=== PATIENT | male | born 1960 | race Two or more races ===

== ENCOUNTER 2017-11-27 22:18 | Emergency (ER) | payer SELFPAY ==
[2017-11-27 23:04] LABS: ADD MAN DIFF? NO
[2017-11-27 23:08] LABS: BASO % 0 % (0-3); EOS % 1 % (0-3); HEMATOCRIT 39.4 % (39.0-53.0); HEMOGLOBIN 13.8 g/dL (13.0-17.5); LYMPH # 0.7 x10^3/uL (1.0-4.8); LYMPH % 14 % (24-48); MEAN CORPUSCULAR HEMOGLOBIN 33 pg (25-35); MEAN CORPUSCULAR HGB CONC 35 g/dL (31-37); MEAN CORPUSCULAR VOLUME 93 fL (79-100); MONO # 0.6 x10^3/uL (0.0-1.1); MONO % 11 % (0-9); NEUT # 3.9 x10^3uL (1.8-7.7); NEUT % 74 % (31-73); PLATELET COUNT 142 x10^3/uL (140-400); RED BLOOD COUNT 4.25 x10^6/uL (4.30-5.70); RED CELL DISTRIBUTION WIDTH 13.9 % (11.5-14.5); WHITE BLOOD COUNT 5.2 x10^3/uL (4.0-11.0)
[2017-11-27 23:14] LABS: BILIRUBIN,URINE NEGATIVE (NEG); CLARITY,URINE CLEAR; COLOR,URINE YELLOW; GLUCOSE,URINE >=1000 mg/dL (NEG); NITRITE,URINE NEGATIVE (NEG); PH,URINE 5.5; PROTEIN,URINE NEGATIVE (NEG-TRACE); UROBILINOGEN,URINE 0.2 mg/dL (0.2 mg/dL)
[2017-11-27 23:18] LABS: ANION GAP 11 (6-14); BACTERIA,URINE 0 /HPF (0-FEW); BLOOD UREA NITROGEN 6 mg/dL (8-26); BUN/CREATININE RATIO 8 (6-20); CALCIUM 9.6 mg/dL (8.5-10.1); CARBON DIOXIDE 26 mmol/L (21-32); CHLORIDE 101 mmol/L (98-107); CREATININE 0.8 mg/dL (0.7-1.3); GLUCOSE 196 mg/dL (70-99); POTASSIUM 3.6 mmol/L (3.5-5.1); RBC,URINE 0 /HPF (0-2); SODIUM 138 mmol/L (136-145); WBC,URINE 0 /HPF (0-4)
[2017-11-27 23:23] LABS: ALBUMIN 3.7 g/dL (3.4-5.0); ALBUMIN/GLOBULIN RATIO 0.8 (1.0-1.7); ALK PHOS 115 U/L (46-116); ALT (SGPT) 58 U/L (16-63); AST (SGOT) 48 U/L (15-37); TOTAL BILIRUBIN 0.6 mg/dL (0.2-1.0); TOTAL PROTEIN 8.2 g/dL (6.4-8.2)
[2017-11-27] MEDS ORDERED: CONTRAST GIVEN. MC (23:45)
[2017-11-28] MEDS: IOHEXOL 300 MG/ML 100ML VIAL. IV (00:02)
== END 2017-11-28 00:13 | disposition home or self-care (01) ==
LOC: ER 11-28 00:13
DX: R30.0 Dysuria (principal); R10.84 Generalized abdominal pain; N40.0 Benign prostatic hyperplasia without lower urinary tract symptoms
CPT/HCPCS: 36415; 74177; 80053; 81001; 85025; 99285-25; Q9967

== ENCOUNTER 2018-03-04 11:16 | Inpatient (IN) | payer SELFPAY ==
[~2018-03-04] VITALS: Ht 170.2 cm; Wt 77.1 kg
[~2018-03-04 11:16] MED LIST: CIPR500T94 PO; LEVO500T59 PO; METR500T PO; TAMS0.4C97 PO
[2018-03-04] MEDS ORDERED: IV NORMAL SALINE 1000ML BAG 1,000 ML IV ONE ×2 (11:45→13:45)
[2018-03-04 12:07] LABS: BASO % 1 % (0-3); EOS # 0.1 x10^3/uL (0.0-0.7); EOS % 1 % (0-3); HEMOGLOBIN 13.9 g/dL (13.0-17.5); LYMPH # 1.4 x10^3/uL (1.0-4.8); LYMPH % 37 % (24-48); MEAN CORPUSCULAR HEMOGLOBIN 33 pg (25-35); MEAN CORPUSCULAR HGB CONC 36 g/dL (31-37); MEAN CORPUSCULAR VOLUME 94 fL (79-100); MONO # 0.5 x10^3/uL (0.0-1.1); MONO % 12 % (0-9); NEUT # 1.9 x10^3uL (1.8-7.7); NEUT % 49 % (31-73); PLATELET COUNT 149 x10^3/uL (140-400); RED BLOOD COUNT 4.16 x10^6/uL (4.30-5.70); RED CELL DISTRIBUTION WIDTH 13.2 % (11.5-14.5); WHITE BLOOD COUNT 3.9 x10^3/uL (4.0-11.0)
[2018-03-04 12:08] LABS: CLARITY,URINE TURBID; COLOR,URINE RED; PROTEIN,URINE >=300 mg/dL (NEG-TRACE); UROBILINOGEN,URINE >=8.0 mg/dL (0.2 mg/dL)
[2018-03-04 12:13] LABS: CALCIUM 8.7 mg/dL (8.5-10.1); CREATININE 0.7 mg/dL (0.7-1.3); GFR 116.7; POTASSIUM 3.8 mmol/L (3.5-5.1)
[2018-03-04 12:18] LABS: RBC,URINE TNTC /HPF (0-2)
[2018-03-04 12:19] LABS: BACTERIA,URINE FEW /HPF (0-FEW)
--- NOTE | 2018-03-04 12:24 | PHYS DOC ---
Past Medical History Past Medical History: Diabetes-Type II, Other Additional Past Medical Histor: BLOOD IN URINE Past Surgical History: No Surgical History Alcohol Use: Occasionally Drug Use: None Adult General Chief Complaint Chief Complaint: BLOOD IN URINE HPI HPI Patient is a 57 year old male who presents with hematuria and lower abdominal pain. Patient had onset of symptoms this morning. He describes 2 episodes of graciela blood in his urine. He does not have dysuria or urinary frequency but he does complain of some pelvic pain. No fever or chills. Patient had been evaluated in this emergency department 5 months earlier for similar presentation. He was referred to see urology but patient was unable to due to lack of financial means. The patient does not have prior history of tobacco use. Review of Systems Review of Systems Constitutional: Denies fever or chills [] Eyes: Denies change in visual acuity, redness, or eye pain [] HENT: Denies nasal congestion or sore throat [] Respiratory: Denies cough or shortness of breath [] Cardiovascular: No additional information not addressed in HPI [] GI: Denies abdominal pain, nausea, vomiting, bloody stools or diarrhea [] : Denies dysuria or hematuria [] Musculoskeletal: Denies back pain or joint pain [] Integument: Denies rash or skin lesions [] Neurologic: Denies headache, focal weakness or sensory changes [] Endocrine: Denies polyuria or polydipsia [] All other systems were reviewed and found to be within normal limits, except as documented in this note. Current Medications Current Medications Current Medications Medications (Trade) Dose Ordered Sig/Itz Start Time Stop Time Status Last Admin Dose Admin Acetaminophen (Tylenol) 650 mg PRN Q4HRS PRN 03/04/18 14:15 03/05/18 14:14 Info (CONTRAST GIVEN -- Rx MONITORING) 1 each PRN DAILY PRN 03/04/18 12:45 03/06/18 12:44 Iohexol (Omnipaque 300 Mg/ml) 75 ml 1X ONCE 03/04/18 12:30 03/04/18 12:36 DC Morphine Sulfate (Morphine Sulfate) 4 mg PRN Q2HR PRN 03/04/18 14:15 03/05/18 14:14 Ondansetron HCl (Zofran) 4 mg PRN Q8HRS PRN 03/04/18 14:15 03/05/18 14:14 Sodium Chloride 1,000 ml @ 75 mls/hr [id number] 03/04/18 14:11 03/05/18 14:10 Allergies Allergies Allergies Coded Allergies Type Severity Reaction Last Updated Verified No Known Drug Allergies 02/01/16 No Physical Exam Physical Exam Constitutional: Well developed, well nourished, no acute distress, non-toxic appearance HENT: Normocephalic, atraumatic, bilateral external ears normal, oropharynx moist Eyes: PERRLA, EOMI Neck: Normal range of motion Cardiovascular:Heart rate regular rhythm Lungs & Thorax: Bilateral breath sounds clear Abdomen: Bowel sounds normal, soft, nontender Skin: Warm, dry, no erythema, no rash Back: No tenderness Extremities: No tenderness Neurologic: Alert and oriented X 3 Psychologic: Affect normal Genital exam: Normal male genitalia with uncircumcised phallus. 2 descended testicles that are nontender to manipulation. There is blood at the meatus. no masses or hernias palpated. Current Patient Data Vital Signs Vital Signs Date Time Temp Pulse Resp B/P (MAP) Pulse Ox O2 Delivery O2 Flow Rate FiO2 03/04/18 11:21 98.1 94 18 162/95 (117) 97 Room Air 98.1 Lab Values Laboratory Tests Test 03/04/18 11:35 03/04/18 11:59 Urine Collection Type Void Urine Color Red Urine Clarity Turbid Urine pH 5.0 Urine Specific [place] 1.025 Urine Protein >=300 mg/dL (NEG-TRACE) Urine Glucose (UA) 250 mg/dL (NEG) Urine Ketones (Stick) mg/dL (NEG) Urine Blood Large (NEG) Urine Nitrite (NEG) Urine Bilirubin (NEG) Urine Urobilinogen Dipstick >=8.0 mg/dL (0.2 mg/dL) Urine Leukocyte Esterase (NEG) Urine RBC Tntc /HPF (0-2) Urine WBC 5-10 /HPF (0-4) Urine Bacteria Few /HPF (0-FEW) White Blood Count 3.9 x10^3/uL (4.0-11.0) L Red Blood Count 4.16 x10^6/uL (4.30-5.70) L Hemoglobin 13.9 g/dL (13.0-17.5) Hematocrit 39.0 % (39.0-53.0) Mean Corpuscular Volume 94 fL (79-100) Mean Corpuscular Hemoglobin 33 pg (25-35) Mean Corpuscular Hemoglobin Concent 36 g/dL (31-37) Red Cell Distribution Width 13.2 % (11.5-14.5) Platelet Count 149 x10^3/uL (140-400) Neutrophils (%) (Auto) 49 % (31-73) Lymphocytes (%) (Auto) 37 % (24-48) Monocytes (%) (Auto) 12 % (0-9) H Eosinophils (%) (Auto) 1 % (0-3) Basophils (%) (Auto) 1 % (0-3) Neutrophils # (Auto) 1.9 x10^3uL (1.8-7.7) Lymphocytes # (Auto) 1.4 x10^3/uL (1.0-4.8) Monocytes # (Auto) 0.5 x10^3/uL (0.0-1.1) Eosinophils # (Auto) 0.1 x10^3/uL (0.0-0.7) Basophils # (Auto) 0.0 x10^3/uL (0.0-0.2) Sodium Level 141 mmol/L (136-145) Potassium Level 3.8 mmol/L (3.5-5.1) Chloride Level 105 mmol/L (98-107) Carbon Dioxide Level 24 mmol/L (21-32) Anion Gap 12 (6-14) Blood Urea Nitrogen 7 mg/dL (8-26) L Creatinine 0.7 mg/dL (0.7-1.3) Estimated GFR (Cockcroft-Gault) 116.7 Glucose Level 150 mg/dL (70-99) H Calcium Level 8.7 mg/dL (8.5-10.1) Laboratory Tests 03/04/18 11:59 Laboratory Tests 03/04/18 11:59 EKG EKG [] Radiology/Procedures Radiology/Procedures Findings: Axial images of the abdomen and pelvis were obtained following 75 cc Omnipaque 300 IV. Sagittal and coronal reformatted images were provided. Visualized lung bases are clear. Fatty infiltration of the liver noted. Gallbladder fossa is unremarkable. Spleen is normal. Adrenal glands are normal. Pancreas is normal. Right extrarenal pelvis is noted. Diverticulosis of the colon is present. Appendix is normal. No ascites or pelvic free fluid. Left inguinal hernia contains omental fat. Urinary bladder is moderately distended. There is an intermediate heterogeneous density structure within the dependent aspect of the urinary bladder measuring 2.4 cm longitudinal by 7.1 cm transverse by 6 cm anteroposterior. Prostate gland is enlarged measuring up to 6.6 cm x 6 cm x 6.5 cm longitudinal. Multiple sclerotic densities are present involving the thoracic and lumbar spine. Sclerotic densities are also evident throughout the bony pelvis and proximal femora. These mostly measure less than 0.5 cm diameter. At the right intertrochanteric region a sclerotic lesion measuring up to 1.6 cm diameter is present. Diffuse sclerotic lesion involving the left ilium at the sacroiliac joint measuring up to 2.6 cm diameter is present. Impression: Intermediate density structure within the urinary bladder. This may represent a mass or hematoma. Moderate distention of the urinary bladder. Prostatomegaly. Multiple sclerotic bony lesions are diffusely evident. Possibility of sclerotic metastases due to prostate carcinoma is raised in this patient prostatomegaly. Further evaluation is recommended. Diverticulosis. Course & Med Decision Making Course & Med Decision Making Pertinent Labs and Imaging studies reviewed. (See chart for details) Patient is seen and examined. + graciela blood (scant amt) in the urinal. Labs and CT ordered. IVF's. A shunt was evaluated in the emergency department for hematuria. He had been evaluated for similar presentation several months earlier but was unable to follow-up. Today, he had a normal white count and hemoglobin. His urine was frankly bloody. His CT scan was concerning for mass versus maybe hematoma in the bladder but the patient does have large prostate now with some bony lesions in the spine and pelvis could represent metastases. The patient will be admitted for urology consultation and further workup of his CT findings and hematuria. It is unlikely he will be able to obtain the care he needs outpatient given his financial status. All results are reviewed and explained to the patient prior to admission. All of his questions are answered. The patient primarily speaks Algerian but does understand some French. His is at the bedside who helps with communication. PSA added to lab panel. No rectal exam completed today. Prostate is known to be large based on prior and today's CT scans. Dragon Disclaimer Dragon Disclaimer This electronic medical record was generated, in whole or in part, using a voice recognition dictation system. Departure Departure Referrals: UNKNOWN PCP NAME (PCP) ROLANDA RAHMAN DO Mar 04, 2018 12:24
[2018-03-04] MEDS ORDERED: IOHEXOL 300 MG/ML 100ML VIAL. IV ONE (12:30)
[2018-03-04] MEDS ORDERED: CONTRAST GIVEN. MC PRN (12:45)
--- NOTE | 2018-03-04 13:30 | RAD ---
Examination: CT ABD PELV W/ IV CONTRST ONLY History: HEMATURIA, LOWER ABDOMEN PAIN. IV OMNI 300 75 MLS.
PREVIOUS Comparison/Correlation: 10/28/2017 CT abdomen and pelvis with IV contrast Findings: Axial images of the abdomen and pelvis were obtained following 75 cc Omnipaque 300 IV. Sagittal and coronal reformatted images were provided. Visualized lung bases are clear. Fatty infiltration of the liver noted. Gallbladder fossa is unremarkable. Spleen is normal. Adrenal glands are normal. Pancreas is normal. Right extrarenal pelvis is noted. Diverticulosis of the colon is present. Appendix is normal. No ascites or pelvic free fluid. Left inguinal hernia contains omental fat. Urinary bladder is moderately distended. There is an intermediate heterogeneous density structure within the dependent aspect of the urinary bladder measuring 2.4 cm longitudinal by 7.1 cm transverse by 6 cm anteroposterior. Prostate gland is enlarged measuring up to 6.6 cm x 6 cm x 6.5 cm longitudinal. Multiple sclerotic densities are present involving the thoracic and lumbar spine. Sclerotic densities are also evident throughout the bony pelvis and proximal femora. These mostly measure less than 0.5 cm diameter. At the right intertrochanteric region a sclerotic lesion measuring up to 1.6 cm diameter is present. Diffuse sclerotic lesion involving the left ilium at the sacroiliac joint measuring up to 2.6 cm diameter is present. Impression: Intermediate density structure within the urinary bladder. This may represent a mass or hematoma. Moderate distention of the urinary bladder. Prostatomegaly. Multiple sclerotic bony lesions are diffusely evident. Possibility of sclerotic metastases due to prostate carcinoma is raised in this patient prostatomegaly. Further evaluation is recommended. Diverticulosis. Electronically signed by: Rakan Coleman MD (03/04/2018 1:27 PM) [facility]
[2018-03-04] MEDS: IV NORMAL SALINE 1000ML BAG 1,000 ML IV SCH ×2 (14:11→22:29)
[2018-03-04] MEDS ORDERED: ACETAMINOPHEN 325 MG TABLET. PO PRN (14:15)
[2018-03-04] MEDS ORDERED: ONDANSETRON PF 4 MG/2 ML VIAL. IV PRN ×2 (14:15→15:00)
[2018-03-04] MEDS ORDERED: chlordiazePOXIDE HCL 25 MG CAPSULE PO PRN (15:00)
[2018-03-04] MEDS ORDERED: diphenhydrAMINE HCL 25 MG CAPSULE PO PRN (15:00)
--- NOTE | 2018-03-04 15:03 | PDOC1 ---
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 He is self-pay has have having trouble to see a urologist. There is gross hematuria on the urinal. Hemoglobin stable, vital signs okay, but CAT scan shows a huge bladder mass maybe 7 x 12 cm in greatest diameter, enlarged prostate with possibly metastases into the bones. Patient is complaining of back pain. We'll admit, have urology see. I will make nothing by mouth just in case cystoscopy tomorrow. 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 Discussed with family at bedside to help translate, agreeable with my plan. Patient does not smoke but drinks significant alcohol every day. No signs of alcohol withdrawal yet. No reports of weight loss per salon/spa manager Past Medical History Cardiovascular: No pertinent hx Pulmonary: No pertinent hx GI: No pertinent hx Heme/Onc: No pertinent hx Hepatobiliary: No pertinent hx Psych: No pertinent hx Rheumatologic: No pertinent hx Infectious disease: No pertinent hx Renal/: No pertinent hx Endocrine: No pertinent hx Past Surgical History Past Surgical History: No pertinent history Family History Family History: Family History Unknown Social History Smoke: No ALCOHOL: heavy Drugs: None Current Problem List Problem List Problems Medical Problems: (1) Bladder mass Status: Acute (2) Hematuria Status: Acute Current Medications Current Medications Current Medications Sodium Chloride 1,000 ml @ 1,000 mls/hr 1X ONCE IV Last administered on 03/04at 12:07; Start 03/04/18 at 11:45; Stop 03/04/18 at 12:44; Status DC Iohexol (Omnipaque 300 Mg/ml) 75 ml 1X ONCE IV ; Start 03/04/18 at 12:30; Stop 03/04/18 at 12:36; Status DC Info (CONTRAST GIVEN -- Rx MONITORING) 1 each PRN DAILY PRN MC SEE COMMENTS; Start 03/04/18 at 12:45; Stop 03/06/18 at 12:44 Sodium Chloride 1,000 ml @ 1,000 mls/hr 1X ONCE IV Last administered on 03/04at 13:45; Start 03/04/18 at 13:45; Stop 03/04/18 at 14:44; Status DC Ondansetron HCl (Zofran) 4 mg PRN Q8HRS PRN IV NAUSEA/VOMITING; Start at 14:15; Stop 03/04/18 at 14:56; Status DC Morphine Sulfate (Morphine Sulfate) 4 mg PRN Q2HR PRN IV PAIN; Start 03/04/18 at 14:15; Stop 03/05/18 at 14:14 Sodium Chloride 1,000 ml @ 125 mls/hr Q8H IV ; Start 03/04/18 at 14:11; Stop 03/05/18 at 14:10 Acetaminophen (Tylenol) 650 mg PRN Q4HRS PRN PO FEVER; Start 03/04/18 at 14:15 ; Stop 03/05/18 at 14:14 Ondansetron HCl (Zofran) 4 mg PRN Q6HRS PRN IV NAUSEA/VOMITING; Start at 15:00; Status UNV Diphenhydramine HCl (Benadryl) 25 mg PRN QHS PRN PO INSOMNIA; Start 03/04/18 at 15:00; Status UNV Active Scripts Active Flomax (Tamsulosin Hcl) 0.4 Mg Cap.er.24h 1 Cap PO DAILY 7 Days Cipro (Ciprofloxacin Hcl) 500 Mg Tablet 1 Tab PO BID 10 Days Flagyl (Metronidazole) 500 Mg Tablet 1 Tab PO TID Levaquin (Levofloxacin) 500 Mg Tablet 1 Tab PO DAILY Allergies Allergies: Coded Allergies: No Known Drug Allergies (Unverified , 02/01/16) ROS Review of System As per history of present illness, rest of 14 point negative Physical Exam General: Alert, Oriented X3, Cooperative, No acute distress HEENT: Atraumatic, PERRLA, EOMI Lungs: Clear to auscultation, Normal air movement Heart: S1S2, RRR, no thrills, no rubs, no gallops, no murmurs Cardiovascular: S1, S2 Abdomen: Normal bowel sounds, Soft, No tenderness, No hepatosplenomegaly, No masses Male Genitals Exam: normal genitalia, other (enlarged prostate) Extremities: No clubbing, No cyanosis, No edema, Normal pulses, No tenderness/ swelling Skin: No rashes, No breakdown, No significant lesion Neuro: Normal gait, Normal speech, Strength at 5/5 X4 ext, Normal tone, Sensation intact, Cranial nerves 3-12 NL, Reflexes 2+ Psych/Mental Status: Mental status NL, Mood NL Vitals Vitals Vital Signs Date Time Temp Pulse Resp B/P (MAP) Pulse Ox O2 Delivery O2 Flow Rate FiO2 03/04/18 11:21 98.1 94 18 162/95 (117) 97 Room Air 98.1 Labs Labs Laboratory Tests Test 03/04/18 11:35 03/04/18 11:59 Urine Collection Type Void Urine Color Red Urine Clarity Turbid Urine pH 5.0 Urine Specific [place] 1.025 Urine Protein >=300 mg/dL (NEG-TRACE) Urine Glucose (UA) 250 mg/dL (NEG) Urine Ketones (Stick) mg/dL (NEG) Urine Blood Large (NEG) Urine Nitrite (NEG) Urine Bilirubin (NEG) Urine Urobilinogen Dipstick >=8.0 mg/dL (0.2 mg/dL) Urine Leukocyte Esterase (NEG) Urine RBC Tntc /HPF (0-2) Urine WBC 5-10 /HPF (0-4) Urine Bacteria Few /HPF (0-FEW) White Blood Count 3.9 x10^3/uL (4.0-11.0) Red Blood Count 4.16 x10^6/uL (4.30-5.70) Hemoglobin 13.9 g/dL (13.0-17.5) Hematocrit 39.0 % (39.0-53.0) Mean Corpuscular Volume 94 fL (79-100) Mean Corpuscular Hemoglobin 33 pg (25-35) Mean Corpuscular Hemoglobin Concent 36 g/dL (31-37) Red Cell Distribution Width 13.2 % (11.5-14.5) Platelet Count 149 x10^3/uL (140-400) Neutrophils (%) (Auto) 49 % (31-73) Lymphocytes (%) (Auto) 37 % (24-48) Monocytes (%) (Auto) 12 % (0-9) Eosinophils (%) (Auto) 1 % (0-3) Basophils (%) (Auto) 1 % (0-3) Neutrophils # (Auto) 1.9 x10^3uL (1.8-7.7) Lymphocytes # (Auto) 1.4 x10^3/uL (1.0-4.8) Monocytes # (Auto) 0.5 x10^3/uL (0.0-1.1) Eosinophils # (Auto) 0.1 x10^3/uL (0.0-0.7) Basophils # (Auto) 0.0 x10^3/uL (0.0-0.2) Sodium Level 141 mmol/L (136-145) Potassium Level 3.8 mmol/L (3.5-5.1) Chloride Level 105 mmol/L (98-107) Carbon Dioxide Level 24 mmol/L (21-32) Anion Gap 12 (6-14) Blood Urea Nitrogen 7 mg/dL (8-26) Creatinine 0.7 mg/dL (0.7-1.3) Estimated GFR (Cockcroft-Gault) 116.7 Glucose Level 150 mg/dL (70-99) Calcium Level 8.7 mg/dL (8.5-10.1) Laboratory Tests Test 03/04/18 11:35 03/04/18 11:59 Urine Collection Type Void Urine Color Red Urine Clarity Turbid Urine pH 5.0 Urine Specific [place] 1.025 Urine Protein >=300 mg/dL (NEG-TRACE) Urine Glucose (UA) 250 mg/dL (NEG) Urine Ketones (Stick) mg/dL (NEG) Urine Blood Large (NEG) Urine Nitrite (NEG) Urine Bilirubin (NEG) Urine Urobilinogen Dipstick >=8.0 mg/dL (0.2 mg/dL) Urine Leukocyte Esterase (NEG) Urine RBC Tntc /HPF (0-2) Urine WBC 5-10 /HPF (0-4) Urine Bacteria Few /HPF (0-FEW) White Blood Count 3.9 x10^3/uL (4.0-11.0) Red Blood Count 4.16 x10^6/uL (4.30-5.70) Hemoglobin 13.9 g/dL (13.0-17.5) Hematocrit 39.0 % (39.0-53.0) Mean Corpuscular Volume 94 fL (79-100) Mean Corpuscular Hemoglobin 33 pg (25-35) Mean Corpuscular Hemoglobin Concent 36 g/dL (31-37) Red Cell Distribution Width 13.2 % (11.5-14.5) Platelet Count 149 x10^3/uL (140-400) Neutrophils (%) (Auto) 49 % (31-73) Lymphocytes (%) (Auto) 37 % (24-48) Monocytes (%) (Auto) 12 % (0-9) Eosinophils (%) (Auto) 1 % (0-3) Basophils (%) (Auto) 1 % (0-3) Neutrophils # (Auto) 1.9 x10^3uL (1.8-7.7) Lymphocytes # (Auto) 1.4 x10^3/uL (1.0-4.8) Monocytes # (Auto) 0.5 x10^3/uL (0.0-1.1) Eosinophils # (Auto) 0.1 x10^3/uL (0.0-0.7) Basophils # (Auto) 0.0 x10^3/uL (0.0-0.2) Sodium Level 141 mmol/L (136-145) Potassium Level 3.8 mmol/L (3.5-5.1) Chloride Level 105 mmol/L (98-107) Carbon Dioxide Level 24 mmol/L (21-32) Anion Gap 12 (6-14) Blood Urea Nitrogen 7 mg/dL (8-26) Creatinine 0.7 mg/dL (0.7-1.3) Estimated GFR (Cockcroft-Gault) 116.7 Glucose Level 150 mg/dL (70-99) Calcium Level 8.7 mg/dL (8.5-10.1) VTE Prophylaxis Ordered VTE Prophylaxis Devices: Yes VTE Pharmacological Prophylaxi: Yes Assessment/Plan Assessment/Plan Gross hematuria - will defer glez cath insertion and irrigation to urology Enlarged prostate-possibilities include prostate cancer or bladder CA-agree with check PSA, likely will need cysto Bladder mass, 7 x 12 cm's in greatest diameter Language barrier Back pain evidence of metastatic lesions on imaging PLAn: Reg diet for now then nothing by mouth post midnight Flomax IV fluid Bladder irrigation of Lgez catheter is inserted by urology MIght need cysto Heme onc consult for this high likelihood of urogenital CA Urology consult Check coags now in case procedure tmr MICHAEL protocol Alcohol cessation 1:1 done at ER Discussed with salon/spa manager at bedside Seen at ER ROSE CHEUNG MD Mar 04, 2018 15:03
[2018-03-04] MEDS: MORPHINE SULFATE 4 MG/ML VIAL. IV PRN ×4 (15:06→22:27)
[2018-03-04 15:20] LABS: PROTHROMBIN TIME PATIENT 13.9 SEC (11.7-14.0)
[2018-03-04] MEDS ORDERED: MULTIVIT INFUSN,ADULT 4,VIT K 10 ML, THIAMINE INJ 100 MG, FOLIC ACID INJ 1 MG in IV NOR... IV ONE (15:30)
[2018-03-04 15:40] VITALS: BP 129/79
[2018-03-04] MEDS ORDERED: LABETALOL 20 MG/4 ML DISP.SYRIN. IVP ONE (16:15)
--- NOTE | 2018-03-04 16:17 | EKG ---
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
[2018-03-04] MEDS ORDERED: LABETALOL 20 MG/4 ML DISP.SYRIN. IVP PRN (18:00)
[2018-03-04] MEDS ORDERED: LIDOCAINE 2% JELLY 6ML IN APPLICATOR. MM ONE (18:15)
[2018-03-04 19:00] VITALS: BP 153/83
--- NOTE | 2018-03-04 19:08 | PDOC2 ---
UROLOGY CONSULT Date of Consult Date of Consult DATE: 03/04/18 TIME: 18:59 Reason for Consult Reason for Consult: gross hematuria Identification/Chief Complaint Chief Complaint blood in urine Source Source: Caregiver, Patient History of Present Illness Reason for Visit: 57 yo male admitted for gross heamturia that started this AM. Patient is Gabonese speaking, history obtained through [facility] speaking staff member. Had an episode of blood in urine about 3 months ago - was told he has a UTI. Has been unable to void since hematuria started. Slowing urine stream prior to admission. Denies weight loss, bone pain. CT in ER today - enlarged prostate, distended bladder, multiple sclerotic bone lesions. I reviewed CT images, not an obvious mass in bladder, but did have large amount of blood clot present. He denies prior diagnosis of malignancy. Past Medical History Cardiovascular: No pertinent hx Pulmonary: No pertinent hx GI: No pertinent hx Heme/Onc: No pertinent hx Hepatobiliary: No pertinent hx Psych: No pertinent hx Rheumatologic: No pertinent hx Infectious disease: No pertinent hx Renal/: No pertinent hx Endocrine: No pertinent hx Past Surgical History Past Surgical History: No pertinent history Family History Family History: Family History Unknown Social History No ALCOHOL: heavy Drugs: None Current Medications Current Medications Current Medications Acetaminophen (Tylenol) 650 mg PRN Q4HRS PRN PO FEVER; Start 03/04/18 at 14:15 ; Stop 03/05/18 at 14:14 Chlordiazepoxide (Librium) 25 mg PRN Q6HRS PRN PO ANXIETY / AGITATION; Start 03/04/18 at 15:00 Diphenhydramine HCl (Benadryl) 25 mg PRN QHS PRN PO INSOMNIA; Start 03/04/18 at 15:00 Folic Acid (Folic Acid) 1 mg DAILY PO ; Start 03/05/18 at 09:00 Info (CONTRAST GIVEN -- Rx MONITORING) 1 each PRN DAILY PRN MC SEE COMMENTS; Start 03/04/18 at 12:45; Stop 03/06/18 at 12:44 Iohexol (Omnipaque 300 Mg/ml) 75 ml 1X ONCE IV ; Start 03/04/18 at 12:30; Stop 03/04/18 at 12:36; Status DC Labetalol HCl (Normodyne Iv Push) 20 mg 1X ONCE IVP ; Start 03/04/18 at 16:15 ; Stop 03/04/18 at 16:35; Status DC Labetalol HCl (Normodyne Iv Push) 20 mg PRN Q2HR PRN IVP HYPERTENSION, SEE COMMENTS; Start 03/04/18 at 18:00 Lidocaine HCl (Glydo (Lidocaine) Jelly) 1 eleni 1X ONCE MM ; Start 03/04/18 at 18:15; Stop 03/04/18 at 18:16; Status DC Morphine Sulfate (Morphine Sulfate) 4 mg PRN Q2HR PRN IV PAIN Last administered on 03/04/18at 16:30; Start 03/04/18 at 14:15; Stop 03/05/18 at 14 :14 Multivitamins (Thera M Plus) 1 tab DAILY PO ; Start 03/05/18 at 09:00 Multivitamins 10 ml/Thiamine HCl 100 mg/Folic Acid 1 mg/Sodium Chloride 1,011.2 ml @ 1,000.088 mls/hr 1X ONCE IV Last administered on 03/04/18at 16:31; Start 03/04/18 at 15:30; Stop 03/04/18 at 16:35; Status DC Ondansetron HCl (Zofran) 4 mg PRN Q6HRS PRN IV NAUSEA/VOMITING Last administered on 03/04/18at 15:05; Start 03/04/18 at 15:00 Ondansetron HCl (Zofran) 4 mg PRN Q8HRS PRN IV NAUSEA/VOMITING; Start at 14:15; Stop 03/04/18 at 14:56; Status DC Sodium Chloride 1,000 ml @ 125 mls/hr Q8H IV ; Start 03/04/18 at 14:11; Stop 03/05/18 at 14:10 Sodium Chloride 1,000 ml @ 1,000 mls/hr 1X ONCE IV Last administered on 03/04at 12:07; Start 03/04/18 at 11:45; Stop 03/04/18 at 12:44; Status DC Sodium Chloride 1,000 ml @ 1,000 mls/hr 1X ONCE IV Last administered on 03/04at 13:45; Start 03/04/18 at 13:45; Stop 03/04/18 at 14:44; Status DC Thiamine Mononitrate (Vitamin B-1) 100 mg DAILY PO ; Start 03/05/18 at 09:00 Allergies Allergies: Coded Allergies: No Known Drug Allergies (Unverified , 02/01/16) ROS Review Of Systems: Except as noted in HPI: CONSTITUTIONAL: No fever or chills EYES: No recent changes SKIN: No rash or itching CARDIOVASCULAR: No chest pain, syncope, palpitations, or edema RESPIRATORY: No SOB or cough GASTROINTESTINAL: + abdominal pain. NEUROLOGICAL: No headaches or weakness ENDOCRINE: No cold or heat intolerance GENITOURINARY: No urgency or frequency of urination MUSCULOSKELETAL: No back pain or joint pain LYMPHATICS: No enlarged lymph nodes PSYCHIATRIC: No anxiety or depression Physical Exam Physical Exam: General: Pleasant, mild acute distress, well groomed Eyes: conjunctiva anicteric, eyes full range of motion ENT: moist oral mucosa, normal dentition Neck: Trachea midline, no masses Respiratory: unlabored breathing, not using accessory muscles, no crackles or wheezes Cardiovascular: Regular rate and rhythm, no peripheral edema Abdomen: Suprapubic distention and tenderness. no hepatosplenomegaly, no masses Skin: no rashes or skin lesions on visualized skin Psych: normal mood, affect. Alert and oriented x 3. : uncircumciszed phallus. normal testes. Prostate > 60 grams, firm throughout. Vitals VITALS Vital Signs Date Time Temp Pulse Resp B/P (MAP) Pulse Ox O2 Delivery O2 Flow Rate FiO2 03/04/18 16:30 20 95 Room Air 03/04/18 15:40 98.3 150 129/79 (96) 98.3 Labs Labs Laboratory Tests Test 03/04/18 11:35 03/04/18 11:59 03/04/18 16:02 Urine Collection Type Void Urine Color Red Urine Clarity Turbid Urine pH 5.0 Urine Specific [place] 1.025 Urine Protein >=300 mg/dL (NEG-TRACE) Urine Glucose (UA) 250 mg/dL (NEG) Urine Ketones (Stick) mg/dL (NEG) Urine Blood Large (NEG) Urine Nitrite (NEG) Urine Bilirubin (NEG) Urine Urobilinogen Dipstick >=8.0 mg/dL (0.2 mg/dL) Urine Leukocyte Esterase (NEG) Urine RBC Tntc /HPF (0-2) Urine WBC 5-10 /HPF (0-4) Urine Bacteria Few /HPF (0-FEW) White Blood Count 3.9 x10^3/uL (4.0-11.0) Red Blood Count 4.16 x10^6/uL (4.30-5.70) Hemoglobin 13.9 g/dL (13.0-17.5) Hematocrit 39.0 % (39.0-53.0) Mean Corpuscular Volume 94 fL (79-100) Mean Corpuscular Hemoglobin 33 pg (25-35) Mean Corpuscular Hemoglobin Concent 36 g/dL (31-37) Red Cell Distribution Width 13.2 % (11.5-14.5) Platelet Count 149 x10^3/uL (140-400) Neutrophils (%) (Auto) 49 % (31-73) Lymphocytes (%) (Auto) 37 % (24-48) Monocytes (%) (Auto) 12 % (0-9) Eosinophils (%) (Auto) 1 % (0-3) Basophils (%) (Auto) 1 % (0-3) Neutrophils # (Auto) 1.9 x10^3uL (1.8-7.7) Lymphocytes # (Auto) 1.4 x10^3/uL (1.0-4.8) Monocytes # (Auto) 0.5 x10^3/uL (0.0-1.1) Eosinophils # (Auto) 0.1 x10^3/uL (0.0-0.7) Basophils # (Auto) 0.0 x10^3/uL (0.0-0.2) Prothrombin Time 13.9 SEC (11.7-14.0) Prothromb Time International Ratio 1.1 (0.8-1.1) Sodium Level 141 mmol/L (136-145) Potassium Level 3.8 mmol/L (3.5-5.1) Chloride Level 105 mmol/L (98-107) Carbon Dioxide Level 24 mmol/L (21-32) Anion Gap 12 (6-14) Blood Urea Nitrogen 7 mg/dL (8-26) Creatinine 0.7 mg/dL (0.7-1.3) Estimated GFR (Cockcroft-Gault) 116.7 Glucose Level 150 mg/dL (70-99) Calcium Level 8.7 mg/dL (8.5-10.1) Glucose (Fingerstick) 174 mg/dL (70-99) Laboratory Tests Test 03/04/18 11:35 03/04/18 11:59 03/04/18 16:02 Urine Collection Type Void Urine Color Red Urine Clarity Turbid Urine pH 5.0 Urine Specific [place] 1.025 Urine Protein >=300 mg/dL (NEG-TRACE) Urine Glucose (UA) 250 mg/dL (NEG) Urine Ketones (Stick) mg/dL (NEG) Urine Blood Large (NEG) Urine Nitrite (NEG) Urine Bilirubin (NEG) Urine Urobilinogen Dipstick >=8.0 mg/dL (0.2 mg/dL) Urine Leukocyte Esterase (NEG) Urine RBC Tntc /HPF (0-2) Urine WBC 5-10 /HPF (0-4) Urine Bacteria Few /HPF (0-FEW) White Blood Count 3.9 x10^3/uL (4.0-11.0) Red Blood Count 4.16 x10^6/uL (4.30-5.70) Hemoglobin 13.9 g/dL (13.0-17.5) Hematocrit 39.0 % (39.0-53.0) Mean Corpuscular Volume 94 fL (79-100) Mean Corpuscular Hemoglobin 33 pg (25-35) Mean Corpuscular Hemoglobin Concent 36 g/dL (31-37) Red Cell Distribution Width 13.2 % (11.5-14.5) Platelet Count 149 x10^3/uL (140-400) Neutrophils (%) (Auto) 49 % (31-73) Lymphocytes (%) (Auto) 37 % (24-48) Monocytes (%) (Auto) 12 % (0-9) Eosinophils (%) (Auto) 1 % (0-3) Basophils (%) (Auto) 1 % (0-3) Neutrophils # (Auto) 1.9 x10^3uL (1.8-7.7) Lymphocytes # (Auto) 1.4 x10^3/uL (1.0-4.8) Monocytes # (Auto) 0.5 x10^3/uL (0.0-1.1) Eosinophils # (Auto) 0.1 x10^3/uL (0.0-0.7) Basophils # (Auto) 0.0 x10^3/uL (0.0-0.2) Prothrombin Time 13.9 SEC (11.7-14.0) Prothromb Time International Ratio 1.1 (0.8-1.1) Sodium Level 141 mmol/L (136-145) Potassium Level 3.8 mmol/L (3.5-5.1) Chloride Level 105 mmol/L (98-107) Carbon Dioxide Level 24 mmol/L (21-32) Anion Gap 12 (6-14) Blood Urea Nitrogen 7 mg/dL (8-26) Creatinine 0.7 mg/dL (0.7-1.3) Estimated GFR (Cockcroft-Gault) 116.7 Glucose Level 150 mg/dL (70-99) Calcium Level 8.7 mg/dL (8.5-10.1) Glucose (Fingerstick) 174 mg/dL (70-99) Assessment/Plan Assessment/Plan 24 Fr coude glez placed with return of 1400 ml blood urine. Was unable to place straight glez due to prostate anatomy. Bladder then hand irrigated with 1.5 liters water, with return of 200 ml + blood clots. Urine clear light pink after that. Patient had significant discomfort with glez placement. Will continue with 2-way glez overnight, I do not think he will tolerate another glez placement this evening. Will have nursing staff flusj catheter q 6 hrs and PRN if dark urine / clots / catheter not draining. Will reassess in AM - might need cysto / clot evac in OR. Concern for metastatic prostate cancer. May need TURP this admission - will reassess in AM. NPO at midnight in case procedure needed tomorrow. Start finasteride for prostate bleeding. Recommend oncology consult in AM. RAY FRIEND MD Mar 04, 2018 19:08
[2018-03-04 23:00] VITALS: BP 121/73
[2018-03-05 03:00] VITALS: BP 126/77
[2018-03-05 03:32] LABS: HEMATOCRIT 31.4 % (39.0-53.0); HEMOGLOBIN 11.1 g/dL (13.0-17.5)
[2018-03-05] MEDS ORDERED: METF500S5 PO (03:59)
[2018-03-05] MEDS: MORPHINE SULFATE 4 MG/ML VIAL. IV PRN ×2 (05:14→11:35)
[2018-03-05] MEDS: IV NORMAL SALINE 1000ML BAG 1,000 ML IV SCH (06:29)
[2018-03-05 07:00] VITALS: BP 128/85
[2018-03-05] MEDS: MULTIVITAMIN with MINERAL TABLET. PO SCH (09:00)
[2018-03-05] MEDS: THIAMINE 100 MG TABLET. PO SCH (09:00)
[2018-03-05] MEDS: FOLIC ACID 1 MG TABLET. PO SCH (09:00)
--- NOTE | 2018-03-05 09:02 | PDOC ---
SUBJECTIVE Subjective RENT AND MISCELLANEOUS REMITTANCE CLERK entered room when Zari and student nurse were flushing glez catheter. Zari related that she had gotten out several clots and bloody return of urine and had been irrigating for ten minutes. Pt did have some pain with irrigation and is requesting something for pain in Lao. OBJECTIVE Objective Physical Exam: General appearance: Alert and Oriented Head: Normocephalic, without obvious abnormality Eyes: conjunctivae/corneas clear. PERRL, EOM's intact. Fundi benign Lungs: regular respirations. Pelvic: uncircumcised phallus. Glez in place. Zari had already irrigated with one liter of NS for about ten minutes. RENT AND MISCELLANEOUS REMITTANCE CLERK Avhe irrigated with another 400 and noticed a significant change between start of irrigation to finish. Urine went from Smith red to light watermelon color with just a few small wisps of clot. When RENT AND MISCELLANEOUS REMITTANCE CLERK Vahe left catheter was draining watermelon color urine with just a few scant wisps. Vital Signs Vital Signs Date Time Temp Pulse Resp B/P (MAP) Pulse Ox O2 Delivery O2 Flow Rate FiO2 03/05/18 07:00 98.8 85 18 128/85 (99) 94 Room Air 98.8 03/05/18 05:44 16 97 Room Air 03/05/18 05:14 16 97 Room Air 03/05/18 03:00 98.7 91 18 126/77 (93) 97 Room Air 98.7 03/04/18 23:00 98.9 91 18 121/73 (89) 97 Room Air 98.9 03/04/18 22:27 16 95 Room Air 03/04/18 20:21 150 129/79 03/04/18 20:00 Room Air 03/04/18 19:00 98.1 91 18 153/83 (106) 94 Room Air 98.1 03/04/18 17:00 Room Air 03/04/18 16:30 20 95 Room Air 03/04/18 15:40 98.3 150 24 129/79 (96) 99 Room Air 98.3 03/04/18 15:40 98.3 150 24 129/79 (96) 99 Room Air 98.3 03/04/18 15:06 20 98 Room Air 03/04/18 15:00 110 22 151/81 (104) 98 Room Air 03/04/18 14:46 106 142/78 (99) 98 Room Air 03/04/18 14:16 116 162/94 (116) 99 Room Air 03/04/18 13:46 94 141/82 (101) 99 Room Air 03/04/18 13:16 161/88 (112) Room Air 03/04/18 11:21 98.1 94 18 162/95 (117) 97 Room Air 98.1 I & O Intake and Output 03/05/18 07:00 Intake Total 2000 ml Balance 2000 ml Intake IV Total 2000 ml # Voids 8 PHYSICAL EXAM Physical Exam Physical Exam: General appearance: Alert and Oriented Head: Normocephalic, without obvious abnormality Eyes: conjunctivae/corneas clear. PERRL, EOM's intact. Fundi benign Lungs: regular respirations. Pelvic: uncircumcised phallus. Glez in place. Zari had already irrigated with one liter of NS for about ten minutes. RENT AND MISCELLANEOUS REMITTANCE CLERK Vahe irrigated with another 400 and noticed a significant change between start of irrigation to finish. Urine went from Smith red to light watermelon color with just a few small wisps of clot. When RENT AND MISCELLANEOUS REMITTANCE CLERK Vahe left catheter was draining watermelon color urine with just a few scant wisps. ASSESSMENT/PLAN Assessment/Plan RN plus RENT AND MISCELLANEOUS REMITTANCE CLERK efforts of total of 1400 cc NS in yielded around 500 cc of smith colored urine with clots which only started to thin out with the last 200-300 cc instillation. Keep patient NPO and continue flushes for now. Next one due in six hours. Will coordinate with surgeon to see if we can get him added on for TUBT later today. Concern for metastatic prostate cancer. Continue IVF, pain control. Continue finasteride for prostate bleeding. Oncology consult has already been entered. Discussed POC with attending RN. Will follow. COMMENT Lab Laboratory Tests Test 03/04/18 11:35 03/04/18 11:59 03/04/18 16:02 03/04/18 21:06 Urine Collection Type Void Urine Color Red Urine Clarity Turbid Urine pH 5.0 Urine Specific [place] 1.025 Urine Protein >=300 mg/dL (NEG-TRACE) Urine Glucose (UA) 250 mg/dL (NEG) Urine Ketones (Stick) mg/dL (NEG) Urine Blood Large (NEG) Urine Nitrite (NEG) Urine Bilirubin (NEG) Urine Urobilinogen Dipstick >=8.0 mg/dL (0.2 mg/dL) Urine Leukocyte Esterase (NEG) Urine RBC Tntc /HPF (0-2) Urine WBC 5-10 /HPF (0-4) Urine Bacteria Few /HPF (0-FEW) White Blood Count 3.9 x10^3/uL (4.0-11.0) Red Blood Count 4.16 x10^6/uL (4.30-5.70) Hemoglobin 13.9 g/dL (13.0-17.5) Hematocrit 39.0 % (39.0-53.0) Mean Corpuscular Volume 94 fL (79-100) Mean Corpuscular Hemoglobin 33 pg (25-35) Mean Corpuscular Hemoglobin Concent 36 g/dL (31-37) Red Cell Distribution Width 13.2 % (11.5-14.5) Platelet Count 149 x10^3/uL (140-400) Neutrophils (%) (Auto) 49 % (31-73) Lymphocytes (%) (Auto) 37 % (24-48) Monocytes (%) (Auto) 12 % (0-9) Eosinophils (%) (Auto) 1 % (0-3) Basophils (%) (Auto) 1 % (0-3) Neutrophils # (Auto) 1.9 x10^3uL (1.8-7.7) Lymphocytes # (Auto) 1.4 x10^3/uL (1.0-4.8) Monocytes # (Auto) 0.5 x10^3/uL (0.0-1.1) Eosinophils # (Auto) 0.1 x10^3/uL (0.0-0.7) Basophils # (Auto) 0.0 x10^3/uL (0.0-0.2) Prothrombin Time 13.9 SEC (11.7-14.0) Prothromb Time International Ratio 1.1 (0.8-1.1) Sodium Level 141 mmol/L (136-145) Potassium Level 3.8 mmol/L (3.5-5.1) Chloride Level 105 mmol/L (98-107) Carbon Dioxide Level 24 mmol/L (21-32) Anion Gap 12 (6-14) Blood Urea Nitrogen 7 mg/dL (8-26) Creatinine 0.7 mg/dL (0.7-1.3) Estimated GFR (Cockcroft-Gault) 116.7 Glucose Level 150 mg/dL (70-99) Calcium Level 8.7 mg/dL (8.5-10.1) Glucose (Fingerstick) 174 mg/dL (70-99) 151 mg/dL (70-99) Test 03/05/18 03:15 03/05/18 07:28 Hemoglobin 11.1 g/dL (13.0-17.5) Hematocrit 31.4 % (39.0-53.0) Mean Corpuscular Hemoglobin Concent 36 g/dL (31-37) Glucose (Fingerstick) 129 mg/dL (70-99) ESTRELLA PANIAGUA APRN Mar 05, 2018 09:02
[2018-03-05 09:03] LABS: CLARITY,URINE BLOODY; COLOR,URINE RED
[2018-03-05 09:15] LABS: RBC,URINE TNTC /HPF (0-2)
[2018-03-05 09:19] LABS: BACTERIA,URINE 0 /HPF (0-FEW)
[2018-03-05 11:00] VITALS: BP 136/80
[2018-03-05] MEDS ORDERED: DOCUSATE SODIUM 100 MG CAPSULE. PO PRN (13:45)
[2018-03-05] MEDS ORDERED: ONDANSETRON PF 4 MG/2 ML VIAL. IV PRN (13:45)
--- NOTE | 2018-03-05 13:45 | PDOC ---
PROGRESS NOTES Chief Complaint Chief Complaint Gross hematuria 2/2 plate mill mill hand likely Enlarged prostate-possibilities include prostate cancer or bladder CA Bladder mass, 7 x 12 cm's in greatest diameter Language barrier Back pain evidence of metastatic lesions on imaging plan: fu with uro, cystoscopy today, has glez for now fu with onco, likely has plate mill mill hand with >200 PSA, and mass in bladder, bone mets ct chest for staging, bone scan pt has language barrier, no family, has a gf. will try to talk to her and make sure pt understands Ca History of Present Illness History of Present Illness ROS: no fever, chills, sob or chest pain cont having hematuria , has glez with flush with nurse, clots coming out, bright red no pain Vitals Vitals Vital Signs Date Time Temp Pulse Resp B/P (MAP) Pulse Ox O2 Delivery O2 Flow Rate FiO2 03/05/18 11:35 95 Room Air 03/05/18 11:00 98.2 78 18 136/80 (98) 98.2 Physical Exam General: Alert, Oriented X3, Cooperative, No acute distress Lungs: Clear Abdomen: Normal bowel sounds, Soft, No tenderness, No hepatosplenomegaly, No masses Extremities: No clubbing, No cyanosis, No edema, Normal pulses, No tenderness/ swelling Skin: No rashes, No breakdown, No significant lesion Labs LABS Laboratory Tests Test 03/04/18 16:02 03/04/18 21:06 03/05/18 03:15 03/05/18 07:28 Glucose (Fingerstick) 174 mg/dL (70-99) 151 mg/dL (70-99) 129 mg/dL (70-99) Hemoglobin 11.1 g/dL (13.0-17.5) Hematocrit 31.4 % (39.0-53.0) Mean Corpuscular Hemoglobin Concent 36 g/dL (31-37) Test 03/05/18 08:28 03/05/18 11:27 Urine Collection Type Unknown Urine Color Red Urine Clarity Bloody Urine pH Urine Specific [place] 1.020 Urine Protein mg/dL (NEG-TRACE) Urine Glucose (UA) mg/dL (NEG) Urine Ketones (Stick) mg/dL (NEG) Urine Blood (NEG) Urine Nitrite (NEG) Urine Bilirubin (NEG) Urine Urobilinogen Dipstick mg/dL (0.2 mg/dL) Urine Leukocyte Esterase (NEG) Urine RBC Tntc /HPF (0-2) Urine WBC 1-4 /HPF (0-4) Urine Bacteria 0 /HPF (0-FEW) Glucose (Fingerstick) 136 mg/dL (70-99) Assessment and Plan Assessmemt and Plan Problems Medical Problems: (1) Bladder mass Status: Acute (2) Hematuria Status: Acute Comment Review of Relevant I have reviewed the following items mame (where applicable) has been applied. Labs Laboratory Tests Test 03/04/18 11:35 03/04/18 11:59 03/04/18 16:02 03/04/18 21:06 Urine Collection Type Void Urine Color Red Urine Clarity Turbid Urine pH 5.0 Urine Specific [place] 1.025 Urine Protein >=300 mg/dL (NEG-TRACE) Urine Glucose (UA) 250 mg/dL (NEG) Urine Ketones (Stick) mg/dL (NEG) Urine Blood Large (NEG) Urine Nitrite (NEG) Urine Bilirubin (NEG) Urine Urobilinogen Dipstick >=8.0 mg/dL (0.2 mg/dL) Urine Leukocyte Esterase (NEG) Urine RBC Tntc /HPF (0-2) Urine WBC 5-10 /HPF (0-4) Urine Bacteria Few /HPF (0-FEW) White Blood Count 3.9 x10^3/uL (4.0-11.0) Red Blood Count 4.16 x10^6/uL (4.30-5.70) Hemoglobin 13.9 g/dL (13.0-17.5) Hematocrit 39.0 % (39.0-53.0) Mean Corpuscular Volume 94 fL (79-100) Mean Corpuscular Hemoglobin 33 pg (25-35) Mean Corpuscular Hemoglobin Concent 36 g/dL (31-37) Red Cell Distribution Width 13.2 % (11.5-14.5) Platelet Count 149 x10^3/uL (140-400) Neutrophils (%) (Auto) 49 % (31-73) Lymphocytes (%) (Auto) 37 % (24-48) Monocytes (%) (Auto) 12 % (0-9) Eosinophils (%) (Auto) 1 % (0-3) Basophils (%) (Auto) 1 % (0-3) Neutrophils # (Auto) 1.9 x10^3uL (1.8-7.7) Lymphocytes # (Auto) 1.4 x10^3/uL (1.0-4.8) Monocytes # (Auto) 0.5 x10^3/uL (0.0-1.1) Eosinophils # (Auto) 0.1 x10^3/uL (0.0-0.7) Basophils # (Auto) 0.0 x10^3/uL (0.0-0.2) Prothrombin Time 13.9 SEC (11.7-14.0) Prothromb Time International Ratio 1.1 (0.8-1.1) Sodium Level 141 mmol/L (136-145) Potassium Level 3.8 mmol/L (3.5-5.1) Chloride Level 105 mmol/L (98-107) Carbon Dioxide Level 24 mmol/L (21-32) Anion Gap 12 (6-14) Blood Urea Nitrogen 7 mg/dL (8-26) Creatinine 0.7 mg/dL (0.7-1.3) Estimated GFR (Cockcroft-Gault) 116.7 Glucose Level 150 mg/dL (70-99) Calcium Level 8.7 mg/dL (8.5-10.1) Prostate Specific Antigen 243.96 ng/mL (0.00-4.00) Glucose (Fingerstick) 174 mg/dL (70-99) 151 mg/dL (70-99) Test 03/05/18 03:15 03/05/18 07:28 03/05/18 08:28 03/05/18 11:27 Hemoglobin 11.1 g/dL (13.0-17.5) Hematocrit 31.4 % (39.0-53.0) Mean Corpuscular Hemoglobin Concent 36 g/dL (31-37) Glucose (Fingerstick) 129 mg/dL (70-99) 136 mg/dL (70-99) Urine Collection Type Unknown Urine Color Red Urine Clarity Bloody Urine pH Urine Specific [place] 1.020 Urine Protein mg/dL (NEG-TRACE) Urine Glucose (UA) mg/dL (NEG) Urine Ketones (Stick) mg/dL (NEG) Urine Blood (NEG) Urine Nitrite (NEG) Urine Bilirubin (NEG) Urine Urobilinogen Dipstick mg/dL (0.2 mg/dL) Urine Leukocyte Esterase (NEG) Urine RBC Tntc /HPF (0-2) Urine WBC 1-4 /HPF (0-4) Urine Bacteria 0 /HPF (0-FEW) Laboratory Tests Test 03/04/18 16:02 03/04/18 21:06 03/05/18 03:15 03/05/18 07:28 Glucose (Fingerstick) 174 mg/dL (70-99) 151 mg/dL (70-99) 129 mg/dL (70-99) Hemoglobin 11.1 g/dL (13.0-17.5) Hematocrit 31.4 % (39.0-53.0) Mean Corpuscular Hemoglobin Concent 36 g/dL (31-37) Test 03/05/18 08:28 03/05/18 11:27 Urine Collection Type Unknown Urine Color Red Urine Clarity Bloody Urine pH Urine Specific [place] 1.020 Urine Protein mg/dL (NEG-TRACE) Urine Glucose (UA) mg/dL (NEG) Urine Ketones (Stick) mg/dL (NEG) Urine Blood (NEG) Urine Nitrite (NEG) Urine Bilirubin (NEG) Urine Urobilinogen Dipstick mg/dL (0.2 mg/dL) Urine Leukocyte Esterase (NEG) Urine RBC Tntc /HPF (0-2) Urine WBC 1-4 /HPF (0-4) Urine Bacteria 0 /HPF (0-FEW) Glucose (Fingerstick) 136 mg/dL (70-99) Medications Current Medications Sodium Chloride 1,000 ml @ 1,000 mls/hr 1X ONCE IV Last administered on 03/04at 12:07; Start 03/04/18 at 11:45; Stop 03/04/18 at 12:44; Status DC Iohexol (Omnipaque 300 Mg/ml) 75 ml 1X ONCE IV ; Start 03/04/18 at 12:30; Stop 03/04/18 at 12:36; Status DC Info (CONTRAST GIVEN -- Rx MONITORING) 1 each PRN DAILY PRN MC SEE COMMENTS; Start 03/04/18 at 12:45; Stop 03/06/18 at 12:44 Sodium Chloride 1,000 ml @ 1,000 mls/hr 1X ONCE IV Last administered on 03/04at 13:45; Start 03/04/18 at 13:45; Stop 03/04/18 at 14:44; Status DC Ondansetron HCl (Zofran) 4 mg PRN Q8HRS PRN IV NAUSEA/VOMITING; Start at 14:15; Stop 03/04/18 at 14:56; Status DC Morphine Sulfate (Morphine Sulfate) 4 mg PRN Q2HR PRN IV PAIN Last administered on 03/05/18at 11:35; Start 03/04/18 at 14:15; Stop 03/05/18 at 14 :14 Sodium Chloride 1,000 ml @ 125 mls/hr Q8H IV ; Start 03/04/18 at 14:11; Stop 03/05/18 at 14:10 Acetaminophen (Tylenol) 650 mg PRN Q4HRS PRN PO FEVER; Start 03/04/18 at 14:15 ; Stop 03/05/18 at 14:14 Ondansetron HCl (Zofran) 4 mg PRN Q6HRS PRN IV NAUSEA/VOMITING Last administered on 03/04/18at 15:05; Start 03/04/18 at 15:00 Diphenhydramine HCl (Benadryl) 25 mg PRN QHS PRN PO INSOMNIA; Start 03/04/18 at 15:00 Multivitamins 10 ml/Thiamine HCl 100 mg/Folic Acid 1 mg/Sodium Chloride 1,011.2 ml @ 1,000.088 mls/hr 1X ONCE IV Last administered on 03/04/18at 16:31; Start 03/04/18 at 15:30; Stop 03/04/18 at 16:35; Status DC Multivitamins (Thera M Plus) 1 tab DAILY PO ; Start 03/05/18 at 09:00 Folic Acid (Folic Acid) 1 mg DAILY PO ; Start 03/05/18 at 09:00 Thiamine Mononitrate (Vitamin B-1) 100 mg DAILY PO ; Start 03/05/18 at 09:00 Chlordiazepoxide (Librium) 25 mg PRN Q6HRS PRN PO ANXIETY / AGITATION; Start 03/04/18 at 15:00 Labetalol HCl (Normodyne Iv Push) 20 mg 1X ONCE IVP Last administered on 03/04at 20:21; Start 03/04/18 at 16:15; Stop 03/04/18 at 16:35; Status DC Labetalol HCl (Normodyne Iv Push) 20 mg PRN Q2HR PRN IVP HYPERTENSION, SEE COMMENTS; Start 03/04/18 at 18:00 Lidocaine HCl (Glydo (Lidocaine) Jelly) 1 eleni 1X ONCE MM ; Start 03/04/18 at 18:15; Stop 03/04/18 at 18:16; Status DC Finasteride (Proscar) 5 mg DAILY PO ; Start 03/05/18 at 09:00 Active Scripts Active Flomax (Tamsulosin Hcl) 0.4 Mg Cap.er.24h 1 Cap PO DAILY 7 Days Cipro (Ciprofloxacin Hcl) 500 Mg Tablet 1 Tab PO BID 10 Days Flagyl (Metronidazole) 500 Mg Tablet 1 Tab PO TID Levaquin (Levofloxacin) 500 Mg Tablet 1 Tab PO DAILY Reported Metformin HCl 500 Mg/5 Ml Solution 500 Mg PO DAILY Vitals/I & O Vital Sign - Last 24 Hours 03/04/18 03/04/18 03/04/18 03/04/18 13:46 14:16 14:46 15:00 Pulse 94 116 106 110 Resp 22 B/P (MAP) 141/82 (101) 162/94 (116) 142/78 (99) 151/81 (104) Pulse Ox 99 99 98 98 O2 Delivery Room Air Room Air Room Air Room Air 03/04/18 03/04/18 03/04/18 03/04/18 15:06 15:40 15:40 16:30 Temp 98.3 98.3 98.3 98.3 Pulse 150 150 Resp 20 24 24 20 B/P (MAP) 129/79 (96) 129/79 (96) Pulse Ox 98 99 99 95 O2 Delivery Room Air Room Air Room Air Room Air 03/04/18 03/04/18 03/04/18 03/04/18 17:00 18:15 19:00 20:00 Temp 98.1 98.1 Pulse 91 Resp 18 B/P (MAP) 153/83 (106) Pulse Ox 94 94 O2 Delivery Room Air Room Air Room Air Room Air 03/04/18 03/04/18 03/04/18 03/05/18 20:21 22:27 23:00 03:00 Temp 98.9 98.7 98.9 98.7 Pulse 150 91 91 Resp 16 18 18 B/P (MAP) 129/79 121/73 (89) 126/77 (93) Pulse Ox 95 97 97 O2 Delivery Room Air Room Air Room Air 03/05/18 03/05/18 03/05/18 03/05/18 05:14 05:44 07:00 11:00 Temp 98.8 98.2 98.8 98.2 Pulse 85 78 Resp 16 16 18 18 B/P (MAP) 128/85 (99) 136/80 (98) Pulse Ox 97 97 94 95 O2 Delivery Room Air Room Air Room Air Room Air 03/05/18 11:35 Pulse Ox 95 O2 Delivery Room Air Intake and Output 03/04/18 03/04/18 03/05/18 15:00 23:00 07:00 Intake Total 2000 ml Balance 2000 ml LOLY IRVIN MD Mar 05, 2018 13:45
[2018-03-05 15:00] VITALS: BP 128/76
[2018-03-05] MEDS: MORPHINE SULFATE 2 MG/ML VIAL. IV PRN ×2 (15:20→21:13)
[2018-03-05] MEDS: FINASTERIDE 5 MG TABLET. PO SCH (15:20)
[2018-03-05 19:05] VITALS: BP 139/84
[2018-03-05] MEDS: traMADol 50 MG TABLET PO PRN (21:13)
[2018-03-05 23:05] VITALS: BP 122/77
[2018-03-06] VITALS (12 sets, daily range): BP systolic 109–130; BP diastolic 45–82
--- NOTE | 2018-03-06 00:10 | CONS ---
DATE OF CONSULTATION: 03/05/2018 CONSULTATION REQUESTED BY: Dr. Aime Duke. REASON FOR CONSULTATION: Suspected prostate cancer with bone metastasis. HISTORY OF PRESENT ILLNESS: The patient is a 57-year-old gentleman who had an episode of hematuria in 11/2017. He was told that he had urinary tract infection. He has had difficulty urinating since the hematuria started. He had slowing urine stream prior to admission to [facility]. He was admitted to [facility] on 03/04/2018. He does not have any past history of malignancy. He does not have any insurance and he has had trouble to see a urologist. Hence he came into the Emergency Room. He also has had complaints of back pain. He underwent a CT scan of the abdomen and pelvis on 03/04/2018, which revealed intermediate density structure within the urinary bladder thought to be a mass or a hematoma. Prostatomegaly and multiple sclerotic lesions present diffusely concerning for sclerotic metastasis from prostate cancer. Urology has been consulted and transurethral prostate tumor resection has been planned. PAST MEDICAL HISTORY: Hematuria in 11/2017. FAMILY HISTORY: Unknown. SOCIAL HISTORY: He has a history of heavy alcohol use. REVIEW OF SYSTEMS: A 12-point review of system was performed. Pertinent positives are mentioned in the history of present illness. Rest of the system review is negative. PHYSICAL EXAMINATION: GENERAL APPEARANCE: The patient is a 57-year-old gentleman who is in no acute cardiorespiratory distress. VITAL SIGNS: Blood pressure 136/80 and temperature 98.2. HEENT: Head is atraumatic and normocephalic. Eyes: No icterus. NECK: Supple. CHEST: Bilaterally symmetrical. No crepitations or rhonchi heard. HEART: S1 and S2 normal. ABDOMEN: Soft and nontender. No hepatosplenomegaly. CENTRAL NERVOUS SYSTEM: No focal neurological deficits. LYMPHATICS: No lymphadenopathy. SKIN: No rashes. PSYCHOLOGIC: Mood and affect are appropriate. MUSCULOSKELETAL: No joint effusions. LABORATORY DATA: WBC 3.9, hemoglobin 13.9 and platelet count 149. Follow up hemoglobin on 03/05/2018 was 11.1. Creatinine 0.7 and calcium 8.7. IMPRESSION AND PLAN: 1. Enlarged prostate with bone metastasis clinically concerning for prostate cancer with bone metastasis. Mass noted in the urinary bladder on CAT scan is likely to be a hematoma per Urology. Cystoscopy and transurethral resection of the prostate has been planned. I will await further diagnostic workup per Urology. I will also obtain further staging workup with a CT scan of the chest and a bone scan. I discussed with primary team, Dr. Lopez. I also discussed with the registered nurse. 2. Hematuria. Appreciate Urology consultation and workup and I agree with the workup as planned. 3. Bone metastasis per CT scan. I will obtain a bone scan. BERNABE AN MD DR: JOANNA/tosin JOB#: [id number] / [id number]
[2018-03-06] MEDS: MORPHINE SULFATE 2 MG/ML VIAL. IV PRN ×2 (03:30→22:11)
[2018-03-06 05:13] LABS: BASO % 0 % (0-3); EOS % 1 % (0-3); HEMATOCRIT 28.6 % (39.0-53.0); LYMPH # 2.2 x10^3/uL (1.0-4.8); LYMPH % 24 % (24-48); MEAN CORPUSCULAR HEMOGLOBIN 33 pg (25-35); MEAN CORPUSCULAR HGB CONC 35 g/dL (31-37); MEAN CORPUSCULAR VOLUME 95 fL (79-100); MONO % 11 % (0-9); NEUT # 5.9 x10^3uL (1.8-7.7); NEUT % 64 % (31-73); PLATELET COUNT 114 x10^3/uL (140-400); RED BLOOD COUNT 3.01 x10^6/uL (4.30-5.70); RED CELL DISTRIBUTION WIDTH 13.5 % (11.5-14.5); WHITE BLOOD COUNT 9.1 x10^3/uL (4.0-11.0)
[2018-03-06 06:11] LABS: CALCIUM 8.4 mg/dL (8.5-10.1); CREATININE 0.7 mg/dL (0.7-1.3); GFR 116.7; POTASSIUM 3.4 mmol/L (3.5-5.1)
[2018-03-06] MEDS: FINASTERIDE 5 MG TABLET. PO SCH (09:00)
[2018-03-06] MEDS: THIAMINE 100 MG TABLET. PO SCH (09:00)
[2018-03-06] MEDS: MULTIVITAMIN with MINERAL TABLET. PO SCH (09:00)
[2018-03-06] MEDS: FOLIC ACID 1 MG TABLET. PO SCH (09:00)
[2018-03-06] MEDS ORDERED: LIDOCAINE 2% JELLY 6ML IN APPLICATOR. ONE (09:06)
[2018-03-06] MEDS ORDERED: LIDOCAINE 2% PF Vial for OR 5 ML VIAL. ONE (09:24)
[2018-03-06] MEDS ORDERED: fentaNYL PF VIAL 100 MCG/2 ML VIAL ONE ×2 (09:24→12:22)
[2018-03-06] MEDS ORDERED: PROPOFOL 20 ML IV ONE ×2 (09:24→10:37)
[2018-03-06] MEDS ORDERED: ROCURONIUM 50 MG/5 ML VIAL. ONE (09:25)
[2018-03-06] MEDS ORDERED: IV RINGERS,LACTATED 1000ML 1,000 ML IV SCH (09:50)
[2018-03-06] MEDS ORDERED: MORPHINE SULFATE 2 MG/ML VIAL. IV PRN (10:00)
[2018-03-06] MEDS ORDERED: POTASSIUM CHLORIDE 20 MEQ TABLET.ER. PO ONE (10:00)
[2018-03-06] MEDS ORDERED: PROCHLORPERAZINE 10 MG/2 ML VIAL. IV PRN (10:00)
[2018-03-06] MEDS ORDERED: fentaNYL PF VIAL 100 MCG/2 ML VIAL IV PRN (10:00)
[2018-03-06] MEDS ORDERED: ONDANSETRON PF 4 MG/2 ML VIAL. IV PRN (10:00)
[2018-03-06] MEDS ORDERED: HYDROmorphone 2 MG/ML VIAL IV PRN (10:00)
[2018-03-06] MEDS ORDERED: LIDOCAINE 1% PF 2 ML VIAL. ID PRN (10:00)
[2018-03-06] MEDS ORDERED: MIDAZOLAM HCL/PF 2 MG/2 ML VIAL. ONE (10:05)
--- NOTE | 2018-03-06 10:34 | PDOC ---
SUBJECTIVE Subjective Pt complaining in latvian of bladder not emptying. He thinks he is clogged up again. He has had clots and bloody urine all night and it clotting off and on again all night. His bladder feels very full with lots of pressure. OBJECTIVE Objective Physical Exam: General appearance: Alert and Oriented Head: Normocephalic, without obvious abnormality Eyes: conjunctivae/corneas clear. PERRL, EOM's intact. Fundi benign Lungs: regular respirations, non labored breathing. Pelvic: unicircumcised phallus. Glez catheter in place, not draining. Upon initial irrigation, very large quantity of clot came out, covered entire irrigation tray. [employer] then proceeded to irrigate slowly and patiently with NS and syringe. Toal of about 600 cc instilled and then emptied into irrigation tray and glez catheter. Pt did report some relief post procedure but was concerned that this would just keep happening. Vital Signs Vital Signs Date Time Temp Pulse Resp B/P (MAP) Pulse Ox O2 Delivery O2 Flow Rate FiO2 03/06/18 07:00 98.1 86 16 126/82 (97) 96 Room Air 98.1 03/06/18 04:00 16 Room Air 03/06/18 03:30 16 Room Air 03/06/18 03:05 98.6 91 18 125/76 (92) 96 Room Air 98.6 03/05/18 23:05 98.4 88 16 122/77 (92) 94 Room Air 98.4 03/05/18 22:15 18 Room Air 03/05/18 21:13 20 Room Air 03/05/18 21:13 20 Room Air 03/05/18 20:00 Room Air 03/05/18 19:05 98.2 91 18 139/84 (102) 95 Room Air 98.2 03/05/18 16:00 92 03/05/18 15:20 92 Room Air 03/05/18 15:00 84 18 128/76 (93) 92 Room Air 03/05/18 11:35 95 Room Air 03/05/18 11:00 98.2 78 18 136/80 (98) 95 Room Air 98.2 I & O Intake and Output 03/06/18 07:00 Intake Total 0 ml Output Total 3100 ml Balance -3100 ml Intake Oral 0 ml Output Urine Total 3100 ml PHYSICAL EXAM Physical Exam General appearance: Alert and Oriented Head: Normocephalic, without obvious abnormality Eyes: conjunctivae/corneas clear. PERRL, EOM's intact. Fundi benign Lungs: regular respirations, non labored breathing. Pelvic: unicircumcised phallus. Glez catheter in place, not draining. Upon initial irrigation, very large quantity of clot came out, covered entire irrigation tray. [employer] then proceeded to irrigate slowly and patiently with NS and syringe. Toal of about 600 cc instilled and then emptied into irrigation tray and glez catheter. Pt did report some relief post procedure but was concerned that this would just keep happening. ASSESSMENT/PLAN Assessment/Plan Dr. Lechuga did walk in as [employer] was irrigating and was able to visualize large amount of clot in the toilet and still coming from glez catheter during irrigation. Surgeon will take patient to surgery. Pt consented for procedure in [place] partly by [employer] [place] and partly by a quartz cutter phone for [place]. He has consented to cysto with bladder irrigation, possible TURPT, possible TURP /Greenlight of prostate. Possible SP tube placement. Consents entered and obtained. Ancef 2 gram IV prior to procedure. Problems: (1) Hematuria (2) Bladder mass COMMENT Lab Laboratory Tests Test 03/05/18 11:27 03/05/18 16:18 03/05/18 21:06 03/06/18 03:40 Glucose (Fingerstick) 136 mg/dL (70-99) 150 mg/dL (70-99) 157 mg/dL (70-99) White Blood Count 9.1 x10^3/uL (4.0-11.0) Red Blood Count 3.01 x10^6/uL (4.30-5.70) Hemoglobin 10.0 g/dL (13.0-17.5) Hematocrit 28.6 % (39.0-53.0) Mean Corpuscular Volume 95 fL (79-100) Mean Corpuscular Hemoglobin 33 pg (25-35) Mean Corpuscular Hemoglobin Concent 35 g/dL (31-37) Red Cell Distribution Width 13.5 % (11.5-14.5) Platelet Count 114 x10^3/uL (140-400) Neutrophils (%) (Auto) 64 % (31-73) Lymphocytes (%) (Auto) 24 % (24-48) Monocytes (%) (Auto) 11 % (0-9) Eosinophils (%) (Auto) 1 % (0-3) Basophils (%) (Auto) 0 % (0-3) Neutrophils # (Auto) 5.9 x10^3uL (1.8-7.7) Lymphocytes # (Auto) 2.2 x10^3/uL (1.0-4.8) Monocytes # (Auto) 1.0 x10^3/uL (0.0-1.1) Eosinophils # (Auto) 0.0 x10^3/uL (0.0-0.7) Basophils # (Auto) 0.0 x10^3/uL (0.0-0.2) Sodium Level 140 mmol/L (136-145) Potassium Level 3.4 mmol/L (3.5-5.1) Chloride Level 105 mmol/L (98-107) Carbon Dioxide Level 25 mmol/L (21-32) Anion Gap 10 (6-14) Blood Urea Nitrogen 7 mg/dL (8-26) Creatinine 0.7 mg/dL (0.7-1.3) Estimated GFR (Cockcroft-Gault) 116.7 Glucose Level 122 mg/dL (70-99) Calcium Level 8.4 mg/dL (8.5-10.1) ESTRELLA PANIAGUA APRN Mar 06, 2018 10:34
--- NOTE | 2018-03-06 11:07 | PDOC ---
PROGRESS NOTES Subjective Subjective HPI - f/u of Enlarged prostate with bone metastasis clinically concerning for prostate cancer with bone metastasis. ROS - has hematuria Objective Objective Vital Signs Date Time Temp Pulse Resp B/P (MAP) Pulse Ox O2 Delivery O2 Flow Rate FiO2 03/06/18 09:41 98.1 89 20 154/85 97 Room Air 98.1 Intake and Output 03/06/18 07:00 Intake Total 0 ml Output Total 3100 ml Balance -3100 ml Intake Oral 0 ml Output Urine Total 3100 ml Physical Exam General: Alert, Oriented X3, No acute distress Neck: No JVD Neuro: Normal speech Psych/Mental Status: Mental status NL Assessment Assessment Problems Medical Problems: (1) Bladder mass Status: Acute (2) Hematuria Status: Acute IMPRESSION AND PLAN: 1. Enlarged prostate with bone metastasis clinically concerning for prostate cancer with bone metastasis. Mass noted in the urinary bladder on CAT scan is likely to be a hematoma per Urology. Cystoscopy and transurethral resection of the prostate has been planned 03/06/18. I will await further diagnostic workup per Urology. I will also obtain further staging workup with a CT scan of the chest and a bone scan. I discussed with primary team, Dr. Lopez. I also discussed with the registered nurse. I d/w Magdalena REDDY, from urology. PSA [id number] on 03/04/18 suggestive of prostate cancer. 2. Hematuria. Appreciate Urology consultation and workup and I agree with the workup as planned. 3. Bone metastasis per CT scan. I will obtain a bone scan. Comment Review of Relevant I have reviewed the following items mame (where applicable) has been applied. Labs Laboratory Tests Test 03/04/18 11:35 03/04/18 11:59 03/04/18 16:02 03/04/18 21:06 Urine Collection Type Void Urine Color Red Urine Clarity Turbid Urine pH 5.0 Urine Specific [place] 1.025 Urine Protein >=300 mg/dL (NEG-TRACE) Urine Glucose (UA) 250 mg/dL (NEG) Urine Ketones (Stick) mg/dL (NEG) Urine Blood Large (NEG) Urine Nitrite (NEG) Urine Bilirubin (NEG) Urine Urobilinogen Dipstick >=8.0 mg/dL (0.2 mg/dL) Urine Leukocyte Esterase (NEG) Urine RBC Tntc /HPF (0-2) Urine WBC 5-10 /HPF (0-4) Urine Bacteria Few /HPF (0-FEW) White Blood Count 3.9 x10^3/uL (4.0-11.0) Red Blood Count 4.16 x10^6/uL (4.30-5.70) Hemoglobin 13.9 g/dL (13.0-17.5) Hematocrit 39.0 % (39.0-53.0) Mean Corpuscular Volume 94 fL (79-100) Mean Corpuscular Hemoglobin 33 pg (25-35) Mean Corpuscular Hemoglobin Concent 36 g/dL (31-37) Red Cell Distribution Width 13.2 % (11.5-14.5) Platelet Count 149 x10^3/uL (140-400) Neutrophils (%) (Auto) 49 % (31-73) Lymphocytes (%) (Auto) 37 % (24-48) Monocytes (%) (Auto) 12 % (0-9) Eosinophils (%) (Auto) 1 % (0-3) Basophils (%) (Auto) 1 % (0-3) Neutrophils # (Auto) 1.9 x10^3uL (1.8-7.7) Lymphocytes # (Auto) 1.4 x10^3/uL (1.0-4.8) Monocytes # (Auto) 0.5 x10^3/uL (0.0-1.1) Eosinophils # (Auto) 0.1 x10^3/uL (0.0-0.7) Basophils # (Auto) 0.0 x10^3/uL (0.0-0.2) Prothrombin Time 13.9 SEC (11.7-14.0) Prothromb Time International Ratio 1.1 (0.8-1.1) Sodium Level 141 mmol/L (136-145) Potassium Level 3.8 mmol/L (3.5-5.1) Chloride Level 105 mmol/L (98-107) Carbon Dioxide Level 24 mmol/L (21-32) Anion Gap 12 (6-14) Blood Urea Nitrogen 7 mg/dL (8-26) Creatinine 0.7 mg/dL (0.7-1.3) Estimated GFR (Cockcroft-Gault) 116.7 Glucose Level 150 mg/dL (70-99) Calcium Level 8.7 mg/dL (8.5-10.1) Prostate Specific Antigen 243.96 ng/mL (0.00-4.00) Glucose (Fingerstick) 174 mg/dL (70-99) 151 mg/dL (70-99) Test 03/05/18 03:15 03/05/18 07:28 03/05/18 08:28 03/05/18 11:27 Hemoglobin 11.1 g/dL (13.0-17.5) Hematocrit 31.4 % (39.0-53.0) Mean Corpuscular Hemoglobin Concent 36 g/dL (31-37) Glucose (Fingerstick) 129 mg/dL (70-99) 136 mg/dL (70-99) Urine Collection Type Unknown Urine Color Red Urine Clarity Bloody Urine pH Urine Specific [place] 1.020 Urine Protein mg/dL (NEG-TRACE) Urine Glucose (UA) mg/dL (NEG) Urine Ketones (Stick) mg/dL (NEG) Urine Blood (NEG) Urine Nitrite (NEG) Urine Bilirubin (NEG) Urine Urobilinogen Dipstick mg/dL (0.2 mg/dL) Urine Leukocyte Esterase (NEG) Urine RBC Tntc /HPF (0-2) Urine WBC 1-4 /HPF (0-4) Urine Bacteria 0 /HPF (0-FEW) Test 03/05/18 16:18 03/05/18 21:06 03/06/18 03:40 Glucose (Fingerstick) 150 mg/dL (70-99) 157 mg/dL (70-99) White Blood Count 9.1 x10^3/uL (4.0-11.0) Red Blood Count 3.01 x10^6/uL (4.30-5.70) Hemoglobin 10.0 g/dL (13.0-17.5) Hematocrit 28.6 % (39.0-53.0) Mean Corpuscular Volume 95 fL (79-100) Mean Corpuscular Hemoglobin 33 pg (25-35) Mean Corpuscular Hemoglobin Concent 35 g/dL (31-37) Red Cell Distribution Width 13.5 % (11.5-14.5) Platelet Count 114 x10^3/uL (140-400) Neutrophils (%) (Auto) 64 % (31-73) Lymphocytes (%) (Auto) 24 % (24-48) Monocytes (%) (Auto) 11 % (0-9) Eosinophils (%) (Auto) 1 % (0-3) Basophils (%) (Auto) 0 % (0-3) Neutrophils # (Auto) 5.9 x10^3uL (1.8-7.7) Lymphocytes # (Auto) 2.2 x10^3/uL (1.0-4.8) Monocytes # (Auto) 1.0 x10^3/uL (0.0-1.1) Eosinophils # (Auto) 0.0 x10^3/uL (0.0-0.7) Basophils # (Auto) 0.0 x10^3/uL (0.0-0.2) Sodium Level 140 mmol/L (136-145) Potassium Level 3.4 mmol/L (3.5-5.1) Chloride Level 105 mmol/L (98-107) Carbon Dioxide Level 25 mmol/L (21-32) Anion Gap 10 (6-14) Blood Urea Nitrogen 7 mg/dL (8-26) Creatinine 0.7 mg/dL (0.7-1.3) Estimated GFR (Cockcroft-Gault) 116.7 Glucose Level 122 mg/dL (70-99) Calcium Level 8.4 mg/dL (8.5-10.1) Laboratory Tests Test 03/05/18 11:27 03/05/18 16:18 03/05/18 21:06 03/06/18 03:40 Glucose (Fingerstick) 136 mg/dL (70-99) 150 mg/dL (70-99) 157 mg/dL (70-99) White Blood Count 9.1 x10^3/uL (4.0-11.0) Red Blood Count 3.01 x10^6/uL (4.30-5.70) Hemoglobin 10.0 g/dL (13.0-17.5) Hematocrit 28.6 % (39.0-53.0) Mean Corpuscular Volume 95 fL (79-100) Mean Corpuscular Hemoglobin 33 pg (25-35) Mean Corpuscular Hemoglobin Concent 35 g/dL (31-37) Red Cell Distribution Width 13.5 % (11.5-14.5) Platelet Count 114 x10^3/uL (140-400) Neutrophils (%) (Auto) 64 % (31-73) Lymphocytes (%) (Auto) 24 % (24-48) Monocytes (%) (Auto) 11 % (0-9) Eosinophils (%) (Auto) 1 % (0-3) Basophils (%) (Auto) 0 % (0-3) Neutrophils # (Auto) 5.9 x10^3uL (1.8-7.7) Lymphocytes # (Auto) 2.2 x10^3/uL (1.0-4.8) Monocytes # (Auto) 1.0 x10^3/uL (0.0-1.1) Eosinophils # (Auto) 0.0 x10^3/uL (0.0-0.7) Basophils # (Auto) 0.0 x10^3/uL (0.0-0.2) Sodium Level 140 mmol/L (136-145) Potassium Level 3.4 mmol/L (3.5-5.1) Chloride Level 105 mmol/L (98-107) Carbon Dioxide Level 25 mmol/L (21-32) Anion Gap 10 (6-14) Blood Urea Nitrogen 7 mg/dL (8-26) Creatinine 0.7 mg/dL (0.7-1.3) Estimated GFR (Cockcroft-Gault) 116.7 Glucose Level 122 mg/dL (70-99) Calcium Level 8.4 mg/dL (8.5-10.1) Medications Current Medications Sodium Chloride 1,000 ml @ 1,000 mls/hr 1X ONCE IV Last administered on 03/04at 12:07; Start 03/04/18 at 11:45; Stop 03/04/18 at 12:44; Status DC Iohexol (Omnipaque 300 Mg/ml) 75 ml 1X ONCE IV ; Start 03/04/18 at 12:30; Stop 03/04/18 at 12:36; Status DC Info (CONTRAST GIVEN -- Rx MONITORING) 1 each PRN DAILY PRN MC SEE COMMENTS; Start 03/04/18 at 12:45; Stop 03/06/18 at 12:44 Sodium Chloride 1,000 ml @ 1,000 mls/hr 1X ONCE IV Last administered on 03/04at 13:45; Start 03/04/18 at 13:45; Stop 03/04/18 at 14:44; Status DC Ondansetron HCl (Zofran) 4 mg PRN Q8HRS PRN IV NAUSEA/VOMITING; Start at 14:15; Stop 03/04/18 at 14:56; Status DC Morphine Sulfate (Morphine Sulfate) 4 mg PRN Q2HR PRN IV PAIN Last administered on 03/05/18at 11:35; Start 03/04/18 at 14:15; Stop 03/05/18 at 13 :46; Status DC Sodium Chloride 1,000 ml @ 125 mls/hr Q8H IV ; Start 03/04/18 at 14:11; Stop 03/05/18 at 14:10; Status DC Acetaminophen (Tylenol) 650 mg PRN Q4HRS PRN PO FEVER; Start 03/04/18 at 14:15 ; Stop 03/05/18 at 13:46; Status DC Ondansetron HCl (Zofran) 4 mg PRN Q6HRS PRN IV NAUSEA/VOMITING Last administered on 03/04/18at 15:05; Start 03/04/18 at 15:00; Stop 03/05/18 at 13 :46; Status DC Diphenhydramine HCl (Benadryl) 25 mg PRN QHS PRN PO INSOMNIA; Start 03/04/18 at 15:00 Multivitamins 10 ml/Thiamine HCl 100 mg/Folic Acid 1 mg/Sodium Chloride 1,011.2 ml @ 1,000.088 mls/hr 1X ONCE IV Last administered on 03/04/18at 16:31; Start 03/04/18 at 15:30; Stop 03/04/18 at 16:35; Status DC Multivitamins (Thera M Plus) 1 tab DAILY PO ; Start 03/05/18 at 09:00 Folic Acid (Folic Acid) 1 mg DAILY PO ; Start 03/05/18 at 09:00 Thiamine Mononitrate (Vitamin B-1) 100 mg DAILY PO ; Start 03/05/18 at 09:00 Chlordiazepoxide (Librium) 25 mg PRN Q6HRS PRN PO ANXIETY / AGITATION; Start 03/04/18 at 15:00 Labetalol HCl (Normodyne Iv Push) 20 mg 1X ONCE IVP Last administered on 03/04at 20:21; Start 03/04/18 at 16:15; Stop 03/04/18 at 16:35; Status DC Labetalol HCl (Normodyne Iv Push) 20 mg PRN Q2HR PRN IVP HYPERTENSION, SEE COMMENTS; Start 03/04/18 at 18:00 Lidocaine HCl (Glydo (Lidocaine) Jelly) 1 eleni 1X ONCE MM ; Start 03/04/18 at 18:15; Stop 03/04/18 at 18:16; Status DC Finasteride (Proscar) 5 mg DAILY PO Last administered on 03/05/18at 15:20; Start 03/05/18 at 09:00 Acetaminophen (Tylenol) 650 mg PRN Q6HRS PRN PO FEVER; Start 03/05/18 at 13:45 Ondansetron HCl (Zofran) 4 mg PRN Q6HRS PRN IV NAUSEA/VOMITING; Start at 13:45 Morphine Sulfate (Morphine Sulfate) 2 mg PRN Q2HR PRN IV MODERATE TO SEVERE PAIN Last administered on 03/06/18at 03:30; Start 03/05/18 at 13:45 Tramadol HCl (Ultram) 50 mg PRN Q6HRS PRN PO MILD TO MODERATE PAIN Last administered on 03/05/18at 21:13; Start 03/05/18 at 13:45 Docusate Sodium (Colace) 100 mg PRN DAILY PRN PO CONSTIPATION; Start 03/05/18 at 13:45 Propofol 20 ml @ As Directed STK-MED ONCE IV ; Start 03/06/18 at 09:24; Stop 03/06/18 at 09:25; Status DC Lidocaine HCl (Lidocaine Pf 2% Vial) 5 ml STK-MED ONCE .ROUTE ; Start 03/06/18 at 09:24; Stop 03/06/18 at 09:25; Status DC Fentanyl Citrate (Fentanyl 2ml Vial) 100 mcg STK-MED ONCE .ROUTE ; Start at 09:24; Stop 03/06/18 at 09:25; Status DC Potassium Chloride (Klor-Con) 40 meq 1X ONCE PO ; Start 03/06/18 at 10:00; Stop 03/06/18 at 10:01; Status DC Cefazolin Sodium/ Dextrose 50 ml @ 100 mls/hr 1X ONCE IV ; Start 03/06/18 at 09:30; Stop 03/06/18 at 09:59; Status DC Rocuronium Weiser (Zemuron) 50 mg STK-MED ONCE .ROUTE ; Start 03/06/18 at 09: 25; Stop 03/06/18 at 09:26; Status DC Ondansetron HCl (Zofran) 4 mg PRN Q6HRS PRN IV NAUSEA/VOMITING; Start at 10:00; Stop 03/07/18 at 09:59 Fentanyl Citrate (Fentanyl 2ml Vial) 25 mcg PRN Q5MIN PRN IV MILD PAIN; Start 03/06/18 at 10:00; Stop 03/07/18 at 09:59 Fentanyl Citrate (Fentanyl 2ml Vial) 50 mcg PRN Q5MIN PRN IV MODERATE TO SEVERE PAIN; Start 03/06/18 at 10:00; Stop 03/07/18 at 09:59 Morphine Sulfate (Morphine Sulfate) 1 mg PRN Q10MIN PRN IV SEVERE PAIN; Start 03/06/18 at 10:00; Stop 03/07/18 at 09:59 Ringer's Solution 1,000 ml @ 30 mls/hr Q24H IV ; Start 03/06/18 at 09:50; Stop 03/06/18 at 21:49 Lidocaine HCl (Xylocaine-Mpf 1% 2ml Vial) 2 ml PRN 1X PRN ID PRIOR TO IV START ; Start 03/06/18 at 10:00; Stop 03/07/18 at 09:59 Hydromorphone HCl (Dilaudid) 0.5 mg PRN Q10MIN PRN IV SEV PAIN, Second choice; Start 03/06/18 at 10:00; Stop 03/07/18 at 09:59 Prochlorperazine Edisylate (Compazine) 5 mg PACU PRN PRN IV NAUSEA, MRX1; Start 03/06/18 at 10:00; Stop 03/07/18 at 09:59 Midazolam HCl (Versed) 2 mg STK-MED ONCE .ROUTE ; Start 03/06/18 at 10:05; Stop 03/06/18 at 10:06; Status DC Lidocaine HCl (Glydo (Lidocaine) Jelly) 6 eleni STK-MED ONCE .ROUTE ; Start 03/06 at 09:06; Stop 03/06/18 at 10:06; Status DC Propofol 20 ml @ As Directed STK-MED ONCE IV ; Start 03/06/18 at 10:37; Stop 03/06/18 at 10:38; Status DC Active Scripts Active Flomax (Tamsulosin Hcl) 0.4 Mg Cap.er.24h 1 Cap PO DAILY 7 Days Cipro (Ciprofloxacin Hcl) 500 Mg Tablet 1 Tab PO BID 10 Days Flagyl (Metronidazole) 500 Mg Tablet 1 Tab PO TID Levaquin (Levofloxacin) 500 Mg Tablet 1 Tab PO DAILY Reported Metformin HCl 500 Mg/5 Ml Solution 500 Mg PO DAILY Vitals/I & O Vital Sign - Last 24 Hours 03/05/18 03/05/18 03/05/18 03/05/18 11:35 15:00 15:20 16:00 Pulse 84 Resp 18 B/P (MAP) 128/76 (93) Pulse Ox 95 92 92 92 O2 Delivery Room Air Room Air Room Air 03/05/18 03/05/18 03/05/18 03/05/18 19:05 20:00 21:13 21:13 Temp 98.2 98.2 Pulse 91 Resp 18 20 20 B/P (MAP) 139/84 (102) Pulse Ox 95 O2 Delivery Room Air Room Air Room Air Room Air 03/05/18 03/05/18 03/06/18 03/06/18 22:15 23:05 03:05 03:30 Temp 98.4 98.6 98.4 98.6 Pulse 88 91 Resp 18 16 18 16 B/P (MAP) 122/77 (92) 125/76 (92) Pulse Ox 94 96 O2 Delivery Room Air Room Air Room Air Room Air 03/06/18 03/06/18 03/06/18 04:00 07:00 09:41 Temp 98.1 98.1 98.1 98.1 Pulse 86 89 Resp 16 16 20 B/P (MAP) 126/82 (97) 154/85 Pulse Ox 96 97 O2 Delivery Room Air Room Air Room Air Intake and Output 03/05/18 03/05/18 03/06/18 15:00 23:00 07:00 Intake Total 0 ml Output Total 650 ml 500 ml 1950 ml Balance -650 ml -500 ml -1950 ml BERNABE AN MD Mar 06, 2018 11:07
[2018-03-06] MEDS ORDERED: DEXAMETHASONE SOD PHOS 20 MG/5 ML VIAL. ONE (11:29)
[2018-03-06] MEDS ORDERED: ONDANSETRON PF 4 MG/2 ML VIAL. ONE (11:30)
[2018-03-06] MEDS ORDERED: FAMOTIDINE 20 MG/2 ML VIAL ONE (11:30)
[2018-03-06] MEDS ORDERED: NEOSTIGMINE METHYLSULFATE 5 MG/5 ML SYRINGE. ONE (11:30)
[2018-03-06] MEDS ORDERED: GLYCOPYRROLATE 1 MG/5 ML VIAL. ONE (11:31)
[2018-03-06] MEDS ORDERED: OPIUM/BELLADONNA 30/16.2MG SUPP.RECT. PR ONE (12:15)
[2018-03-06] MEDS ORDERED: hydrALAZINE 20 MG/ML VIAL. ONE (12:16)
--- NOTE | 2018-03-06 12:37 | PDOC ---
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 will try to talk to her and make sure pt understands Ca History of Present Illness History of Present Illness ROS: no fever, chills, sob or chest pain cont having hematuria , has glez with flush with nurse, clots coming out, bright red no pain Vitals Vitals Vital Signs Date Time Temp Pulse Resp B/P (MAP) Pulse Ox O2 Delivery O2 Flow Rate FiO2 03/06/18 09:41 98.1 89 20 154/85 97 Room Air 98.1 Physical Exam General: Alert, Oriented X3, No acute distress Lungs: Clear Abdomen: Normal bowel sounds, Soft, No tenderness, No hepatosplenomegaly, No masses Extremities: No clubbing, No cyanosis, No edema, Normal pulses, No tenderness/ swelling Skin: No rashes, No breakdown, No significant lesion Labs LABS Laboratory Tests Test 03/05/18 16:18 03/05/18 21:06 03/06/18 03:40 Glucose (Fingerstick) 150 mg/dL (70-99) 157 mg/dL (70-99) White Blood Count 9.1 x10^3/uL (4.0-11.0) Red Blood Count 3.01 x10^6/uL (4.30-5.70) Hemoglobin 10.0 g/dL (13.0-17.5) Hematocrit 28.6 % (39.0-53.0) Mean Corpuscular Volume 95 fL (79-100) Mean Corpuscular Hemoglobin 33 pg (25-35) Mean Corpuscular Hemoglobin Concent 35 g/dL (31-37) Red Cell Distribution Width 13.5 % (11.5-14.5) Platelet Count 114 x10^3/uL (140-400) Neutrophils (%) (Auto) 64 % (31-73) Lymphocytes (%) (Auto) 24 % (24-48) Monocytes (%) (Auto) 11 % (0-9) Eosinophils (%) (Auto) 1 % (0-3) Basophils (%) (Auto) 0 % (0-3) Neutrophils # (Auto) 5.9 x10^3uL (1.8-7.7) Lymphocytes # (Auto) 2.2 x10^3/uL (1.0-4.8) Monocytes # (Auto) 1.0 x10^3/uL (0.0-1.1) Eosinophils # (Auto) 0.0 x10^3/uL (0.0-0.7) Basophils # (Auto) 0.0 x10^3/uL (0.0-0.2) Sodium Level 140 mmol/L (136-145) Potassium Level 3.4 mmol/L (3.5-5.1) Chloride Level 105 mmol/L (98-107) Carbon Dioxide Level 25 mmol/L (21-32) Anion Gap 10 (6-14) Blood Urea Nitrogen 7 mg/dL (8-26) Creatinine 0.7 mg/dL (0.7-1.3) Estimated GFR (Cockcroft-Gault) 116.7 Glucose Level 122 mg/dL (70-99) Calcium Level 8.4 mg/dL (8.5-10.1) Assessment and Plan Assessmemt and Plan Problems Medical Problems: (1) Bladder mass Status: Acute (2) Hematuria Status: Acute Comment Review of Relevant I have reviewed the following items mame (where applicable) has been applied. Labs Laboratory Tests Test 03/04/18 16:02 03/04/18 21:06 03/05/18 03:15 03/05/18 07:28 Glucose (Fingerstick) 174 mg/dL (70-99) 151 mg/dL (70-99) 129 mg/dL (70-99) Hemoglobin 11.1 g/dL (13.0-17.5) Hematocrit 31.4 % (39.0-53.0) Mean Corpuscular Hemoglobin Concent 36 g/dL (31-37) Test 03/05/18 08:28 03/05/18 11:27 03/05/18 16:18 03/05/18 21:06 Urine Collection Type Unknown Urine Color Red Urine Clarity Bloody Urine pH Urine Specific Viola 1.020 Urine Protein mg/dL (NEG-TRACE) Urine Glucose (UA) mg/dL (NEG) Urine Ketones (Stick) mg/dL (NEG) Urine Blood (NEG) Urine Nitrite (NEG) Urine Bilirubin (NEG) Urine Urobilinogen Dipstick mg/dL (0.2 mg/dL) Urine Leukocyte Esterase (NEG) Urine RBC Tntc /HPF (0-2) Urine WBC 1-4 /HPF (0-4) Urine Bacteria 0 /HPF (0-FEW) Glucose (Fingerstick) 136 mg/dL (70-99) 150 mg/dL (70-99) 157 mg/dL (70-99) Test 03/06/18 03:40 White Blood Count 9.1 x10^3/uL (4.0-11.0) Red Blood Count 3.01 x10^6/uL (4.30-5.70) Hemoglobin 10.0 g/dL (13.0-17.5) Hematocrit 28.6 % (39.0-53.0) Mean Corpuscular Volume 95 fL (79-100) Mean Corpuscular Hemoglobin 33 pg (25-35) Mean Corpuscular Hemoglobin Concent 35 g/dL (31-37) Red Cell Distribution Width 13.5 % (11.5-14.5) Platelet Count 114 x10^3/uL (140-400) Neutrophils (%) (Auto) 64 % (31-73) Lymphocytes (%) (Auto) 24 % (24-48) Monocytes (%) (Auto) 11 % (0-9) Eosinophils (%) (Auto) 1 % (0-3) Basophils (%) (Auto) 0 % (0-3) Neutrophils # (Auto) 5.9 x10^3uL (1.8-7.7) Lymphocytes # (Auto) 2.2 x10^3/uL (1.0-4.8) Monocytes # (Auto) 1.0 x10^3/uL (0.0-1.1) Eosinophils # (Auto) 0.0 x10^3/uL (0.0-0.7) Basophils # (Auto) 0.0 x10^3/uL (0.0-0.2) Sodium Level 140 mmol/L (136-145) Potassium Level 3.4 mmol/L (3.5-5.1) Chloride Level 105 mmol/L (98-107) Carbon Dioxide Level 25 mmol/L (21-32) Anion Gap 10 (6-14) Blood Urea Nitrogen 7 mg/dL (8-26) Creatinine 0.7 mg/dL (0.7-1.3) Estimated GFR (Cockcroft-Gault) 116.7 Glucose Level 122 mg/dL (70-99) Calcium Level 8.4 mg/dL (8.5-10.1) Laboratory Tests Test 03/05/18 16:18 03/05/18 21:06 03/06/18 03:40 Glucose (Fingerstick) 150 mg/dL (70-99) 157 mg/dL (70-99) White Blood Count 9.1 x10^3/uL (4.0-11.0) Red Blood Count 3.01 x10^6/uL (4.30-5.70) Hemoglobin 10.0 g/dL (13.0-17.5) Hematocrit 28.6 % (39.0-53.0) Mean Corpuscular Volume 95 fL (79-100) Mean Corpuscular Hemoglobin 33 pg (25-35) Mean Corpuscular Hemoglobin Concent 35 g/dL (31-37) Red Cell Distribution Width 13.5 % (11.5-14.5) Platelet Count 114 x10^3/uL (140-400) Neutrophils (%) (Auto) 64 % (31-73) Lymphocytes (%) (Auto) 24 % (24-48) Monocytes (%) (Auto) 11 % (0-9) Eosinophils (%) (Auto) 1 % (0-3) Basophils (%) (Auto) 0 % (0-3) Neutrophils # (Auto) 5.9 x10^3uL (1.8-7.7) Lymphocytes # (Auto) 2.2 x10^3/uL (1.0-4.8) Monocytes # (Auto) 1.0 x10^3/uL (0.0-1.1) Eosinophils # (Auto) 0.0 x10^3/uL (0.0-0.7) Basophils # (Auto) 0.0 x10^3/uL (0.0-0.2) Sodium Level 140 mmol/L (136-145) Potassium Level 3.4 mmol/L (3.5-5.1) Chloride Level 105 mmol/L (98-107) Carbon Dioxide Level 25 mmol/L (21-32) Anion Gap 10 (6-14) Blood Urea Nitrogen 7 mg/dL (8-26) Creatinine 0.7 mg/dL (0.7-1.3) Estimated GFR (Cockcroft-Gault) 116.7 Glucose Level 122 mg/dL (70-99) Calcium Level 8.4 mg/dL (8.5-10.1) Medications Current Medications Sodium Chloride 1,000 ml @ 1,000 mls/hr 1X ONCE IV Last administered on 03/04at 12:07; Start 03/04/18 at 11:45; Stop 03/04/18 at 12:44; Status DC Iohexol (Omnipaque 300 Mg/ml) 75 ml 1X ONCE IV ; Start 03/04/18 at 12:30; Stop 03/04/18 at 12:36; Status DC Info (CONTRAST GIVEN -- Rx MONITORING) 1 each PRN DAILY PRN MC SEE COMMENTS; Start 03/04/18 at 12:45; Stop 03/06/18 at 12:44 Sodium Chloride 1,000 ml @ 1,000 mls/hr 1X ONCE IV Last administered on 03/04at 13:45; Start 03/04/18 at 13:45; Stop 03/04/18 at 14:44; Status DC Ondansetron HCl (Zofran) 4 mg PRN Q8HRS PRN IV NAUSEA/VOMITING; Start at 14:15; Stop 03/04/18 at 14:56; Status DC Morphine Sulfate (Morphine Sulfate) 4 mg PRN Q2HR PRN IV PAIN Last administered on 03/05/18at 11:35; Start 03/04/18 at 14:15; Stop 03/05/18 at 13 :46; Status DC Sodium Chloride 1,000 ml @ 125 mls/hr Q8H IV ; Start 03/04/18 at 14:11; Stop 03/05/18 at 14:10; Status DC Acetaminophen (Tylenol) 650 mg PRN Q4HRS PRN PO FEVER; Start 03/04/18 at 14:15 ; Stop 03/05/18 at 13:46; Status DC Ondansetron HCl (Zofran) 4 mg PRN Q6HRS PRN IV NAUSEA/VOMITING Last administered on 03/04/18at 15:05; Start 03/04/18 at 15:00; Stop 03/05/18 at 13 :46; Status DC Diphenhydramine HCl (Benadryl) 25 mg PRN QHS PRN PO INSOMNIA; Start 03/04/18 at 15:00 Multivitamins 10 ml/Thiamine HCl 100 mg/Folic Acid 1 mg/Sodium Chloride 1,011.2 ml @ 1,000.088 mls/hr 1X ONCE IV Last administered on 03/04/18at 16:31; Start 03/04/18 at 15:30; Stop 03/04/18 at 16:35; Status DC Multivitamins (Thera M Plus) 1 tab DAILY PO ; Start 03/05/18 at 09:00 Folic Acid (Folic Acid) 1 mg DAILY PO ; Start 03/05/18 at 09:00 Thiamine Mononitrate (Vitamin B-1) 100 mg DAILY PO ; Start 03/05/18 at 09:00 Chlordiazepoxide (Librium) 25 mg PRN Q6HRS PRN PO ANXIETY / AGITATION; Start 03/04/18 at 15:00 Labetalol HCl (Normodyne Iv Push) 20 mg 1X ONCE IVP Last administered on 03/04at 20:21; Start 03/04/18 at 16:15; Stop 03/04/18 at 16:35; Status DC Labetalol HCl (Normodyne Iv Push) 20 mg PRN Q2HR PRN IVP HYPERTENSION, SEE COMMENTS; Start 03/04/18 at 18:00 Lidocaine HCl (Glydo (Lidocaine) Jelly) 1 eleni 1X ONCE MM ; Start 03/04/18 at 18:15; Stop 03/04/18 at 18:16; Status DC Finasteride (Proscar) 5 mg DAILY PO Last administered on 03/05/18at 15:20; Start 03/05/18 at 09:00 Acetaminophen (Tylenol) 650 mg PRN Q6HRS PRN PO FEVER; Start 03/05/18 at 13:45 Ondansetron HCl (Zofran) 4 mg PRN Q6HRS PRN IV NAUSEA/VOMITING; Start at 13:45 Morphine Sulfate (Morphine Sulfate) 2 mg PRN Q2HR PRN IV MODERATE TO SEVERE PAIN Last administered on 03/06/18at 03:30; Start 03/05/18 at 13:45 Tramadol HCl (Ultram) 50 mg PRN Q6HRS PRN PO MILD TO MODERATE PAIN Last administered on 03/05/18at 21:13; Start 03/05/18 at 13:45 Docusate Sodium (Colace) 100 mg PRN DAILY PRN PO CONSTIPATION; Start 03/05/18 at 13:45 Propofol 20 ml @ As Directed STK-MED ONCE IV ; Start 03/06/18 at 09:24; Stop 03/06/18 at 09:25; Status DC Lidocaine HCl (Lidocaine Pf 2% Vial) 5 ml STK-MED ONCE .ROUTE ; Start 03/06/18 at 09:24; Stop 03/06/18 at 09:25; Status DC Fentanyl Citrate (Fentanyl 2ml Vial) 100 mcg STK-MED ONCE .ROUTE ; Start at 09:24; Stop 03/06/18 at 09:25; Status DC Potassium Chloride (Klor-Con) 40 meq 1X ONCE PO ; Start 03/06/18 at 10:00; Stop 03/06/18 at 10:01; Status DC Cefazolin Sodium/ Dextrose 50 ml @ 100 mls/hr 1X ONCE IV Last administered on 03/06/18at 10:31; Start 03/06/18 at 09:30; Stop 03/06/18 at 09:59; Status DC Rocuronium Elroy (Zemuron) 50 mg STK-MED ONCE .ROUTE ; Start 03/06/18 at 09: 25; Stop 03/06/18 at 09:26; Status DC Ondansetron HCl (Zofran) 4 mg PRN Q6HRS PRN IV NAUSEA/VOMITING; Start at 10:00; Stop 03/07/18 at 09:59 Fentanyl Citrate (Fentanyl 2ml Vial) 25 mcg PRN Q5MIN PRN IV MILD PAIN; Start 03/06/18 at 10:00; Stop 03/07/18 at 09:59 Fentanyl Citrate (Fentanyl 2ml Vial) 50 mcg PRN Q5MIN PRN IV MODERATE TO SEVERE PAIN; Start 03/06/18 at 10:00; Stop 03/07/18 at 09:59 Morphine Sulfate (Morphine Sulfate) 1 mg PRN Q10MIN PRN IV SEVERE PAIN; Start 03/06/18 at 10:00; Stop 03/07/18 at 09:59 Ringer's Solution 1,000 ml @ 30 mls/hr Q24H IV ; Start 03/06/18 at 09:50; Stop 03/06/18 at 21:49 Lidocaine HCl (Xylocaine-Mpf 1% 2ml Vial) 2 ml PRN 1X PRN ID PRIOR TO IV START ; Start 03/06/18 at 10:00; Stop 03/07/18 at 09:59 Hydromorphone HCl (Dilaudid) 0.5 mg PRN Q10MIN PRN IV SEV PAIN, Second choice; Start 03/06/18 at 10:00; Stop 03/07/18 at 09:59 Prochlorperazine Edisylate (Compazine) 5 mg PACU PRN PRN IV NAUSEA, MRX1; Start 03/06/18 at 10:00; Stop 03/07/18 at 09:59 Midazolam HCl (Versed) 2 mg STK-MED ONCE .ROUTE ; Start 03/06/18 at 10:05; Stop 03/06/18 at 10:06; Status DC Lidocaine HCl (Glydo (Lidocaine) Jelly) 6 eleni STK-MED ONCE .ROUTE ; Start 03/06 at 09:06; Stop 03/06/18 at 10:06; Status DC Propofol 20 ml @ As Directed STK-MED ONCE IV ; Start 03/06/18 at 10:37; Stop 03/06/18 at 10:38; Status DC Dexamethasone Sodium Phosphate (Decadron) 20 mg STK-MED ONCE .ROUTE ; Start at 11:29; Stop 03/06/18 at 11:30; Status DC Famotidine (Pepcid Vial) 20 mg STK-MED ONCE .ROUTE ; Start 03/06/18 at 11:30; Stop 03/06/18 at 11:31; Status DC Ondansetron HCl (Zofran) 4 mg STK-MED ONCE .ROUTE ; Start 03/06/18 at 11:30; Stop 03/06/18 at 11:31; Status DC Neostigmine Methylsulfate (Neostigmine Methylsulfate) 5 mg STK-MED ONCE .ROUTE ; Start 03/06/18 at 11:30; Stop 03/06/18 at 11:31; Status DC Glycopyrrolate (Robinul) 1 mg STK-MED ONCE .ROUTE ; Start 03/06/18 at 11:31; Stop 03/06/18 at 11:32; Status DC Belladonna Alkaloids/Opium (B & O) 1 supp 1X ONCE NE ; Start 03/06/18 at 12:15 ; Stop 03/06/18 at 12:16; Status DC Hydralazine HCl (Apresoline Inj) 20 mg STK-MED ONCE .ROUTE ; Start 03/06/18 at 12:16; Stop 03/06/18 at 12:17; Status DC Fentanyl Citrate (Fentanyl 2ml Vial) 100 mcg STK-MED ONCE .ROUTE ; Start at 12:22; Stop 03/06/18 at 12:23; Status DC Active Scripts Active Flomax (Tamsulosin Hcl) 0.4 Mg Cap.er.24h 1 Cap PO DAILY 7 Days Cipro (Ciprofloxacin Hcl) 500 Mg Tablet 1 Tab PO BID 10 Days Flagyl (Metronidazole) 500 Mg Tablet 1 Tab PO TID Levaquin (Levofloxacin) 500 Mg Tablet 1 Tab PO DAILY Reported Metformin HCl 500 Mg/5 Ml Solution 500 Mg PO DAILY Vitals/I & O Vital Sign - Last 24 Hours 03/05/18 03/05/18 03/05/18 03/05/18 15:00 15:20 16:00 19:05 Temp 98.2 98.2 Pulse 84 91 Resp 18 18 B/P (MAP) 128/76 (93) 139/84 (102) Pulse Ox 92 92 92 95 O2 Delivery Room Air Room Air Room Air 03/05/18 03/05/18 03/05/18 03/05/18 20:00 21:13 21:13 22:15 Resp 20 20 18 O2 Delivery Room Air Room Air Room Air Room Air 03/05/18 03/06/18 03/06/18 03/06/18 23:05 03:05 03:30 04:00 Temp 98.4 98.6 98.4 98.6 Pulse 88 91 Resp 16 18 16 16 B/P (MAP) 122/77 (92) 125/76 (92) Pulse Ox 94 96 O2 Delivery Room Air Room Air Room Air Room Air 03/06/18 03/06/18 07:00 09:41 Temp 98.1 98.1 98.1 98.1 Pulse 86 89 Resp 16 20 B/P (MAP) 126/82 (97) 154/85 Pulse Ox 96 97 O2 Delivery Room Air Room Air Intake and Output 03/05/18 03/05/18 03/06/18 15:00 23:00 07:00 Intake Total 0 ml Output Total 650 ml 500 ml 1950 ml Balance -650 ml -500 ml -1950 ml LOLY IRVIN MD Mar 06, 2018 12:37
[2018-03-06] MEDS ORDERED: SEVOFLURANE > 120 MINUTES. IH ONE (12:50)
[2018-03-06] MEDS: fentaNYL PF VIAL 100 MCG/2 ML VIAL IV PRN ×2 (13:24→13:55)
[2018-03-06 13:45] LABS: BASO # 0.1 x10^3/uL (0.0-0.2); BASO % 0 % (0-3); EOS % 0 % (0-3); HEMATOCRIT 22.8 % (39.0-53.0); HEMOGLOBIN 8.2 g/dL (13.0-17.5); LYMPH % 17 % (24-48); MEAN CORPUSCULAR HEMOGLOBIN 33 pg (25-35); MEAN CORPUSCULAR HGB CONC 36 g/dL (31-37); MEAN CORPUSCULAR VOLUME 93 fL (79-100); MONO # 1.2 x10^3/uL (0.0-1.1); MONO % 7 % (0-9); NEUT # 13.1 x10^3uL (1.8-7.7); NEUT % 75 % (31-73); PLATELET COUNT 147 x10^3/uL (140-400); RED BLOOD COUNT 2.46 x10^6/uL (4.30-5.70); RED CELL DISTRIBUTION WIDTH 14.6 % (11.5-14.5); WHITE BLOOD COUNT 17.5 x10^3/uL (4.0-11.0)
[2018-03-06 14:25] LABS: CALCIUM 7.6 mg/dL (8.5-10.1); CREATININE 0.5 mg/dL (0.7-1.3)
[2018-03-06 14:28] LABS: POTASSIUM 3.5 mmol/L (3.5-5.1)
[2018-03-06 14:38] LABS: % EOS 1 % (0-5); % LYMPHS 13 % (24-48); % MONOS 6 % (0-10); % SEGS 80 % (35-66); PLT ESTIMATE ADEQUATE (ADEQUATE)
[2018-03-06 14:39] LABS: HYPOCHROMIA SLIGHT
[2018-03-06] MEDS ORDERED: IOHEXOL 300 MG/ML 100ML VIAL. IV ONE (14:45)
[2018-03-06] MEDS ORDERED: CONTRAST GIVEN. MC PRN (14:45)
--- NOTE | 2018-03-06 15:40 | RAD ---
CT CHEST W/CONTRAST Indication: EVAL FOR METS BLADDER CA INJ 75ML OMNI 300 NO PREV Exposure: One or more of the following individualized dose reduction techniques were utilized for this examination: 1. Automated exposure control 2. Adjustment of the mA and/or kV according to patient size 3. Use of iterative reconstruction technique. Comparison: CT abdomen pelvis study of 03/04/2018 Contrast: Intravenous contrast given. Thoracic aorta: No evidence of aneurysm. Great vessel origins:Patent Pulmonary arteries:Main central arteries appear patent. Thyroid gland:Visualized aspect is unremarkable. Lymph nodes:No significant enlargement Heart: No significant pericadial effusion. Esophagus: Small hiatal hernia Pleural spaces: No significant pleural effusion. Lungs: Mild dependent atelectasis in both lower lobes. There is some more ill-defined opacity in the right lower lobe and posterior right upper lobe, most likely inflammatory or infectious. There is a groundglass nodule in the posterior right upper lobe, image 23, series 2, measures 6 mm. Trachea and central airways: Patent Bones: Osteoblastic rib lesions are seen bilaterally. There appear to be healing fractures of a couple of left ribs. Small sclerotic lesions are identified within the thoracic spine. Upper abdomen: Slices through the upper abdomen are limited due to the technique. No definite acute findings but refer to dedicated CT scan from March 04. Impression: 1. Sclerotic bone lesions of ribs and thoracic spine, suspicious for osteoblastic metastatic tumor deposits. 2. Ill-defined opacities in the lungs, particularly the right lower lobe and posterior right upper lobe, may be inflammatory/infectious. There is at least one 6 mm groundglass nodule. Given the other CT findings, neoplastic involvement is possible. Recommend at least short-term CT chest follow-up. Electronically signed by: Roberto Wong MD (03/06/2018 3:37 PM) [facility]
--- NOTE | 2018-03-06 15:52 | OP ---
DATE OF SURGERY: 03/06/2018 PREOPERATIVE DIAGNOSES: 1. Hematuria. 2. Elevated PSA. POSTOPERATIVE DIAGNOSES: 1. Hematuria. 2. Elevated PSA. PROCEDURES PERFORMED: 1. Cystourethroscopy with evacuation of blood clot. 2. Transurethral resection of prostate. ANESTHESIA: General. COMPLICATIONS: None. BLOOD LOSS: Difficult to determine given continuous flow irrigation. INDICATIONS FOR PROCEDURE: The patient is a 57-year-old male who presented on Monday with painless gross hematuria. Evaluation included CT scan and PSA, both of which were concerning for metastatic prostate cancer. A catheter placed and his bladder was irrigated; however, his urine was unable to clear over the following 48 hours and there was noted to be a significant drop in his hemoglobin and hematocrit. He elected for the above-mentioned procedures. DESCRIPTION OF PROCEDURE: The patient was met in the preoperative holding area where the procedure, risks, benefits, and alternatives were reviewed in detail with the assistance of a supervisor inventory merchandising. Informed consent was obtained. He was brought back to the operating room and placed supine on the operating table. A timeout was called, identifying the correct patient, procedure, and preoperative antibiotics. All members of the surgical team were in agreement. General anesthesia was induced and he was repositioned into dorsal lithotomy and prepped and draped in a sterile fashion. The 25-Sinhala rigid continuous flow resectoscope was placed atraumatically through his urethra into his bladder. Using Ellik device, approximately 300 mL of well organized clot was evacuated. The bladder was inspected and there were no mucosal lesions, stones or debris. The trigone was hypervascular and the ureteral orifices orthotopic in position. His prostate was 3.5 cm in length, trilobar and severely obstructing. There was some bleeding from the median lobe. Using the cut-current, his prostate was systematically resected from the bladder neck to the verumontanum. At no point, did we resect distal to the verumontanum. The resection was not carried down to the surgical capsule at the apex as his prostatic fossa appeared to be wide open. The chips were evacuated and sent to pathology, labeled prostate. The bladder was inspected and no trauma was noted. The ureteral orifices were not involved in the resection. Hemostasis was achieved with cautery and the bladder was left half full. A 22-Sinhala 3-way catheter was placed and he was started on continuous bladder irrigation. He was then awoken and transferred to the PACU in stable condition with plans for metastatic evaluation while awaiting results of pathology. MAXIMO JONES MD DR: GAL/tosin JOB#: [id number] / [id number] SCOT
--- NOTE | 2018-03-06 17:03 | RAD ---
Examination: BONE SCAN WHOLE BODY History: prostate cancer, bone mets on CT. 26.1mCi Tc99m MDP Comparison/Correlation: 02/07/2018 CT chest with contrast, 03/04/2018 CT abdomen and pelvis with contrast Findings: 26.1 mCi technetium 99m MDP was intravenously administered for purposes of total-body bone scintigraphy. Delayed imaging in the frontal and posterior projections was performed. Punctate focus of uptake involving the right frontal bone laterally may represent an osteoblastic metastatic lesion. Small region of uptake involving the left inferior scapular wing corresponds with a sclerotic lesion on CT exam. Linear uptake especially is noted involving the right sixth rib posterolaterally. Linear intense uptake involving the left 10th rib posterolaterally is present. There are smaller sclerotic foci involving ribs bilaterally anteriorly as well as posteriorly. Subtle small foci of uptake involving the thoracic and lumbar vertebral bodies noted. Intense foci of uptake involving the iliac ala bilaterally is noted. This corresponds with osteoblastic metastases seen on CT exam. Focus of intense uptake involving the right intertrochanteric region corresponds with CT findings. Radiotracer is identified involving the kidneys and urinary bladder. Impression: Diffuse osteoblastic metastatic disease identified. Involvement is noted within the ribs, spine, pelvic bones, and other bony structures. Electronically signed by: Rakan Coleman MD (03/06/2018 4:59 PM) [facility]
[2018-03-06] MEDS ORDERED: DEXTROSE 50% 25 GM / 50ML DISP.SYRIN. IV PRN (17:30)
[2018-03-06] MEDS: INSULIN LISPRO 300 UNITS/3 ML INSULN.PEN. SQ SCH (18:00)
[2018-03-06] MEDS: ACETAMINOPHEN 325 MG TABLET. PO PRN (19:46)
[2018-03-07 03:00] VITALS: BP 118/70
[2018-03-07] MEDS: MORPHINE SULFATE 2 MG/ML VIAL. IV PRN ×2 (04:37→11:26)
[2018-03-07 07:00] VITALS: BP 96/61
[2018-03-07] MEDS ORDERED: INSULIN LISPRO 300 UNITS/3 ML INSULN.PEN. SQ SCH (08:00)
[2018-03-07] MEDS: INSULIN LISPRO 300 UNITS/3 ML INSULN.PEN. SQ SCH ×3 (08:00→17:49)
--- NOTE | 2018-03-07 08:55 | PDOC ---
SUBJECTIVE Subjective Pt a little anxious this morning. Keeps repeating "No machine! That killed me yesterday!" OBJECTIVE Objective Physical Exam: General appearance: Anxious, but cooperative. Head: Normocephalic, without obvious abnormality Eyes: conjunctivae/corneas clear. PERRL, EOM's intact. Fundi benign Lungs: regular respirations, non labored breathing Abdomen: soft, non-tender. Bowel sounds normal. No masses, no organomegaly Pelvic: 3 way glez with CBI running at medium speed. Output is light red with small to moderate clots, size of peas or smaller. System running well. Vital Signs Vital Signs Date Time Temp Pulse Resp B/P (MAP) Pulse Ox O2 Delivery O2 Flow Rate FiO2 03/07/18 05:07 16 95 Room Air 2.0 03/07/18 04:37 16 95 Room Air 2.0 03/07/18 03:00 100.2 97 18 118/70 (86) 95 Room Air 100.2 03/06/18 23:00 99.9 96 18 109/64 (79) 95 Room Air 99.9 03/06/18 22:11 16 98 Room Air 03/06/18 20:00 Room Air 03/06/18 19:00 99.7 78 18 120/70 (87) 94 Room Air 99.7 03/06/18 18:57 98.1 98.1 03/06/18 18:00 92 117/69 (85) 98 03/06/18 16:45 89 113/45 (67) 97 03/06/18 16:30 89 128/70 (89) 98 03/06/18 16:15 86 117/69 (85) 98 03/06/18 16:00 88 128/76 (93) 98 03/06/18 15:45 81 130/74 (92) 98 03/06/18 15:30 89 129/76 (93) 98 03/06/18 15:00 98.6 90 20 129/76 (93) 98 Room Air 98.6 03/06/18 14:05 82 16 154/85 98 Nasal Cannula 2 03/06/18 13:55 16 98 Nasal Cannula 2.0 03/06/18 13:50 78 18 149/81 100 Nasal Cannula 2 03/06/18 13:39 16 100 Simple Mask 15.0 03/06/18 13:35 83 16 149/81 100 Simple Mask 03/06/18 13:24 16 100 Room Air 03/06/18 13:20 88 16 124/72 100 Simple Mask 03/06/18 13:05 98 16 124/72 100 Simple Mask 15 03/06/18 12:51 Mask 15 03/06/18 12:51 98 102 15 124/72 100 Room Air 15 98.0 03/06/18 09:41 98.1 89 20 154/85 97 Room Air 98.1 I & O Intake and Output 03/07/18 07:00 Intake Total 1920 ml Output Total 74764 ml Balance -09108 ml Intake Oral 120 ml IV Total 1800 ml Output Urine Total 95190 ml Estimated Blood Loss 200 ml PHYSICAL EXAM Physical Exam Physical Exam: General appearance: Anxious, but cooperative. Head: Normocephalic, without obvious abnormality Eyes: conjunctivae/corneas clear. PERRL, EOM's intact. Fundi benign Lungs: regular respirations, non labored breathing Abdomen: soft, non-tender. Bowel sounds normal. No masses, no organomegaly Pelvic: 3 way glez with CBI running at medium speed. Output is light red with small to moderate clots, size of peas or smaller. System running well. ASSESSMENT/PLAN Assessment/Plan Continue CBI for now. Nursing staff may titrate to light watermelon color with small clots. Will check on patient later, possibly D/C CBI if he shows significant improvement. Lactic Acid and blood cultures for elevated WBC/Fever. Rocephin 1 gram times one also ordered for today. Pt a little anxious this am. [employer] had to explain to him several times in [place] that there will be no machine today, just rest, drinking, eating and CBI. After about the third or fourth time he finally understood and appeared to calm down. I did discuss this with attending RN. No outpatient follow up with Urology planned as of now. Dr. Lechuga and myself are confident that Dr. Heart can manage him independently once he is an outpatient. I did discuss this with Dr. Heart who is also in agreement. Await prostate biopsy results. Will follow closely while in house. Problems: (1) Bladder mass (2) Hematuria COMMENT Lab Laboratory Tests Test 03/06/18 13:28 03/06/18 14:00 03/06/18 20:38 03/07/18 08:04 White Blood Count 17.5 x10^3/uL (4.0-11.0) Red Blood Count 2.46 x10^6/uL (4.30-5.70) Hemoglobin 8.2 g/dL (13.0-17.5) Hematocrit 22.8 % (39.0-53.0) Mean Corpuscular Volume 93 fL (79-100) Mean Corpuscular Hemoglobin 33 pg (25-35) Mean Corpuscular Hemoglobin Concent 36 g/dL (31-37) Red Cell Distribution Width 14.6 % (11.5-14.5) Platelet Count 147 x10^3/uL (140-400) Neutrophils (%) (Auto) 75 % (31-73) Lymphocytes (%) (Auto) 17 % (24-48) Monocytes (%) (Auto) 7 % (0-9) Eosinophils (%) (Auto) 0 % (0-3) Basophils (%) (Auto) 0 % (0-3) Neutrophils # (Auto) 13.1 x10^3uL (1.8-7.7) Lymphocytes # (Auto) 3.0 x10^3/uL (1.0-4.8) Monocytes # (Auto) 1.2 x10^3/uL (0.0-1.1) Eosinophils # (Auto) 0.0 x10^3/uL (0.0-0.7) Basophils # (Auto) 0.1 x10^3/uL (0.0-0.2) Segmented Neutrophils % 80 % (35-66) Lymphocytes % 13 % (24-48) Monocytes % 6 % (0-10) Eosinophils % 1 % (0-5) Platelet Estimate Adequate (ADEQUATE) Hypochromasia Slight Sodium Level 125 mmol/L (136-145) Potassium Level 3.5 mmol/L (3.5-5.1) Chloride Level 93 mmol/L (98-107) Carbon Dioxide Level 19 mmol/L (21-32) Anion Gap 13 (6-14) Blood Urea Nitrogen 7 mg/dL (8-26) Creatinine 0.5 mg/dL (0.7-1.3) Estimated GFR (Cockcroft-Gault) 172.0 Glucose Level 186 mg/dL (70-99) Calcium Level 7.6 mg/dL (8.5-10.1) Glucose (Fingerstick) 206 mg/dL (70-99) 147 mg/dL (70-99) ESTRELLA PANIAGUA APRN Mar 07, 2018 08:55
[2018-03-07] MEDS: FINASTERIDE 5 MG TABLET. PO SCH (08:59)
[2018-03-07] MEDS: MULTIVITAMIN with MINERAL TABLET. PO SCH (08:59)
[2018-03-07] MEDS: FOLIC ACID 1 MG TABLET. PO SCH (08:59)
[2018-03-07] MEDS: THIAMINE 100 MG TABLET. PO SCH (08:59)
[2018-03-07] MEDS ORDERED: cefTRIAXone IV Push 1 GM VIAL. IVP ONE (10:00)
[2018-03-07] MEDS ORDERED: IV NORMAL SALINE 1000ML BAG 1,000 ML IV ONE (10:00)
[2018-03-07] MEDS: IV NORMAL SALINE 1000ML BAG 1,000 ML IV SCH ×2 (10:27→23:20)
--- NOTE | 2018-03-07 11:04 | PDOC ---
PROGRESS NOTES Subjective Subjective HPI -f/u of Enlarged prostate with bone metastasis clinically concerning for prostate cancer with bone metastasis. ROS - s/p TURP 03/06/18, has hematuria Objective Objective Vital Signs Date Time Temp Pulse Resp B/P (MAP) Pulse Ox O2 Delivery O2 Flow Rate FiO2 03/07/18 07:00 99.6 105 16 96/61 (73) 96 Room Air 99.6 03/07/18 05:07 2.0 Intake and Output 03/07/18 07:00 Intake Total 1920 ml Output Total 94321 ml Balance -30629 ml Intake Oral 120 ml IV Total 1800 ml Output Urine Total 52664 ml Estimated Blood Loss 200 ml Physical Exam Heart: Normal S1, Normal S2 General: Alert, Oriented X3 Lungs: Clear to auscultation Neuro: Normal speech Psych/Mental Status: Mental status NL Assessment Assessment Problems Medical Problems: (1) Bladder mass Status: Acute (2) Hematuria Status: Acute IMPRESSION AND PLAN: 1. Enlarged prostate with bone metastasis clinically concerning for prostate cancer with bone metastasis. Mass noted in the urinary bladder on CAT scan is likely to be a hematoma per Urology. Cystoscopy and transurethral resection of the prostate has been planned 03/06/18. I will await further diagnostic workup per Urology. I discussed with primary team, Dr. Lopez. I also discussed with the registered nurse. CT chest 03/06/18: Sclerotic bone lesions of ribs and thoracic spine, suspicious for osteoblastic metastatic tumor deposits. Ill-defined opacities in the lungs, particularly the right lower lobe and posterior right upper lobe, may be inflammatory/infectious. There is at least one 6 mm groundglass nodule. Given the other CT findings, neoplastic involvement is possible. Recommend at least short-term CT chest follow-up. I d/w Magdalena REDDY, from urology. PSA [id number] on 03/04/18 suggestive of prostate cancer. s/p TURP 03/06/18, await path results, then plan casodex and lupron after confirmation of prostate cancer. 2. Hematuria. Appreciate Urology consultation. 3. Bone metastasis per CT scan. Bone scan 03/06/18: Diffuse osteoblastic metastatic disease identified. Involvement is noted within the ribs, spine, pelvic bones, and other bony structures.. Comment Review of Relevant I have reviewed the following items mame (where applicable) has been applied. Labs Laboratory Tests Test 03/05/18 11:27 03/05/18 16:18 03/05/18 21:06 03/06/18 03:40 Glucose (Fingerstick) 136 mg/dL (70-99) 150 mg/dL (70-99) 157 mg/dL (70-99) White Blood Count 9.1 x10^3/uL (4.0-11.0) Red Blood Count 3.01 x10^6/uL (4.30-5.70) Hemoglobin 10.0 g/dL (13.0-17.5) Hematocrit 28.6 % (39.0-53.0) Mean Corpuscular Volume 95 fL (79-100) Mean Corpuscular Hemoglobin 33 pg (25-35) Mean Corpuscular Hemoglobin Concent 35 g/dL (31-37) Red Cell Distribution Width 13.5 % (11.5-14.5) Platelet Count 114 x10^3/uL (140-400) Neutrophils (%) (Auto) 64 % (31-73) Lymphocytes (%) (Auto) 24 % (24-48) Monocytes (%) (Auto) 11 % (0-9) Eosinophils (%) (Auto) 1 % (0-3) Basophils (%) (Auto) 0 % (0-3) Neutrophils # (Auto) 5.9 x10^3uL (1.8-7.7) Lymphocytes # (Auto) 2.2 x10^3/uL (1.0-4.8) Monocytes # (Auto) 1.0 x10^3/uL (0.0-1.1) Eosinophils # (Auto) 0.0 x10^3/uL (0.0-0.7) Basophils # (Auto) 0.0 x10^3/uL (0.0-0.2) Sodium Level 140 mmol/L (136-145) Potassium Level 3.4 mmol/L (3.5-5.1) Chloride Level 105 mmol/L (98-107) Carbon Dioxide Level 25 mmol/L (21-32) Anion Gap 10 (6-14) Blood Urea Nitrogen 7 mg/dL (8-26) Creatinine 0.7 mg/dL (0.7-1.3) Estimated GFR (Cockcroft-Gault) 116.7 Glucose Level 122 mg/dL (70-99) Calcium Level 8.4 mg/dL (8.5-10.1) Test 03/06/18 13:28 03/06/18 14:00 03/06/18 20:38 03/07/18 08:04 White Blood Count 17.5 x10^3/uL (4.0-11.0) Red Blood Count 2.46 x10^6/uL (4.30-5.70) Hemoglobin 8.2 g/dL (13.0-17.5) Hematocrit 22.8 % (39.0-53.0) Mean Corpuscular Volume 93 fL (79-100) Mean Corpuscular Hemoglobin 33 pg (25-35) Mean Corpuscular Hemoglobin Concent 36 g/dL (31-37) Red Cell Distribution Width 14.6 % (11.5-14.5) Platelet Count 147 x10^3/uL (140-400) Neutrophils (%) (Auto) 75 % (31-73) Lymphocytes (%) (Auto) 17 % (24-48) Monocytes (%) (Auto) 7 % (0-9) Eosinophils (%) (Auto) 0 % (0-3) Basophils (%) (Auto) 0 % (0-3) Neutrophils # (Auto) 13.1 x10^3uL (1.8-7.7) Lymphocytes # (Auto) 3.0 x10^3/uL (1.0-4.8) Monocytes # (Auto) 1.2 x10^3/uL (0.0-1.1) Eosinophils # (Auto) 0.0 x10^3/uL (0.0-0.7) Basophils # (Auto) 0.1 x10^3/uL (0.0-0.2) Segmented Neutrophils % 80 % (35-66) Lymphocytes % 13 % (24-48) Monocytes % 6 % (0-10) Eosinophils % 1 % (0-5) Platelet Estimate Adequate (ADEQUATE) Hypochromasia Slight Sodium Level 125 mmol/L (136-145) Potassium Level 3.5 mmol/L (3.5-5.1) Chloride Level 93 mmol/L (98-107) Carbon Dioxide Level 19 mmol/L (21-32) Anion Gap 13 (6-14) Blood Urea Nitrogen 7 mg/dL (8-26) Creatinine 0.5 mg/dL (0.7-1.3) Estimated GFR (Cockcroft-Gault) 172.0 Glucose Level 186 mg/dL (70-99) Calcium Level 7.6 mg/dL (8.5-10.1) Glucose (Fingerstick) 206 mg/dL (70-99) 147 mg/dL (70-99) Test 03/07/18 09:05 Lactic Acid Level 1.0 mmol/L (0.4-2.0) Laboratory Tests Test 03/06/18 13:28 03/06/18 14:00 03/06/18 20:38 03/07/18 08:04 White Blood Count 17.5 x10^3/uL (4.0-11.0) Red Blood Count 2.46 x10^6/uL (4.30-5.70) Hemoglobin 8.2 g/dL (13.0-17.5) Hematocrit 22.8 % (39.0-53.0) Mean Corpuscular Volume 93 fL (79-100) Mean Corpuscular Hemoglobin 33 pg (25-35) Mean Corpuscular Hemoglobin Concent 36 g/dL (31-37) Red Cell Distribution Width 14.6 % (11.5-14.5) Platelet Count 147 x10^3/uL (140-400) Neutrophils (%) (Auto) 75 % (31-73) Lymphocytes (%) (Auto) 17 % (24-48) Monocytes (%) (Auto) 7 % (0-9) Eosinophils (%) (Auto) 0 % (0-3) Basophils (%) (Auto) 0 % (0-3) Neutrophils # (Auto) 13.1 x10^3uL (1.8-7.7) Lymphocytes # (Auto) 3.0 x10^3/uL (1.0-4.8) Monocytes # (Auto) 1.2 x10^3/uL (0.0-1.1) Eosinophils # (Auto) 0.0 x10^3/uL (0.0-0.7) Basophils # (Auto) 0.1 x10^3/uL (0.0-0.2) Segmented Neutrophils % 80 % (35-66) Lymphocytes % 13 % (24-48) Monocytes % 6 % (0-10) Eosinophils % 1 % (0-5) Platelet Estimate Adequate (ADEQUATE) Hypochromasia Slight Sodium Level 125 mmol/L (136-145) Potassium Level 3.5 mmol/L (3.5-5.1) Chloride Level 93 mmol/L (98-107) Carbon Dioxide Level 19 mmol/L (21-32) Anion Gap 13 (6-14) Blood Urea Nitrogen 7 mg/dL (8-26) Creatinine 0.5 mg/dL (0.7-1.3) Estimated GFR (Cockcroft-Gault) 172.0 Glucose Level 186 mg/dL (70-99) Calcium Level 7.6 mg/dL (8.5-10.1) Glucose (Fingerstick) 206 mg/dL (70-99) 147 mg/dL (70-99) Test 03/07/18 09:05 Lactic Acid Level 1.0 mmol/L (0.4-2.0) Medications Current Medications Sodium Chloride 1,000 ml @ 1,000 mls/hr 1X ONCE IV Last administered on 03/04at 12:07; Start 03/04/18 at 11:45; Stop 03/04/18 at 12:44; Status DC Iohexol (Omnipaque 300 Mg/ml) 75 ml 1X ONCE IV ; Start 03/04/18 at 12:30; Stop 03/04/18 at 12:36; Status DC Info (CONTRAST GIVEN -- Rx MONITORING) 1 each PRN DAILY PRN MC SEE COMMENTS; Start 03/04/18 at 12:45; Stop 03/06/18 at 12:54; Status DC Sodium Chloride 1,000 ml @ 1,000 mls/hr 1X ONCE IV Last administered on 03/04at 13:45; Start 03/04/18 at 13:45; Stop 03/04/18 at 14:44; Status DC Ondansetron HCl (Zofran) 4 mg PRN Q8HRS PRN IV NAUSEA/VOMITING; Start at 14:15; Stop 03/04/18 at 14:56; Status DC Morphine Sulfate (Morphine Sulfate) 4 mg PRN Q2HR PRN IV PAIN Last administered on 03/05/18at 11:35; Start 03/04/18 at 14:15; Stop 03/05/18 at 13 :46; Status DC Sodium Chloride 1,000 ml @ 125 mls/hr Q8H IV ; Start 03/04/18 at 14:11; Stop 03/05/18 at 14:10; Status DC Acetaminophen (Tylenol) 650 mg PRN Q4HRS PRN PO FEVER; Start 03/04/18 at 14:15 ; Stop 03/05/18 at 13:46; Status DC Ondansetron HCl (Zofran) 4 mg PRN Q6HRS PRN IV NAUSEA/VOMITING Last administered on 03/04/18at 15:05; Start 03/04/18 at 15:00; Stop 03/05/18 at 13 :46; Status DC Diphenhydramine HCl (Benadryl) 25 mg PRN QHS PRN PO INSOMNIA; Start 03/04/18 at 15:00 Multivitamins 10 ml/Thiamine HCl 100 mg/Folic Acid 1 mg/Sodium Chloride 1,011.2 ml @ 1,000.088 mls/hr 1X ONCE IV Last administered on 03/04/18at 16:31; Start 03/04/18 at 15:30; Stop 03/04/18 at 16:35; Status DC Multivitamins (Thera M Plus) 1 tab DAILY PO Last administered on 03/07/18at 08: 59; Start 03/05/18 at 09:00 Folic Acid (Folic Acid) 1 mg DAILY PO Last administered on 03/07/18at 08:59; Start 03/05/18 at 09:00 Thiamine Mononitrate (Vitamin B-1) 100 mg DAILY PO Last administered on at 08:59; Start 03/05/18 at 09:00 Chlordiazepoxide (Librium) 25 mg PRN Q6HRS PRN PO ANXIETY / AGITATION; Start 03/04/18 at 15:00 Labetalol HCl (Normodyne Iv Push) 20 mg 1X ONCE IVP Last administered on 03/04at 20:21; Start 03/04/18 at 16:15; Stop 03/04/18 at 16:35; Status DC Labetalol HCl (Normodyne Iv Push) 20 mg PRN Q2HR PRN IVP HYPERTENSION, SEE COMMENTS; Start 03/04/18 at 18:00 Lidocaine HCl (Glydo (Lidocaine) Jelly) 1 eleni 1X ONCE MM ; Start 03/04/18 at 18:15; Stop 03/04/18 at 18:16; Status DC Finasteride (Proscar) 5 mg DAILY PO Last administered on 03/07/18at 08:59; Start 03/05/18 at 09:00 Acetaminophen (Tylenol) 650 mg PRN Q6HRS PRN PO FEVER Last administered on at 19:46; Start 03/05/18 at 13:45 Ondansetron HCl (Zofran) 4 mg PRN Q6HRS PRN IV NAUSEA/VOMITING; Start at 13:45 Morphine Sulfate (Morphine Sulfate) 2 mg PRN Q2HR PRN IV MODERATE TO SEVERE PAIN Last administered on 03/07/18at 04:37; Start 03/05/18 at 13:45 Tramadol HCl (Ultram) 50 mg PRN Q6HRS PRN PO MILD TO MODERATE PAIN Last administered on 03/05/18at 21:13; Start 03/05/18 at 13:45 Docusate Sodium (Colace) 100 mg PRN DAILY PRN PO CONSTIPATION; Start 03/05/18 at 13:45 Propofol 20 ml @ As Directed STK-MED ONCE IV ; Start 03/06/18 at 09:24; Stop 03/06/18 at 09:25; Status DC Lidocaine HCl (Lidocaine Pf 2% Vial) 5 ml STK-MED ONCE .ROUTE ; Start 03/06/18 at 09:24; Stop 03/06/18 at 09:25; Status DC Fentanyl Citrate (Fentanyl 2ml Vial) 100 mcg STK-MED ONCE .ROUTE ; Start at 09:24; Stop 03/06/18 at 09:25; Status DC Potassium Chloride (Klor-Con) 40 meq 1X ONCE PO ; Start 03/06/18 at 10:00; Stop 03/06/18 at 10:01; Status DC Cefazolin Sodium/ Dextrose 50 ml @ 100 mls/hr 1X ONCE IV Last administered on 03/06/18at 10:31; Start 03/06/18 at 09:30; Stop 03/06/18 at 09:59; Status DC Rocuronium [place] (Zemuron) 50 mg STK-MED ONCE .ROUTE ; Start 03/06/18 at 09: 25; Stop 03/06/18 at 09:26; Status DC Ondansetron HCl (Zofran) 4 mg PRN Q6HRS PRN IV NAUSEA/VOMITING; Start at 10:00; Stop 03/07/18 at 09:59; Status DC Fentanyl Citrate (Fentanyl 2ml Vial) 25 mcg PRN Q5MIN PRN IV MILD PAIN Last administered on 03/06/18at 13:55; Start 03/06/18 at 10:00; Stop 03/07/18 at 09 :59; Status DC Fentanyl Citrate (Fentanyl 2ml Vial) 50 mcg PRN Q5MIN PRN IV MODERATE TO SEVERE PAIN Last administered on 03/06/18at 13:39; Start 03/06/18 at 10:00; Stop 03/07/18 at 09:59; Status DC Morphine Sulfate (Morphine Sulfate) 1 mg PRN Q10MIN PRN IV SEVERE PAIN; Start 03/06/18 at 10:00; Stop 03/07/18 at 09:59; Status DC Ringer's Solution 1,000 ml @ 30 mls/hr Q24H IV ; Start 03/06/18 at 09:50; Stop 03/06/18 at 21:49; Status DC Lidocaine HCl (Xylocaine-Mpf 1% 2ml Vial) 2 ml PRN 1X PRN ID PRIOR TO IV START ; Start 03/06/18 at 10:00; Stop 03/07/18 at 09:59; Status DC Hydromorphone HCl (Dilaudid) 0.5 mg PRN Q10MIN PRN IV SEV PAIN, Second choice; Start 03/06/18 at 10:00; Stop 03/07/18 at 09:59; Status DC Prochlorperazine Edisylate (Compazine) 5 mg PACU PRN PRN IV NAUSEA, MRX1; Start 03/06/18 at 10:00; Stop 03/07/18 at 09:59; Status DC Midazolam HCl (Versed) 2 mg STK-MED ONCE .ROUTE ; Start 03/06/18 at 10:05; Stop 03/06/18 at 10:06; Status DC Lidocaine HCl (Glydo (Lidocaine) Jelly) 6 eleni STK-MED ONCE .ROUTE ; Start 03/06 at 09:06; Stop 10/30/18 at 10:06; Status DC Propofol 20 ml @ As Directed STK-MED ONCE IV ; Start 03/06/18 at 10:37; Stop 03/06/18 at 10:38; Status DC Dexamethasone Sodium Phosphate (Decadron) 20 mg STK-MED ONCE .ROUTE ; Start at 11:29; Stop 03/06/18 at 11:30; Status DC Famotidine (Pepcid Vial) 20 mg STK-MED ONCE .ROUTE ; Start 03/06/18 at 11:30; Stop 03/06/18 at 11:31; Status DC Ondansetron HCl (Zofran) 4 mg STK-MED ONCE .ROUTE ; Start 03/06/18 at 11:30; Stop 03/06/18 at 11:31; Status DC Neostigmine Methylsulfate (Neostigmine Methylsulfate) 5 mg STK-MED ONCE .ROUTE ; Start 03/06/18 at 11:30; Stop 03/06/18 at 11:31; Status DC Glycopyrrolate (Robinul) 1 mg STK-MED ONCE .ROUTE ; Start 03/06/18 at 11:31; Stop 03/06/18 at 11:32; Status DC Belladonna Alkaloids/Opium (B & O) 1 supp 1X ONCE MN Last administered on at 12:50; Start 03/06/18 at 12:15; Stop 03/06/18 at 12:16; Status DC Hydralazine HCl (Apresoline Inj) 20 mg STK-MED ONCE .ROUTE ; Start 03/06/18 at 12:16; Stop 03/06/18 at 12:17; Status DC Fentanyl Citrate (Fentanyl 2ml Vial) 100 mcg STK-MED ONCE .ROUTE ; Start at 12:22; Stop 03/06/18 at 12:23; Status DC Sevoflurane (Ultane) 90 ml STK-MED ONCE IH ; Start 03/06/18 at 12:50; Stop at 12:51; Status DC Iohexol (Omnipaque 300 Mg/ml) 75 ml 1X ONCE IV Last administered on at 14:56; Start 03/06/18 at 14:45; Stop 03/06/18 at 14:46; Status DC Info (CONTRAST GIVEN -- Rx MONITORING) 1 each PRN DAILY PRN MC SEE COMMENTS; Start 03/06/18 at 14:45; Stop 03/08/18 at 14:44 Insulin Human Lispro (HumaLOG) 0-5 UNITS TIDWMEALS SQ ; Start 03/07/18 at 08:00 ; Stop 03/07/18 at 08:00; Status DC Dextrose (Dextrose 50%-Water Syringe) 12.5 gm PRN Q15MIN PRN IV SEE COMMENTS; Start 03/06/18 at 17:30 Insulin Human Lispro (HumaLOG) 0-5 UNITS TIDWMEALS SQ ; Start 03/06/18 at 18:00 Ceftriaxone Sodium 50 ml @ 100 mls/hr 1X ONCE IV ; Start 03/07/18 at 10:00; Stop 03/07/18 at 10:29; Status UNV Ceftriaxone Sodium (Rocephin) 1 gm 1X ONCE IVP Last administered on at 10:26; Start 03/07/18 at 10:00; Stop 03/07/18 at 10:01; Status DC Sodium Chloride 1,000 ml @ 75 mls/hr [id number] IV Last administered on at 10:27; Start 03/07/18 at 10:00 Sodium Chloride 1,000 ml @ 1,000 mls/hr 1X ONCE IV Last administered on 03/07at 10:27; Start 03/07/18 at 10:00; Stop 03/07/18 at 10:59; Status DC Active Scripts Active Flomax (Tamsulosin Hcl) 0.4 Mg Cap.er.24h 1 Cap PO DAILY 7 Days Cipro (Ciprofloxacin Hcl) 500 Mg Tablet 1 Tab PO BID 10 Days Flagyl (Metronidazole) 500 Mg Tablet 1 Tab PO TID Levaquin (Levofloxacin) 500 Mg Tablet 1 Tab PO DAILY Reported Metformin HCl 500 Mg/5 Ml Solution 500 Mg PO DAILY Vitals/I & O Vital Sign - Last 24 Hours 03/06/18 03/06/18 03/06/18 03/06/18 12:51 12:51 13:05 13:20 Temp 98 98.0 Pulse 102 98 88 Resp 15 16 16 B/P (MAP) 124/72 124/72 124/72 Pulse Ox 100 100 100 O2 Delivery Room Air Mask Simple Mask Simple Mask O2 Flow Rate 15 15 15 03/06/18 03/06/18 03/06/18 03/06/18 13:24 13:35 13:39 13:50 Pulse 83 78 Resp 16 16 16 18 B/P (MAP) 149/81 149/81 Pulse Ox 100 100 100 100 O2 Delivery Room Air Simple Mask Simple Mask Nasal Cannula O2 Flow Rate 15.0 2 03/06/18 03/06/18 03/06/18 03/06/18 13:55 14:05 15:00 15:30 Temp 98.6 98.6 Pulse 82 90 89 Resp 16 16 20 B/P (MAP) 154/85 129/76 (93) 129/76 (93) Pulse Ox 98 98 98 98 O2 Delivery Nasal Cannula Nasal Cannula Room Air O2 Flow Rate 2.0 2 03/06/18 03/06/18 03/06/18 03/06/18 15:45 16:00 16:15 16:30 Pulse 81 88 86 89 B/P (MAP) 130/74 (92) 128/76 (93) 117/69 (85) 128/70 (89) Pulse Ox 98 98 98 98 03/06/18 03/06/18 03/06/18 03/06/18 16:45 18:00 18:57 19:00 Temp 98.1 99.7 98.1 99.7 Pulse 89 92 78 Resp 18 B/P (MAP) 113/45 (67) 117/69 (85) 120/70 (87) Pulse Ox 97 98 94 O2 Delivery Room Air 03/06/18 03/06/18 03/06/18 03/07/18 20:00 22:11 23:00 03:00 Temp 99.9 100.2 99.9 100.2 Pulse 96 97 Resp 16 18 18 B/P (MAP) 109/64 (79) 118/70 (86) Pulse Ox 98 95 95 O2 Delivery Room Air Room Air Room Air Room Air 03/07/18 03/07/18 03/07/18 04:37 05:07 07:00 Temp 99.6 99.6 Pulse 105 Resp 16 16 16 B/P (MAP) 96/61 (73) Pulse Ox 95 95 96 O2 Delivery Room Air Room Air Room Air O2 Flow Rate 2.0 2.0 Intake and Output 03/06/18 03/06/18 03/07/18 15:00 23:00 07:00 Intake Total 1800 ml 120 ml Output Total 6250 ml 15341 ml 1750 ml Balance -4450 ml -43971 ml -1630 ml BERNABE AN MD Mar 07, 2018 11:04
[2018-03-07] MEDS: traMADol 50 MG TABLET PO PRN (11:26)
[2018-03-07 11:33] VITALS: BP 117/72
--- NOTE | 2018-03-07 12:41 | PDOC ---
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 fu with onco, likely has supervisor uranium processing given >200 PSA, and mass in bladder, bone mets ct chest showed possible lung mets, bone scan + diffuse bone mets replete K add IVF NS for now, 1L NS bolus given for low bp; add ceftriaxone daily for now pt from [place], [place], not understanding. 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 History of Present Illness History of Present Illness ROS: no fever, chills, sob or chest pain has TURP 03/06, on CBI, cont having mild hematuria with some dark clots pt not understand Singaporean 03/07: high WBC 17, T 100.2, Na 125 Vitals Vitals Vital Signs Date Time Temp Pulse Resp B/P (MAP) Pulse Ox O2 Delivery O2 Flow Rate FiO2 03/07/18 11:33 98.7 102 16 117/72 (87) 96 Room Air 98.7 03/07/18 05:07 2.0 Physical Exam General: Alert, Oriented X3 Heart: Normal S1, Normal S2 Lungs: Clear Abdomen: Normal bowel sounds, Soft, No tenderness, No hepatosplenomegaly, No masses Extremities: No clubbing, No cyanosis, No edema, Normal pulses, No tenderness/ swelling Skin: No rashes, No breakdown, No significant lesion Labs LABS Laboratory Tests Test 03/06/18 13:28 03/06/18 14:00 03/06/18 20:38 03/07/18 08:04 White Blood Count 17.5 x10^3/uL (4.0-11.0) Red Blood Count 2.46 x10^6/uL (4.30-5.70) Hemoglobin 8.2 g/dL (13.0-17.5) Hematocrit 22.8 % (39.0-53.0) Mean Corpuscular Volume 93 fL (79-100) Mean Corpuscular Hemoglobin 33 pg (25-35) Mean Corpuscular Hemoglobin Concent 36 g/dL (31-37) Red Cell Distribution Width 14.6 % (11.5-14.5) Platelet Count 147 x10^3/uL (140-400) Neutrophils (%) (Auto) 75 % (31-73) Lymphocytes (%) (Auto) 17 % (24-48) Monocytes (%) (Auto) 7 % (0-9) Eosinophils (%) (Auto) 0 % (0-3) Basophils (%) (Auto) 0 % (0-3) Neutrophils # (Auto) 13.1 x10^3uL (1.8-7.7) Lymphocytes # (Auto) 3.0 x10^3/uL (1.0-4.8) Monocytes # (Auto) 1.2 x10^3/uL (0.0-1.1) Eosinophils # (Auto) 0.0 x10^3/uL (0.0-0.7) Basophils # (Auto) 0.1 x10^3/uL (0.0-0.2) Segmented Neutrophils % 80 % (35-66) Lymphocytes % 13 % (24-48) Monocytes % 6 % (0-10) Eosinophils % 1 % (0-5) Platelet Estimate Adequate (ADEQUATE) Hypochromasia Slight Sodium Level 125 mmol/L (136-145) Potassium Level 3.5 mmol/L (3.5-5.1) Chloride Level 93 mmol/L (98-107) Carbon Dioxide Level 19 mmol/L (21-32) Anion Gap 13 (6-14) Blood Urea Nitrogen 7 mg/dL (8-26) Creatinine 0.5 mg/dL (0.7-1.3) Estimated GFR (Cockcroft-Gault) 172.0 Glucose Level 186 mg/dL (70-99) Calcium Level 7.6 mg/dL (8.5-10.1) Glucose (Fingerstick) 206 mg/dL (70-99) 147 mg/dL (70-99) Test 03/07/18 09:05 03/07/18 10:53 Lactic Acid Level 1.0 mmol/L (0.4-2.0) Glucose (Fingerstick) 129 mg/dL (70-99) Assessment and Plan Assessmemt and Plan Problems Medical Problems: (1) Bladder mass Status: Acute (2) Hematuria Status: Acute Comment Review of Relevant I have reviewed the following items mame (where applicable) has been applied. Labs Laboratory Tests Test 03/05/18 16:18 03/05/18 21:06 03/06/18 03:40 03/06/18 13:28 Glucose (Fingerstick) 150 mg/dL (70-99) 157 mg/dL (70-99) White Blood Count 9.1 x10^3/uL (4.0-11.0) 17.5 x10^3/uL (4.0-11.0) Red Blood Count 3.01 x10^6/uL (4.30-5.70) 2.46 x10^6/uL (4.30-5.70) Hemoglobin 10.0 g/dL (13.0-17.5) 8.2 g/dL (13.0-17.5) Hematocrit 28.6 % (39.0-53.0) 22.8 % (39.0-53.0) Mean Corpuscular Volume 95 fL (79-100) 93 fL (79-100) Mean Corpuscular Hemoglobin 33 pg (25-35) 33 pg (25-35) Mean Corpuscular Hemoglobin Concent 35 g/dL (31-37) 36 g/dL (31-37) Red Cell Distribution Width 13.5 % (11.5-14.5) 14.6 % (11.5-14.5) Platelet Count 114 x10^3/uL (140-400) 147 x10^3/uL (140-400) Neutrophils (%) (Auto) 64 % (31-73) 75 % (31-73) Lymphocytes (%) (Auto) 24 % (24-48) 17 % (24-48) Monocytes (%) (Auto) 11 % (0-9) 7 % (0-9) Eosinophils (%) (Auto) 1 % (0-3) 0 % (0-3) Basophils (%) (Auto) 0 % (0-3) 0 % (0-3) Neutrophils # (Auto) 5.9 x10^3uL (1.8-7.7) 13.1 x10^3uL (1.8-7.7) Lymphocytes # (Auto) 2.2 x10^3/uL (1.0-4.8) 3.0 x10^3/uL (1.0-4.8) Monocytes # (Auto) 1.0 x10^3/uL (0.0-1.1) 1.2 x10^3/uL (0.0-1.1) Eosinophils # (Auto) 0.0 x10^3/uL (0.0-0.7) 0.0 x10^3/uL (0.0-0.7) Basophils # (Auto) 0.0 x10^3/uL (0.0-0.2) 0.1 x10^3/uL (0.0-0.2) Sodium Level 140 mmol/L (136-145) Potassium Level 3.4 mmol/L (3.5-5.1) Chloride Level 105 mmol/L (98-107) Carbon Dioxide Level 25 mmol/L (21-32) Anion Gap 10 (6-14) Blood Urea Nitrogen 7 mg/dL (8-26) Creatinine 0.7 mg/dL (0.7-1.3) Estimated GFR (Cockcroft-Gault) 116.7 Glucose Level 122 mg/dL (70-99) Calcium Level 8.4 mg/dL (8.5-10.1) Segmented Neutrophils % 80 % (35-66) Lymphocytes % 13 % (24-48) Monocytes % 6 % (0-10) Eosinophils % 1 % (0-5) Platelet Estimate Adequate (ADEQUATE) Hypochromasia Slight Test 03/06/18 14:00 03/06/18 20:38 03/07/18 08:04 03/07/18 09:05 Sodium Level 125 mmol/L (136-145) Potassium Level 3.5 mmol/L (3.5-5.1) Chloride Level 93 mmol/L (98-107) Carbon Dioxide Level 19 mmol/L (21-32) Anion Gap 13 (6-14) Blood Urea Nitrogen 7 mg/dL (8-26) Creatinine 0.5 mg/dL (0.7-1.3) Estimated GFR (Cockcroft-Gault) 172.0 Glucose Level 186 mg/dL (70-99) Calcium Level 7.6 mg/dL (8.5-10.1) Glucose (Fingerstick) 206 mg/dL (70-99) 147 mg/dL (70-99) Lactic Acid Level 1.0 mmol/L (0.4-2.0) Test 03/07/18 10:53 Glucose (Fingerstick) 129 mg/dL (70-99) Laboratory Tests Test 03/06/18 13:28 03/06/18 14:00 03/06/18 20:38 03/07/18 08:04 White Blood Count 17.5 x10^3/uL (4.0-11.0) Red Blood Count 2.46 x10^6/uL (4.30-5.70) Hemoglobin 8.2 g/dL (13.0-17.5) Hematocrit 22.8 % (39.0-53.0) Mean Corpuscular Volume 93 fL (79-100) Mean Corpuscular Hemoglobin 33 pg (25-35) Mean Corpuscular Hemoglobin Concent 36 g/dL (31-37) Red Cell Distribution Width 14.6 % (11.5-14.5) Platelet Count 147 x10^3/uL (140-400) Neutrophils (%) (Auto) 75 % (31-73) Lymphocytes (%) (Auto) 17 % (24-48) Monocytes (%) (Auto) 7 % (0-9) Eosinophils (%) (Auto) 0 % (0-3) Basophils (%) (Auto) 0 % (0-3) Neutrophils # (Auto) 13.1 x10^3uL (1.8-7.7) Lymphocytes # (Auto) 3.0 x10^3/uL (1.0-4.8) Monocytes # (Auto) 1.2 x10^3/uL (0.0-1.1) Eosinophils # (Auto) 0.0 x10^3/uL (0.0-0.7) Basophils # (Auto) 0.1 x10^3/uL (0.0-0.2) Segmented Neutrophils % 80 % (35-66) Lymphocytes % 13 % (24-48) Monocytes % 6 % (0-10) Eosinophils % 1 % (0-5) Platelet Estimate Adequate (ADEQUATE) Hypochromasia Slight Sodium Level 125 mmol/L (136-145) Potassium Level 3.5 mmol/L (3.5-5.1) Chloride Level 93 mmol/L (98-107) Carbon Dioxide Level 19 mmol/L (21-32) Anion Gap 13 (6-14) Blood Urea Nitrogen 7 mg/dL (8-26) Creatinine 0.5 mg/dL (0.7-1.3) Estimated GFR (Cockcroft-Gault) 172.0 Glucose Level 186 mg/dL (70-99) Calcium Level 7.6 mg/dL (8.5-10.1) Glucose (Fingerstick) 206 mg/dL (70-99) 147 mg/dL (70-99) Test 03/07/18 09:05 03/07/18 10:53 Lactic Acid Level 1.0 mmol/L (0.4-2.0) Glucose (Fingerstick) 129 mg/dL (70-99) Medications Current Medications Sodium Chloride 1,000 ml @ 1,000 mls/hr 1X ONCE IV Last administered on 03/04at 12:07; Start 03/04/18 at 11:45; Stop 03/04/18 at 12:44; Status DC Iohexol (Omnipaque 300 Mg/ml) 75 ml 1X ONCE IV ; Start 03/04/18 at 12:30; Stop 03/04/18 at 12:36; Status DC Info (CONTRAST GIVEN -- Rx MONITORING) 1 each PRN DAILY PRN MC SEE COMMENTS; Start 03/04/18 at 12:45; Stop 03/06/18 at 12:54; Status DC Sodium Chloride 1,000 ml @ 1,000 mls/hr 1X ONCE IV Last administered on 03/04at 13:45; Start 03/04/18 at 13:45; Stop 03/04/18 at 14:44; Status DC Ondansetron HCl (Zofran) 4 mg PRN Q8HRS PRN IV NAUSEA/VOMITING; Start at 14:15; Stop 03/04/18 at 14:56; Status DC Morphine Sulfate (Morphine Sulfate) 4 mg PRN Q2HR PRN IV PAIN Last administered on 03/05/18at 11:35; Start 03/04/18 at 14:15; Stop 03/05/18 at 13 :46; Status DC Sodium Chloride 1,000 ml @ 125 mls/hr Q8H IV ; Start 03/04/18 at 14:11; Stop 03/05/18 at 14:10; Status DC Acetaminophen (Tylenol) 650 mg PRN Q4HRS PRN PO FEVER; Start 03/04/18 at 14:15 ; Stop 03/05/18 at 13:46; Status DC Ondansetron HCl (Zofran) 4 mg PRN Q6HRS PRN IV NAUSEA/VOMITING Last administered on 03/04/18at 15:05; Start 03/04/18 at 15:00; Stop 03/05/18 at 13 :46; Status DC Diphenhydramine HCl (Benadryl) 25 mg PRN QHS PRN PO INSOMNIA; Start 03/04/18 at 15:00 Multivitamins 10 ml/Thiamine HCl 100 mg/Folic Acid 1 mg/Sodium Chloride 1,011.2 ml @ 1,000.088 mls/hr 1X ONCE IV Last administered on 03/04/18at 16:31; Start 03/04/18 at 15:30; Stop 03/04/18 at 16:35; Status DC Multivitamins (Thera M Plus) 1 tab DAILY PO Last administered on 03/07/18at 08: 59; Start 03/05/18 at 09:00 Folic Acid (Folic Acid) 1 mg DAILY PO Last administered on 03/07/18at 08:59; Start 03/05/18 at 09:00 Thiamine Mononitrate (Vitamin B-1) 100 mg DAILY PO Last administered on at 08:59; Start 03/05/18 at 09:00 Chlordiazepoxide (Librium) 25 mg PRN Q6HRS PRN PO ANXIETY / AGITATION; Start 03/04/18 at 15:00 Labetalol HCl (Normodyne Iv Push) 20 mg 1X ONCE IVP Last administered on 03/04at 20:21; Start 03/04/18 at 16:15; Stop 03/04/18 at 16:35; Status DC Labetalol HCl (Normodyne Iv Push) 20 mg PRN Q2HR PRN IVP HYPERTENSION, SEE COMMENTS; Start 03/04/18 at 18:00 Lidocaine HCl (Glydo (Lidocaine) Jelly) 1 eleni 1X ONCE MM ; Start 03/04/18 at 18:15; Stop 03/04/18 at 18:16; Status DC Finasteride (Proscar) 5 mg DAILY PO Last administered on 03/07/18at 08:59; Start 03/05/18 at 09:00 Acetaminophen (Tylenol) 650 mg PRN Q6HRS PRN PO FEVER Last administered on at 19:46; Start 03/05/18 at 13:45 Ondansetron HCl (Zofran) 4 mg PRN Q6HRS PRN IV NAUSEA/VOMITING; Start at 13:45 Morphine Sulfate (Morphine Sulfate) 2 mg PRN Q2HR PRN IV MODERATE TO SEVERE PAIN Last administered on 03/07/18at 11:26; Start 03/05/18 at 13:45 Tramadol HCl (Ultram) 50 mg PRN Q6HRS PRN PO MILD TO MODERATE PAIN Last administered on 03/07/18at 11:26; Start 03/05/18 at 13:45 Docusate Sodium (Colace) 100 mg PRN DAILY PRN PO CONSTIPATION; Start 03/05/18 at 13:45 Propofol 20 ml @ As Directed STK-MED ONCE IV ; Start 03/06/18 at 09:24; Stop 03/06/18 at 09:25; Status DC Lidocaine HCl (Lidocaine Pf 2% Vial) 5 ml STK-MED ONCE .ROUTE ; Start 03/06/18 at 09:24; Stop 03/06/18 at 09:25; Status DC Fentanyl Citrate (Fentanyl 2ml Vial) 100 mcg STK-MED ONCE .ROUTE ; Start at 09:24; Stop 03/06/18 at 09:25; Status DC Potassium Chloride (Klor-Con) 40 meq 1X ONCE PO ; Start 03/06/18 at 10:00; Stop 03/06/18 at 10:01; Status DC Cefazolin Sodium/ Dextrose 50 ml @ 100 mls/hr 1X ONCE IV Last administered on 03/06/18at 10:31; Start 03/06/18 at 09:30; Stop 03/06/18 at 09:59; Status DC Rocuronium [place] (Zemuron) 50 mg STK-MED ONCE .ROUTE ; Start 03/06/18 at 09: 25; Stop 03/06/18 at 09:26; Status DC Ondansetron HCl (Zofran) 4 mg PRN Q6HRS PRN IV NAUSEA/VOMITING; Start at 10:00; Stop 03/07/18 at 09:59; Status DC Fentanyl Citrate (Fentanyl 2ml Vial) 25 mcg PRN Q5MIN PRN IV MILD PAIN Last administered on 03/06/18at 13:55; Start 03/06/18 at 10:00; Stop 03/07/18 at 09 :59; Status DC Fentanyl Citrate (Fentanyl 2ml Vial) 50 mcg PRN Q5MIN PRN IV MODERATE TO SEVERE PAIN Last administered on 03/06/18at 13:39; Start 03/06/18 at 10:00; Stop 03/07/18 at 09:59; Status DC Morphine Sulfate (Morphine Sulfate) 1 mg PRN Q10MIN PRN IV SEVERE PAIN; Start 03/06/18 at 10:00; Stop 03/07/18 at 09:59; Status DC Ringer's Solution 1,000 ml @ 30 mls/hr Q24H IV ; Start 03/06/18 at 09:50; Stop 03/06/18 at 21:49; Status DC Lidocaine HCl (Xylocaine-Mpf 1% 2ml Vial) 2 ml PRN 1X PRN ID PRIOR TO IV START ; Start 03/06/18 at 10:00; Stop 03/07/18 at 09:59; Status DC Hydromorphone HCl (Dilaudid) 0.5 mg PRN Q10MIN PRN IV SEV PAIN, Second choice; Start 03/06/18 at 10:00; Stop 03/07/18 at 09:59; Status DC Prochlorperazine Edisylate (Compazine) 5 mg PACU PRN PRN IV NAUSEA, MRX1; Start 03/06/18 at 10:00; Stop 03/07/18 at 09:59; Status DC Midazolam HCl (Versed) 2 mg STK-MED ONCE .ROUTE ; Start 03/06/18 at 10:05; Stop 03/06/18 at 10:06; Status DC Lidocaine HCl (Glydo (Lidocaine) Jelly) 6 eleni STK-MED ONCE .ROUTE ; Start 03/06 at 09:06; Stop 03/06/18 at 10:06; Status DC Propofol 20 ml @ As Directed STK-MED ONCE IV ; Start 03/06/18 at 10:37; Stop 03/06/18 at 10:38; Status DC Dexamethasone Sodium Phosphate (Decadron) 20 mg STK-MED ONCE .ROUTE ; Start at 11:29; Stop 03/06/18 at 11:30; Status DC Famotidine (Pepcid Vial) 20 mg STK-MED ONCE .ROUTE ; Start 03/06/18 at 11:30; Stop 03/06/18 at 11:31; Status DC Ondansetron HCl (Zofran) 4 mg STK-MED ONCE .ROUTE ; Start 03/06/18 at 11:30; Stop 03/06/18 at 11:31; Status DC Neostigmine Methylsulfate (Neostigmine Methylsulfate) 5 mg STK-MED ONCE .ROUTE ; Start 03/06/18 at 11:30; Stop 03/06/18 at 11:31; Status DC Glycopyrrolate (Robinul) 1 mg STK-MED ONCE .ROUTE ; Start 03/06/18 at 11:31; Stop 03/06/18 at 11:32; Status DC Belladonna Alkaloids/Opium (B & O) 1 supp 1X ONCE OR Last administered on at 12:50; Start 03/06/18 at 12:15; Stop 03/06/18 at 12:16; Status DC Hydralazine HCl (Apresoline Inj) 20 mg STK-MED ONCE .ROUTE ; Start 03/06/18 at 12:16; Stop 03/06/18 at 12:17; Status DC Fentanyl Citrate (Fentanyl 2ml Vial) 100 mcg STK-MED ONCE .ROUTE ; Start at 12:22; Stop 03/06/18 at 12:23; Status DC Sevoflurane (Ultane) 90 ml STK-MED ONCE IH ; Start 03/06/18 at 12:50; Stop at 12:51; Status DC Iohexol (Omnipaque 300 Mg/ml) 75 ml 1X ONCE IV Last administered on at 14:56; Start 03/06/18 at 14:45; Stop 03/06/18 at 14:46; Status DC Info (CONTRAST GIVEN -- Rx MONITORING) 1 each PRN DAILY PRN MC SEE COMMENTS; Start 03/06/18 at 14:45; Stop 03/08/18 at 14:44 Insulin Human Lispro (HumaLOG) 0-5 UNITS TIDWMEALS SQ ; Start 03/07/18 at 08:00 ; Stop 03/07/18 at 08:00; Status DC Dextrose (Dextrose 50%-Water Syringe) 12.5 gm PRN Q15MIN PRN IV SEE COMMENTS; Start 03/06/18 at 17:30 Insulin Human Lispro (HumaLOG) 0-5 UNITS TIDWMEALS SQ ; Start 03/06/18 at 18:00 Ceftriaxone Sodium 50 ml @ 100 mls/hr 1X ONCE IV ; Start 03/07/18 at 10:00; Stop 03/07/18 at 10:29; Status UNV Ceftriaxone Sodium (Rocephin) 1 gm 1X ONCE IVP Last administered on at 10:26; Start 03/07/18 at 10:00; Stop 03/07/18 at 10:01; Status DC Sodium Chloride 1,000 ml @ 75 mls/hr [id number] IV Last administered on at 10:27; Start 03/07/18 at 10:00 Sodium Chloride 1,000 ml @ 1,000 mls/hr 1X ONCE IV Last administered on 03/07at 10:27; Start 03/07/18 at 10:00; Stop 03/07/18 at 10:59; Status DC Active Scripts Active Flomax (Tamsulosin Hcl) 0.4 Mg Cap.er.24h 1 Cap PO DAILY 7 Days Cipro (Ciprofloxacin Hcl) 500 Mg Tablet 1 Tab PO BID 10 Days Flagyl (Metronidazole) 500 Mg Tablet 1 Tab PO TID Levaquin (Levofloxacin) 500 Mg Tablet 1 Tab PO DAILY Reported Metformin HCl 500 Mg/5 Ml Solution 500 Mg PO DAILY Vitals/I & O Vital Sign - Last 24 Hours 03/06/18 03/06/18 03/06/18 03/06/18 12:51 12:51 13:05 13:20 Temp 98 98.0 Pulse 102 98 88 Resp 15 16 16 B/P (MAP) 124/72 124/72 124/72 Pulse Ox 100 100 100 O2 Delivery Room Air Mask Simple Mask Simple Mask O2 Flow Rate 15 15 15 03/06/18 03/06/18 03/06/1803/06/18 13:24 13:35 13:39 13:50 Pulse 83 78 Resp 16 16 16 18 B/P (MAP) 149/81 149/81 Pulse Ox 100 100 100 100 O2 Delivery Room Air Simple Mask Simple Mask Nasal Cannula O2 Flow Rate 15.0 2 03/06/18 03/06/18 03/06/18 03/06/18 13:55 14:05 15:00 15:30 Temp 98.6 98.6 Pulse 82 90 89 Resp 16 16 20 B/P (MAP) 154/85 129/76 (93) 129/76 (93) Pulse Ox 98 98 98 98 O2 Delivery Nasal Cannula Nasal Cannula Room Air O2 Flow Rate 2.0 2 03/06/18 03/06/18 03/06/18 03/06/18 15:45 16:00 16:15 16:30 Pulse 81 88 86 89 B/P (MAP) 130/74 (92) 128/76 (93) 117/69 (85) 128/70 (89) Pulse Ox 98 98 98 98 03/06/18 03/06/18 03/06/18 03/06/18 16:45 18:00 18:57 19:00 Temp 98.1 99.7 98.1 99.7 Pulse 89 92 78 Resp 18 B/P (MAP) 113/45 (67) 117/69 (85) 120/70 (87) Pulse Ox 97 98 94 O2 Delivery Room Air 03/06/18 03/06/18 03/06/18 03/07/18 20:00 22:11 23:00 03:00 Temp 99.9 100.2 99.9 100.2 Pulse 96 97 Resp 16 18 18 B/P (MAP) 109/64 (79) 118/70 (86) Pulse Ox 98 95 95 O2 Delivery Room Air Room Air Room Air Room Air 03/07/18 03/07/18 03/07/18 03/07/18 04:37 05:07 07:00 11:26 Temp 99.6 99.6 Pulse 105 Resp 16 16 16 B/P (MAP) 96/61 (73) Pulse Ox 95 95 96 96 O2 Delivery Room Air Room Air Room Air Room Air O2 Flow Rate 2.0 2.0 03/07/18 03/07/18 11:26 11:33 Temp 98.7 98.7 Pulse 102 Resp 16 B/P (MAP) 117/72 (87) Pulse Ox 96 O2 Delivery Room Air Room Air Intake and Output 03/06/18 03/06/18 03/07/18 15:00 23:00 07:00 Intake Total 1800 ml 120 ml Output Total 6250 ml 30684 ml 1750 ml Balance -4450 ml -85370 ml -1630 ml LOLY IRVIN MD Mar 07, 2018 12:41
[2018-03-07 15:00] VITALS: BP 98/49
[2018-03-07 19:00] VITALS: BP 106/51
[2018-03-07 23:00] VITALS: BP 110/53
[2018-03-08] VITALS (10 sets, daily range): BP systolic 95–123; BP diastolic 54–80
[2018-03-08 04:54] LABS: BASO % 0 % (0-3); EOS % 1 % (0-3); LYMPH # 1.1 x10^3/uL (1.0-4.8); LYMPH % 16 % (24-48); MEAN CORPUSCULAR HEMOGLOBIN 33 pg (25-35); MEAN CORPUSCULAR HGB CONC 35 g/dL (31-37); MEAN CORPUSCULAR VOLUME 93 fL (79-100); MONO # 0.8 x10^3/uL (0.0-1.1); MONO % 12 % (0-9); NEUT # 4.7 x10^3uL (1.8-7.7); NEUT % 71 % (31-73); PLATELET COUNT 104 x10^3/uL (140-400); RED BLOOD COUNT 2.03 x10^6/uL (4.30-5.70); RED CELL DISTRIBUTION WIDTH 13.5 % (11.5-14.5); WHITE BLOOD COUNT 6.6 x10^3/uL (4.0-11.0)
[2018-03-08 05:03] LABS: HEMATOCRIT 18.9 % (39.0-53.0); HEMOGLOBIN 6.7 g/dL (13.0-17.5)
[2018-03-08 05:19] LABS: ALBUMIN 2.7 g/dL (3.4-5.0); ALBUMIN/GLOBULIN RATIO 0.9 (1.0-1.7); CALCIUM 7.7 mg/dL (8.5-10.1); CREATININE 0.7 mg/dL (0.7-1.3); GFR 116.7; POTASSIUM 3.3 mmol/L (3.5-5.1); TOTAL BILIRUBIN 0.8 mg/dL (0.2-1.0); TOTAL PROTEIN 5.8 g/dL (6.4-8.2)
--- NOTE | 2018-03-08 07:43 | PDOC ---
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 pt from [place], [place], not understanding. Gf said they try to send pt back to [place] and treat there since no insurance here. 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, and mass in bladder, bone mets Enlarged prostate-possibilities likely has PC S/P TURP 03/06, path pending - off CBI Bladder mass, 7 x 12 cm's in greatest diameter Back pain evidence of metastatic lesions on imaging - pain control anemia 2/2 hematuria - transfuse today for symptomatic anemia hypoglycemia - on POC glucose and replacement for hypoglycemia leukocytosis - add ceftriaxone daily hyponatremia - replete K and add IVF NS for now, 1L NS bolus given for low bp; Vitals Vitals Vital Signs Date Time Temp Pulse Resp B/P (MAP) Pulse Ox O2 Delivery O2 Flow Rate FiO2 03/08/18 03:00 97.9 90 16 116/54 (74) 96 Room Air 97.9 Physical Exam General: Alert, Oriented X3 Heart: Normal S1, Normal S2 Lungs: Clear Abdomen: Normal bowel sounds, Soft, No tenderness, No hepatosplenomegaly, No masses Extremities: No clubbing, No cyanosis, No edema, Normal pulses, No tenderness/ swelling Skin: No rashes, No breakdown, No significant lesion Labs LABS Laboratory Tests Test 03/07/18 08:04 03/07/18 09:05 03/07/18 10:53 03/07/18 16:39 Glucose (Fingerstick) 147 mg/dL (70-99) 129 mg/dL (70-99) 200 mg/dL (70-99) Lactic Acid Level 1.0 mmol/L (0.4-2.0) Test 03/08/18 02:41 03/08/18 04:35 Glucose (Fingerstick) 142 mg/dL (70-99) White Blood Count 6.6 x10^3/uL (4.0-11.0) Red Blood Count 2.03 x10^6/uL (4.30-5.70) Hemoglobin 6.7 g/dL (13.0-17.5) Hematocrit 18.9 % (39.0-53.0) Mean Corpuscular Volume 93 fL (79-100) Mean Corpuscular Hemoglobin 33 pg (25-35) Mean Corpuscular Hemoglobin Concent 35 g/dL (31-37) Red Cell Distribution Width 13.5 % (11.5-14.5) Platelet Count 104 x10^3/uL (140-400) Neutrophils (%) (Auto) 71 % (31-73) Lymphocytes (%) (Auto) 16 % (24-48) Monocytes (%) (Auto) 12 % (0-9) Eosinophils (%) (Auto) 1 % (0-3) Basophils (%) (Auto) 0 % (0-3) Neutrophils # (Auto) 4.7 x10^3uL (1.8-7.7) Lymphocytes # (Auto) 1.1 x10^3/uL (1.0-4.8) Monocytes # (Auto) 0.8 x10^3/uL (0.0-1.1) Eosinophils # (Auto) 0.0 x10^3/uL (0.0-0.7) Basophils # (Auto) 0.0 x10^3/uL (0.0-0.2) Sodium Level 142 mmol/L (136-145) Potassium Level 3.3 mmol/L (3.5-5.1) Chloride Level 107 mmol/L (98-107) Carbon Dioxide Level 24 mmol/L (21-32) Anion Gap 11 (6-14) Blood Urea Nitrogen 8 mg/dL (8-26) Creatinine 0.7 mg/dL (0.7-1.3) Estimated GFR (Cockcroft-Gault) 116.7 BUN/Creatinine Ratio 11 (6-20) Glucose Level 145 mg/dL (70-99) Calcium Level 7.7 mg/dL (8.5-10.1) Total Bilirubin 0.8 mg/dL (0.2-1.0) Aspartate Amino Transf (AST/SGOT) 37 U/L (15-37) Alanine Aminotransferase (ALT/SGPT) 23 U/L (16-63) Alkaline Phosphatase 58 U/L (46-116) Total Protein 5.8 g/dL (6.4-8.2) Albumin 2.7 g/dL (3.4-5.0) Albumin/Globulin Ratio 0.9 (1.0-1.7) Assessment and Plan Assessmemt and Plan Problems Medical Problems: (1) Bladder mass Status: Acute (2) Hematuria Status: Acute Comment Review of Relevant I have reviewed the following items mame (where applicable) has been applied. Labs Laboratory Tests Test 03/06/18 07:57 03/06/18 13:28 03/06/18 14:00 03/06/18 17:10 Glucose (Fingerstick) 140 mg/dL (70-99) 218 mg/dL (70-99) White Blood Count 17.5 x10^3/uL (4.0-11.0) Red Blood Count 2.46 x10^6/uL (4.30-5.70) Hemoglobin 8.2 g/dL (13.0-17.5) Hematocrit 22.8 % (39.0-53.0) Mean Corpuscular Volume 93 fL (79-100) Mean Corpuscular Hemoglobin 33 pg (25-35) Mean Corpuscular Hemoglobin Concent 36 g/dL (31-37) Red Cell Distribution Width 14.6 % (11.5-14.5) Platelet Count 147 x10^3/uL (140-400) Neutrophils (%) (Auto) 75 % (31-73) Lymphocytes (%) (Auto) 17 % (24-48) Monocytes (%) (Auto) 7 % (0-9) Eosinophils (%) (Auto) 0 % (0-3) Basophils (%) (Auto) 0 % (0-3) Neutrophils # (Auto) 13.1 x10^3uL (1.8-7.7) Lymphocytes # (Auto) 3.0 x10^3/uL (1.0-4.8) Monocytes # (Auto) 1.2 x10^3/uL (0.0-1.1) Eosinophils # (Auto) 0.0 x10^3/uL (0.0-0.7) Basophils # (Auto) 0.1 x10^3/uL (0.0-0.2) Segmented Neutrophils % 80 % (35-66) Lymphocytes % 13 % (24-48) Monocytes % 6 % (0-10) Eosinophils % 1 % (0-5) Platelet Estimate Adequate (ADEQUATE) Hypochromasia Slight Sodium Level 125 mmol/L (136-145) Potassium Level 3.5 mmol/L (3.5-5.1) Chloride Level 93 mmol/L (98-107) Carbon Dioxide Level 19 mmol/L (21-32) Anion Gap 13 (6-14) Blood Urea Nitrogen 7 mg/dL (8-26) Creatinine 0.5 mg/dL (0.7-1.3) Estimated GFR (Cockcroft-Gault) 172.0 Glucose Level 186 mg/dL (70-99) Calcium Level 7.6 mg/dL (8.5-10.1) Test 03/06/18 20:38 03/07/18 08:04 03/07/18 09:05 03/07/18 10:53 Glucose (Fingerstick) 206 mg/dL (70-99) 147 mg/dL (70-99) 129 mg/dL (70-99) Lactic Acid Level 1.0 mmol/L (0.4-2.0) Test 03/07/18 16:39 03/08/18 02:41 03/08/18 04:35 Glucose (Fingerstick) 200 mg/dL (70-99) 142 mg/dL (70-99) White Blood Count 6.6 x10^3/uL (4.0-11.0) Red Blood Count 2.03 x10^6/uL (4.30-5.70) Hemoglobin 6.7 g/dL (13.0-17.5) Hematocrit 18.9 % (39.0-53.0) Mean Corpuscular Volume 93 fL (79-100) Mean Corpuscular Hemoglobin 33 pg (25-35) Mean Corpuscular Hemoglobin Concent 35 g/dL (31-37) Red Cell Distribution Width 13.5 % (11.5-14.5) Platelet Count 104 x10^3/uL (140-400) Neutrophils (%) (Auto) 71 % (31-73) Lymphocytes (%) (Auto) 16 % (24-48) Monocytes (%) (Auto) 12 % (0-9) Eosinophils (%) (Auto) 1 % (0-3) Basophils (%) (Auto) 0 % (0-3) Neutrophils # (Auto) 4.7 x10^3uL (1.8-7.7) Lymphocytes # (Auto) 1.1 x10^3/uL (1.0-4.8) Monocytes # (Auto) 0.8 x10^3/uL (0.0-1.1) Eosinophils # (Auto) 0.0 x10^3/uL (0.0-0.7) Basophils # (Auto) 0.0 x10^3/uL (0.0-0.2) Sodium Level 142 mmol/L (136-145) Potassium Level 3.3 mmol/L (3.5-5.1) Chloride Level 107 mmol/L (98-107) Carbon Dioxide Level 24 mmol/L (21-32) Anion Gap 11 (6-14) Blood Urea Nitrogen 8 mg/dL (8-26) Creatinine 0.7 mg/dL (0.7-1.3) Estimated GFR (Cockcroft-Gault) 116.7 BUN/Creatinine Ratio 11 (6-20) Glucose Level 145 mg/dL (70-99) Calcium Level 7.7 mg/dL (8.5-10.1) Total Bilirubin 0.8 mg/dL (0.2-1.0) Aspartate Amino Transf (AST/SGOT) 37 U/L (15-37) Alanine Aminotransferase (ALT/SGPT) 23 U/L (16-63) Alkaline Phosphatase 58 U/L (46-116) Total Protein 5.8 g/dL (6.4-8.2) Albumin 2.7 g/dL (3.4-5.0) Albumin/Globulin Ratio 0.9 (1.0-1.7) Laboratory Tests Test 03/07/18 08:04 03/07/18 09:05 03/07/18 10:53 03/07/18 16:39 Glucose (Fingerstick) 147 mg/dL (70-99) 129 mg/dL (70-99) 200 mg/dL (70-99) Lactic Acid Level 1.0 mmol/L (0.4-2.0) Test 03/08/18 02:41 03/08/18 04:35 Glucose (Fingerstick) 142 mg/dL (70-99) White Blood Count 6.6 x10^3/uL (4.0-11.0) Red Blood Count 2.03 x10^6/uL (4.30-5.70) Hemoglobin 6.7 g/dL (13.0-17.5) Hematocrit 18.9 % (39.0-53.0) Mean Corpuscular Volume 93 fL (79-100) Mean Corpuscular Hemoglobin 33 pg (25-35) Mean Corpuscular Hemoglobin Concent 35 g/dL (31-37) Red Cell Distribution Width 13.5 % (11.5-14.5) Platelet Count 104 x10^3/uL (140-400) Neutrophils (%) (Auto) 71 % (31-73) Lymphocytes (%) (Auto) 16 % (24-48) Monocytes (%) (Auto) 12 % (0-9) Eosinophils (%) (Auto) 1 % (0-3) Basophils (%) (Auto) 0 % (0-3) Neutrophils # (Auto) 4.7 x10^3uL (1.8-7.7) Lymphocytes # (Auto) 1.1 x10^3/uL (1.0-4.8) Monocytes # (Auto) 0.8 x10^3/uL (0.0-1.1) Eosinophils # (Auto) 0.0 x10^3/uL (0.0-0.7) Basophils # (Auto) 0.0 x10^3/uL (0.0-0.2) Sodium Level 142 mmol/L (136-145) Potassium Level 3.3 mmol/L (3.5-5.1) Chloride Level 107 mmol/L (98-107) Carbon Dioxide Level 24 mmol/L (21-32) Anion Gap 11 (6-14) Blood Urea Nitrogen 8 mg/dL (8-26) Creatinine 0.7 mg/dL (0.7-1.3) Estimated GFR (Cockcroft-Gault) 116.7 BUN/Creatinine Ratio 11 (6-20) Glucose Level 145 mg/dL (70-99) Calcium Level 7.7 mg/dL (8.5-10.1) Total Bilirubin 0.8 mg/dL (0.2-1.0) Aspartate Amino Transf (AST/SGOT) 37 U/L (15-37) Alanine Aminotransferase (ALT/SGPT) 23 U/L (16-63) Alkaline Phosphatase 58 U/L (46-116) Total Protein 5.8 g/dL (6.4-8.2) Albumin 2.7 g/dL (3.4-5.0) Albumin/Globulin Ratio 0.9 (1.0-1.7) Microbiology 03/05/18 Urine Culture - Final, Complete 03/05/18 Urine Culture Result 1 ([place]) - Final, Complete Medications Current Medications Sodium Chloride 1,000 ml @ 1,000 mls/hr 1X ONCE IV Last administered on 03/04at 12:07; Start 03/04/18 at 11:45; Stop 03/04/18 at 12:44; Status DC Iohexol (Omnipaque 300 Mg/ml) 75 ml 1X ONCE IV ; Start 03/04/18 at 12:30; Stop 03/04/18 at 12:36; Status DC Info (CONTRAST GIVEN -- Rx MONITORING) 1 each PRN DAILY PRN MC SEE COMMENTS; Start 03/04/18 at 12:45; Stop 03/06/18 at 12:54; Status DC Sodium Chloride 1,000 ml @ 1,000 mls/hr 1X ONCE IV Last administered on 03/04at 13:45; Start 03/04/18 at 13:45; Stop 03/04/18 at 14:44; Status DC Ondansetron HCl (Zofran) 4 mg PRN Q8HRS PRN IV NAUSEA/VOMITING; Start at 14:15; Stop 03/04/18 at 14:56; Status DC Morphine Sulfate (Morphine Sulfate) 4 mg PRN Q2HR PRN IV PAIN Last administered on 03/05/18at 11:35; Start 03/04/18 at 14:15; Stop 03/05/18 at 13 :46; Status DC Sodium Chloride 1,000 ml @ 125 mls/hr Q8H IV ; Start 03/04/18 at 14:11; Stop 03/05/18 at 14:10; Status DC Acetaminophen (Tylenol) 650 mg PRN Q4HRS PRN PO FEVER; Start 03/04/18 at 14:15 ; Stop 03/05/18 at 13:46; Status DC Ondansetron HCl (Zofran) 4 mg PRN Q6HRS PRN IV NAUSEA/VOMITING Last administered on 03/04/18at 15:05; Start 03/04/18 at 15:00; Stop 03/05/18 at 13 :46; Status DC Diphenhydramine HCl (Benadryl) 25 mg PRN QHS PRN PO INSOMNIA; Start 03/04/18 at 15:00 Multivitamins 10 ml/Thiamine HCl 100 mg/Folic Acid 1 mg/Sodium Chloride 1,011.2 ml @ 1,000.088 mls/hr 1X ONCE IV Last administered on 03/04/18at 16:31; Start 03/04/18 at 15:30; Stop 03/04/18 at 16:35; Status DC Multivitamins (Thera M Plus) 1 tab DAILY PO Last administered on 03/07/18at 08: 59; Start 03/05/18 at 09:00 Folic Acid (Folic Acid) 1 mg DAILY PO Last administered on 03/07/18at 08:59; Start 03/05/18 at 09:00 Thiamine Mononitrate (Vitamin B-1) 100 mg DAILY PO Last administered on at 08:59; Start 03/05/18 at 09:00 Chlordiazepoxide (Librium) 25 mg PRN Q6HRS PRN PO ANXIETY / AGITATION; Start 03/04/18 at 15:00 Labetalol HCl (Normodyne Iv Push) 20 mg 1X ONCE IVP Last administered on 03/04at 20:21; Start 03/04/18 at 16:15; Stop 03/04/18 at 16:35; Status DC Labetalol HCl (Normodyne Iv Push) 20 mg PRN Q2HR PRN IVP HYPERTENSION, SEE COMMENTS; Start 03/04/18 at 18:00 Lidocaine HCl (Glydo (Lidocaine) Jelly) 1 eleni 1X ONCE MM ; Start 03/04/18 at 18:15; Stop 03/04/18 at 18:16; Status DC Finasteride (Proscar) 5 mg DAILY PO Last administered on 03/07/18at 08:59; Start 03/05/18 at 09:00 Acetaminophen (Tylenol) 650 mg PRN Q6HRS PRN PO FEVER Last administered on at 19:46; Start 03/05/18 at 13:45 Ondansetron HCl (Zofran) 4 mg PRN Q6HRS PRN IV NAUSEA/VOMITING; Start at 13:45 Morphine Sulfate (Morphine Sulfate) 2 mg PRN Q2HR PRN IV MODERATE TO SEVERE PAIN Last administered on 03/07/18at 11:26; Start 03/05/18 at 13:45 Tramadol HCl (Ultram) 50 mg PRN Q6HRS PRN PO MILD TO MODERATE PAIN Last administered on 03/07/18at 11:26; Start 03/05/18 at 13:45 Docusate Sodium (Colace) 100 mg PRN DAILY PRN PO CONSTIPATION; Start 03/05/18 at 13:45 Propofol 20 ml @ As Directed STK-MED ONCE IV ; Start 03/06/18 at 09:24; Stop 03/06/18 at 09:25; Status DC Lidocaine HCl (Lidocaine Pf 2% Vial) 5 ml STK-MED ONCE .ROUTE ; Start 03/06/18 at 09:24; Stop 03/06/18 at 09:25; Status DC Fentanyl Citrate (Fentanyl 2ml Vial) 100 mcg STK-MED ONCE .ROUTE ; Start at 09:24; Stop 03/06/18 at 09:25; Status DC Potassium Chloride (Klor-Con) 40 meq 1X ONCE PO ; Start 03/06/18 at 10:00; Stop 03/06/18 at 10:01; Status DC Cefazolin Sodium/ Dextrose 50 ml @ 100 mls/hr 1X ONCE IV Last administered on 03/06/18at 10:31; Start 03/06/18 at 09:30; Stop 03/06/18 at 09:59; Status DC Rocuronium [place] (Zemuron) 50 mg STK-MED ONCE .ROUTE ; Start 03/06/18 at 09: 25; Stop 03/06/18 at 09:26; Status DC Ondansetron HCl (Zofran) 4 mg PRN Q6HRS PRN IV NAUSEA/VOMITING; Start at 10:00; Stop 03/07/18 at 09:59; Status DC Fentanyl Citrate (Fentanyl 2ml Vial) 25 mcg PRN Q5MIN PRN IV MILD PAIN Last administered on 03/06/18at 13:55; Start 03/06/18 at 10:00; Stop 03/07/18 at 09 :59; Status DC Fentanyl Citrate (Fentanyl 2ml Vial) 50 mcg PRN Q5MIN PRN IV MODERATE TO SEVERE PAIN Last administered on 03/06/18at 13:39; Start 03/06/18 at 10:00; Stop 03/07/18 at 09:59; Status DC Morphine Sulfate (Morphine Sulfate) 1 mg PRN Q10MIN PRN IV SEVERE PAIN; Start 03/06/18 at 10:00; Stop 03/07/18 at 09:59; Status DC Ringer's Solution 1,000 ml @ 30 mls/hr Q24H IV ; Start 03/06/18 at 09:50; Stop 03/06/18 at 21:49; Status DC Lidocaine HCl (Xylocaine-Mpf 1% 2ml Vial) 2 ml PRN 1X PRN ID PRIOR TO IV START ; Start 03/06/18 at 10:00; Stop 03/07/18 at 09:59; Status DC Hydromorphone HCl (Dilaudid) 0.5 mg PRN Q10MIN PRN IV SEV PAIN, Second choice; Start 03/06/18 at 10:00; Stop 03/07/18 at 09:59; Status DC Prochlorperazine Edisylate (Compazine) 5 mg PACU PRN PRN IV NAUSEA, MRX1; Start 03/06/18 at 10:00; Stop 03/07/18 at 09:59; Status DC Midazolam HCl (Versed) 2 mg STK-MED ONCE .ROUTE ; Start 03/06/18 at 10:05; Stop 03/06/18 at 10:06; Status DC Lidocaine HCl (Glydo (Lidocaine) Jelly) 6 eleni STK-MED ONCE .ROUTE ; Start 03/06 at 09:06; Stop 03/06/18 at 10:06; Status DC Propofol 20 ml @ As Directed STK-MED ONCE IV ; Start 03/06/18 at 10:37; Stop 03/06/18 at 10:38; Status DC Dexamethasone Sodium Phosphate (Decadron) 20 mg STK-MED ONCE .ROUTE ; Start at 11:29; Stop 03/06/18 at 11:30; Status DC Famotidine (Pepcid Vial) 20 mg STK-MED ONCE .ROUTE ; Start 03/06/18 at 11:30; Stop 03/06/18 at 11:31; Status DC Ondansetron HCl (Zofran) 4 mg STK-MED ONCE .ROUTE ; Start 03/06/18 at 11:30; Stop 03/06/18 at 11:31; Status DC Neostigmine Methylsulfate (Neostigmine Methylsulfate) 5 mg STK-MED ONCE .ROUTE ; Start 03/06/18 at 11:30; Stop 03/06/18 at 11:31; Status DC Glycopyrrolate (Robinul) 1 mg STK-MED ONCE .ROUTE ; Start 03/06/18 at 11:31; Stop 03/06/18 at 11:32; Status DC Belladonna Alkaloids/Opium (B & O) 1 supp 1X ONCE WA Last administered on at 12:50; Start 03/06/18 at 12:15; Stop 03/06/18 at 12:16; Status DC Hydralazine HCl (Apresoline Inj) 20 mg STK-MED ONCE .ROUTE ; Start 03/06/18 at 12:16; Stop 03/06/18 at 12:17; Status DC Fentanyl Citrate (Fentanyl 2ml Vial) 100 mcg STK-MED ONCE .ROUTE ; Start at 12:22; Stop 03/06/18 at 12:23; Status DC Sevoflurane (Ultane) 90 ml STK-MED ONCE IH ; Start 03/06/18 at 12:50; Stop at 12:51; Status DC Iohexol (Omnipaque 300 Mg/ml) 75 ml 1X ONCE IV Last administered on at 14:56; Start 03/06/18 at 14:45; Stop 03/06/18 at 14:46; Status DC Info (CONTRAST GIVEN -- Rx MONITORING) 1 each PRN DAILY PRN MC SEE COMMENTS; Start 03/06/18 at 14:45; Stop 03/08/18 at 14:44 Insulin Human Lispro (HumaLOG) 0-5 UNITS TIDWMEALS SQ ; Start 03/07/18 at 08:00 ; Stop 03/07/18 at 08:00; Status DC Dextrose (Dextrose 50%-Water Syringe) 12.5 gm PRN Q15MIN PRN IV SEE COMMENTS; Start 03/06/18 at 17:30 Insulin Human Lispro (HumaLOG) 0-5 UNITS TIDWMEALS SQ Last administered on at 17:49; Start 03/06/18 at 18:00 Ceftriaxone Sodium 50 ml @ 100 mls/hr 1X ONCE IV ; Start 03/07/18 at 10:00; Stop 03/07/18 at 10:29; Status UNV Ceftriaxone Sodium (Rocephin) 1 gm 1X ONCE IVP Last administered on at 10:26; Start 03/07/18 at 10:00; Stop 03/07/18 at 10:01; Status DC Sodium Chloride 1,000 ml @ 75 mls/hr [id number] IV Last administered on at 23:20; Start 03/07/18 at 10:00 Sodium Chloride 1,000 ml @ 1,000 mls/hr 1X ONCE IV Last administered on 03/07at 10:27; Start 03/07/18 at 10:00; Stop 03/07/18 at 10:59; Status DC Ceftriaxone Sodium 1 gm/ Dextrose 50 ml @ 100 mls/hr DAILY IV ; Start 03/08/18 at 09:00; Status UNV Ceftriaxone Sodium (Rocephin) 1 gm Q24H IVP ; Start 03/08/18 at 10:00 Active Scripts Active Flomax (Tamsulosin Hcl) 0.4 Mg Cap.er.24h 1 Cap PO DAILY 7 Days Cipro (Ciprofloxacin Hcl) 500 Mg Tablet 1 Tab PO BID 10 Days Flagyl (Metronidazole) 500 Mg Tablet 1 Tab PO TID Levaquin (Levofloxacin) 500 Mg Tablet 1 Tab PO DAILY Reported Metformin HCl 500 Mg/5 Ml Solution 500 Mg PO DAILY Vitals/I & O Vital Sign - Last 24 Hours 03/07/18 03/07/18 03/07/18 03/07/18 08:25 11:26 11:26 11:33 Temp 98.7 98.7 Pulse 102 Resp 16 B/P (MAP) 117/72 (87) Pulse Ox 96 96 O2 Delivery Room Air Room Air Room Air Room Air 03/07/18 03/07/18 03/07/18 03/07/18 14:27 14:27 15:00 19:00 Temp 99.9 97.7 99.9 97.7 Pulse 101 94 Resp 16 16 B/P (MAP) 98/49 (65) 106/51 (69) Pulse Ox 96 96 O2 Delivery Room Air Room Air Room Air Room Air 03/07/18 03/07/18 03/08/18 20:00 23:00 03:00 Temp 97.9 97.9 97.9 97.9 Pulse 96 90 Resp 16 16 B/P (MAP) 110/53 (72) 116/54 (74) Pulse Ox 96 96 O2 Delivery Room Air Room Air Room Air Intake and Output 03/07/18 03/07/18 03/08/18 15:00 23:00 07:00 Output Total 8900 ml 3750 ml 4025 ml Balance -8900 ml -3750 ml -4025 ml TORI SHEEHAN MD Mar 08, 2018 07:43
[2018-03-08] MEDS: INSULIN LISPRO 300 UNITS/3 ML INSULN.PEN. SQ SCH ×3 (08:00→17:19)
[2018-03-08] MEDS: FINASTERIDE 5 MG TABLET. PO SCH (09:33)
[2018-03-08] MEDS: MULTIVITAMIN with MINERAL TABLET. PO SCH (09:34)
[2018-03-08] MEDS: FOLIC ACID 1 MG TABLET. PO SCH (09:34)
[2018-03-08] MEDS: THIAMINE 100 MG TABLET. PO SCH (09:34)
--- NOTE | 2018-03-08 10:51 | PDOC ---
SUBJECTIVE Subjective Pt resting comfortably. Urine is clear and has been since this am per attending RN. OBJECTIVE Objective Physical Exam: General appearance: Sleeping, appears comfortable. Head: Normocephalic, without obvious abnormality Eyes: conjunctivae/corneas clear. PERRL, EOM's intact. Fundi benign Lungs: regular respirations, non labored breathing. Pelvic: CBI in place running at medium speed. Device in good working order. System clamped by [employer] [facility] Vital Signs Vital Signs Date Time Temp Pulse Resp B/P (MAP) Pulse Ox O2 Delivery O2 Flow Rate FiO2 03/08/18 07:00 98.6 90 18 123/69 (87) 95 Room Air 98.6 03/08/18 03:00 97.9 90 16 116/54 (74) 96 Room Air 97.9 03/07/18 23:00 97.9 96 16 110/53 (72) 96 Room Air 97.9 03/07/18 20:00 Room Air 03/07/18 19:00 97.7 94 16 106/51 (69) 96 Room Air 97.7 03/07/18 15:00 99.9 101 16 98/49 (65) 96 Room Air 99.9 03/07/18 14:27 Room Air 03/07/18 14:27 Room Air 03/07/18 11:33 98.7 102 16 117/72 (87) 96 Room Air 98.7 03/07/18 11:26 Room Air 03/07/18 11:26 96 Room Air I & O Intake and Output 03/08/18 07:00 Output Total 54368 ml Balance -83304 ml Output Urine Total 48833 ml PHYSICAL EXAM Physical Exam Physical Exam: General appearance: Sleeping, appears comfortable. Head: Normocephalic, without obvious abnormality Eyes: conjunctivae/corneas clear. PERRL, EOM's intact. Fundi benign Lungs: regular respirations, non labored breathing. Pelvic: CBI in place running at medium speed. Device in good working order. System clamped by [employer] [facility] ASSESSMENT/PLAN Assessment/Plan CBI clamped by [employer] [facility] at 1045 am. Discussed with attending RN that if urine remains clear yellow, or even just has a very light pink tinge, attending RN may D/C CBI and clamp CBI port. Leave glez catheter in place for now, however. Tentative plans for voiding trial tomorrow morning, depending upon how he is doing. WBC normalized. On Rocephin q 24 now, agree. Whenever he does discharge, should go home with 7-10 days worth of oral antibiotics. Will follow while in house. COMMENT Lab Laboratory Tests Test 03/07/18 10:53 03/07/18 16:39 03/08/18 02:41 03/08/18 04:35 Glucose (Fingerstick) 129 mg/dL (70-99) 200 mg/dL (70-99) 142 mg/dL (70-99) White Blood Count 6.6 x10^3/uL (4.0-11.0) Red Blood Count 2.03 x10^6/uL (4.30-5.70) Hemoglobin 6.7 g/dL (13.0-17.5) Hematocrit 18.9 % (39.0-53.0) Mean Corpuscular Volume 93 fL (79-100) Mean Corpuscular Hemoglobin 33 pg (25-35) Mean Corpuscular Hemoglobin Concent 35 g/dL (31-37) Red Cell Distribution Width 13.5 % (11.5-14.5) Platelet Count 104 x10^3/uL (140-400) Neutrophils (%) (Auto) 71 % (31-73) Lymphocytes (%) (Auto) 16 % (24-48) Monocytes (%) (Auto) 12 % (0-9) Eosinophils (%) (Auto) 1 % (0-3) Basophils (%) (Auto) 0 % (0-3) Neutrophils # (Auto) 4.7 x10^3uL (1.8-7.7) Lymphocytes # (Auto) 1.1 x10^3/uL (1.0-4.8) Monocytes # (Auto) 0.8 x10^3/uL (0.0-1.1) Eosinophils # (Auto) 0.0 x10^3/uL (0.0-0.7) Basophils # (Auto) 0.0 x10^3/uL (0.0-0.2) Sodium Level 142 mmol/L (136-145) Potassium Level 3.3 mmol/L (3.5-5.1) Chloride Level 107 mmol/L (98-107) Carbon Dioxide Level 24 mmol/L (21-32) Anion Gap 11 (6-14) Blood Urea Nitrogen 8 mg/dL (8-26) Creatinine 0.7 mg/dL (0.7-1.3) Estimated GFR (Cockcroft-Gault) 116.7 BUN/Creatinine Ratio 11 (6-20) Glucose Level 145 mg/dL (70-99) Calcium Level 7.7 mg/dL (8.5-10.1) Total Bilirubin 0.8 mg/dL (0.2-1.0) Aspartate Amino Transf (AST/SGOT) 37 U/L (15-37) Alanine Aminotransferase (ALT/SGPT) 23 U/L (16-63) Alkaline Phosphatase 58 U/L (46-116) Total Protein 5.8 g/dL (6.4-8.2) Albumin 2.7 g/dL (3.4-5.0) Albumin/Globulin Ratio 0.9 (1.0-1.7) Test 03/08/18 07:26 Glucose (Fingerstick) 142 mg/dL (70-99) ESTRELLA PANIAGUA APRN Mar 08, 2018 10:51
[2018-03-08] MEDS: cefTRIAXone IV Push 1 GM VIAL. IVP SCH (11:50)
[2018-03-08] MEDS: IV NORMAL SALINE 1000ML BAG 1,000 ML IV SCH (12:40)
--- NOTE | 2018-03-08 12:49 | PDOC ---
PROGRESS NOTES Subjective Subjective HPI -f/u of Enlarged prostate with bone metastasis clinically concerning for prostate cancer with bone metastasis. ROS - no CP Objective Objective Vital Signs Date Time Temp Pulse Resp B/P (MAP) Pulse Ox O2 Delivery O2 Flow Rate FiO2 03/08/18 11:00 99.3 76 18 101/57 (72) 96 Room Air 99.3 03/07/18 05:07 2.0 Intake and Output 03/08/18 07:00 Output Total 04947 ml Balance -41907 ml Output Urine Total 94533 ml Physical Exam Heart: Normal S1, Normal S2 General: Alert, Oriented X3, No acute distress Lungs: Clear to auscultation Psych/Mental Status: Mental status NL Assessment Assessment Problems Medical Problems: (1) Bladder mass Status: Acute (2) Hematuria Status: Acute IMPRESSION AND PLAN: 1. Enlarged prostate with bone metastasis clinically concerning for prostate cancer with bone metastasis. Mass noted in the urinary bladder on CAT scan is likely to be a hematoma per Urology. Cystoscopy and transurethral resection of the prostate has been planned 03/06/18. I will await further diagnostic workup per Urology. I also discussed with the registered nurse. CT chest 03/06/18: Sclerotic bone lesions of ribs and thoracic spine, suspicious for osteoblastic metastatic tumor deposits. Ill-defined opacities in the lungs, particularly the right lower lobe and posterior right upper lobe, may be inflammatory/infectious. There is at least one 6 mm groundglass nodule. Given the other CT findings, neoplastic involvement is possible. Recommend at least short-term CT chest follow-up. I d/w Magdalena REDDY, from urology. PSA [id number] on 03/04/18 suggestive of prostate cancer. s/p TURP 03/06/18, await path results, then plan casodex and lupron after confirmation of prostate cancer. Pt considering going to [facility] for treatment as he does not have insurance. 2. Hematuria. Appreciate Urology consultation. 3. Bone metastasis per CT scan. Bone scan 03/06/18: Diffuse osteoblastic metastatic disease identified. Involvement is noted within the ribs, spine, pelvic bones, and other bony structures.. 4. Anemia, Hb worse at 6.7, agree to transfuse 1 unit. Comment Review of Relevant I have reviewed the following items mame (where applicable) has been applied. Labs Laboratory Tests Test 03/06/18 13:28 03/06/18 14:00 03/06/18 17:10 03/06/18 20:38 White Blood Count 17.5 x10^3/uL (4.0-11.0) Red Blood Count 2.46 x10^6/uL (4.30-5.70) Hemoglobin 8.2 g/dL (13.0-17.5) Hematocrit 22.8 % (39.0-53.0) Mean Corpuscular Volume 93 fL (79-100) Mean Corpuscular Hemoglobin 33 pg (25-35) Mean Corpuscular Hemoglobin Concent 36 g/dL (31-37) Red Cell Distribution Width 14.6 % (11.5-14.5) Platelet Count 147 x10^3/uL (140-400) Neutrophils (%) (Auto) 75 % (31-73) Lymphocytes (%) (Auto) 17 % (24-48) Monocytes (%) (Auto) 7 % (0-9) Eosinophils (%) (Auto) 0 % (0-3) Basophils (%) (Auto) 0 % (0-3) Neutrophils # (Auto) 13.1 x10^3uL (1.8-7.7) Lymphocytes # (Auto) 3.0 x10^3/uL (1.0-4.8) Monocytes # (Auto) 1.2 x10^3/uL (0.0-1.1) Eosinophils # (Auto) 0.0 x10^3/uL (0.0-0.7) Basophils # (Auto) 0.1 x10^3/uL (0.0-0.2) Segmented Neutrophils % 80 % (35-66) Lymphocytes % 13 % (24-48) Monocytes % 6 % (0-10) Eosinophils % 1 % (0-5) Platelet Estimate Adequate (ADEQUATE) Hypochromasia Slight Sodium Level 125 mmol/L (136-145) Potassium Level 3.5 mmol/L (3.5-5.1) Chloride Level 93 mmol/L (98-107) Carbon Dioxide Level 19 mmol/L (21-32) Anion Gap 13 (6-14) Blood Urea Nitrogen 7 mg/dL (8-26) Creatinine 0.5 mg/dL (0.7-1.3) Estimated GFR (Cockcroft-Gault) 172.0 Glucose Level 186 mg/dL (70-99) Calcium Level 7.6 mg/dL (8.5-10.1) Glucose (Fingerstick) 218 mg/dL (70-99) 206 mg/dL (70-99) Test 03/07/18 08:04 03/07/18 09:05 03/07/18 10:53 03/07/18 16:39 Glucose (Fingerstick) 147 mg/dL (70-99) 129 mg/dL (70-99) 200 mg/dL (70-99) Lactic Acid Level 1.0 mmol/L (0.4-2.0) Test 03/08/18 02:41 03/08/18 04:35 03/08/18 07:26 03/08/18 11:45 Glucose (Fingerstick) 142 mg/dL (70-99) 142 mg/dL (70-99) 173 mg/dL (70-99) White Blood Count 6.6 x10^3/uL (4.0-11.0) Red Blood Count 2.03 x10^6/uL (4.30-5.70) Hemoglobin 6.7 g/dL (13.0-17.5) Hematocrit 18.9 % (39.0-53.0) Mean Corpuscular Volume 93 fL (79-100) Mean Corpuscular Hemoglobin 33 pg (25-35) Mean Corpuscular Hemoglobin Concent 35 g/dL (31-37) Red Cell Distribution Width 13.5 % (11.5-14.5) Platelet Count 104 x10^3/uL (140-400) Neutrophils (%) (Auto) 71 % (31-73) Lymphocytes (%) (Auto) 16 % (24-48) Monocytes (%) (Auto) 12 % (0-9) Eosinophils (%) (Auto) 1 % (0-3) Basophils (%) (Auto) 0 % (0-3) Neutrophils # (Auto) 4.7 x10^3uL (1.8-7.7) Lymphocytes # (Auto) 1.1 x10^3/uL (1.0-4.8) Monocytes # (Auto) 0.8 x10^3/uL (0.0-1.1) Eosinophils # (Auto) 0.0 x10^3/uL (0.0-0.7) Basophils # (Auto) 0.0 x10^3/uL (0.0-0.2) Sodium Level 142 mmol/L (136-145) Potassium Level 3.3 mmol/L (3.5-5.1) Chloride Level 107 mmol/L (98-107) Carbon Dioxide Level 24 mmol/L (21-32) Anion Gap 11 (6-14) Blood Urea Nitrogen 8 mg/dL (8-26) Creatinine 0.7 mg/dL (0.7-1.3) Estimated GFR (Cockcroft-Gault) 116.7 BUN/Creatinine Ratio 11 (6-20) Glucose Level 145 mg/dL (70-99) Calcium Level 7.7 mg/dL (8.5-10.1) Total Bilirubin 0.8 mg/dL (0.2-1.0) Aspartate Amino Transf (AST/SGOT) 37 U/L (15-37) Alanine Aminotransferase (ALT/SGPT) 23 U/L (16-63) Alkaline Phosphatase 58 U/L (46-116) Total Protein 5.8 g/dL (6.4-8.2) Albumin 2.7 g/dL (3.4-5.0) Albumin/Globulin Ratio 0.9 (1.0-1.7) Laboratory Tests Test 03/07/18 16:39 03/08/18 02:41 03/08/18 04:35 03/08/18 07:26 Glucose (Fingerstick) 200 mg/dL (70-99) 142 mg/dL (70-99) 142 mg/dL (70-99) White Blood Count 6.6 x10^3/uL (4.0-11.0) Red Blood Count 2.03 x10^6/uL (4.30-5.70) Hemoglobin 6.7 g/dL (13.0-17.5) Hematocrit 18.9 % (39.0-53.0) Mean Corpuscular Volume 93 fL (79-100) Mean Corpuscular Hemoglobin 33 pg (25-35) Mean Corpuscular Hemoglobin Concent 35 g/dL (31-37) Red Cell Distribution Width 13.5 % (11.5-14.5) Platelet Count 104 x10^3/uL (140-400) Neutrophils (%) (Auto) 71 % (31-73) Lymphocytes (%) (Auto) 16 % (24-48) Monocytes (%) (Auto) 12 % (0-9) Eosinophils (%) (Auto) 1 % (0-3) Basophils (%) (Auto) 0 % (0-3) Neutrophils # (Auto) 4.7 x10^3uL (1.8-7.7) Lymphocytes # (Auto) 1.1 x10^3/uL (1.0-4.8) Monocytes # (Auto) 0.8 x10^3/uL (0.0-1.1) Eosinophils # (Auto) 0.0 x10^3/uL (0.0-0.7) Basophils # (Auto) 0.0 x10^3/uL (0.0-0.2) Sodium Level 142 mmol/L (136-145) Potassium Level 3.3 mmol/L (3.5-5.1) Chloride Level 107 mmol/L (98-107) Carbon Dioxide Level 24 mmol/L (21-32) Anion Gap 11 (6-14) Blood Urea Nitrogen 8 mg/dL (8-26) Creatinine 0.7 mg/dL (0.7-1.3) Estimated GFR (Cockcroft-Gault) 116.7 BUN/Creatinine Ratio 11 (6-20) Glucose Level 145 mg/dL (70-99) Calcium Level 7.7 mg/dL (8.5-10.1) Total Bilirubin 0.8 mg/dL (0.2-1.0) Aspartate Amino Transf (AST/SGOT) 37 U/L (15-37) Alanine Aminotransferase (ALT/SGPT) 23 U/L (16-63) Alkaline Phosphatase 58 U/L (46-116) Total Protein 5.8 g/dL (6.4-8.2) Albumin 2.7 g/dL (3.4-5.0) Albumin/Globulin Ratio 0.9 (1.0-1.7) Test 03/08/18 11:45 Glucose (Fingerstick) 173 mg/dL (70-99) Microbiology 03/07/18 Blood Culture - Preliminary, Resulted NO GROWTH AFTER 1 DAY 03/05/18 Urine Culture - Final, Complete 03/05/18 Urine Culture Result 1 ([place]) - Final, Complete Medications Current Medications Sodium Chloride 1,000 ml @ 1,000 mls/hr 1X ONCE IV Last administered on 03/04at 12:07; Start 03/04/18 at 11:45; Stop 03/04/18 at 12:44; Status DC Iohexol (Omnipaque 300 Mg/ml) 75 ml 1X ONCE IV ; Start 03/04/18 at 12:30; Stop 03/04/18 at 12:36; Status DC Info (CONTRAST GIVEN -- Rx MONITORING) 1 each PRN DAILY PRN MC SEE COMMENTS; Start 03/04/18 at 12:45; Stop 03/06/18 at 12:54; Status DC Sodium Chloride 1,000 ml @ 1,000 mls/hr 1X ONCE IV Last administered on 03/04at 13:45; Start 03/04/18 at 13:45; Stop 03/04/18 at 14:44; Status DC Ondansetron HCl (Zofran) 4 mg PRN Q8HRS PRN IV NAUSEA/VOMITING; Start at 14:15; Stop 03/04/18 at 14:56; Status DC Morphine Sulfate (Morphine Sulfate) 4 mg PRN Q2HR PRN IV PAIN Last administered on 03/05/18at 11:35; Start 03/04/18 at 14:15; Stop 03/05/18 at 13 :46; Status DC Sodium Chloride 1,000 ml @ 125 mls/hr Q8H IV ; Start 03/04/18 at 14:11; Stop 03/05/18 at 14:10; Status DC Acetaminophen (Tylenol) 650 mg PRN Q4HRS PRN PO FEVER; Start 03/04/18 at 14:15 ; Stop 03/05/18 at 13:46; Status DC Ondansetron HCl (Zofran) 4 mg PRN Q6HRS PRN IV NAUSEA/VOMITING Last administered on 03/04/18at 15:05; Start 03/04/18 at 15:00; Stop 03/05/18 at 13 :46; Status DC Diphenhydramine HCl (Benadryl) 25 mg PRN QHS PRN PO INSOMNIA; Start 03/04/18 at 15:00 Multivitamins 10 ml/Thiamine HCl 100 mg/Folic Acid 1 mg/Sodium Chloride 1,011.2 ml @ 1,000.088 mls/hr 1X ONCE IV Last administered on 03/04/18at 16:31; Start 03/04/18 at 15:30; Stop 03/04/18 at 16:35; Status DC Multivitamins (Thera M Plus) 1 tab DAILY PO Last administered on 03/08/18at 09: 34; Start 03/05/18 at 09:00 Folic Acid (Folic Acid) 1 mg DAILY PO Last administered on 03/08/18at 09:34; Start 03/05/18 at 09:00 Thiamine Mononitrate (Vitamin B-1) 100 mg DAILY PO Last administered on at 09:34; Start 03/05/18 at 09:00 Chlordiazepoxide (Librium) 25 mg PRN Q6HRS PRN PO ANXIETY / AGITATION; Start 03/04/18 at 15:00 Labetalol HCl (Normodyne Iv Push) 20 mg 1X ONCE IVP Last administered on 03/04at 20:21; Start 03/04/18 at 16:15; Stop 03/04/18 at 16:35; Status DC Labetalol HCl (Normodyne Iv Push) 20 mg PRN Q2HR PRN IVP HYPERTENSION, SEE COMMENTS; Start 03/04/18 at 18:00 Lidocaine HCl (Glydo (Lidocaine) Jelly) 1 eleni 1X ONCE MM ; Start 03/04/18 at 18:15; Stop 03/04/18 at 18:16; Status DC Finasteride (Proscar) 5 mg DAILY PO Last administered on 03/08/18at 09:33; Start 03/05/18 at 09:00 Acetaminophen (Tylenol) 650 mg PRN Q6HRS PRN PO FEVER Last administered on at 19:46; Start 03/05/18 at 13:45 Ondansetron HCl (Zofran) 4 mg PRN Q6HRS PRN IV NAUSEA/VOMITING; Start at 13:45 Morphine Sulfate (Morphine Sulfate) 2 mg PRN Q2HR PRN IV MODERATE TO SEVERE PAIN Last administered on 03/07/18at 11:26; Start 03/05/18 at 13:45 Tramadol HCl (Ultram) 50 mg PRN Q6HRS PRN PO MILD TO MODERATE PAIN Last administered on 03/07/18at 11:26; Start 03/05/18 at 13:45 Docusate Sodium (Colace) 100 mg PRN DAILY PRN PO CONSTIPATION; Start 03/05/18 at 13:45 Propofol 20 ml @ As Directed STK-MED ONCE IV ; Start 03/06/18 at 09:24; Stop 03/06/18 at 09:25; Status DC Lidocaine HCl (Lidocaine Pf 2% Vial) 5 ml STK-MED ONCE .ROUTE ; Start 03/06/18 at 09:24; Stop 03/06/18 at 09:25; Status DC Fentanyl Citrate (Fentanyl 2ml Vial) 100 mcg STK-MED ONCE .ROUTE ; Start at 09:24; Stop 03/06/18 at 09:25; Status DC Potassium Chloride (Klor-Con) 40 meq 1X ONCE PO ; Start 03/06/18 at 10:00; Stop 03/06/18 at 10:01; Status DC Cefazolin Sodium/ Dextrose 50 ml @ 100 mls/hr 1X ONCE IV Last administered on 03/06/18at 10:31; Start 03/06/18 at 09:30; Stop 03/06/18 at 09:59; Status DC Rocuronium [place] (Zemuron) 50 mg STK-MED ONCE .ROUTE ; Start 03/06/18 at 09: 25; Stop 03/06/18 at 09:26; Status DC Ondansetron HCl (Zofran) 4 mg PRN Q6HRS PRN IV NAUSEA/VOMITING; Start at 10:00; Stop 03/07/18 at 09:59; Status DC Fentanyl Citrate (Fentanyl 2ml Vial) 25 mcg PRN Q5MIN PRN IV MILD PAIN Last administered on 03/06/18at 13:55; Start 03/06/18 at 10:00; Stop 03/07/18 at 09 :59; Status DC Fentanyl Citrate (Fentanyl 2ml Vial) 50 mcg PRN Q5MIN PRN IV MODERATE TO SEVERE PAIN Last administered on 03/06/18at 13:39; Start 03/06/18 at 10:00; Stop 03/07/18 at 09:59; Status DC Morphine Sulfate (Morphine Sulfate) 1 mg PRN Q10MIN PRN IV SEVERE PAIN; Start 10/30/18 at 10:00; Stop 03/07/18 at 09:59; Status DC Ringer's Solution 1,000 ml @ 30 mls/hr Q24H IV ; Start 03/06/18 at 09:50; Stop 03/06/18 at 21:49; Status DC Lidocaine HCl (Xylocaine-Mpf 1% 2ml Vial) 2 ml PRN 1X PRN ID PRIOR TO IV START ; Start 03/06/18 at 10:00; Stop 03/07/18 at 09:59; Status DC Hydromorphone HCl (Dilaudid) 0.5 mg PRN Q10MIN PRN IV SEV PAIN, Second choice; Start 03/06/18 at 10:00; Stop 03/07/18 at 09:59; Status DC Prochlorperazine Edisylate (Compazine) 5 mg PACU PRN PRN IV NAUSEA, MRX1; Start 03/06/18 at 10:00; Stop 03/07/18 at 09:59; Status DC Midazolam HCl (Versed) 2 mg STK-MED ONCE .ROUTE ; Start 03/06/18 at 10:05; Stop 03/06/18 at 10:06; Status DC Lidocaine HCl (Glydo (Lidocaine) Jelly) 6 eleni STK-MED ONCE .ROUTE ; Start 03/06 at 09:06; Stop 03/06/18 at 10:06; Status DC Propofol 20 ml @ As Directed STK-MED ONCE IV ; Start 03/06/18 at 10:37; Stop 03/06/18 at 10:38; Status DC Dexamethasone Sodium Phosphate (Decadron) 20 mg STK-MED ONCE .ROUTE ; Start at 11:29; Stop 03/06/18 at 11:30; Status DC Famotidine (Pepcid Vial) 20 mg STK-MED ONCE .ROUTE ; Start 03/06/18 at 11:30; Stop 03/06/18 at 11:31; Status DC Ondansetron HCl (Zofran) 4 mg STK-MED ONCE .ROUTE ; Start 03/06/18 at 11:30; Stop 03/06/18 at 11:31; Status DC Neostigmine Methylsulfate (Neostigmine Methylsulfate) 5 mg STK-MED ONCE .ROUTE ; Start 03/06/18 at 11:30; Stop 03/06/18 at 11:31; Status DC Glycopyrrolate (Robinul) 1 mg STK-MED ONCE .ROUTE ; Start 03/06/18 at 11:31; Stop 03/06/18 at 11:32; Status DC Belladonna Alkaloids/Opium (B & O) 1 supp 1X ONCE OR Last administered on at 12:50; Start 03/06/18 at 12:15; Stop 03/06/18 at 12:16; Status DC Hydralazine HCl (Apresoline Inj) 20 mg STK-MED ONCE .ROUTE ; Start 03/06/18 at 12:16; Stop 03/06/18 at 12:17; Status DC Fentanyl Citrate (Fentanyl 2ml Vial) 100 mcg STK-MED ONCE .ROUTE ; Start at 12:22; Stop 03/06/18 at 12:23; Status DC Sevoflurane (Ultane) 90 ml STK-MED ONCE IH ; Start 03/06/18 at 12:50; Stop at 12:51; Status DC Iohexol (Omnipaque 300 Mg/ml) 75 ml 1X ONCE IV Last administered on at 14:56; Start 03/06/18 at 14:45; Stop 03/06/18 at 14:46; Status DC Info (CONTRAST GIVEN -- Rx MONITORING) 1 each PRN DAILY PRN MC SEE COMMENTS; Start 03/06/18 at 14:45; Stop 03/08/18 at 14:44 Insulin Human Lispro (HumaLOG) 0-5 UNITS TIDWMEALS SQ ; Start 03/07/18 at 08:00 ; Stop 03/07/18 at 08:00; Status DC Dextrose (Dextrose 50%-Water Syringe) 12.5 gm PRN Q15MIN PRN IV SEE COMMENTS; Start 03/06/18 at 17:30 Insulin Human Lispro (HumaLOG) 0-5 UNITS TIDWMEALS SQ Last administered on 03/08at 12:04; Start 03/06/18 at 18:00 Ceftriaxone Sodium 50 ml @ 100 mls/hr 1X ONCE IV ; Start 03/07/18 at 10:00; Stop 03/07/18 at 10:29; Status UNV Ceftriaxone Sodium (Rocephin) 1 gm 1X ONCE IVP Last administered on at 10:26; Start 03/07/18 at 10:00; Stop 03/07/18 at 10:01; Status DC Sodium Chloride 1,000 ml @ 75 mls/hr [id number] IV Last administered on at 23:20; Start 03/07/18 at 10:00 Sodium Chloride 1,000 ml @ 1,000 mls/hr 1X ONCE IV Last administered on 03/07at 10:27; Start 03/07/18 at 10:00; Stop 03/07/18 at 10:59; Status DC Ceftriaxone Sodium 1 gm/ Dextrose 50 ml @ 100 mls/hr DAILY IV ; Start 03/08/18 at 09:00; Status UNV Ceftriaxone Sodium (Rocephin) 1 gm Q24H IVP Last administered on 03/08/18at 11: 50; Start 03/08/18 at 10:00 Active Scripts Active Flomax (Tamsulosin Hcl) 0.4 Mg Cap.er.24h 1 Cap PO DAILY 7 Days Cipro (Ciprofloxacin Hcl) 500 Mg Tablet 1 Tab PO BID 10 Days Flagyl (Metronidazole) 500 Mg Tablet 1 Tab PO TID Levaquin (Levofloxacin) 500 Mg Tablet 1 Tab PO DAILY Reported Metformin HCl 500 Mg/5 Ml Solution 500 Mg PO DAILY Vitals/I & O Vital Sign - Last 24 Hours 03/07/18 03/07/18 03/07/18 03/07/18 14:27 14:27 15:00 19:00 Temp 99.9 97.7 99.9 97.7 Pulse 101 94 Resp 16 16 B/P (MAP) 98/49 (65) 106/51 (69) Pulse Ox 96 96 O2 Delivery Room Air Room Air Room Air Room Air 03/07/18 03/07/18 03/08/18 03/08/18 20:00 23:00 03:00 07:00 Temp 97.9 97.9 98.6 97.9 97.9 98.6 Pulse 96 90 90 Resp 16 16 18 B/P (MAP) 110/53 (72) 116/54 (74) 123/69 (87) Pulse Ox 96 96 95 O2 Delivery Room Air Room Air Room Air Room Air 03/08/18 11:00 Temp 99.3 99.3 Pulse 76 Resp 18 B/P (MAP) 101/57 (72) Pulse Ox 96 O2 Delivery Room Air Intake and Output 03/07/18 03/07/18 03/08/18 15:00 23:00 07:00 Output Total 8900 ml 3750 ml 4025 ml Balance -8900 ml -3750 ml -4025 ml BERNABE AN MD Mar 08, 2018 12:49
[2018-03-08] MEDS: traMADol 50 MG TABLET PO PRN (16:14)
[2018-03-09 03:45] VITALS: BP 107/74
[2018-03-09] MEDS: IV NORMAL SALINE 1000ML BAG 1,000 ML IV SCH ×2 (05:35→20:06)
[2018-03-09 07:00] VITALS: BP 109/73
[2018-03-09] MEDS: INSULIN LISPRO 300 UNITS/3 ML INSULN.PEN. SQ SCH ×3 (08:00→17:48)
[2018-03-09] MEDS: THIAMINE 100 MG TABLET. PO SCH (09:14)
[2018-03-09] MEDS: FOLIC ACID 1 MG TABLET. PO SCH (09:14)
[2018-03-09] MEDS: MULTIVITAMIN with MINERAL TABLET. PO SCH (09:14)
[2018-03-09] MEDS: FINASTERIDE 5 MG TABLET. PO SCH (09:14)
[2018-03-09] MEDS: cefTRIAXone IV Push 1 GM VIAL. IVP SCH (09:21)
--- NOTE | 2018-03-09 09:24 | PDOC ---
ARCELIAESTRELLA Hubbard COPYRIGHT CLERK 03/09/18 0924: SUBJECTIVE Subjective Pt still has 3 way glez in draining only very light red urine. Otherwise doing ok. Thinks he will go back to [place] in 2-3 months. OBJECTIVE Objective Physical Exam: General appearance: Alert and Oriented Head: Normocephalic, without obvious abnormality Eyes: conjunctivae/corneas clear. PERRL, EOM's intact. Fundi benign Lungs: regular respirations, non labored breathing. Abdomen: soft, non-tender. Bowel sounds normal. No masses, no organomegaly Pelvic: uncircumcised phallus with [address] draining clear urine with light red tinge. Glez catheter D/C'ed by SAW HANDLE ASSEMBLER Arcelia with no difficulty. Vital Signs Vital Signs Date Time Temp Pulse Resp B/P (MAP) Pulse Ox O2 Delivery O2 Flow Rate FiO2 03/09/18 07:00 98.4 90 16 109/73 (85) 95 Room Air 98.4 03/09/18 03:45 98.8 86 18 107/74 (85) 97 Room Air 98.8 03/08/18 23:23 98.9 82 18 95/59 (71) 97 Room Air 98.9 03/08/18 19:45 Room Air 03/08/18 19:20 98.5 84 18 122/80 (94) 99 Room Air 98.5 03/08/18 17:19 Room Air 03/08/18 16:14 Room Air 03/08/18 15:15 98.7 92 16 107/69 98.7 03/08/18 15:00 98.5 93 18 113/69 (84) 100 Room Air 98.5 03/08/18 14:15 98.6 76 16 112/65 98.6 03/08/18 13:15 98.6 96 16 105/66 98.6 03/08/18 13:00 98.3 100 16 109/66 98.3 03/08/18 11:00 99.3 76 18 101/57 (72) 96 Room Air 99.3 I & O Intake and Output 03/09/18 07:00 Intake Total 2197 ml Output Total 6350 ml Balance -4153 ml Intake Oral 1100 ml IV Total 750 ml Blood Product IV Normal Saline Flush 347 ml Output Urine Total 6350 ml # Bowel Movements 1 PHYSICAL EXAM Physical Exam Physical Exam: General appearance: Alert and Oriented Head: Normocephalic, without obvious abnormality Eyes: conjunctivae/corneas clear. PERRL, EOM's intact. Fundi benign Lungs: regular respirations, non labored breathing. Abdomen: soft, non-tender. Bowel sounds normal. No masses, no organomegaly Pelvic: uncircumcised phallus with [address] draining clear urine with light red tinge. Glez catheter D/C'ed by SAW HANDLE ASSEMBLER Arcelia with no difficulty. ASSESSMENT/PLAN Assessment/Plan Pt is now on voiding trial. Explained in some Lithuanian and with assistant professor of communication phone the process for voiding trial: attempt to void every hour to hour and a half until 2 pm. If he is not voiding by then, glez catheter will need to be replaced. Orders entered for nursing staff. Pt likely returning to [place] in a few months for further treatment. Therefore , no follow up needed with Urology services. Whenever he does go home, we do recommend he discharge with RX for finasteride and Flomax. Discussed with attending RN. Will check on patient later. UPDATE 1300: Pt actively voiding, 200 out so far. Problems: (1) Hematuria (2) Bladder mass COMMENT Lab Laboratory Tests Test 03/08/18 11:45 03/08/18 17:03 03/08/18 20:42 03/09/18 07:18 Glucose (Fingerstick) 173 mg/dL (70-99) 167 mg/dL (70-99) 183 mg/dL (70-99) 144 mg/dL (70-99) MAXIMO JONES MD 03/10/18 1334: ASSESSMENT/PLAN Assessment/Plan Do not recommend tamsulosin or finasteride given recent TURP and metastatic prostate cancer. ESTRELLA PANIAGUA APRN Mar 09, 2018 09:24 MAXIMO JONES MD Mar 10, 2018 13:34
[2018-03-09 10:37] LABS: BASO % 0 % (0-3); EOS # 0.1 x10^3/uL (0.0-0.7); EOS % 1 % (0-3); HEMATOCRIT 22.1 % (39.0-53.0); HEMOGLOBIN 7.7 g/dL (13.0-17.5); LYMPH % 18 % (24-48); MEAN CORPUSCULAR HEMOGLOBIN 32 pg (25-35); MEAN CORPUSCULAR HGB CONC 35 g/dL (31-37); MEAN CORPUSCULAR VOLUME 93 fL (79-100); MONO # 0.7 x10^3/uL (0.0-1.1); MONO % 12 % (0-9); NEUT % 69 % (31-73); PLATELET COUNT 124 x10^3/uL (140-400); RED BLOOD COUNT 2.39 x10^6/uL (4.30-5.70); WHITE BLOOD COUNT 5.8 x10^3/uL (4.0-11.0)
[2018-03-09 10:44] LABS: CALCIUM 8.1 mg/dL (8.5-10.1); CREATININE 0.7 mg/dL (0.7-1.3); GFR 116.7; POTASSIUM 3.5 mmol/L (3.5-5.1)
[2018-03-09] MEDS ORDERED: POTASSIUM CHLORIDE 20 MEQ TABLET.ER. PO ONE (10:45)
[2018-03-09 11:00] VITALS: BP 110/73
--- NOTE | 2018-03-09 11:21 | PDOC ---
PROGRESS NOTES Subjective Subjective HPI - f/u of Enlarged prostate with bone metastasis clinically concerning for prostate cancer with bone metastasis. ROS - no fever Objective Objective Vital Signs Date Time Temp Pulse Resp B/P (MAP) Pulse Ox O2 Delivery O2 Flow Rate FiO2 03/09/18 07:00 98.4 90 16 109/73 (85) 95 Room Air 98.4 03/07/18 05:07 2.0 Intake and Output 03/09/18 07:00 Intake Total 2197 ml Output Total 6350 ml Balance -4153 ml Intake Oral 1100 ml IV Total 750 ml Blood Product IV Normal Saline Flush 347 ml Output Urine Total 6350 ml # Bowel Movements 1 Physical Exam Heart: Normal S1, Normal S2 General: Alert, Oriented X3 Lungs: Clear to auscultation Neuro: Normal speech Psych/Mental Status: Mental status NL Assessment Assessment Problems Medical Problems: (1) Bladder mass Status: Acute (2) Hematuria Status: Acute IMPRESSION AND PLAN: 1. Enlarged prostate with bone metastasis clinically concerning for prostate cancer with bone metastasis. Mass noted in the urinary bladder on CAT scan is likely to be a hematoma per Urology. CT chest 03/06/18: Sclerotic bone lesions of ribs and thoracic spine, suspicious for osteoblastic metastatic tumor deposits. Ill-defined opacities in the lungs, particularly the right lower lobe and posterior right upper lobe, may be inflammatory/infectious. There is at least one 6 mm groundglass nodule. Given the other CT findings, neoplastic involvement is possible. Recommend at least short-term CT chest follow-up. I d/w Magdalena REDDY, from urology. PSA [id number] on 03/04/18 suggestive of prostate cancer. s/p TURP 03/06/18, await path results, then plan casodex and lupron after confirmation of prostate cancer. Pt considering going to [place] for treatment as he does not have insurance. I have advised to f/u with me in 1 week. 2. Hematuria. Appreciate Urology consultation. 3. Bone metastasis per CT scan. Bone scan 03/06/18: Diffuse osteoblastic metastatic disease identified. Involvement is noted within the ribs, spine, pelvic bones, and other bony structures.. 4. Anemia, Hb worse at 6.7 .18, s/p 1 PRBC. Hb better at 7.7 on 03/09/18. I will check iron profile. Comment Review of Relevant I have reviewed the following items mame (where applicable) has been applied. Labs Laboratory Tests Test 03/07/18 16:39 03/08/18 02:41 03/08/18 04:35 03/08/18 07:26 Glucose (Fingerstick) 200 mg/dL (70-99) 142 mg/dL (70-99) 142 mg/dL (70-99) White Blood Count 6.6 x10^3/uL (4.0-11.0) Red Blood Count 2.03 x10^6/uL (4.30-5.70) Hemoglobin 6.7 g/dL (13.0-17.5) Hematocrit 18.9 % (39.0-53.0) Mean Corpuscular Volume 93 fL (79-100) Mean Corpuscular Hemoglobin 33 pg (25-35) Mean Corpuscular Hemoglobin Concent 35 g/dL (31-37) Red Cell Distribution Width 13.5 % (11.5-14.5) Platelet Count 104 x10^3/uL (140-400) Neutrophils (%) (Auto) 71 % (31-73) Lymphocytes (%) (Auto) 16 % (24-48) Monocytes (%) (Auto) 12 % (0-9) Eosinophils (%) (Auto) 1 % (0-3) Basophils (%) (Auto) 0 % (0-3) Neutrophils # (Auto) 4.7 x10^3uL (1.8-7.7) Lymphocytes # (Auto) 1.1 x10^3/uL (1.0-4.8) Monocytes # (Auto) 0.8 x10^3/uL (0.0-1.1) Eosinophils # (Auto) 0.0 x10^3/uL (0.0-0.7) Basophils # (Auto) 0.0 x10^3/uL (0.0-0.2) Sodium Level 142 mmol/L (136-145) Potassium Level 3.3 mmol/L (3.5-5.1) Chloride Level 107 mmol/L (98-107) Carbon Dioxide Level 24 mmol/L (21-32) Anion Gap 11 (6-14) Blood Urea Nitrogen 8 mg/dL (8-26) Creatinine 0.7 mg/dL (0.7-1.3) Estimated GFR (Cockcroft-Gault) 116.7 BUN/Creatinine Ratio 11 (6-20) Glucose Level 145 mg/dL (70-99) Calcium Level 7.7 mg/dL (8.5-10.1) Total Bilirubin 0.8 mg/dL (0.2-1.0) Aspartate Amino Transf (AST/SGOT) 37 U/L (15-37) Alanine Aminotransferase (ALT/SGPT) 23 U/L (16-63) Alkaline Phosphatase 58 U/L (46-116) Total Protein 5.8 g/dL (6.4-8.2) Albumin 2.7 g/dL (3.4-5.0) Albumin/Globulin Ratio 0.9 (1.0-1.7) Test 03/08/18 11:45 03/08/18 17:03 03/08/18 20:42 03/09/18 07:18 Glucose (Fingerstick) 173 mg/dL (70-99) 167 mg/dL (70-99) 183 mg/dL (70-99) 144 mg/dL (70-99) Test 03/09/18 10:00 03/09/18 10:55 White Blood Count 5.8 x10^3/uL (4.0-11.0) Red Blood Count 2.39 x10^6/uL (4.30-5.70) Hemoglobin 7.7 g/dL (13.0-17.5) Hematocrit 22.1 % (39.0-53.0) Mean Corpuscular Volume 93 fL (79-100) Mean Corpuscular Hemoglobin 32 pg (25-35) Mean Corpuscular Hemoglobin Concent 35 g/dL (31-37) Red Cell Distribution Width 14.0 % (11.5-14.5) Platelet Count 124 x10^3/uL (140-400) Neutrophils (%) (Auto) 69 % (31-73) Lymphocytes (%) (Auto) 18 % (24-48) Monocytes (%) (Auto) 12 % (0-9) Eosinophils (%) (Auto) 1 % (0-3) Basophils (%) (Auto) 0 % (0-3) Neutrophils # (Auto) 4.0 x10^3uL (1.8-7.7) Lymphocytes # (Auto) 1.0 x10^3/uL (1.0-4.8) Monocytes # (Auto) 0.7 x10^3/uL (0.0-1.1) Eosinophils # (Auto) 0.1 x10^3/uL (0.0-0.7) Basophils # (Auto) 0.0 x10^3/uL (0.0-0.2) Sodium Level 142 mmol/L (136-145) Potassium Level 3.5 mmol/L (3.5-5.1) Chloride Level 107 mmol/L (98-107) Carbon Dioxide Level 24 mmol/L (21-32) Anion Gap 11 (6-14) Blood Urea Nitrogen 7 mg/dL (8-26) Creatinine 0.7 mg/dL (0.7-1.3) Estimated GFR (Cockcroft-Gault) 116.7 Glucose Level 212 mg/dL (70-99) Calcium Level 8.1 mg/dL (8.5-10.1) Glucose (Fingerstick) 203 mg/dL (70-99) Laboratory Tests Test 03/08/18 11:45 03/08/18 17:03 03/08/18 20:42 03/09/18 07:18 Glucose (Fingerstick) 173 mg/dL (70-99) 167 mg/dL (70-99) 183 mg/dL (70-99) 144 mg/dL (70-99) Test 03/09/18 10:00 03/09/18 10:55 White Blood Count 5.8 x10^3/uL (4.0-11.0) Red Blood Count 2.39 x10^6/uL (4.30-5.70) Hemoglobin 7.7 g/dL (13.0-17.5) Hematocrit 22.1 % (39.0-53.0) Mean Corpuscular Volume 93 fL (79-100) Mean Corpuscular Hemoglobin 32 pg (25-35) Mean Corpuscular Hemoglobin Concent 35 g/dL (31-37) Red Cell Distribution Width 14.0 % (11.5-14.5) Platelet Count 124 x10^3/uL (140-400) Neutrophils (%) (Auto) 69 % (31-73) Lymphocytes (%) (Auto) 18 % (24-48) Monocytes (%) (Auto) 12 % (0-9) Eosinophils (%) (Auto) 1 % (0-3) Basophils (%) (Auto) 0 % (0-3) Neutrophils # (Auto) 4.0 x10^3uL (1.8-7.7) Lymphocytes # (Auto) 1.0 x10^3/uL (1.0-4.8) Monocytes # (Auto) 0.7 x10^3/uL (0.0-1.1) Eosinophils # (Auto) 0.1 x10^3/uL (0.0-0.7) Basophils # (Auto) 0.0 x10^3/uL (0.0-0.2) Sodium Level 142 mmol/L (136-145) Potassium Level 3.5 mmol/L (3.5-5.1) Chloride Level 107 mmol/L (98-107) Carbon Dioxide Level 24 mmol/L (21-32) Anion Gap 11 (6-14) Blood Urea Nitrogen 7 mg/dL (8-26) Creatinine 0.7 mg/dL (0.7-1.3) Estimated GFR (Cockcroft-Gault) 116.7 Glucose Level 212 mg/dL (70-99) Calcium Level 8.1 mg/dL (8.5-10.1) Glucose (Fingerstick) 203 mg/dL (70-99) Microbiology 03/07/18 Blood Culture - Preliminary, Resulted NO GROWTH AFTER 2 DAYS 03/05/18 Urine Culture - Final, Complete 03/05/18 Urine Culture Result 1 ([place]) - Final, Complete Medications Current Medications Sodium Chloride 1,000 ml @ 1,000 mls/hr 1X ONCE IV Last administered on 03/04at 12:07; Start 03/04/18 at 11:45; Stop 03/04/18 at 12:44; Status DC Iohexol (Omnipaque 300 Mg/ml) 75 ml 1X ONCE IV ; Start 03/04/18 at 12:30; Stop 03/04/18 at 12:36; Status DC Info (CONTRAST GIVEN -- Rx MONITORING) 1 each PRN DAILY PRN MC SEE COMMENTS; Start 03/04/18 at 12:45; Stop 03/06/18 at 12:54; Status DC Sodium Chloride 1,000 ml @ 1,000 mls/hr 1X ONCE IV Last administered on 03/04at 13:45; Start 03/04/18 at 13:45; Stop 03/04/18 at 14:44; Status DC Ondansetron HCl (Zofran) 4 mg PRN Q8HRS PRN IV NAUSEA/VOMITING; Start at 14:15; Stop 03/04/18 at 14:56; Status DC Morphine Sulfate (Morphine Sulfate) 4 mg PRN Q2HR PRN IV PAIN Last administered on 03/05/18at 11:35; Start 03/04/18 at 14:15; Stop 03/05/18 at 13 :46; Status DC Sodium Chloride 1,000 ml @ 125 mls/hr Q8H IV ; Start 03/04/18 at 14:11; Stop 03/05/18 at 14:10; Status DC Acetaminophen (Tylenol) 650 mg PRN Q4HRS PRN PO FEVER; Start 03/04/18 at 14:15 ; Stop 03/05/18 at 13:46; Status DC Ondansetron HCl (Zofran) 4 mg PRN Q6HRS PRN IV NAUSEA/VOMITING Last administered on 03/04/18at 15:05; Start 03/04/18 at 15:00; Stop 03/05/18 at 13 :46; Status DC Diphenhydramine HCl (Benadryl) 25 mg PRN QHS PRN PO INSOMNIA; Start 03/04/18 at 15:00 Multivitamins 10 ml/Thiamine HCl 100 mg/Folic Acid 1 mg/Sodium Chloride 1,011.2 ml @ 1,000.088 mls/hr 1X ONCE IV Last administered on 03/04/18at 16:31; Start 03/04/18 at 15:30; Stop 03/04/18 at 16:35; Status DC Multivitamins (Thera M Plus) 1 tab DAILY PO Last administered on 03/09/18at 09: 14; Start 03/05/18 at 09:00 Folic Acid (Folic Acid) 1 mg DAILY PO Last administered on 03/09/18at 09:14; Start 03/05/18 at 09:00 Thiamine Mononitrate (Vitamin B-1) 100 mg DAILY PO Last administered on at 09:14; Start 03/05/18 at 09:00 Chlordiazepoxide (Librium) 25 mg PRN Q6HRS PRN PO ANXIETY / AGITATION; Start 03/04/18 at 15:00 Labetalol HCl (Normodyne Iv Push) 20 mg 1X ONCE IVP Last administered on 03/04at 20:21; Start 03/04/18 at 16:15; Stop 03/04/18 at 16:35; Status DC Labetalol HCl (Normodyne Iv Push) 20 mg PRN Q2HR PRN IVP HYPERTENSION, SEE COMMENTS; Start 03/04/18 at 18:00 Lidocaine HCl (Glydo (Lidocaine) Jelly) 1 eleni 1X ONCE MM ; Start 03/04/18 at 18:15; Stop 03/04/18 at 18:16; Status DC Finasteride (Proscar) 5 mg DAILY PO Last administered on 03/09/18at 09:14; Start 03/05/18 at 09:00 Acetaminophen (Tylenol) 650 mg PRN Q6HRS PRN PO FEVER Last administered on at 19:46; Start 03/05/18 at 13:45 Ondansetron HCl (Zofran) 4 mg PRN Q6HRS PRN IV NAUSEA/VOMITING; Start at 13:45 Morphine Sulfate (Morphine Sulfate) 2 mg PRN Q2HR PRN IV MODERATE TO SEVERE PAIN Last administered on 03/07/18at 11:26; Start 03/05/18 at 13:45 Tramadol HCl (Ultram) 50 mg PRN Q6HRS PRN PO MILD TO MODERATE PAIN Last administered on 03/08/18at 16:14; Start 03/05/18 at 13:45 Docusate Sodium (Colace) 100 mg PRN DAILY PRN PO CONSTIPATION; Start 03/05/18 at 13:45 Propofol 20 ml @ As Directed STK-MED ONCE IV ; Start 03/06/18 at 09:24; Stop 03/06/18 at 09:25; Status DC Lidocaine HCl (Lidocaine Pf 2% Vial) 5 ml STK-MED ONCE .ROUTE ; Start 03/06/18 at 09:24; Stop 03/06/18 at 09:25; Status DC Fentanyl Citrate (Fentanyl 2ml Vial) 100 mcg STK-MED ONCE .ROUTE ; Start at 09:24; Stop 03/06/18 at 09:25; Status DC Potassium Chloride (Klor-Con) 40 meq 1X ONCE PO ; Start 03/06/18 at 10:00; Stop 03/06/18 at 10:01; Status DC Cefazolin Sodium/ Dextrose 50 ml @ 100 mls/hr 1X ONCE IV Last administered on 03/06/18at 10:31; Start 03/06/18 at 09:30; Stop 03/06/18 at 09:59; Status DC Rocuronium [place] (Zemuron) 50 mg STK-MED ONCE .ROUTE ; Start 03/06/18 at 09: 25; Stop 03/06/18 at 09:26; Status DC Ondansetron HCl (Zofran) 4 mg PRN Q6HRS PRN IV NAUSEA/VOMITING; Start at 10:00; Stop 03/07/18 at 09:59; Status DC Fentanyl Citrate (Fentanyl 2ml Vial) 25 mcg PRN Q5MIN PRN IV MILD PAIN Last administered on 03/06/18at 13:55; Start 03/06/18 at 10:00; Stop 03/07/18 at 09 :59; Status DC Fentanyl Citrate (Fentanyl 2ml Vial) 50 mcg PRN Q5MIN PRN IV MODERATE TO SEVERE PAIN Last administered on 03/06/18at 13:39; Start 03/06/18 at 10:00; Stop 03/07/18 at 09:59; Status DC Morphine Sulfate (Morphine Sulfate) 1 mg PRN Q10MIN PRN IV SEVERE PAIN; Start 03/06/18 at 10:00; Stop 03/07/18 at 09:59; Status DC Ringer's Solution 1,000 ml @ 30 mls/hr Q24H IV ; Start 03/06/18 at 09:50; Stop 03/06/18 at 21:49; Status DC Lidocaine HCl (Xylocaine-Mpf 1% 2ml Vial) 2 ml PRN 1X PRN ID PRIOR TO IV START ; Start 03/06/18 at 10:00; Stop 03/07/18 at 09:59; Status DC Hydromorphone HCl (Dilaudid) 0.5 mg PRN Q10MIN PRN IV SEV PAIN, Second choice; Start 03/06/18 at 10:00; Stop 03/07/18 at 09:59; Status DC Prochlorperazine Edisylate (Compazine) 5 mg PACU PRN PRN IV NAUSEA, MRX1; Start 03/06/18 at 10:00; Stop 03/07/18 at 09:59; Status DC Midazolam HCl (Versed) 2 mg STK-MED ONCE .ROUTE ; Start 03/06/18 at 10:05; Stop 03/06/18 at 10:06; Status DC Lidocaine HCl (Glydo (Lidocaine) Jelly) 6 eleni STK-MED ONCE .ROUTE ; Start 03/06 at 09:06; Stop 03/06/18 at 10:06; Status DC Propofol 20 ml @ As Directed STK-MED ONCE IV ; Start 03/06/18 at 10:37; Stop 03/06/18 at 10:38; Status DC Dexamethasone Sodium Phosphate (Decadron) 20 mg STK-MED ONCE .ROUTE ; Start at 11:29; Stop 03/06/18 at 11:30; Status DC Famotidine (Pepcid Vial) 20 mg STK-MED ONCE .ROUTE ; Start 03/06/18 at 11:30; Stop 03/06/18 at 11:31; Status DC Ondansetron HCl (Zofran) 4 mg STK-MED ONCE .ROUTE ; Start 03/06/18 at 11:30; Stop 03/06/18 at 11:31; Status DC Neostigmine Methylsulfate (Neostigmine Methylsulfate) 5 mg STK-MED ONCE .ROUTE ; Start 03/06/18 at 11:30; Stop 03/06/18 at 11:31; Status DC Glycopyrrolate (Robinul) 1 mg STK-MED ONCE .ROUTE ; Start 03/06/18 at 11:31; Stop 03/06/18 at 11:32; Status DC Belladonna Alkaloids/Opium (B & O) 1 supp 1X ONCE KS Last administered on at 12:50; Start 03/06/18 at 12:15; Stop 03/06/18 at 12:16; Status DC Hydralazine HCl (Apresoline Inj) 20 mg STK-MED ONCE .ROUTE ; Start 03/06/18 at 12:16; Stop 03/06/18 at 12:17; Status DC Fentanyl Citrate (Fentanyl 2ml Vial) 100 mcg STK-MED ONCE .ROUTE ; Start at 12:22; Stop 03/06/18 at 12:23; Status DC Sevoflurane (Ultane) 90 ml STK-MED ONCE IH ; Start 03/06/18 at 12:50; Stop at 12:51; Status DC Iohexol (Omnipaque 300 Mg/ml) 75 ml 1X ONCE IV Last administered on at 14:56; Start 03/06/18 at 14:45; Stop 03/06/18 at 14:46; Status DC Info (CONTRAST GIVEN -- Rx MONITORING) 1 each PRN DAILY PRN MC SEE COMMENTS; Start 03/06/18 at 14:45; Stop 03/08/18 at 14:44; Status DC Insulin Human Lispro (HumaLOG) 0-5 UNITS TIDWMEALS SQ ; Start 03/07/18 at 08:00 ; Stop 03/07/18 at 08:00; Status DC Dextrose (Dextrose 50%-Water Syringe) 12.5 gm PRN Q15MIN PRN IV SEE COMMENTS; Start 03/06/18 at 17:30 Insulin Human Lispro (HumaLOG) 0-5 UNITS TIDWMEALS SQ Last administered on 03/08at 17:19; Start 03/06/18 at 18:00 Ceftriaxone Sodium 50 ml @ 100 mls/hr 1X ONCE IV ; Start 03/07/18 at 10:00; Stop 03/07/18 at 10:29; Status UNV Ceftriaxone Sodium (Rocephin) 1 gm 1X ONCE IVP Last administered on at 10:26; Start 03/07/18 at 10:00; Stop 03/07/18 at 10:01; Status DC Sodium Chloride 1,000 ml @ 75 mls/hr [id number] IV Last administered on at 05:35; Start 03/07/18 at 10:00 Sodium Chloride 1,000 ml @ 1,000 mls/hr 1X ONCE IV Last administered on 03/07at 10:27; Start 03/07/18 at 10:00; Stop 03/07/18 at 10:59; Status DC Ceftriaxone Sodium 1 gm/ Dextrose 50 ml @ 100 mls/hr DAILY IV ; Start 03/08/18 at 09:00; Status UNV Ceftriaxone Sodium (Rocephin) 1 gm Q24H IVP Last administered on 03/09/18at 09: 21; Start 03/08/18 at 10:00 Potassium Chloride (Klor-Con) 40 meq 1X ONCE PO ; Start 03/09/18 at 10:45; Stop 03/09/18 at 10:46; Status DC Active Scripts Active Flomax (Tamsulosin Hcl) 0.4 Mg Cap.er.24h 1 Cap PO DAILY 7 Days Cipro (Ciprofloxacin Hcl) 500 Mg Tablet 1 Tab PO BID 10 Days Flagyl (Metronidazole) 500 Mg Tablet 1 Tab PO TID Levaquin (Levofloxacin) 500 Mg Tablet 1 Tab PO DAILY Reported Metformin HCl 500 Mg/5 Ml Solution 500 Mg PO DAILY Vitals/I & O Vital Sign - Last 24 Hours 03/08/18 03/08/18 03/08/18 03/08/18 13:00 13:15 14:15 15:00 Temp 98.3 98.6 98.6 98.5 98.3 98.6 98.6 98.5 Pulse 100 96 76 93 Resp 16 16 16 18 B/P (MAP) 109/66 105/66 112/65 113/69 (84) Pulse Ox 100 O2 Delivery Room Air 03/08/18 03/08/18 03/08/18 03/08/18 15:15 16:14 17:19 19:20 Temp 98.7 98.5 98.7 98.5 Pulse 92 84 Resp 18 B/P (MAP) 107/69 122/80 (94) Pulse Ox 99 O2 Delivery Room Air Room Air Room Air 03/08/18 03/08/18 03/09/18 03/09/18 19:45 23:23 03:45 07:00 Temp 98.9 98.8 98.4 98.9 98.8 98.4 Pulse 82 86 90 Resp 18 18 16 B/P (MAP) 95/59 (71) 107/74 (85) 109/73 (85) Pulse Ox 97 97 95 O2 Delivery Room Air Room Air Room Air Room Air Intake and Output 03/08/18 03/08/18 03/09/18 15:00 23:00 07:00 Intake Total 297 ml 550 ml 1350 ml Output Total 4300 ml 700 ml 1350 ml Balance -4003 ml -150 ml 0 ml BERNABE AN MD Mar 09, 2018 11:21
--- NOTE | 2018-03-09 11:41 | PDOC ---
PROGRESS NOTES Chief Complaint Chief Complaint Gross hematuria: Prostate Ca? - elevated PSA Enlarged prostate- S/P TURP 03/06, path pending Bladder mass: 7 x 12 cm Back pain evidence of metastatic lesions on imaging Anemia: d/t hematuria History of Present Illness History of Present Illness Pt seen and examined. Pt sitting upright in bed. S/p TURP 03/06. Is now off [facility] DW RN Pt says that he is currently not in any pain. Vitals Vitals Vital Signs Date Time Temp Pulse Resp B/P (MAP) Pulse Ox O2 Delivery O2 Flow Rate FiO2 03/09/18 07:00 98.4 90 16 109/73 (85) 95 Room Air 98.4 Physical Exam General: Alert, Cooperative, No acute distress Heart: Normal S1, Normal S2 Lungs: Clear Abdomen: Soft, No tenderness, No masses Extremities: No clubbing, No cyanosis, Normal pulses, No tenderness/swelling Skin: No rashes, No breakdown, No significant lesion Labs LABS Laboratory Tests Test 03/08/18 11:45 03/08/18 17:03 03/08/18 20:42 03/09/18 07:18 Glucose (Fingerstick) 173 mg/dL (70-99) 167 mg/dL (70-99) 183 mg/dL (70-99) 144 mg/dL (70-99) Test 03/09/18 10:00 03/09/18 10:55 White Blood Count 5.8 x10^3/uL (4.0-11.0) Red Blood Count 2.39 x10^6/uL (4.30-5.70) Hemoglobin 7.7 g/dL (13.0-17.5) Hematocrit 22.1 % (39.0-53.0) Mean Corpuscular Volume 93 fL (79-100) Mean Corpuscular Hemoglobin 32 pg (25-35) Mean Corpuscular Hemoglobin Concent 35 g/dL (31-37) Red Cell Distribution Width 14.0 % (11.5-14.5) Platelet Count 124 x10^3/uL (140-400) Neutrophils (%) (Auto) 69 % (31-73) Lymphocytes (%) (Auto) 18 % (24-48) Monocytes (%) (Auto) 12 % (0-9) Eosinophils (%) (Auto) 1 % (0-3) Basophils (%) (Auto) 0 % (0-3) Neutrophils # (Auto) 4.0 x10^3uL (1.8-7.7) Lymphocytes # (Auto) 1.0 x10^3/uL (1.0-4.8) Monocytes # (Auto) 0.7 x10^3/uL (0.0-1.1) Eosinophils # (Auto) 0.1 x10^3/uL (0.0-0.7) Basophils # (Auto) 0.0 x10^3/uL (0.0-0.2) Sodium Level 142 mmol/L (136-145) Potassium Level 3.5 mmol/L (3.5-5.1) Chloride Level 107 mmol/L (98-107) Carbon Dioxide Level 24 mmol/L (21-32) Anion Gap 11 (6-14) Blood Urea Nitrogen 7 mg/dL (8-26) Creatinine 0.7 mg/dL (0.7-1.3) Estimated GFR (Cockcroft-Gault) 116.7 Glucose Level 212 mg/dL (70-99) Calcium Level 8.1 mg/dL (8.5-10.1) Glucose (Fingerstick) 203 mg/dL (70-99) Review of Systems Review of Systems Pt says that he is not in any pain. He speaks little Moroccan, full ROS unable to be obtained. Assessment and Plan Assessmemt and Plan Problems Medical Problems: (1) Bladder mass Status: Acute (2) Hematuria Status: Acute Assessment: Gross hematuria: Prostate Ca? - elevated PSA Enlarged prostate- S/P TURP 03/06, path pending Bladder mass: 7 x 12 cm Back pain evidence of metastatic lesions on imaging Anemia: d/t hematuria, 1 unit RBCs 03/08, Hg increased to 7.7 from 6.7 Plan: Encourage PO intake Appreciate subspecialists input Cont fluids Monitor labs PT/OT Discharge disposition pending Comment Review of Relevant I have reviewed the following items mame (where applicable) has been applied. Labs Laboratory Tests Test 03/07/18 16:39 03/08/18 02:41 03/08/18 04:35 03/08/18 07:26 Glucose (Fingerstick) 200 mg/dL (70-99) 142 mg/dL (70-99) 142 mg/dL (70-99) White Blood Count 6.6 x10^3/uL (4.0-11.0) Red Blood Count 2.03 x10^6/uL (4.30-5.70) Hemoglobin 6.7 g/dL (13.0-17.5) Hematocrit 18.9 % (39.0-53.0) Mean Corpuscular Volume 93 fL (79-100) Mean Corpuscular Hemoglobin 33 pg (25-35) Mean Corpuscular Hemoglobin Concent 35 g/dL (31-37) Red Cell Distribution Width 13.5 % (11.5-14.5) Platelet Count 104 x10^3/uL (140-400) Neutrophils (%) (Auto) 71 % (31-73) Lymphocytes (%) (Auto) 16 % (24-48) Monocytes (%) (Auto) 12 % (0-9) Eosinophils (%) (Auto) 1 % (0-3) Basophils (%) (Auto) 0 % (0-3) Neutrophils # (Auto) 4.7 x10^3uL (1.8-7.7) Lymphocytes # (Auto) 1.1 x10^3/uL (1.0-4.8) Monocytes # (Auto) 0.8 x10^3/uL (0.0-1.1) Eosinophils # (Auto) 0.0 x10^3/uL (0.0-0.7) Basophils # (Auto) 0.0 x10^3/uL (0.0-0.2) Sodium Level 142 mmol/L (136-145) Potassium Level 3.3 mmol/L (3.5-5.1) Chloride Level 107 mmol/L (98-107) Carbon Dioxide Level 24 mmol/L (21-32) Anion Gap 11 (6-14) Blood Urea Nitrogen 8 mg/dL (8-26) Creatinine 0.7 mg/dL (0.7-1.3) Estimated GFR (Cockcroft-Gault) 116.7 BUN/Creatinine Ratio 11 (6-20) Glucose Level 145 mg/dL (70-99) Calcium Level 7.7 mg/dL (8.5-10.1) Total Bilirubin 0.8 mg/dL (0.2-1.0) Aspartate Amino Transf (AST/SGOT) 37 U/L (15-37) Alanine Aminotransferase (ALT/SGPT) 23 U/L (16-63) Alkaline Phosphatase 58 U/L (46-116) Total Protein 5.8 g/dL (6.4-8.2) Albumin 2.7 g/dL (3.4-5.0) Albumin/Globulin Ratio 0.9 (1.0-1.7) Test 03/08/18 11:45 03/08/18 17:03 03/08/18 20:42 03/09/18 07:18 Glucose (Fingerstick) 173 mg/dL (70-99) 167 mg/dL (70-99) 183 mg/dL (70-99) 144 mg/dL (70-99) Test 03/09/18 10:00 03/09/18 10:55 White Blood Count 5.8 x10^3/uL (4.0-11.0) Red Blood Count 2.39 x10^6/uL (4.30-5.70) Hemoglobin 7.7 g/dL (13.0-17.5) Hematocrit 22.1 % (39.0-53.0) Mean Corpuscular Volume 93 fL (79-100) Mean Corpuscular Hemoglobin 32 pg (25-35) Mean Corpuscular Hemoglobin Concent 35 g/dL (31-37) Red Cell Distribution Width 14.0 % (11.5-14.5) Platelet Count 124 x10^3/uL (140-400) Neutrophils (%) (Auto) 69 % (31-73) Lymphocytes (%) (Auto) 18 % (24-48) Monocytes (%) (Auto) 12 % (0-9) Eosinophils (%) (Auto) 1 % (0-3) Basophils (%) (Auto) 0 % (0-3) Neutrophils # (Auto) 4.0 x10^3uL (1.8-7.7) Lymphocytes # (Auto) 1.0 x10^3/uL (1.0-4.8) Monocytes # (Auto) 0.7 x10^3/uL (0.0-1.1) Eosinophils # (Auto) 0.1 x10^3/uL (0.0-0.7) Basophils # (Auto) 0.0 x10^3/uL (0.0-0.2) Sodium Level 142 mmol/L (136-145) Potassium Level 3.5 mmol/L (3.5-5.1) Chloride Level 107 mmol/L (98-107) Carbon Dioxide Level 24 mmol/L (21-32) Anion Gap 11 (6-14) Blood Urea Nitrogen 7 mg/dL (8-26) Creatinine 0.7 mg/dL (0.7-1.3) Estimated GFR (Cockcroft-Gault) 116.7 Glucose Level 212 mg/dL (70-99) Calcium Level 8.1 mg/dL (8.5-10.1) Glucose (Fingerstick) 203 mg/dL (70-99) Laboratory Tests Test 03/08/18 11:45 03/08/18 17:03 03/08/18 20:42 03/09/18 07:18 Glucose (Fingerstick) 173 mg/dL (70-99) 167 mg/dL (70-99) 183 mg/dL (70-99) 144 mg/dL (70-99) Test 03/09/18 10:00 03/09/18 10:55 White Blood Count 5.8 x10^3/uL (4.0-11.0) Red Blood Count 2.39 x10^6/uL (4.30-5.70) Hemoglobin 7.7 g/dL (13.0-17.5) Hematocrit 22.1 % (39.0-53.0) Mean Corpuscular Volume 93 fL (79-100) Mean Corpuscular Hemoglobin 32 pg (25-35) Mean Corpuscular Hemoglobin Concent 35 g/dL (31-37) Red Cell Distribution Width 14.0 % (11.5-14.5) Platelet Count 124 x10^3/uL (140-400) Neutrophils (%) (Auto) 69 % (31-73) Lymphocytes (%) (Auto) 18 % (24-48) Monocytes (%) (Auto) 12 % (0-9) Eosinophils (%) (Auto) 1 % (0-3) Basophils (%) (Auto) 0 % (0-3) Neutrophils # (Auto) 4.0 x10^3uL (1.8-7.7) Lymphocytes # (Auto) 1.0 x10^3/uL (1.0-4.8) Monocytes # (Auto) 0.7 x10^3/uL (0.0-1.1) Eosinophils # (Auto) 0.1 x10^3/uL (0.0-0.7) Basophils # (Auto) 0.0 x10^3/uL (0.0-0.2) Sodium Level 142 mmol/L (136-145) Potassium Level 3.5 mmol/L (3.5-5.1) Chloride Level 107 mmol/L (98-107) Carbon Dioxide Level 24 mmol/L (21-32) Anion Gap 11 (6-14) Blood Urea Nitrogen 7 mg/dL (8-26) Creatinine 0.7 mg/dL (0.7-1.3) Estimated GFR (Cockcroft-Gault) 116.7 Glucose Level 212 mg/dL (70-99) Calcium Level 8.1 mg/dL (8.5-10.1) Glucose (Fingerstick) 203 mg/dL (70-99) Microbiology 03/07/18 Blood Culture - Preliminary, Resulted NO GROWTH AFTER 2 DAYS 03/05/18 Urine Culture - Final, Complete 03/05/18 Urine Culture Result 1 ([place]) - Final, Complete Medications Current Medications Sodium Chloride 1,000 ml @ 1,000 mls/hr 1X ONCE IV Last administered on 03/04at 12:07; Start 03/04/18 at 11:45; Stop 03/04/18 at 12:44; Status DC Iohexol (Omnipaque 300 Mg/ml) 75 ml 1X ONCE IV ; Start 03/04/18 at 12:30; Stop 03/04/18 at 12:36; Status DC Info (CONTRAST GIVEN -- Rx MONITORING) 1 each PRN DAILY PRN MC SEE COMMENTS; Start 03/04/18 at 12:45; Stop 03/06/18 at 12:54; Status DC Sodium Chloride 1,000 ml @ 1,000 mls/hr 1X ONCE IV Last administered on 03/04at 13:45; Start 03/04/18 at 13:45; Stop 03/04/18 at 14:44; Status DC Ondansetron HCl (Zofran) 4 mg PRN Q8HRS PRN IV NAUSEA/VOMITING; Start at 14:15; Stop 03/04/18 at 14:56; Status DC Morphine Sulfate (Morphine Sulfate) 4 mg PRN Q2HR PRN IV PAIN Last administered on 03/05/18at 11:35; Start 03/04/18 at 14:15; Stop 03/05/18 at 13 :46; Status DC Sodium Chloride 1,000 ml @ 125 mls/hr Q8H IV ; Start 03/04/18 at 14:11; Stop 03/05/18 at 14:10; Status DC Acetaminophen (Tylenol) 650 mg PRN Q4HRS PRN PO FEVER; Start 03/04/18 at 14:15 ; Stop 03/05/18 at 13:46; Status DC Ondansetron HCl (Zofran) 4 mg PRN Q6HRS PRN IV NAUSEA/VOMITING Last administered on 03/04/18at 15:05; Start 03/04/18 at 15:00; Stop 03/05/18 at 13 :46; Status DC Diphenhydramine HCl (Benadryl) 25 mg PRN QHS PRN PO INSOMNIA; Start 03/04/18 at 15:00 Multivitamins 10 ml/Thiamine HCl 100 mg/Folic Acid 1 mg/Sodium Chloride 1,011.2 ml @ 1,000.088 mls/hr 1X ONCE IV Last administered on 03/04/18at 16:31; Start 03/04/18 at 15:30; Stop 03/04/18 at 16:35; Status DC Multivitamins (Thera M Plus) 1 tab DAILY PO Last administered on 03/09/18at 09: 14; Start 03/05/18 at 09:00 Folic Acid (Folic Acid) 1 mg DAILY PO Last administered on 03/09/18at 09:14; Start 03/05/18 at 09:00 Thiamine Mononitrate (Vitamin B-1) 100 mg DAILY PO Last administered on at 09:14; Start 03/05/18 at 09:00 Chlordiazepoxide (Librium) 25 mg PRN Q6HRS PRN PO ANXIETY / AGITATION; Start 03/04/18 at 15:00 Labetalol HCl (Normodyne Iv Push) 20 mg 1X ONCE IVP Last administered on 03/04at 20:21; Start 03/04/18 at 16:15; Stop 03/04/18 at 16:35; Status DC Labetalol HCl (Normodyne Iv Push) 20 mg PRN Q2HR PRN IVP HYPERTENSION, SEE COMMENTS; Start 03/04/18 at 18:00 Lidocaine HCl (Glydo (Lidocaine) Jelly) 1 eleni 1X ONCE MM ; Start 03/04/18 at 18:15; Stop 03/04/18 at 18:16; Status DC Finasteride (Proscar) 5 mg DAILY PO Last administered on 03/09/18at 09:14; Start 03/05/18 at 09:00 Acetaminophen (Tylenol) 650 mg PRN Q6HRS PRN PO FEVER Last administered on at 19:46; Start 03/05/18 at 13:45 Ondansetron HCl (Zofran) 4 mg PRN Q6HRS PRN IV NAUSEA/VOMITING; Start at 13:45 Morphine Sulfate (Morphine Sulfate) 2 mg PRN Q2HR PRN IV MODERATE TO SEVERE PAIN Last administered on 03/07/18at 11:26; Start 03/05/18 at 13:45 Tramadol HCl (Ultram) 50 mg PRN Q6HRS PRN PO MILD TO MODERATE PAIN Last administered on 03/08/18at 16:14; Start 03/05/18 at 13:45 Docusate Sodium (Colace) 100 mg PRN DAILY PRN PO CONSTIPATION; Start 03/05/18 at 13:45 Propofol 20 ml @ As Directed STK-MED ONCE IV ; Start 03/06/18 at 09:24; Stop 03/06/18 at 09:25; Status DC Lidocaine HCl (Lidocaine Pf 2% Vial) 5 ml STK-MED ONCE .ROUTE ; Start 03/06/18 at 09:24; Stop 03/06/18 at 09:25; Status DC Fentanyl Citrate (Fentanyl 2ml Vial) 100 mcg STK-MED ONCE .ROUTE ; Start at 09:24; Stop 03/06/18 at 09:25; Status DC Potassium Chloride (Klor-Con) 40 meq 1X ONCE PO ; Start 03/06/18 at 10:00; Stop 03/06/18 at 10:01; Status DC Cefazolin Sodium/ Dextrose 50 ml @ 100 mls/hr 1X ONCE IV Last administered on 03/06/18at 10:31; Start 03/06/18 at 09:30; Stop 03/06/18 at 09:59; Status DC Rocuronium Elizabeth (Zemuron) 50 mg STK-MED ONCE .ROUTE ; Start 03/06/18 at 09: 25; Stop 03/06/18 at 09:26; Status DC Ondansetron HCl (Zofran) 4 mg PRN Q6HRS PRN IV NAUSEA/VOMITING; Start at 10:00; Stop 03/07/18 at 09:59; Status DC Fentanyl Citrate (Fentanyl 2ml Vial) 25 mcg PRN Q5MIN PRN IV MILD PAIN Last administered on 03/06/18at 13:55; Start 03/06/18 at 10:00; Stop 03/07/18 at 09 :59; Status DC Fentanyl Citrate (Fentanyl 2ml Vial) 50 mcg PRN Q5MIN PRN IV MODERATE TO SEVERE PAIN Last administered on 03/06/18at 13:39; Start 03/06/18 at 10:00; Stop 03/07/18 at 09:59; Status DC Morphine Sulfate (Morphine Sulfate) 1 mg PRN Q10MIN PRN IV SEVERE PAIN; Start 03/06/18 at 10:00; Stop 03/07/18 at 09:59; Status DC Ringer's Solution 1,000 ml @ 30 mls/hr Q24H IV ; Start 03/06/18 at 09:50; Stop 03/06/18 at 21:49; Status DC Lidocaine HCl (Xylocaine-Mpf 1% 2ml Vial) 2 ml PRN 1X PRN ID PRIOR TO IV START ; Start 03/06/18 at 10:00; Stop 03/07/18 at 09:59; Status DC Hydromorphone HCl (Dilaudid) 0.5 mg PRN Q10MIN PRN IV SEV PAIN, Second choice; Start 03/06/18 at 10:00; Stop 03/07/18 at 09:59; Status DC Prochlorperazine Edisylate (Compazine) 5 mg PACU PRN PRN IV NAUSEA, MRX1; Start 03/06/18 at 10:00; Stop 03/07/18 at 09:59; Status DC Midazolam HCl (Versed) 2 mg STK-MED ONCE .ROUTE ; Start 03/06/18 at 10:05; Stop 03/06/18 at 10:06; Status DC Lidocaine HCl (Glydo (Lidocaine) Jelly) 6 eleni STK-MED ONCE .ROUTE ; Start 03/06 at 09:06; Stop 03/06/18 at 10:06; Status DC Propofol 20 ml @ As Directed STK-MED ONCE IV ; Start 03/06/18 at 10:37; Stop 03/06/18 at 10:38; Status DC Dexamethasone Sodium Phosphate (Decadron) 20 mg STK-MED ONCE .ROUTE ; Start at 11:29; Stop 03/06/18 at 11:30; Status DC Famotidine (Pepcid Vial) 20 mg STK-MED ONCE .ROUTE ; Start 03/06/18 at 11:30; Stop 03/06/18 at 11:31; Status DC Ondansetron HCl (Zofran) 4 mg STK-MED ONCE .ROUTE ; Start 03/06/18 at 11:30; Stop 03/06/18 at 11:31; Status DC Neostigmine Methylsulfate (Neostigmine Methylsulfate) 5 mg STK-MED ONCE .ROUTE ; Start 03/06/18 at 11:30; Stop 03/06/18 at 11:31; Status DC Glycopyrrolate (Robinul) 1 mg STK-MED ONCE .ROUTE ; Start 03/06/18 at 11:31; Stop 03/06/18 at 11:32; Status DC Belladonna Alkaloids/Opium (B & O) 1 supp 1X ONCE LA Last administered on at 12:50; Start 03/06/18 at 12:15; Stop 03/06/18 at 12:16; Status DC Hydralazine HCl (Apresoline Inj) 20 mg STK-MED ONCE .ROUTE ; Start 03/06/18 at 12:16; Stop 03/06/18 at 12:17; Status DC Fentanyl Citrate (Fentanyl 2ml Vial) 100 mcg STK-MED ONCE .ROUTE ; Start at 12:22; Stop 03/06/18 at 12:23; Status DC Sevoflurane (Ultane) 90 ml STK-MED ONCE IH ; Start 03/06/18 at 12:50; Stop at 12:51; Status DC Iohexol (Omnipaque 300 Mg/ml) 75 ml 1X ONCE IV Last administered on at 14:56; Start 03/06/18 at 14:45; Stop 03/06/18 at 14:46; Status DC Info (CONTRAST GIVEN -- Rx MONITORING) 1 each PRN DAILY PRN MC SEE COMMENTS; Start 03/06/18 at 14:45; Stop 03/08/18 at 14:44; Status DC Insulin Human Lispro (HumaLOG) 0-5 UNITS TIDWMEALS SQ ; Start 03/07/18 at 08:00 ; Stop 03/07/18 at 08:00; Status DC Dextrose (Dextrose 50%-Water Syringe) 12.5 gm PRN Q15MIN PRN IV SEE COMMENTS; Start 03/06/18 at 17:30 Insulin Human Lispro (HumaLOG) 0-5 UNITS TIDWMEALS SQ Last administered on 03/08at 17:19; Start 03/06/18 at 18:00 Ceftriaxone Sodium 50 ml @ 100 mls/hr 1X ONCE IV ; Start 03/07/18 at 10:00; Stop 03/07/18 at 10:29; Status UNV Ceftriaxone Sodium (Rocephin) 1 gm 1X ONCE IVP Last administered on at 10:26; Start 03/07/18 at 10:00; Stop 03/07/18 at 10:01; Status DC Sodium Chloride 1,000 ml @ 75 mls/hr [id number] IV Last administered on at 05:35; Start 03/07/18 at 10:00 Sodium Chloride 1,000 ml @ 1,000 mls/hr 1X ONCE IV Last administered on 03/07at 10:27; Start 03/07/18 at 10:00; Stop 03/07/18 at 10:59; Status DC Ceftriaxone Sodium 1 gm/ Dextrose 50 ml @ 100 mls/hr DAILY IV ; Start 03/08/18 at 09:00; Status UNV Ceftriaxone Sodium (Rocephin) 1 gm Q24H IVP Last administered on 03/09/18at 09: 21; Start 03/08/18 at 10:00 Potassium Chloride (Klor-Con) 40 meq 1X ONCE PO ; Start 03/09/18 at 10:45; Stop 03/09/18 at 10:46; Status DC Active Scripts Active Flomax (Tamsulosin Hcl) 0.4 Mg Cap.er.24h 1 Cap PO DAILY 7 Days Cipro (Ciprofloxacin Hcl) 500 Mg Tablet 1 Tab PO BID 10 Days Flagyl (Metronidazole) 500 Mg Tablet 1 Tab PO TID Levaquin (Levofloxacin) 500 Mg Tablet 1 Tab PO DAILY Reported Metformin HCl 500 Mg/5 Ml Solution 500 Mg PO DAILY Vitals/I & O Vital Sign - Last 24 Hours 03/08/18 03/08/18 03/08/18 03/08/18 13:00 13:15 14:15 15:00 Temp 98.3 98.6 98.6 98.5 98.3 98.6 98.6 98.5 Pulse 100 96 76 93 Resp 16 16 16 18 B/P (MAP) 109/66 105/66 112/65 113/69 (84) Pulse Ox 100 O2 Delivery Room Air 03/08/18 03/08/18 03/08/18 03/08/18 15:15 16:14 17:19 19:20 Temp 98.7 98.5 98.7 98.5 Pulse 92 84 Resp 18 B/P (MAP) 107/69 122/80 (94) Pulse Ox 99 O2 Delivery Room Air Room Air Room Air 03/08/18 03/08/18 03/09/18 03/09/18 19:45 23:23 03:45 07:00 Temp 98.9 98.8 98.4 98.9 98.8 98.4 Pulse 82 86 90 Resp 18 18 16 B/P (MAP) 95/59 (71) 107/74 (85) 109/73 (85) Pulse Ox 97 97 95 O2 Delivery Room Air Room Air Room Air Room Air Intake and Output 03/08/18 03/08/18 03/09/18 15:00 23:00 07:00 Intake Total 297 ml 550 ml 1350 ml Output Total 4300 ml 700 ml 1350 ml Balance -4003 ml -150 ml 0 ml GABINO GUTIERREZ III DO Mar 09, 2018 11:41
[2018-03-09 15:00] VITALS: BP 113/76
[2018-03-09 19:00] VITALS: BP 117/84
[2018-03-09] MEDS: ACETAMINOPHEN 325 MG TABLET. PO PRN (20:06)
[2018-03-09 23:00] VITALS: BP 133/76
[2018-03-10] MEDS ORDERED: LIDOCAINE 2% JELLY 6ML IN APPLICATOR. MM ONE (01:30)
[2018-03-10 03:00] VITALS: BP 127/75
[2018-03-10] MEDS ORDERED: LIDOCAINE 2% JELLY 6ML IN APPLICATOR. MM PRN (03:00)
[2018-03-10 04:49] LABS: BASO % 0 % (0-3); EOS # 0.1 x10^3/uL (0.0-0.7); EOS % 2 % (0-3); HEMATOCRIT 21.9 % (39.0-53.0); HEMOGLOBIN 7.8 g/dL (13.0-17.5); LYMPH # 1.1 x10^3/uL (1.0-4.8); LYMPH % 19 % (24-48); MEAN CORPUSCULAR HEMOGLOBIN 33 pg (25-35); MEAN CORPUSCULAR HGB CONC 36 g/dL (31-37); MEAN CORPUSCULAR VOLUME 93 fL (79-100); MONO # 0.8 x10^3/uL (0.0-1.1); MONO % 13 % (0-9); NEUT % 66 % (31-73); PLATELET COUNT 131 x10^3/uL (140-400); RED BLOOD COUNT 2.37 x10^6/uL (4.30-5.70); RED CELL DISTRIBUTION WIDTH 14.4 % (11.5-14.5); WHITE BLOOD COUNT 6.1 x10^3/uL (4.0-11.0)
[2018-03-10] MEDS: IV NORMAL SALINE 1000ML BAG 1,000 ML IV SCH ×2 (05:01→17:24)
[2018-03-10 05:07] LABS: CALCIUM 8.2 mg/dL (8.5-10.1); CREATININE 0.8 mg/dL (0.7-1.3); POTASSIUM 3.4 mmol/L (3.5-5.1)
[2018-03-10 07:00] VITALS: BP 114/75
[2018-03-10] MEDS: INSULIN LISPRO 300 UNITS/3 ML INSULN.PEN. SQ SCH ×3 (08:00→17:23)
[2018-03-10] MEDS: MULTIVITAMIN with MINERAL TABLET. PO SCH (08:41)
[2018-03-10] MEDS: THIAMINE 100 MG TABLET. PO SCH (08:41)
[2018-03-10] MEDS: FINASTERIDE 5 MG TABLET. PO SCH (08:41)
[2018-03-10] MEDS: FOLIC ACID 1 MG TABLET. PO SCH (08:42)
[2018-03-10] MEDS: CEFPODOXIME PROXETIL 100 MG TABLET. PO SCH ×2 (08:42→22:28)
--- NOTE | 2018-03-10 08:48 | PDOC ---
PROGRESS NOTES Chief Complaint Chief Complaint Gross hematuria: Prostate Ca? - elevated PSA Enlarged prostate- S/P TURP 03/06, path pending Bladder mass: 7 x 12 cm Back pain evidence of metastatic lesions on imaging Anemia: d/t hematuria History of Present Illness History of Present Illness Pt seen and examined. Pt sitting upright in bed. S/p TURP 03/06, glez back in this morning for PVR of 700cc, plan to go back to OR today. He is anxious. Pt says that he is currently not in any pain. BENJAMIN RN A/P: Gross hematuria: Prostate Ca? - elevated PSA Enlarged prostate- S/P TURP 03/06, path pending - back to OR today Bladder mass: 7 x 12 cm Back pain evidence of metastatic lesions on imaging Anemia: d/t hematuria Vitals Vitals Vital Signs Date Time Temp Pulse Resp B/P (MAP) Pulse Ox O2 Delivery O2 Flow Rate FiO2 03/10/18 07:00 98.3 84 18 114/75 (88) 97 Room Air 98.3 Physical Exam General: Alert, Cooperative, No acute distress Heart: Normal S1, Normal S2 Lungs: Clear Abdomen: Soft, No tenderness, No masses Extremities: No clubbing, No cyanosis, Normal pulses, No tenderness/swelling Skin: No rashes, No breakdown, No significant lesion Labs LABS Laboratory Tests Test 03/09/18 10:00 03/09/18 10:55 03/09/18 16:11 03/09/18 20:40 White Blood Count 5.8 x10^3/uL (4.0-11.0) Red Blood Count 2.39 x10^6/uL (4.30-5.70) Hemoglobin 7.7 g/dL (13.0-17.5) Hematocrit 22.1 % (39.0-53.0) Mean Corpuscular Volume 93 fL (79-100) Mean Corpuscular Hemoglobin 32 pg (25-35) Mean Corpuscular Hemoglobin Concent 35 g/dL (31-37) Red Cell Distribution Width 14.0 % (11.5-14.5) Platelet Count 124 x10^3/uL (140-400) Neutrophils (%) (Auto) 69 % (31-73) Lymphocytes (%) (Auto) 18 % (24-48) Monocytes (%) (Auto) 12 % (0-9) Eosinophils (%) (Auto) 1 % (0-3) Basophils (%) (Auto) 0 % (0-3) Neutrophils # (Auto) 4.0 x10^3uL (1.8-7.7) Lymphocytes # (Auto) 1.0 x10^3/uL (1.0-4.8) Monocytes # (Auto) 0.7 x10^3/uL (0.0-1.1) Eosinophils # (Auto) 0.1 x10^3/uL (0.0-0.7) Basophils # (Auto) 0.0 x10^3/uL (0.0-0.2) Sodium Level 142 mmol/L (136-145) Potassium Level 3.5 mmol/L (3.5-5.1) Chloride Level 107 mmol/L (98-107) Carbon Dioxide Level 24 mmol/L (21-32) Anion Gap 11 (6-14) Blood Urea Nitrogen 7 mg/dL (8-26) Creatinine 0.7 mg/dL (0.7-1.3) Estimated GFR (Cockcroft-Gault) 116.7 Glucose Level 212 mg/dL (70-99) Calcium Level 8.1 mg/dL (8.5-10.1) Iron Level 26 ug/dL (65-175) Total Iron Binding Capacity 229 ug/dL (250-450) Iron Saturation 11 % (15-34) Ferritin 203 ng/mL (26-388) Vitamin B12 Level 415 pg/mL (247-911) Glucose (Fingerstick) 203 mg/dL (70-99) 175 mg/dL (70-99) 190 mg/dL (70-99) Test 03/10/18 03:35 White Blood Count 6.1 x10^3/uL (4.0-11.0) Red Blood Count 2.37 x10^6/uL (4.30-5.70) Hemoglobin 7.8 g/dL (13.0-17.5) Hematocrit 21.9 % (39.0-53.0) Mean Corpuscular Volume 93 fL (79-100) Mean Corpuscular Hemoglobin 33 pg (25-35) Mean Corpuscular Hemoglobin Concent 36 g/dL (31-37) Red Cell Distribution Width 14.4 % (11.5-14.5) Platelet Count 131 x10^3/uL (140-400) Neutrophils (%) (Auto) 66 % (31-73) Lymphocytes (%) (Auto) 19 % (24-48) Monocytes (%) (Auto) 13 % (0-9) Eosinophils (%) (Auto) 2 % (0-3) Basophils (%) (Auto) 0 % (0-3) Neutrophils # (Auto) 4.0 x10^3uL (1.8-7.7) Lymphocytes # (Auto) 1.1 x10^3/uL (1.0-4.8) Monocytes # (Auto) 0.8 x10^3/uL (0.0-1.1) Eosinophils # (Auto) 0.1 x10^3/uL (0.0-0.7) Basophils # (Auto) 0.0 x10^3/uL (0.0-0.2) Sodium Level 143 mmol/L (136-145) Potassium Level 3.4 mmol/L (3.5-5.1) Chloride Level 108 mmol/L (98-107) Carbon Dioxide Level 24 mmol/L (21-32) Anion Gap 11 (6-14) Blood Urea Nitrogen 7 mg/dL (8-26) Creatinine 0.8 mg/dL (0.7-1.3) Estimated GFR (Cockcroft-Gault) 100.0 Glucose Level 162 mg/dL (70-99) Calcium Level 8.2 mg/dL (8.5-10.1) Assessment and Plan Assessmemt and Plan Problems Medical Problems: (1) Bladder mass Status: Acute (2) Hematuria Status: Acute Comment Review of Relevant I have reviewed the following items mame (where applicable) has been applied. Labs Laboratory Tests Test 03/08/18 11:45 03/08/18 17:03 03/08/18 20:42 03/09/18 07:18 Glucose (Fingerstick) 173 mg/dL (70-99) 167 mg/dL (70-99) 183 mg/dL (70-99) 144 mg/dL (70-99) Test 03/09/18 10:00 03/09/18 10:55 03/09/18 16:11 03/09/18 20:40 White Blood Count 5.8 x10^3/uL (4.0-11.0) Red Blood Count 2.39 x10^6/uL (4.30-5.70) Hemoglobin 7.7 g/dL (13.0-17.5) Hematocrit 22.1 % (39.0-53.0) Mean Corpuscular Volume 93 fL (79-100) Mean Corpuscular Hemoglobin 32 pg (25-35) Mean Corpuscular Hemoglobin Concent 35 g/dL (31-37) Red Cell Distribution Width 14.0 % (11.5-14.5) Platelet Count 124 x10^3/uL (140-400) Neutrophils (%) (Auto) 69 % (31-73) Lymphocytes (%) (Auto) 18 % (24-48) Monocytes (%) (Auto) 12 % (0-9) Eosinophils (%) (Auto) 1 % (0-3) Basophils (%) (Auto) 0 % (0-3) Neutrophils # (Auto) 4.0 x10^3uL (1.8-7.7) Lymphocytes # (Auto) 1.0 x10^3/uL (1.0-4.8) Monocytes # (Auto) 0.7 x10^3/uL (0.0-1.1) Eosinophils # (Auto) 0.1 x10^3/uL (0.0-0.7) Basophils # (Auto) 0.0 x10^3/uL (0.0-0.2) Sodium Level 142 mmol/L (136-145) Potassium Level 3.5 mmol/L (3.5-5.1) Chloride Level 107 mmol/L (98-107) Carbon Dioxide Level 24 mmol/L (21-32) Anion Gap 11 (6-14) Blood Urea Nitrogen 7 mg/dL (8-26) Creatinine 0.7 mg/dL (0.7-1.3) Estimated GFR (Cockcroft-Gault) 116.7 Glucose Level 212 mg/dL (70-99) Calcium Level 8.1 mg/dL (8.5-10.1) Iron Level 26 ug/dL (65-175) Total Iron Binding Capacity 229 ug/dL (250-450) Iron Saturation 11 % (15-34) Ferritin 203 ng/mL (26-388) Vitamin B12 Level 415 pg/mL (247-911) Glucose (Fingerstick) 203 mg/dL (70-99) 175 mg/dL (70-99) 190 mg/dL (70-99) Test 03/10/18 03:35 White Blood Count 6.1 x10^3/uL (4.0-11.0) Red Blood Count 2.37 x10^6/uL (4.30-5.70) Hemoglobin 7.8 g/dL (13.0-17.5) Hematocrit 21.9 % (39.0-53.0) Mean Corpuscular Volume 93 fL (79-100) Mean Corpuscular Hemoglobin 33 pg (25-35) Mean Corpuscular Hemoglobin Concent 36 g/dL (31-37) Red Cell Distribution Width 14.4 % (11.5-14.5) Platelet Count 131 x10^3/uL (140-400) Neutrophils (%) (Auto) 66 % (31-73) Lymphocytes (%) (Auto) 19 % (24-48) Monocytes (%) (Auto) 13 % (0-9) Eosinophils (%) (Auto) 2 % (0-3) Basophils (%) (Auto) 0 % (0-3) Neutrophils # (Auto) 4.0 x10^3uL (1.8-7.7) Lymphocytes # (Auto) 1.1 x10^3/uL (1.0-4.8) Monocytes # (Auto) 0.8 x10^3/uL (0.0-1.1) Eosinophils # (Auto) 0.1 x10^3/uL (0.0-0.7) Basophils # (Auto) 0.0 x10^3/uL (0.0-0.2) Sodium Level 143 mmol/L (136-145) Potassium Level 3.4 mmol/L (3.5-5.1) Chloride Level 108 mmol/L (98-107) Carbon Dioxide Level 24 mmol/L (21-32) Anion Gap 11 (6-14) Blood Urea Nitrogen 7 mg/dL (8-26) Creatinine 0.8 mg/dL (0.7-1.3) Estimated GFR (Cockcroft-Gault) 100.0 Glucose Level 162 mg/dL (70-99) Calcium Level 8.2 mg/dL (8.5-10.1) Laboratory Tests Test 03/09/18 10:00 03/09/18 10:55 03/09/18 16:11 03/09/18 20:40 White Blood Count 5.8 x10^3/uL (4.0-11.0) Red Blood Count 2.39 x10^6/uL (4.30-5.70) Hemoglobin 7.7 g/dL (13.0-17.5) Hematocrit 22.1 % (39.0-53.0) Mean Corpuscular Volume 93 fL (79-100) Mean Corpuscular Hemoglobin 32 pg (25-35) Mean Corpuscular Hemoglobin Concent 35 g/dL (31-37) Red Cell Distribution Width 14.0 % (11.5-14.5) Platelet Count 124 x10^3/uL (140-400) Neutrophils (%) (Auto) 69 % (31-73) Lymphocytes (%) (Auto) 18 % (24-48) Monocytes (%) (Auto) 12 % (0-9) Eosinophils (%) (Auto) 1 % (0-3) Basophils (%) (Auto) 0 % (0-3) Neutrophils # (Auto) 4.0 x10^3uL (1.8-7.7) Lymphocytes # (Auto) 1.0 x10^3/uL (1.0-4.8) Monocytes # (Auto) 0.7 x10^3/uL (0.0-1.1) Eosinophils # (Auto) 0.1 x10^3/uL (0.0-0.7) Basophils # (Auto) 0.0 x10^3/uL (0.0-0.2) Sodium Level 142 mmol/L (136-145) Potassium Level 3.5 mmol/L (3.5-5.1) Chloride Level 107 mmol/L (98-107) Carbon Dioxide Level 24 mmol/L (21-32) Anion Gap 11 (6-14) Blood Urea Nitrogen 7 mg/dL (8-26) Creatinine 0.7 mg/dL (0.7-1.3) Estimated GFR (Cockcroft-Gault) 116.7 Glucose Level 212 mg/dL (70-99) Calcium Level 8.1 mg/dL (8.5-10.1) Iron Level 26 ug/dL (65-175) Total Iron Binding Capacity 229 ug/dL (250-450) Iron Saturation 11 % (15-34) Ferritin 203 ng/mL (26-388) Vitamin B12 Level 415 pg/mL (247-911) Glucose (Fingerstick) 203 mg/dL (70-99) 175 mg/dL (70-99) 190 mg/dL (70-99) Test 03/10/18 03:35 White Blood Count 6.1 x10^3/uL (4.0-11.0) Red Blood Count 2.37 x10^6/uL (4.30-5.70) Hemoglobin 7.8 g/dL (13.0-17.5) Hematocrit 21.9 % (39.0-53.0) Mean Corpuscular Volume 93 fL (79-100) Mean Corpuscular Hemoglobin 33 pg (25-35) Mean Corpuscular Hemoglobin Concent 36 g/dL (31-37) Red Cell Distribution Width 14.4 % (11.5-14.5) Platelet Count 131 x10^3/uL (140-400) Neutrophils (%) (Auto) 66 % (31-73) Lymphocytes (%) (Auto) 19 % (24-48) Monocytes (%) (Auto) 13 % (0-9) Eosinophils (%) (Auto) 2 % (0-3) Basophils (%) (Auto) 0 % (0-3) Neutrophils # (Auto) 4.0 x10^3uL (1.8-7.7) Lymphocytes # (Auto) 1.1 x10^3/uL (1.0-4.8) Monocytes # (Auto) 0.8 x10^3/uL (0.0-1.1) Eosinophils # (Auto) 0.1 x10^3/uL (0.0-0.7) Basophils # (Auto) 0.0 x10^3/uL (0.0-0.2) Sodium Level 143 mmol/L (136-145) Potassium Level 3.4 mmol/L (3.5-5.1) Chloride Level 108 mmol/L (98-107) Carbon Dioxide Level 24 mmol/L (21-32) Anion Gap 11 (6-14) Blood Urea Nitrogen 7 mg/dL (8-26) Creatinine 0.8 mg/dL (0.7-1.3) Estimated GFR (Cockcroft-Gault) 100.0 Glucose Level 162 mg/dL (70-99) Calcium Level 8.2 mg/dL (8.5-10.1) Microbiology 03/07/18 Blood Culture - Preliminary, Resulted NO GROWTH AFTER 2 DAYS 03/05/18 Urine Culture - Final, Complete 03/05/18 Urine Culture Result 1 ([place]) - Final, Complete Medications Current Medications Sodium Chloride 1,000 ml @ 1,000 mls/hr 1X ONCE IV Last administered on 03/04at 12:07; Start 03/04/18 at 11:45; Stop 03/04/18 at 12:44; Status DC Iohexol (Omnipaque 300 Mg/ml) 75 ml 1X ONCE IV ; Start 03/04/18 at 12:30; Stop 03/04/18 at 12:36; Status DC Info (CONTRAST GIVEN -- Rx MONITORING) 1 each PRN DAILY PRN MC SEE COMMENTS; Start 03/04/18 at 12:45; Stop 03/06/18 at 12:54; Status DC Sodium Chloride 1,000 ml @ 1,000 mls/hr 1X ONCE IV Last administered on 03/04at 13:45; Start 03/04/18 at 13:45; Stop 03/04/18 at 14:44; Status DC Ondansetron HCl (Zofran) 4 mg PRN Q8HRS PRN IV NAUSEA/VOMITING; Start at 14:15; Stop 03/04/18 at 14:56; Status DC Morphine Sulfate (Morphine Sulfate) 4 mg PRN Q2HR PRN IV PAIN Last administered on 03/05/18at 11:35; Start 03/04/18 at 14:15; Stop 03/05/18 at 13 :46; Status DC Sodium Chloride 1,000 ml @ 125 mls/hr Q8H IV ; Start 03/04/18 at 14:11; Stop 03/05/18 at 14:10; Status DC Acetaminophen (Tylenol) 650 mg PRN Q4HRS PRN PO FEVER; Start 03/04/18 at 14:15 ; Stop 03/05/18 at 13:46; Status DC Ondansetron HCl (Zofran) 4 mg PRN Q6HRS PRN IV NAUSEA/VOMITING Last administered on 03/04/18at 15:05; Start 03/04/18 at 15:00; Stop 03/05/18 at 13 :46; Status DC Diphenhydramine HCl (Benadryl) 25 mg PRN QHS PRN PO INSOMNIA; Start 03/04/18 at 15:00 Multivitamins 10 ml/Thiamine HCl 100 mg/Folic Acid 1 mg/Sodium Chloride 1,011.2 ml @ 1,000.088 mls/hr 1X ONCE IV Last administered on 03/04/18at 16:31; Start 03/04/18 at 15:30; Stop 03/04/18 at 16:35; Status DC Multivitamins (Thera M Plus) 1 tab DAILY PO Last administered on 03/10/18at 08: 41; Start 03/05/18 at 09:00 Folic Acid (Folic Acid) 1 mg DAILY PO Last administered on 03/10/18at 08:42; Start 03/05/18 at 09:00 Thiamine Mononitrate (Vitamin B-1) 100 mg DAILY PO Last administered on at 08:41; Start 03/05/18 at 09:00 Chlordiazepoxide (Librium) 25 mg PRN Q6HRS PRN PO ANXIETY / AGITATION; Start 03/04/18 at 15:00 Labetalol HCl (Normodyne Iv Push) 20 mg 1X ONCE IVP Last administered on 03/04at 20:21; Start 03/04/18 at 16:15; Stop 03/04/18 at 16:35; Status DC Labetalol HCl (Normodyne Iv Push) 20 mg PRN Q2HR PRN IVP HYPERTENSION, SEE COMMENTS; Start 03/04/18 at 18:00 Lidocaine HCl (Glydo (Lidocaine) Jelly) 1 eleni 1X ONCE MM ; Start 03/04/18 at 18:15; Stop 03/04/18 at 18:16; Status DC Finasteride (Proscar) 5 mg DAILY PO Last administered on 03/10/18at 08:41; Start 03/05/18 at 09:00 Acetaminophen (Tylenol) 650 mg PRN Q6HRS PRN PO FEVER Last administered on 03/09at 20:06; Start 03/05/18 at 13:45 Ondansetron HCl (Zofran) 4 mg PRN Q6HRS PRN IV NAUSEA/VOMITING; Start at 13:45 Morphine Sulfate (Morphine Sulfate) 2 mg PRN Q2HR PRN IV MODERATE TO SEVERE PAIN Last administered on 03/07/18at 11:26; Start 03/05/18 at 13:45 Tramadol HCl (Ultram) 50 mg PRN Q6HRS PRN PO MILD TO MODERATE PAIN Last administered on 03/08/18at 16:14; Start 03/05/18 at 13:45 Docusate Sodium (Colace) 100 mg PRN DAILY PRN PO CONSTIPATION; Start 03/05/18 at 13:45 Propofol 20 ml @ As Directed STK-MED ONCE IV ; Start 03/06/18 at 09:24; Stop 03/06/18 at 09:25; Status DC Lidocaine HCl (Lidocaine Pf 2% Vial) 5 ml STK-MED ONCE .ROUTE ; Start 03/06/18 at 09:24; Stop 03/06/18 at 09:25; Status DC Fentanyl Citrate (Fentanyl 2ml Vial) 100 mcg STK-MED ONCE .ROUTE ; Start at 09:24; Stop 03/06/18 at 09:25; Status DC Potassium Chloride (Klor-Con) 40 meq 1X ONCE PO ; Start 03/06/18 at 10:00; Stop 03/06/18 at 10:01; Status DC Cefazolin Sodium/ Dextrose 50 ml @ 100 mls/hr 1X ONCE IV Last administered on 03/06/18at 10:31; Start 03/06/18 at 09:30; Stop 03/06/18 at 09:59; Status DC Rocuronium [place] (Zemuron) 50 mg STK-MED ONCE .ROUTE ; Start 03/06/18 at 09: 25; Stop 03/06/18 at 09:26; Status DC Ondansetron HCl (Zofran) 4 mg PRN Q6HRS PRN IV NAUSEA/VOMITING; Start at 10:00; Stop 03/07/18 at 09:59; Status DC Fentanyl Citrate (Fentanyl 2ml Vial) 25 mcg PRN Q5MIN PRN IV MILD PAIN Last administered on 03/06/18at 13:55; Start 03/06/18 at 10:00; Stop 03/07/18 at 09 :59; Status DC Fentanyl Citrate (Fentanyl 2ml Vial) 50 mcg PRN Q5MIN PRN IV MODERATE TO SEVERE PAIN Last administered on 03/06/18at 13:39; Start 03/06/18 at 10:00; Stop 03/07/18 at 09:59; Status DC Morphine Sulfate (Morphine Sulfate) 1 mg PRN Q10MIN PRN IV SEVERE PAIN; Start 03/06/18 at 10:00; Stop 03/07/18 at 09:59; Status DC Ringer's Solution 1,000 ml @ 30 mls/hr Q24H IV ; Start 03/06/18 at 09:50; Stop 03/06/18 at 21:49; Status DC Lidocaine HCl (Xylocaine-Mpf 1% 2ml Vial) 2 ml PRN 1X PRN ID PRIOR TO IV START ; Start 03/06/18 at 10:00; Stop 03/07/18 at 09:59; Status DC Hydromorphone HCl (Dilaudid) 0.5 mg PRN Q10MIN PRN IV SEV PAIN, Second choice; Start 03/06/18 at 10:00; Stop 03/07/18 at 09:59; Status DC Prochlorperazine Edisylate (Compazine) 5 mg PACU PRN PRN IV NAUSEA, MRX1; Start 03/06/18 at 10:00; Stop 03/07/18 at 09:59; Status DC Midazolam HCl (Versed) 2 mg STK-MED ONCE .ROUTE ; Start 03/06/18 at 10:05; Stop 03/06/18 at 10:06; Status DC Lidocaine HCl (Glydo (Lidocaine) Jelly) 6 eleni STK-MED ONCE .ROUTE ; Start 03/06 at 09:06; Stop 03/06/18 at 10:06; Status DC Propofol 20 ml @ As Directed STK-MED ONCE IV ; Start 03/06/18 at 10:37; Stop 03/06/18 at 10:38; Status DC Dexamethasone Sodium Phosphate (Decadron) 20 mg STK-MED ONCE .ROUTE ; Start at 11:29; Stop 03/06/18 at 11:30; Status DC Famotidine (Pepcid Vial) 20 mg STK-MED ONCE .ROUTE ; Start 03/06/18 at 11:30; Stop 03/06/18 at 11:31; Status DC Ondansetron HCl (Zofran) 4 mg STK-MED ONCE .ROUTE ; Start 03/06/18 at 11:30; Stop 03/06/18 at 11:31; Status DC Neostigmine Methylsulfate (Neostigmine Methylsulfate) 5 mg STK-MED ONCE .ROUTE ; Start 03/06/18 at 11:30; Stop 03/06/18 at 11:31; Status DC Glycopyrrolate (Robinul) 1 mg STK-MED ONCE .ROUTE ; Start 03/06/18 at 11:31; Stop 03/06/18 at 11:32; Status DC Belladonna Alkaloids/Opium (B & O) 1 supp 1X ONCE MN Last administered on at 12:50; Start 03/06/18 at 12:15; Stop 03/06/18 at 12:16; Status DC Hydralazine HCl (Apresoline Inj) 20 mg STK-MED ONCE .ROUTE ; Start 03/06/18 at 12:16; Stop 03/06/18 at 12:17; Status DC Fentanyl Citrate (Fentanyl 2ml Vial) 100 mcg STK-MED ONCE .ROUTE ; Start at 12:22; Stop 03/06/18 at 12:23; Status DC Sevoflurane (Ultane) 90 ml STK-MED ONCE IH ; Start 03/06/18 at 12:50; Stop at 12:51; Status DC Iohexol (Omnipaque 300 Mg/ml) 75 ml 1X ONCE IV Last administered on at 14:56; Start 03/06/18 at 14:45; Stop 03/06/18 at 14:46; Status DC Info (CONTRAST GIVEN -- Rx MONITORING) 1 each PRN DAILY PRN MC SEE COMMENTS; Start 03/06/18 at 14:45; Stop 03/08/18 at 14:44; Status DC Insulin Human Lispro (HumaLOG) 0-5 UNITS TIDWMEALS SQ ; Start 03/07/18 at 08:00 ; Stop 03/07/18 at 08:00; Status DC Dextrose (Dextrose 50%-Water Syringe) 12.5 gm PRN Q15MIN PRN IV SEE COMMENTS; Start 03/06/18 at 17:30 Insulin Human Lispro (HumaLOG) 0-5 UNITS TIDWMEALS SQ Last administered on 03/09at 17:48; Start 03/06/18 at 18:00 Ceftriaxone Sodium 50 ml @ 100 mls/hr 1X ONCE IV ; Start 03/07/18 at 10:00; Stop 03/07/18 at 10:29; Status UNV Ceftriaxone Sodium (Rocephin) 1 gm 1X ONCE IVP Last administered on at 10:26; Start 03/07/18 at 10:00; Stop 03/07/18 at 10:01; Status DC Sodium Chloride 1,000 ml @ 75 mls/hr [id number] IV Last administered on at 05:01; Start 03/07/18 at 10:00 Sodium Chloride 1,000 ml @ 1,000 mls/hr 1X ONCE IV Last administered on 03/07at 10:27; Start 03/07/18 at 10:00; Stop 03/07/18 at 10:59; Status DC Ceftriaxone Sodium 1 gm/ Dextrose 50 ml @ 100 mls/hr DAILY IV ; Start 03/08/18 at 09:00; Status UNV Ceftriaxone Sodium (Rocephin) 1 gm Q24H IVP Last administered on 03/09/18at 09: 21; Start 03/08/18 at 10:00; Stop 03/09/18 at 14:46; Status DC Potassium Chloride (Klor-Con) 40 meq 1X ONCE PO Last administered on at 12:32; Start 03/09/18 at 10:45; Stop 03/09/18 at 10:46; Status DC Cefpodoxime Proxetil (Vantin) 200 mg BID PO Last administered on 03/10/18at 08: 42; Start 03/10/18 at 09:00 Lidocaine HCl (Glydo (Lidocaine) Jelly) 1 eleni 1X ONCE MM ; Start 03/10/18 at 01 :30; Stop 03/10/18 at 01:31; Status DC Lidocaine HCl (Glydo (Lidocaine) Jelly) 1 eleni PRN 1X PRN MM PAIN; Start at 03:00 Active Scripts Active Flomax (Tamsulosin Hcl) 0.4 Mg Cap.er.24h 1 Cap PO DAILY 7 Days Cipro (Ciprofloxacin Hcl) 500 Mg Tablet 1 Tab PO BID 10 Days Flagyl (Metronidazole) 500 Mg Tablet 1 Tab PO TID Levaquin (Levofloxacin) 500 Mg Tablet 1 Tab PO DAILY Reported Metformin HCl 500 Mg/5 Ml Solution 500 Mg PO DAILY Vitals/I & O Vital Sign - Last 24 Hours 03/09/18 03/09/18 03/09/18 03/09/18 11:00 15:00 19:00 19:45 Temp 98.9 98.5 101.1 98.9 98.5 101.1 Pulse 83 89 84 Resp 18 B/P (MAP) 110/73 (85) 113/76 (88) 117/84 (95) Pulse Ox 99 95 98 O2 Delivery Room Air Room Air Room Air Room Air 03/09/18 03/10/18 03/10/18 23:00 03:00 07:00 Temp 98.8 98.8 98.3 98.8 98.8 98.3 Pulse 87 76 84 Resp 18 B/P (MAP) 133/76 (95) 127/75 (92) 114/75 (88) Pulse Ox 97 94 97 O2 Delivery Room Air Room Air Room Air Intake and Output 03/09/18 03/09/18 03/10/18 15:00 23:00 07:00 Intake Total 2400 ml Output Total 600 ml 1400 ml 1025 ml Balance -600 ml -1400 ml 1375 ml TORI SHEEHAN MD Mar 10, 2018 08:48
[2018-03-10] MEDS: MORPHINE SULFATE 2 MG/ML VIAL. IV PRN (10:30)
[2018-03-10 11:00] VITALS: BP 123/80
--- NOTE | 2018-03-10 13:27 | PDOC ---
BRIEF OPERATIVE NOTE Date: Mar 06, 2018 Pre-Op Diagnosis Hematuria Post-Op Diagnosis same Procedure Performed Cystoscopy with evacuation of blood clot, Transurethral resection of prostate Surgeon Herantonette Periodontist None Anesthesia Type: General Blood Loss 300 cc organized clot, difficult to determine active given continuous bladder irrigation Specimens Obtained Prostate Findings As dictated Complications None Operative Note Dictated MAXIMO JONES MD Mar 10, 2018 13:27
--- NOTE | 2018-03-10 13:42 | PDOC ---
PROGRESS NOTE SUBJECTIVE: HPI: Retained urine following catheter removal. 18fr catheter replaced by RN. Overall doing well. Problems: Problems Medical Problems: (1) Bladder mass Status: Acute (2) Hematuria Status: Acute OBJECTIVE: Vital Signs: Vital Signs Date Time Temp Pulse Resp B/P (MAP) Pulse Ox O2 Delivery O2 Flow Rate FiO2 03/10/18 11:12 16 Room Air 03/10/18 11:00 98.5 76 16 123/80 (94) 96 Room Air 98.5 03/10/18 10:30 16 Room Air 03/10/18 07:00 98.3 84 18 114/75 (88) 97 Room Air 98.3 03/10/18 03:00 98.8 76 18 127/75 (92) 94 Room Air 98.8 03/09/18 23:00 98.8 87 18 133/76 (95) 97 Room Air 98.8 03/09/18 19:45 Room Air 03/09/18 19:00 101.1 84 18 117/84 (95) 98 Room Air 101.1 03/09/18 15:00 98.5 89 18 113/76 (88) 95 Room Air 98.5 I & O Intake and Output 03/10/18 07:00 Intake Total 2400 ml Output Total 3025 ml Balance -625 ml IV Total 2400 ml Output Urine Total 3025 ml # Bowel Movements 1 PHYSICAL EXAM: Physical Exam: NAD AAO NLB on RA Abd soft, nt, nd Urine pink LABS: Laboratory Tests Test 03/07/18 16:39 03/08/18 02:41 03/08/18 04:35 03/08/18 07:26 Glucose (Fingerstick) 200 mg/dL (70-99) 142 mg/dL (70-99) 142 mg/dL (70-99) White Blood Count 6.6 x10^3/uL (4.0-11.0) Red Blood Count 2.03 x10^6/uL (4.30-5.70) Hemoglobin 6.7 g/dL (13.0-17.5) Hematocrit 18.9 % (39.0-53.0) Mean Corpuscular Volume 93 fL (79-100) Mean Corpuscular Hemoglobin 33 pg (25-35) Mean Corpuscular Hemoglobin Concent 35 g/dL (31-37) Red Cell Distribution Width 13.5 % (11.5-14.5) Platelet Count 104 x10^3/uL (140-400) Neutrophils (%) (Auto) 71 % (31-73) Lymphocytes (%) (Auto) 16 % (24-48) Monocytes (%) (Auto) 12 % (0-9) Eosinophils (%) (Auto) 1 % (0-3) Basophils (%) (Auto) 0 % (0-3) Neutrophils # (Auto) 4.7 x10^3uL (1.8-7.7) Lymphocytes # (Auto) 1.1 x10^3/uL (1.0-4.8) Monocytes # (Auto) 0.8 x10^3/uL (0.0-1.1) Eosinophils # (Auto) 0.0 x10^3/uL (0.0-0.7) Basophils # (Auto) 0.0 x10^3/uL (0.0-0.2) Sodium Level 142 mmol/L (136-145) Potassium Level 3.3 mmol/L (3.5-5.1) Chloride Level 107 mmol/L (98-107) Carbon Dioxide Level 24 mmol/L (21-32) Anion Gap 11 (6-14) Blood Urea Nitrogen 8 mg/dL (8-26) Creatinine 0.7 mg/dL (0.7-1.3) Estimated GFR (Cockcroft-Gault) 116.7 BUN/Creatinine Ratio 11 (6-20) Glucose Level 145 mg/dL (70-99) Calcium Level 7.7 mg/dL (8.5-10.1) Total Bilirubin 0.8 mg/dL (0.2-1.0) Aspartate Amino Transf (AST/SGOT) 37 U/L (15-37) Alanine Aminotransferase (ALT/SGPT) 23 U/L (16-63) Alkaline Phosphatase 58 U/L (46-116) Total Protein 5.8 g/dL (6.4-8.2) Albumin 2.7 g/dL (3.4-5.0) Albumin/Globulin Ratio 0.9 (1.0-1.7) Test 03/08/18 11:45 03/08/18 17:03 03/08/18 20:42 03/09/18 07:18 Glucose (Fingerstick) 173 mg/dL (70-99) 167 mg/dL (70-99) 183 mg/dL (70-99) 144 mg/dL (70-99) Test 03/09/18 10:00 03/09/18 10:55 03/09/18 16:11 03/09/18 20:40 White Blood Count 5.8 x10^3/uL (4.0-11.0) Red Blood Count 2.39 x10^6/uL (4.30-5.70) Hemoglobin 7.7 g/dL (13.0-17.5) Hematocrit 22.1 % (39.0-53.0) Mean Corpuscular Volume 93 fL (79-100) Mean Corpuscular Hemoglobin 32 pg (25-35) Mean Corpuscular Hemoglobin Concent 35 g/dL (31-37) Red Cell Distribution Width 14.0 % (11.5-14.5) Platelet Count 124 x10^3/uL (140-400) Neutrophils (%) (Auto) 69 % (31-73) Lymphocytes (%) (Auto) 18 % (24-48) Monocytes (%) (Auto) 12 % (0-9) Eosinophils (%) (Auto) 1 % (0-3) Basophils (%) (Auto) 0 % (0-3) Neutrophils # (Auto) 4.0 x10^3uL (1.8-7.7) Lymphocytes # (Auto) 1.0 x10^3/uL (1.0-4.8) Monocytes # (Auto) 0.7 x10^3/uL (0.0-1.1) Eosinophils # (Auto) 0.1 x10^3/uL (0.0-0.7) Basophils # (Auto) 0.0 x10^3/uL (0.0-0.2) Sodium Level 142 mmol/L (136-145) Potassium Level 3.5 mmol/L (3.5-5.1) Chloride Level 107 mmol/L (98-107) Carbon Dioxide Level 24 mmol/L (21-32) Anion Gap 11 (6-14) Blood Urea Nitrogen 7 mg/dL (8-26) Creatinine 0.7 mg/dL (0.7-1.3) Estimated GFR (Cockcroft-Gault) 116.7 Glucose Level 212 mg/dL (70-99) Calcium Level 8.1 mg/dL (8.5-10.1) Iron Level 26 ug/dL (65-175) Total Iron Binding Capacity 229 ug/dL (250-450) Iron Saturation 11 % (15-34) Ferritin 203 ng/mL (26-388) Vitamin B12 Level 415 pg/mL (247-911) Glucose (Fingerstick) 203 mg/dL (70-99) 175 mg/dL (70-99) 190 mg/dL (70-99) Test 03/10/18 03:35 03/10/18 11:39 White Blood Count 6.1 x10^3/uL (4.0-11.0) Red Blood Count 2.37 x10^6/uL (4.30-5.70) Hemoglobin 7.8 g/dL (13.0-17.5) Hematocrit 21.9 % (39.0-53.0) Mean Corpuscular Volume 93 fL (79-100) Mean Corpuscular Hemoglobin 33 pg (25-35) Mean Corpuscular Hemoglobin Concent 36 g/dL (31-37) Red Cell Distribution Width 14.4 % (11.5-14.5) Platelet Count 131 x10^3/uL (140-400) Neutrophils (%) (Auto) 66 % (31-73) Lymphocytes (%) (Auto) 19 % (24-48) Monocytes (%) (Auto) 13 % (0-9) Eosinophils (%) (Auto) 2 % (0-3) Basophils (%) (Auto) 0 % (0-3) Neutrophils # (Auto) 4.0 x10^3uL (1.8-7.7) Lymphocytes # (Auto) 1.1 x10^3/uL (1.0-4.8) Monocytes # (Auto) 0.8 x10^3/uL (0.0-1.1) Eosinophils # (Auto) 0.1 x10^3/uL (0.0-0.7) Basophils # (Auto) 0.0 x10^3/uL (0.0-0.2) Sodium Level 143 mmol/L (136-145) Potassium Level 3.4 mmol/L (3.5-5.1) Chloride Level 108 mmol/L (98-107) Carbon Dioxide Level 24 mmol/L (21-32) Anion Gap 11 (6-14) Blood Urea Nitrogen 7 mg/dL (8-26) Creatinine 0.8 mg/dL (0.7-1.3) Estimated GFR (Cockcroft-Gault) 100.0 Glucose Level 162 mg/dL (70-99) Calcium Level 8.2 mg/dL (8.5-10.1) Glucose (Fingerstick) 149 mg/dL (70-99) Microbiology 03/07/18 Blood Culture - Preliminary, Resulted NO GROWTH AFTER 3 DAYS 03/05/18 Urine Culture - Final, Complete 03/05/18 Urine Culture Result 1 ([place]) - Final, Complete ASSESSMENT & PLAN 57 yo M who presents with gross hematuria, elevated PSA and diffuse bone mets who is POD 4 s/p TURP. Overall, doing well. Await final pathology then ADT per Dr. Heart. Urine retention. Long standing based on pre-operative imaging. Patient declined SP tube at the time of surgery. Allow for an additional weak of bladder rest prior to voiding trial. Problem List: Problems Medical Problems: (1) Bladder mass Status: Acute (2) Hematuria Status: Acute MAXIMO JONES MD Mar 10, 2018 13:42
[2018-03-10 15:00] VITALS: BP 122/76
[2018-03-10 19:00] VITALS: BP 119/66
[2018-03-10 23:00] VITALS: BP 122/81
[2018-03-11 03:00] VITALS: BP 110/77
[2018-03-11 05:36] LABS: BASO % 1 % (0-3); EOS # 0.2 x10^3/uL (0.0-0.7); EOS % 3 % (0-3); HEMATOCRIT 22.5 % (39.0-53.0); HEMOGLOBIN 7.8 g/dL (13.0-17.5); LYMPH # 1.5 x10^3/uL (1.0-4.8); LYMPH % 27 % (24-48); MEAN CORPUSCULAR HEMOGLOBIN 32 pg (25-35); MEAN CORPUSCULAR HGB CONC 35 g/dL (31-37); MEAN CORPUSCULAR VOLUME 93 fL (79-100); MONO # 0.8 x10^3/uL (0.0-1.1); MONO % 14 % (0-9); NEUT % 55 % (31-73); PLATELET COUNT 163 x10^3/uL (140-400); RED BLOOD COUNT 2.43 x10^6/uL (4.30-5.70); RED CELL DISTRIBUTION WIDTH 14.3 % (11.5-14.5); WHITE BLOOD COUNT 5.5 x10^3/uL (4.0-11.0)
[2018-03-11 05:46] LABS: CALCIUM 8.5 mg/dL (8.5-10.1); CREATININE 0.7 mg/dL (0.7-1.3); GFR 116.7; POTASSIUM 3.6 mmol/L (3.5-5.1)
[2018-03-11 07:00] VITALS: BP 116/73
--- NOTE | 2018-03-11 07:15 | PDOC ---
PROGRESS NOTES Chief Complaint Chief Complaint Gross hematuria: Prostate Ca? - elevated PSA Enlarged prostate- S/P TURP 03/06, path pending Bladder mass: 7 x 12 cm Back pain evidence of metastatic lesions on imaging Anemia: d/t hematuria History of Present Illness History of Present Illness Pt seen and examined. Pt sitting upright in bed. S/p TURP 03/06, glez back in yesterday for PVR of 700cc. He is resting comfortably with glez back in now. Pt says that he is currently not in any pain. Hb down to 7.8 today DW RN A/P: Gross hematuria: Prostate Ca? - elevated PSA Enlarged prostate- S/P TURP 03/06, path pending - back to OR today Bladder mass: 7 x 12 cm Back pain evidence of metastatic lesions on imaging Anemia: d/t hematuria Vitals Vitals Vital Signs Date Time Temp Pulse Resp B/P (MAP) Pulse Ox O2 Delivery O2 Flow Rate FiO2 03/11/18 03:00 98.8 83 18 110/77 (88) 97 Room Air 98.8 Physical Exam General: Alert, Cooperative, No acute distress Heart: Normal S1, Normal S2 Lungs: Clear Abdomen: Soft, No tenderness, No masses Extremities: No clubbing, No cyanosis, Normal pulses, No tenderness/swelling Skin: No rashes, No breakdown, No significant lesion Labs LABS Laboratory Tests Test 03/10/18 11:39 03/10/18 16:55 03/10/18 20:56 03/11/18 04:45 Glucose (Fingerstick) 149 mg/dL (70-99) 197 mg/dL (70-99) 161 mg/dL (70-99) White Blood Count 5.5 x10^3/uL (4.0-11.0) Red Blood Count 2.43 x10^6/uL (4.30-5.70) Hemoglobin 7.8 g/dL (13.0-17.5) Hematocrit 22.5 % (39.0-53.0) Mean Corpuscular Volume 93 fL (79-100) Mean Corpuscular Hemoglobin 32 pg (25-35) Mean Corpuscular Hemoglobin Concent 35 g/dL (31-37) Red Cell Distribution Width 14.3 % (11.5-14.5) Platelet Count 163 x10^3/uL (140-400) Neutrophils (%) (Auto) 55 % (31-73) Lymphocytes (%) (Auto) 27 % (24-48) Monocytes (%) (Auto) 14 % (0-9) Eosinophils (%) (Auto) 3 % (0-3) Basophils (%) (Auto) 1 % (0-3) Neutrophils # (Auto) 3.0 x10^3uL (1.8-7.7) Lymphocytes # (Auto) 1.5 x10^3/uL (1.0-4.8) Monocytes # (Auto) 0.8 x10^3/uL (0.0-1.1) Eosinophils # (Auto) 0.2 x10^3/uL (0.0-0.7) Basophils # (Auto) 0.0 x10^3/uL (0.0-0.2) Sodium Level 142 mmol/L (136-145) Potassium Level 3.6 mmol/L (3.5-5.1) Chloride Level 108 mmol/L (98-107) Carbon Dioxide Level 25 mmol/L (21-32) Anion Gap 9 (6-14) Blood Urea Nitrogen 7 mg/dL (8-26) Creatinine 0.7 mg/dL (0.7-1.3) Estimated GFR (Cockcroft-Gault) 116.7 Glucose Level 141 mg/dL (70-99) Calcium Level 8.5 mg/dL (8.5-10.1) Assessment and Plan Assessmemt and Plan Problems Medical Problems: (1) Bladder mass Status: Acute (2) Hematuria Status: Acute Comment Review of Relevant I have reviewed the following items mame (where applicable) has been applied. Labs Laboratory Tests Test 03/09/18 07:18 03/09/18 10:00 03/09/18 10:55 03/09/18 16:11 Glucose (Fingerstick) 144 mg/dL (70-99) 203 mg/dL (70-99) 175 mg/dL (70-99) White Blood Count 5.8 x10^3/uL (4.0-11.0) Red Blood Count 2.39 x10^6/uL (4.30-5.70) Hemoglobin 7.7 g/dL (13.0-17.5) Hematocrit 22.1 % (39.0-53.0) Mean Corpuscular Volume 93 fL (79-100) Mean Corpuscular Hemoglobin 32 pg (25-35) Mean Corpuscular Hemoglobin Concent 35 g/dL (31-37) Red Cell Distribution Width 14.0 % (11.5-14.5) Platelet Count 124 x10^3/uL (140-400) Neutrophils (%) (Auto) 69 % (31-73) Lymphocytes (%) (Auto) 18 % (24-48) Monocytes (%) (Auto) 12 % (0-9) Eosinophils (%) (Auto) 1 % (0-3) Basophils (%) (Auto) 0 % (0-3) Neutrophils # (Auto) 4.0 x10^3uL (1.8-7.7) Lymphocytes # (Auto) 1.0 x10^3/uL (1.0-4.8) Monocytes # (Auto) 0.7 x10^3/uL (0.0-1.1) Eosinophils # (Auto) 0.1 x10^3/uL (0.0-0.7) Basophils # (Auto) 0.0 x10^3/uL (0.0-0.2) Sodium Level 142 mmol/L (136-145) Potassium Level 3.5 mmol/L (3.5-5.1) Chloride Level 107 mmol/L (98-107) Carbon Dioxide Level 24 mmol/L (21-32) Anion Gap 11 (6-14) Blood Urea Nitrogen 7 mg/dL (8-26) Creatinine 0.7 mg/dL (0.7-1.3) Estimated GFR (Cockcroft-Gault) 116.7 Glucose Level 212 mg/dL (70-99) Calcium Level 8.1 mg/dL (8.5-10.1) Iron Level 26 ug/dL (65-175) Total Iron Binding Capacity 229 ug/dL (250-450) Iron Saturation 11 % (15-34) Ferritin 203 ng/mL (26-388) Vitamin B12 Level 415 pg/mL (247-911) Test 03/09/18 20:40 03/10/18 03:35 03/10/18 11:39 03/10/18 16:55 Glucose (Fingerstick) 190 mg/dL (70-99) 149 mg/dL (70-99) 197 mg/dL (70-99) White Blood Count 6.1 x10^3/uL (4.0-11.0) Red Blood Count 2.37 x10^6/uL (4.30-5.70) Hemoglobin 7.8 g/dL (13.0-17.5) Hematocrit 21.9 % (39.0-53.0) Mean Corpuscular Volume 93 fL (79-100) Mean Corpuscular Hemoglobin 33 pg (25-35) Mean Corpuscular Hemoglobin Concent 36 g/dL (31-37) Red Cell Distribution Width 14.4 % (11.5-14.5) Platelet Count 131 x10^3/uL (140-400) Neutrophils (%) (Auto) 66 % (31-73) Lymphocytes (%) (Auto) 19 % (24-48) Monocytes (%) (Auto) 13 % (0-9) Eosinophils (%) (Auto) 2 % (0-3) Basophils (%) (Auto) 0 % (0-3) Neutrophils # (Auto) 4.0 x10^3uL (1.8-7.7) Lymphocytes # (Auto) 1.1 x10^3/uL (1.0-4.8) Monocytes # (Auto) 0.8 x10^3/uL (0.0-1.1) Eosinophils # (Auto) 0.1 x10^3/uL (0.0-0.7) Basophils # (Auto) 0.0 x10^3/uL (0.0-0.2) Sodium Level 143 mmol/L (136-145) Potassium Level 3.4 mmol/L (3.5-5.1) Chloride Level 108 mmol/L (98-107) Carbon Dioxide Level 24 mmol/L (21-32) Anion Gap 11 (6-14) Blood Urea Nitrogen 7 mg/dL (8-26) Creatinine 0.8 mg/dL (0.7-1.3) Estimated GFR (Cockcroft-Gault) 100.0 Glucose Level 162 mg/dL (70-99) Calcium Level 8.2 mg/dL (8.5-10.1) Test 03/10/18 20:56 03/11/18 04:45 Glucose (Fingerstick) 161 mg/dL (70-99) White Blood Count 5.5 x10^3/uL (4.0-11.0) Red Blood Count 2.43 x10^6/uL (4.30-5.70) Hemoglobin 7.8 g/dL (13.0-17.5) Hematocrit 22.5 % (39.0-53.0) Mean Corpuscular Volume 93 fL (79-100) Mean Corpuscular Hemoglobin 32 pg (25-35) Mean Corpuscular Hemoglobin Concent 35 g/dL (31-37) Red Cell Distribution Width 14.3 % (11.5-14.5) Platelet Count 163 x10^3/uL (140-400) Neutrophils (%) (Auto) 55 % (31-73) Lymphocytes (%) (Auto) 27 % (24-48) Monocytes (%) (Auto) 14 % (0-9) Eosinophils (%) (Auto) 3 % (0-3) Basophils (%) (Auto) 1 % (0-3) Neutrophils # (Auto) 3.0 x10^3uL (1.8-7.7) Lymphocytes # (Auto) 1.5 x10^3/uL (1.0-4.8) Monocytes # (Auto) 0.8 x10^3/uL (0.0-1.1) Eosinophils # (Auto) 0.2 x10^3/uL (0.0-0.7) Basophils # (Auto) 0.0 x10^3/uL (0.0-0.2) Sodium Level 142 mmol/L (136-145) Potassium Level 3.6 mmol/L (3.5-5.1) Chloride Level 108 mmol/L (98-107) Carbon Dioxide Level 25 mmol/L (21-32) Anion Gap 9 (6-14) Blood Urea Nitrogen 7 mg/dL (8-26) Creatinine 0.7 mg/dL (0.7-1.3) Estimated GFR (Cockcroft-Gault) 116.7 Glucose Level 141 mg/dL (70-99) Calcium Level 8.5 mg/dL (8.5-10.1) Laboratory Tests Test 03/10/18 11:39 03/10/18 16:55 03/10/18 20:56 03/11/18 04:45 Glucose (Fingerstick) 149 mg/dL (70-99) 197 mg/dL (70-99) 161 mg/dL (70-99) White Blood Count 5.5 x10^3/uL (4.0-11.0) Red Blood Count 2.43 x10^6/uL (4.30-5.70) Hemoglobin 7.8 g/dL (13.0-17.5) Hematocrit 22.5 % (39.0-53.0) Mean Corpuscular Volume 93 fL (79-100) Mean Corpuscular Hemoglobin 32 pg (25-35) Mean Corpuscular Hemoglobin Concent 35 g/dL (31-37) Red Cell Distribution Width 14.3 % (11.5-14.5) Platelet Count 163 x10^3/uL (140-400) Neutrophils (%) (Auto) 55 % (31-73) Lymphocytes (%) (Auto) 27 % (24-48) Monocytes (%) (Auto) 14 % (0-9) Eosinophils (%) (Auto) 3 % (0-3) Basophils (%) (Auto) 1 % (0-3) Neutrophils # (Auto) 3.0 x10^3uL (1.8-7.7) Lymphocytes # (Auto) 1.5 x10^3/uL (1.0-4.8) Monocytes # (Auto) 0.8 x10^3/uL (0.0-1.1) Eosinophils # (Auto) 0.2 x10^3/uL (0.0-0.7) Basophils # (Auto) 0.0 x10^3/uL (0.0-0.2) Sodium Level 142 mmol/L (136-145) Potassium Level 3.6 mmol/L (3.5-5.1) Chloride Level 108 mmol/L (98-107) Carbon Dioxide Level 25 mmol/L (21-32) Anion Gap 9 (6-14) Blood Urea Nitrogen 7 mg/dL (8-26) Creatinine 0.7 mg/dL (0.7-1.3) Estimated GFR (Cockcroft-Gault) 116.7 Glucose Level 141 mg/dL (70-99) Calcium Level 8.5 mg/dL (8.5-10.1) Microbiology 03/07/18 Blood Culture - Preliminary, Resulted NO GROWTH AFTER 3 DAYS 03/05/18 Urine Culture - Final, Complete 03/05/18 Urine Culture Result 1 ([place]) - Final, Complete Medications Current Medications Sodium Chloride 1,000 ml @ 1,000 mls/hr 1X ONCE IV Last administered on 03/04at 12:07; Start 03/04/18 at 11:45; Stop 03/04/18 at 12:44; Status DC Iohexol (Omnipaque 300 Mg/ml) 75 ml 1X ONCE IV ; Start 03/04/18 at 12:30; Stop 03/04/18 at 12:36; Status DC Info (CONTRAST GIVEN -- Rx MONITORING) 1 each PRN DAILY PRN MC SEE COMMENTS; Start 03/04/18 at 12:45; Stop 03/06/18 at 12:54; Status DC Sodium Chloride 1,000 ml @ 1,000 mls/hr 1X ONCE IV Last administered on 03/04at 13:45; Start 03/04/18 at 13:45; Stop 03/04/18 at 14:44; Status DC Ondansetron HCl (Zofran) 4 mg PRN Q8HRS PRN IV NAUSEA/VOMITING; Start at 14:15; Stop 03/04/18 at 14:56; Status DC Morphine Sulfate (Morphine Sulfate) 4 mg PRN Q2HR PRN IV PAIN Last administered on 03/05/18at 11:35; Start 03/04/18 at 14:15; Stop 03/05/18 at 13 :46; Status DC Sodium Chloride 1,000 ml @ 125 mls/hr Q8H IV ; Start 03/04/18 at 14:11; Stop 03/05/18 at 14:10; Status DC Acetaminophen (Tylenol) 650 mg PRN Q4HRS PRN PO FEVER; Start 03/04/18 at 14:15 ; Stop 03/05/18 at 13:46; Status DC Ondansetron HCl (Zofran) 4 mg PRN Q6HRS PRN IV NAUSEA/VOMITING Last administered on 03/04/18at 15:05; Start 03/04/18 at 15:00; Stop 03/05/18 at 13 :46; Status DC Diphenhydramine HCl (Benadryl) 25 mg PRN QHS PRN PO INSOMNIA Last administered on 03/10/18 22:28; Start 03/04/18 at 15:00 Multivitamins 10 ml/Thiamine HCl 100 mg/Folic Acid 1 mg/Sodium Chloride 1,011.2 ml @ 1,000.088 mls/hr 1X ONCE IV Last administered on 03/04/18 16:31; Start 03/04/18 at 15:30; Stop 03/04/18 at 16:35; Status DC Multivitamins (Thera M Plus) 1 tab DAILY PO Last administered on 03/10/18 08: 41; Start 03/05/18 at 09:00 Folic Acid (Folic Acid) 1 mg DAILY PO Last administered on 03/10/18 08:42; Start 03/05/18 at 09:00 Thiamine Mononitrate (Vitamin B-1) 100 mg DAILY PO Last administered on 08:41; Start 03/05/18 at 09:00 Chlordiazepoxide (Librium) 25 mg PRN Q6HRS PRN PO ANXIETY / AGITATION; Start 03/04/18 at 15:00 Labetalol HCl (Normodyne Iv Push) 20 mg 1X ONCE IVP Last administered on 03/04at 20:21; Start 03/04/18 at 16:15; Stop 03/04/18 at 16:35; Status DC Labetalol HCl (Normodyne Iv Push) 20 mg PRN Q2HR PRN IVP HYPERTENSION, SEE COMMENTS; Start 03/04/18 at 18:00 Lidocaine HCl (Glydo (Lidocaine) Jelly) 1 eleni 1X ONCE MM ; Start 03/04/18 at 18:15; Stop 03/04/18 at 18:16; Status DC Finasteride (Proscar) 5 mg DAILY PO Last administered on 03/10/18 08:41; Start 03/05/18 at 09:00 Acetaminophen (Tylenol) 650 mg PRN Q6HRS PRN PO FEVER Last administered on 03/09 20:06; Start 03/05/18 at 13:45 Ondansetron HCl (Zofran) 4 mg PRN Q6HRS PRN IV NAUSEA/VOMITING; Start at 13:45 Morphine Sulfate (Morphine Sulfate) 2 mg PRN Q2HR PRN IV MODERATE TO SEVERE PAIN Last administered on 11/3/18at 10:30; Start 03/05/18 at 13:45 Tramadol HCl (Ultram) 50 mg PRN Q6HRS PRN PO MILD TO MODERATE PAIN Last administered on 03/08/18at 16:14; Start 03/05/18 at 13:45 Docusate Sodium (Colace) 100 mg PRN DAILY PRN PO CONSTIPATION; Start 03/05/18 at 13:45 Propofol 20 ml @ As Directed STK-MED ONCE IV ; Start 03/06/18 at 09:24; Stop 03/06/18 at 09:25; Status DC Lidocaine HCl (Lidocaine Pf 2% Vial) 5 ml STK-MED ONCE .ROUTE ; Start 03/06/18 at 09:24; Stop 03/06/18 at 09:25; Status DC Fentanyl Citrate (Fentanyl 2ml Vial) 100 mcg STK-MED ONCE .ROUTE ; Start at 09:24; Stop 03/06/18 at 09:25; Status DC Potassium Chloride (Klor-Con) 40 meq 1X ONCE PO ; Start 03/06/18 at 10:00; Stop 03/06/18 at 10:01; Status DC Cefazolin Sodium/ Dextrose 50 ml @ 100 mls/hr 1X ONCE IV Last administered on 03/06/18at 10:31; Start 03/06/18 at 09:30; Stop 03/06/18 at 09:59; Status DC Rocuronium Aspen (Zemuron) 50 mg STK-MED ONCE .ROUTE ; Start 03/06/18 at 09: 25; Stop 03/06/18 at 09:26; Status DC Ondansetron HCl (Zofran) 4 mg PRN Q6HRS PRN IV NAUSEA/VOMITING; Start at 10:00; Stop 03/07/18 at 09:59; Status DC Fentanyl Citrate (Fentanyl 2ml Vial) 25 mcg PRN Q5MIN PRN IV MILD PAIN Last administered on 03/06/18at 13:55; Start 03/06/18 at 10:00; Stop 03/07/18 at 09 :59; Status DC Fentanyl Citrate (Fentanyl 2ml Vial) 50 mcg PRN Q5MIN PRN IV MODERATE TO SEVERE PAIN Last administered on 03/06/18at 13:39; Start 03/06/18 at 10:00; Stop 03/07/18 at 09:59; Status DC Morphine Sulfate (Morphine Sulfate) 1 mg PRN Q10MIN PRN IV SEVERE PAIN; Start 03/06/18 at 10:00; Stop 03/07/18 at 09:59; Status DC Ringer's Solution 1,000 ml @ 30 mls/hr Q24H IV ; Start 03/06/18 at 09:50; Stop 03/06/18 at 21:49; Status DC Lidocaine HCl (Xylocaine-Mpf 1% 2ml Vial) 2 ml PRN 1X PRN ID PRIOR TO IV START ; Start 03/06/18 at 10:00; Stop 03/07/18 at 09:59; Status DC Hydromorphone HCl (Dilaudid) 0.5 mg PRN Q10MIN PRN IV SEV PAIN, Second choice; Start 03/06/18 at 10:00; Stop 03/07/18 at 09:59; Status DC Prochlorperazine Edisylate (Compazine) 5 mg PACU PRN PRN IV NAUSEA, MRX1; Start 03/06/18 at 10:00; Stop 03/07/18 at 09:59; Status DC Midazolam HCl (Versed) 2 mg STK-MED ONCE .ROUTE ; Start 03/06/18 at 10:05; Stop 03/06/18 at 10:06; Status DC Lidocaine HCl (Glydo (Lidocaine) Jelly) 6 eleni STK-MED ONCE .ROUTE ; Start 03/06 at 09:06; Stop 03/06/18 at 10:06; Status DC Propofol 20 ml @ As Directed STK-MED ONCE IV ; Start 03/06/18 at 10:37; Stop 03/06/18 at 10:38; Status DC Dexamethasone Sodium Phosphate (Decadron) 20 mg STK-MED ONCE .ROUTE ; Start at 11:29; Stop 03/06/18 at 11:30; Status DC Famotidine (Pepcid Vial) 20 mg STK-MED ONCE .ROUTE ; Start 03/06/18 at 11:30; Stop 03/06/18 at 11:31; Status DC Ondansetron HCl (Zofran) 4 mg STK-MED ONCE .ROUTE ; Start 03/06/18 at 11:30; Stop 03/06/18 at 11:31; Status DC Neostigmine Methylsulfate (Neostigmine Methylsulfate) 5 mg STK-MED ONCE .ROUTE ; Start 03/06/18 at 11:30; Stop 03/06/18 at 11:31; Status DC Glycopyrrolate (Robinul) 1 mg STK-MED ONCE .ROUTE ; Start 03/06/18 at 11:31; Stop 03/06/18 at 11:32; Status DC Belladonna Alkaloids/Opium (B & O) 1 supp 1X ONCE VT Last administered on at 12:50; Start 03/06/18 at 12:15; Stop 03/06/18 at 12:16; Status DC Hydralazine HCl (Apresoline Inj) 20 mg STK-MED ONCE .ROUTE ; Start 03/06/18 at 12:16; Stop 03/06/18 at 12:17; Status DC Fentanyl Citrate (Fentanyl 2ml Vial) 100 mcg STK-MED ONCE .ROUTE ; Start at 12:22; Stop 03/06/18 at 12:23; Status DC Sevoflurane (Ultane) 90 ml STK-MED ONCE IH ; Start 03/06/18 at 12:50; Stop at 12:51; Status DC Iohexol (Omnipaque 300 Mg/ml) 75 ml 1X ONCE IV Last administered on at 14:56; Start 03/06/18 at 14:45; Stop 03/06/18 at 14:46; Status DC Info (CONTRAST GIVEN -- Rx MONITORING) 1 each PRN DAILY PRN MC SEE COMMENTS; Start 03/06/18 at 14:45; Stop 03/08/18 at 14:44; Status DC Insulin Human Lispro (HumaLOG) 0-5 UNITS TIDWMEALS SQ ; Start 03/07/18 at 08:00 ; Stop 03/07/18 at 08:00; Status DC Dextrose (Dextrose 50%-Water Syringe) 12.5 gm PRN Q15MIN PRN IV SEE COMMENTS; Start 03/06/18 at 17:30 Insulin Human Lispro (HumaLOG) 0-5 UNITS TIDWMEALS SQ Last administered on 03/10at 17:23; Start 03/06/18 at 18:00 Ceftriaxone Sodium 50 ml @ 100 mls/hr 1X ONCE IV ; Start 03/07/18 at 10:00; Stop 03/07/18 at 10:29; Status UNV Ceftriaxone Sodium (Rocephin) 1 gm 1X ONCE IVP Last administered on at 10:26; Start 03/07/18 at 10:00; Stop 03/07/18 at 10:01; Status DC Sodium Chloride 1,000 ml @ 75 mls/hr [id number] IV Last administered on at 17:24; Start 03/07/18 at 10:00 Sodium Chloride 1,000 ml @ 1,000 mls/hr 1X ONCE IV Last administered on 03/07at 10:27; Start 03/07/18 at 10:00; Stop 03/07/18 at 10:59; Status DC Ceftriaxone Sodium 1 gm/ Dextrose 50 ml @ 100 mls/hr DAILY IV ; Start 03/08/18 at 09:00; Status UNV Ceftriaxone Sodium (Rocephin) 1 gm Q24H IVP Last administered on 03/09/18at 09: 21; Start 03/08/18 at 10:00; Stop 03/09/18 at 14:46; Status DC Potassium Chloride (Klor-Con) 40 meq 1X ONCE PO Last administered on at 12:32; Start 03/09/18 at 10:45; Stop 03/09/18 at 10:46; Status DC Cefpodoxime Proxetil (Vantin) 200 mg BID PO Last administered on 03/10/18at 22: 28; Start 03/10/18 at 09:00 Lidocaine HCl (Glydo (Lidocaine) Jelly) 1 eleni 1X ONCE MM ; Start 03/10/18 at 01 :30; Stop 03/10/18 at 01:31; Status DC Lidocaine HCl (Glydo (Lidocaine) Jelly) 1 eleni PRN 1X PRN MM PAIN; Start at 03:00 Active Scripts Active Flomax (Tamsulosin Hcl) 0.4 Mg Cap.er.24h 1 Cap PO DAILY 7 Days Cipro (Ciprofloxacin Hcl) 500 Mg Tablet 1 Tab PO BID 10 Days Flagyl (Metronidazole) 500 Mg Tablet 1 Tab PO TID Levaquin (Levofloxacin) 500 Mg Tablet 1 Tab PO DAILY Reported Metformin HCl 500 Mg/5 Ml Solution 500 Mg PO DAILY Vitals/I & O Vital Sign - Last 24 Hours 03/10/18 03/10/18 03/10/18 03/10/18 08:00 10:30 11:00 11:12 Temp 98.5 98.5 Pulse 76 Resp 16 16 16 B/P (MAP) 123/80 (94) Pulse Ox 96 O2 Delivery Room Air Room Air Room Air Room Air 03/10/18 03/10/18 03/10/18 03/10/18 15:00 19:00 20:00 23:00 Temp 98.0 99.4 99.0 98.0 99.4 99.0 Pulse 90 76 77 Resp 16 18 18 B/P (MAP) 122/76 (91) 119/66 (83) 122/81 (95) Pulse Ox 99 97 96 O2 Delivery Room Air Room Air Room Air Room Air 03/11/18 03:00 Temp 98.8 98.8 Pulse 83 Resp 18 B/P (MAP) 110/77 (88) Pulse Ox 97 O2 Delivery Room Air Intake and Output 03/10/18 03/10/18 03/11/18 15:00 23:00 07:00 Intake Total 900 ml Output Total 1150 ml 3001 ml 200 ml Balance -1150 ml -3001 ml 700 ml TORI SHEEHAN MD Mar 11, 2018 07:15
[2018-03-11] MEDS: IV NORMAL SALINE 1000ML BAG 1,000 ML IV SCH ×2 (07:20→21:44)
[2018-03-11] MEDS: FOLIC ACID 1 MG TABLET. PO SCH (09:02)
[2018-03-11] MEDS: INSULIN LISPRO 300 UNITS/3 ML INSULN.PEN. SQ SCH ×3 (09:02→17:00)
[2018-03-11] MEDS: MULTIVITAMIN with MINERAL TABLET. PO SCH (09:02)
[2018-03-11] MEDS: FINASTERIDE 5 MG TABLET. PO SCH (09:02)
[2018-03-11] MEDS: CEFPODOXIME PROXETIL 100 MG TABLET. PO SCH ×2 (09:02→21:44)
[2018-03-11] MEDS: THIAMINE 100 MG TABLET. PO SCH (09:02)
[2018-03-11 11:08] VITALS: BP 115/73
[2018-03-11 15:50] VITALS: BP 119/58
[2018-03-11 19:00] VITALS: BP 114/74
[2018-03-11 23:00] VITALS: BP 100/59
[2018-03-12 03:00] VITALS: BP 93/59
[2018-03-12 06:37] LABS: BASO % 1 % (0-3); EOS # 0.2 x10^3/uL (0.0-0.7); EOS % 3 % (0-3); HEMATOCRIT 23.5 % (39.0-53.0); HEMOGLOBIN 8.1 g/dL (13.0-17.5); LYMPH # 1.6 x10^3/uL (1.0-4.8); LYMPH % 30 % (24-48); MEAN CORPUSCULAR HEMOGLOBIN 32 pg (25-35); MEAN CORPUSCULAR HGB CONC 35 g/dL (31-37); MEAN CORPUSCULAR VOLUME 93 fL (79-100); MONO # 0.6 x10^3/uL (0.0-1.1); MONO % 12 % (0-9); NEUT # 2.9 x10^3uL (1.8-7.7); NEUT % 55 % (31-73); PLATELET COUNT 184 x10^3/uL (140-400); RED BLOOD COUNT 2.54 x10^6/uL (4.30-5.70); RED CELL DISTRIBUTION WIDTH 14.2 % (11.5-14.5); WHITE BLOOD COUNT 5.3 x10^3/uL (4.0-11.0)
[2018-03-12 06:46] LABS: CALCIUM 8.4 mg/dL (8.5-10.1); CREATININE 0.7 mg/dL (0.7-1.3); GFR 116.7; POTASSIUM 3.8 mmol/L (3.5-5.1)
[2018-03-12 07:00] VITALS: BP 111/63
[2018-03-12] MEDS: INSULIN LISPRO 300 UNITS/3 ML INSULN.PEN. SQ SCH ×4 (08:00→17:11)
[2018-03-12] MEDS: MULTIVITAMIN with MINERAL TABLET. PO SCH (08:01)
[2018-03-12] MEDS: FINASTERIDE 5 MG TABLET. PO SCH (08:01)
[2018-03-12] MEDS: FOLIC ACID 1 MG TABLET. PO SCH (08:01)
[2018-03-12] MEDS: CEFPODOXIME PROXETIL 100 MG TABLET. PO SCH ×2 (08:01→20:39)
[2018-03-12] MEDS: THIAMINE 100 MG TABLET. PO SCH (08:01)
--- NOTE | 2018-03-12 09:09 | PDOC ---
PROGRESS NOTES Subjective Subjective HPI - f/u of Enlarged prostate with bone metastasis clinically concerning for prostate cancer with bone metastasis. ROS - hematuria is better Objective Objective Vital Signs Date Time Temp Pulse Resp B/P (MAP) Pulse Ox O2 Delivery O2 Flow Rate FiO2 03/12/18 07:00 98.1 72 16 111/63 (79) 98 Room Air 98.1 03/07/18 05:07 2.0 Intake and Output 03/12/18 07:00 Intake Total 1670 ml Output Total 4525 ml Balance -2855 ml Intake Oral 1670 ml Output Urine Total 4525 ml # Bowel Movements 1 Physical Exam Heart: Normal S1, Normal S2 General: Alert, Oriented X3, No acute distress Lungs: Clear to auscultation Neuro: Normal speech Psych/Mental Status: Mental status NL Assessment Assessment Problems Medical Problems: (1) Bladder mass Status: Acute (2) Hematuria Status: Acute IMPRESSION AND PLAN: 1. Enlarged prostate with bone metastasis clinically concerning for prostate cancer with bone metastasis. Mass noted in the urinary bladder on CAT scan is likely to be a hematoma per Urology. CT chest 03/06/18: Sclerotic bone lesions of ribs and thoracic spine, suspicious for osteoblastic metastatic tumor deposits. Ill-defined opacities in the lungs, particularly the right lower lobe and posterior right upper lobe, may be inflammatory/infectious. There is at least one 6 mm groundglass nodule. Given the other CT findings, neoplastic involvement is possible. Recommend at least short-term CT chest follow-up. I d/w Magdalena REDDY, from urology. PSA [id number] on 03/04/18 suggestive of prostate cancer. s/p TURP 03/06/18, await path results, then plan casodex and lupron after confirmation of prostate cancer. Pt considering going to [place] for treatment as he does not have insurance. I have advised to f/u with me in 1 week. 2. Hematuria. Appreciate Urology consultation. Urine retention. Long standing based on pre-operative imaging. Patient declined SP tube at the time of surgery. 3. Bone metastasis per CT scan. Bone scan 03/06/18: Diffuse osteoblastic metastatic disease identified. Involvement is noted within the ribs, spine, pelvic bones, and other bony structures.. 4. Anemia, Hb worse at 6.7 11..18, s/p 1 PRBC. Hb better at 7.7 on 03/09/18. Hb 8.1, Iron saturation only 11% on 03/09/18. Plan venofern 500 mg 03/12/18. Comment Review of Relevant I have reviewed the following items mame (where applicable) has been applied. Labs Laboratory Tests Test 03/10/18 11:39 03/10/18 16:55 03/10/18 20:56 03/11/18 04:45 Glucose (Fingerstick) 149 mg/dL (70-99) 197 mg/dL (70-99) 161 mg/dL (70-99) White Blood Count 5.5 x10^3/uL (4.0-11.0) Red Blood Count 2.43 x10^6/uL (4.30-5.70) Hemoglobin 7.8 g/dL (13.0-17.5) Hematocrit 22.5 % (39.0-53.0) Mean Corpuscular Volume 93 fL (79-100) Mean Corpuscular Hemoglobin 32 pg (25-35) Mean Corpuscular Hemoglobin Concent 35 g/dL (31-37) Red Cell Distribution Width 14.3 % (11.5-14.5) Platelet Count 163 x10^3/uL (140-400) Neutrophils (%) (Auto) 55 % (31-73) Lymphocytes (%) (Auto) 27 % (24-48) Monocytes (%) (Auto) 14 % (0-9) Eosinophils (%) (Auto) 3 % (0-3) Basophils (%) (Auto) 1 % (0-3) Neutrophils # (Auto) 3.0 x10^3uL (1.8-7.7) Lymphocytes # (Auto) 1.5 x10^3/uL (1.0-4.8) Monocytes # (Auto) 0.8 x10^3/uL (0.0-1.1) Eosinophils # (Auto) 0.2 x10^3/uL (0.0-0.7) Basophils # (Auto) 0.0 x10^3/uL (0.0-0.2) Sodium Level 142 mmol/L (136-145) Potassium Level 3.6 mmol/L (3.5-5.1) Chloride Level 108 mmol/L (98-107) Carbon Dioxide Level 25 mmol/L (21-32) Anion Gap 9 (6-14) Blood Urea Nitrogen 7 mg/dL (8-26) Creatinine 0.7 mg/dL (0.7-1.3) Estimated GFR (Cockcroft-Gault) 116.7 Glucose Level 141 mg/dL (70-99) Calcium Level 8.5 mg/dL (8.5-10.1) Test 03/11/18 08:02 03/11/18 11:01 03/11/18 16:35 03/11/18 21:08 Glucose (Fingerstick) 165 mg/dL (70-99) 187 mg/dL (70-99) 121 mg/dL (70-99) 202 mg/dL (70-99) Test 03/12/18 06:10 03/12/18 07:36 White Blood Count 5.3 x10^3/uL (4.0-11.0) Red Blood Count 2.54 x10^6/uL (4.30-5.70) Hemoglobin 8.1 g/dL (13.0-17.5) Hematocrit 23.5 % (39.0-53.0) Mean Corpuscular Volume 93 fL (79-100) Mean Corpuscular Hemoglobin 32 pg (25-35) Mean Corpuscular Hemoglobin Concent 35 g/dL (31-37) Red Cell Distribution Width 14.2 % (11.5-14.5) Platelet Count 184 x10^3/uL (140-400) Neutrophils (%) (Auto) 55 % (31-73) Lymphocytes (%) (Auto) 30 % (24-48) Monocytes (%) (Auto) 12 % (0-9) Eosinophils (%) (Auto) 3 % (0-3) Basophils (%) (Auto) 1 % (0-3) Neutrophils # (Auto) 2.9 x10^3uL (1.8-7.7) Lymphocytes # (Auto) 1.6 x10^3/uL (1.0-4.8) Monocytes # (Auto) 0.6 x10^3/uL (0.0-1.1) Eosinophils # (Auto) 0.2 x10^3/uL (0.0-0.7) Basophils # (Auto) 0.0 x10^3/uL (0.0-0.2) Sodium Level 142 mmol/L (136-145) Potassium Level 3.8 mmol/L (3.5-5.1) Chloride Level 108 mmol/L (98-107) Carbon Dioxide Level 23 mmol/L (21-32) Anion Gap 11 (6-14) Blood Urea Nitrogen 7 mg/dL (8-26) Creatinine 0.7 mg/dL (0.7-1.3) Estimated GFR (Cockcroft-Gault) 116.7 Glucose Level 144 mg/dL (70-99) Calcium Level 8.4 mg/dL (8.5-10.1) Glucose (Fingerstick) 142 mg/dL (70-99) Laboratory Tests Test 03/11/18 11:01 03/11/18 16:35 03/11/18 21:08 03/12/18 06:10 Glucose (Fingerstick) 187 mg/dL (70-99) 121 mg/dL (70-99) 202 mg/dL (70-99) White Blood Count 5.3 x10^3/uL (4.0-11.0) Red Blood Count 2.54 x10^6/uL (4.30-5.70) Hemoglobin 8.1 g/dL (13.0-17.5) Hematocrit 23.5 % (39.0-53.0) Mean Corpuscular Volume 93 fL (79-100) Mean Corpuscular Hemoglobin 32 pg (25-35) Mean Corpuscular Hemoglobin Concent 35 g/dL (31-37) Red Cell Distribution Width 14.2 % (11.5-14.5) Platelet Count 184 x10^3/uL (140-400) Neutrophils (%) (Auto) 55 % (31-73) Lymphocytes (%) (Auto) 30 % (24-48) Monocytes (%) (Auto) 12 % (0-9) Eosinophils (%) (Auto) 3 % (0-3) Basophils (%) (Auto) 1 % (0-3) Neutrophils # (Auto) 2.9 x10^3uL (1.8-7.7) Lymphocytes # (Auto) 1.6 x10^3/uL (1.0-4.8) Monocytes # (Auto) 0.6 x10^3/uL (0.0-1.1) Eosinophils # (Auto) 0.2 x10^3/uL (0.0-0.7) Basophils # (Auto) 0.0 x10^3/uL (0.0-0.2) Sodium Level 142 mmol/L (136-145) Potassium Level 3.8 mmol/L (3.5-5.1) Chloride Level 108 mmol/L (98-107) Carbon Dioxide Level 23 mmol/L (21-32) Anion Gap 11 (6-14) Blood Urea Nitrogen 7 mg/dL (8-26) Creatinine 0.7 mg/dL (0.7-1.3) Estimated GFR (Cockcroft-Gault) 116.7 Glucose Level 144 mg/dL (70-99) Calcium Level 8.4 mg/dL (8.5-10.1) Test 03/12/18 07:36 Glucose (Fingerstick) 142 mg/dL (70-99) Microbiology 03/07/18 Blood Culture - Preliminary, Resulted NO GROWTH AFTER 4 DAYS 03/05/18 Urine Culture - Final, Complete 03/05/18 Urine Culture Result 1 ([place]) - Final, Complete Medications Current Medications Sodium Chloride 1,000 ml @ 1,000 mls/hr 1X ONCE IV Last administered on 03/04at 12:07; Start 03/04/18 at 11:45; Stop 03/04/18 at 12:44; Status DC Iohexol (Omnipaque 300 Mg/ml) 75 ml 1X ONCE IV ; Start 03/04/18 at 12:30; Stop 03/04/18 at 12:36; Status DC Info (CONTRAST GIVEN -- Rx MONITORING) 1 each PRN DAILY PRN MC SEE COMMENTS; Start 03/04/18 at 12:45; Stop 03/06/18 at 12:54; Status DC Sodium Chloride 1,000 ml @ 1,000 mls/hr 1X ONCE IV Last administered on 03/04at 13:45; Start 03/04/18 at 13:45; Stop 03/04/18 at 14:44; Status DC Ondansetron HCl (Zofran) 4 mg PRN Q8HRS PRN IV NAUSEA/VOMITING; Start at 14:15; Stop 03/04/18 at 14:56; Status DC Morphine Sulfate (Morphine Sulfate) 4 mg PRN Q2HR PRN IV PAIN Last administered on 03/05/18at 11:35; Start 03/04/18 at 14:15; Stop 03/05/18 at 13 :46; Status DC Sodium Chloride 1,000 ml @ 125 mls/hr Q8H IV ; Start 03/04/18 at 14:11; Stop 03/05/18 at 14:10; Status DC Acetaminophen (Tylenol) 650 mg PRN Q4HRS PRN PO FEVER; Start 03/04/18 at 14:15 ; Stop 03/05/18 at 13:46; Status DC Ondansetron HCl (Zofran) 4 mg PRN Q6HRS PRN IV NAUSEA/VOMITING Last administered on 03/04/18at 15:05; Start 03/04/18 at 15:00; Stop 03/05/18 at 13 :46; Status DC Diphenhydramine HCl (Benadryl) 25 mg PRN QHS PRN PO INSOMNIA Last administered on 03/10/18at 22:28; Start 03/04/18 at 15:00 Multivitamins 10 ml/Thiamine HCl 100 mg/Folic Acid 1 mg/Sodium Chloride 1,011.2 ml @ 1,000.088 mls/hr 1X ONCE IV Last administered on 03/04/18at 16:31; Start 03/04/18 at 15:30; Stop 03/04/18 at 16:35; Status DC Multivitamins (Thera M Plus) 1 tab DAILY PO Last administered on 03/12/18at 08: 01; Start 03/05/18 at 09:00 Folic Acid (Folic Acid) 1 mg DAILY PO Last administered on 03/12/18at 08:01; Start 03/05/18 at 09:00 Thiamine Mononitrate (Vitamin B-1) 100 mg DAILY PO Last administered on at 08:01; Start 03/05/18 at 09:00 Chlordiazepoxide (Librium) 25 mg PRN Q6HRS PRN PO ANXIETY / AGITATION; Start 03/04/18 at 15:00 Labetalol HCl (Normodyne Iv Push) 20 mg 1X ONCE IVP Last administered on 03/04at 20:21; Start 03/04/18 at 16:15; Stop 03/04/18 at 16:35; Status DC Labetalol HCl (Normodyne Iv Push) 20 mg PRN Q2HR PRN IVP HYPERTENSION, SEE COMMENTS; Start 03/04/18 at 18:00 Lidocaine HCl (Glydo (Lidocaine) Jelly) 1 eleni 1X ONCE MM ; Start 03/04/18 at 18:15; Stop 03/04/18 at 18:16; Status DC Finasteride (Proscar) 5 mg DAILY PO Last administered on 03/12/18at 08:01; Start 03/05/18 at 09:00 Acetaminophen (Tylenol) 650 mg PRN Q6HRS PRN PO FEVER Last administered on 03/09at 20:06; Start 03/05/18 at 13:45 Ondansetron HCl (Zofran) 4 mg PRN Q6HRS PRN IV NAUSEA/VOMITING; Start at 13:45 Morphine Sulfate (Morphine Sulfate) 2 mg PRN Q2HR PRN IV MODERATE TO SEVERE PAIN Last administered on 03/10/18at 10:30; Start 03/05/18 at 13:45 Tramadol HCl (Ultram) 50 mg PRN Q6HRS PRN PO MILD TO MODERATE PAIN Last administered on 03/08/18at 16:14; Start 03/05/18 at 13:45 Docusate Sodium (Colace) 100 mg PRN DAILY PRN PO CONSTIPATION; Start 03/05/18 at 13:45 Propofol 20 ml @ As Directed STK-MED ONCE IV ; Start 03/06/18 at 09:24; Stop 03/06/18 at 09:25; Status DC Lidocaine HCl (Lidocaine Pf 2% Vial) 5 ml STK-MED ONCE .ROUTE ; Start 03/06/18 at 09:24; Stop 03/06/18 at 09:25; Status DC Fentanyl Citrate (Fentanyl 2ml Vial) 100 mcg STK-MED ONCE .ROUTE ; Start at 09:24; Stop 03/06/18 at 09:25; Status DC Potassium Chloride (Klor-Con) 40 meq 1X ONCE PO ; Start 03/06/18 at 10:00; Stop 03/06/18 at 10:01; Status DC Cefazolin Sodium/ Dextrose 50 ml @ 100 mls/hr 1X ONCE IV Last administered on 03/06/18at 10:31; Start 03/06/18 at 09:30; Stop 03/06/18 at 09:59; Status DC Rocuronium [place] (Zemuron) 50 mg STK-MED ONCE .ROUTE ; Start 03/06/18 at 09: 25; Stop 03/06/18 at 09:26; Status DC Ondansetron HCl (Zofran) 4 mg PRN Q6HRS PRN IV NAUSEA/VOMITING; Start at 10:00; Stop 03/07/18 at 09:59; Status DC Fentanyl Citrate (Fentanyl 2ml Vial) 25 mcg PRN Q5MIN PRN IV MILD PAIN Last administered on 03/06/18at 13:55; Start 03/06/18 at 10:00; Stop 03/07/18 at 09 :59; Status DC Fentanyl Citrate (Fentanyl 2ml Vial) 50 mcg PRN Q5MIN PRN IV MODERATE TO SEVERE PAIN Last administered on 03/06/18at 13:39; Start 03/06/18 at 10:00; Stop 03/07/18 at 09:59; Status DC Morphine Sulfate (Morphine Sulfate) 1 mg PRN Q10MIN PRN IV SEVERE PAIN; Start 03/06/18 at 10:00; Stop 03/07/18 at 09:59; Status DC Ringer's Solution 1,000 ml @ 30 mls/hr Q24H IV ; Start 03/06/18 at 09:50; Stop 03/06/18 at 21:49; Status DC Lidocaine HCl (Xylocaine-Mpf 1% 2ml Vial) 2 ml PRN 1X PRN ID PRIOR TO IV START ; Start 03/06/18 at 10:00; Stop 03/07/18 at 09:59; Status DC Hydromorphone HCl (Dilaudid) 0.5 mg PRN Q10MIN PRN IV SEV PAIN, Second choice; Start 03/06/18 at 10:00; Stop 03/07/18 at 09:59; Status DC Prochlorperazine Edisylate (Compazine) 5 mg PACU PRN PRN IV NAUSEA, MRX1; Start 03/06/18 at 10:00; Stop 03/07/18 at 09:59; Status DC Midazolam HCl (Versed) 2 mg STK-MED ONCE .ROUTE ; Start 03/06/18 at 10:05; Stop 03/06/18 at 10:06; Status DC Lidocaine HCl (Glydo (Lidocaine) Jelly) 6 eleni STK-MED ONCE .ROUTE ; Start 03/06 at 09:06; Stop 03/06/18 at 10:06; Status DC Propofol 20 ml @ As Directed STK-MED ONCE IV ; Start 03/06/18 at 10:37; Stop 03/06/18 at 10:38; Status DC Dexamethasone Sodium Phosphate (Decadron) 20 mg STK-MED ONCE .ROUTE ; Start at 11:29; Stop 03/06/18 at 11:30; Status DC Famotidine (Pepcid Vial) 20 mg STK-MED ONCE .ROUTE ; Start 03/06/18 at 11:30; Stop 03/06/18 at 11:31; Status DC Ondansetron HCl (Zofran) 4 mg STK-MED ONCE .ROUTE ; Start 03/06/18 at 11:30; Stop 03/06/18 at 11:31; Status DC Neostigmine Methylsulfate (Neostigmine Methylsulfate) 5 mg STK-MED ONCE .ROUTE ; Start 03/06/18 at 11:30; Stop 03/06/18 at 11:31; Status DC Glycopyrrolate (Robinul) 1 mg STK-MED ONCE .ROUTE ; Start 03/06/18 at 11:31; Stop 03/06/18 at 11:32; Status DC Belladonna Alkaloids/Opium (B & O) 1 supp 1X ONCE AR Last administered on at 12:50; Start 03/06/18 at 12:15; Stop 03/06/18 at 12:16; Status DC Hydralazine HCl (Apresoline Inj) 20 mg STK-MED ONCE .ROUTE ; Start 03/06/18 at 12:16; Stop 03/06/18 at 12:17; Status DC Fentanyl Citrate (Fentanyl 2ml Vial) 100 mcg STK-MED ONCE .ROUTE ; Start at 12:22; Stop 03/06/18 at 12:23; Status DC Sevoflurane (Ultane) 90 ml STK-MED ONCE IH ; Start 03/06/18 at 12:50; Stop at 12:51; Status DC Iohexol (Omnipaque 300 Mg/ml) 75 ml 1X ONCE IV Last administered on at 14:56; Start 03/06/18 at 14:45; Stop 03/06/18 at 14:46; Status DC Info (CONTRAST GIVEN -- Rx MONITORING) 1 each PRN DAILY PRN MC SEE COMMENTS; Start 03/06/18 at 14:45; Stop 03/08/18 at 14:44; Status DC Insulin Human Lispro (HumaLOG) 0-5 UNITS TIDWMEALS SQ ; Start 03/07/18 at 08:00 ; Stop 03/07/18 at 08:00; Status DC Dextrose (Dextrose 50%-Water Syringe) 12.5 gm PRN Q15MIN PRN IV SEE COMMENTS; Start 03/06/18 at 17:30 Insulin Human Lispro (HumaLOG) 0-5 UNITS TIDWMEALS SQ Last administered on 03/11at 11:58; Start 03/06/18 at 18:00 Ceftriaxone Sodium 50 ml @ 100 mls/hr 1X ONCE IV ; Start 03/07/18 at 10:00; Stop 03/07/18 at 10:29; Status UNV Ceftriaxone Sodium (Rocephin) 1 gm 1X ONCE IVP Last administered on at 10:26; Start 03/07/18 at 10:00; Stop 03/07/18 at 10:01; Status DC Sodium Chloride 1,000 ml @ 75 mls/hr [id number] IV Last administered on at 21:44; Start 03/07/18 at 10:00 Sodium Chloride 1,000 ml @ 1,000 mls/hr 1X ONCE IV Last administered on 03/07at 10:27; Start 03/07/18 at 10:00; Stop 03/07/18 at 10:59; Status DC Ceftriaxone Sodium 1 gm/ Dextrose 50 ml @ 100 mls/hr DAILY IV ; Start 03/08/18 at 09:00; Status UNV Ceftriaxone Sodium (Rocephin) 1 gm Q24H IVP Last administered on 03/09/18at 09: 21; Start 03/08/18 at 10:00; Stop 03/09/18 at 14:46; Status DC Potassium Chloride (Klor-Con) 40 meq 1X ONCE PO Last administered on at 12:32; Start 03/09/18 at 10:45; Stop 03/09/18 at 10:46; Status DC Cefpodoxime Proxetil (Vantin) 200 mg BID PO Last administered on 03/12/18at 08: 01; Start 03/10/18 at 09:00 Lidocaine HCl (Glydo (Lidocaine) Jelly) 1 eleni 1X ONCE MM ; Start 03/10/18 at 01 :30; Stop 03/10/18 at 01:31; Status DC Lidocaine HCl (Glydo (Lidocaine) Jelly) 1 eleni PRN 1X PRN MM PAIN Last administered on 03/10/18at 10:15; Start 03/10/18 at 03:00 Active Scripts Active Flomax (Tamsulosin Hcl) 0.4 Mg Cap.er.24h 1 Cap PO DAILY 7 Days Cipro (Ciprofloxacin Hcl) 500 Mg Tablet 1 Tab PO BID 10 Days Flagyl (Metronidazole) 500 Mg Tablet 1 Tab PO TID Levaquin (Levofloxacin) 500 Mg Tablet 1 Tab PO DAILY Reported Metformin HCl 500 Mg/5 Ml Solution 500 Mg PO DAILY Vitals/I & O Vital Sign - Last 24 Hours 03/11/18 03/11/18 03/11/18 03/11/18 11:08 15:50 19:00 20:00 Temp 98.3 98.9 99.0 98.3 98.9 99.0 Pulse 77 96 83 Resp 18 18 18 B/P (MAP) 115/73 (87) 119/58 (78) 114/74 (87) Pulse Ox 96 98 95 O2 Delivery Room Air Room Air Room Air Room Air 03/11/18 03/12/18 03/12/18 23:00 03:00 07:00 Temp 98.9 99.4 98.1 98.9 99.4 98.1 Pulse 78 74 72 Resp 18 18 16 B/P (MAP) 100/59 (73) 93/59 (70) 111/63 (79) Pulse Ox 97 98 98 O2 Delivery Room Air Room Air Room Air Intake and Output 03/11/18 03/11/18 03/12/18 15:00 23:00 07:00 Intake Total 120 ml 650 ml 900 ml Output Total 1225 ml 1300 ml 2000 ml Balance -1105 ml -650 ml -1100 ml BERNABE AN MD Mar 12, 2018 09:09
[2018-03-12] MEDS ORDERED: IRON SUCROSE COMPLEX 500 MG in IV NORMAL SALINE 250ML 250 ML IV ONE (09:15)
[2018-03-12] MEDS: IV NORMAL SALINE 1000ML BAG 1,000 ML IV SCH (10:22)
[2018-03-12 11:00] VITALS: BP 110/74
--- NOTE | 2018-03-12 11:19 | PDOC ---
SUBJECTIVE Subjective Pt resting, catheter working well, no problems no pain this morning. OBJECTIVE Objective Physical Exam: General appearance: Alert and Oriented Head: Normocephalic, without obvious abnormality Eyes: conjunctivae/corneas clear. PERRL, EOM's intact. Fundi benign Lungs: regular respirations, non labored breathing. Abdomen: soft, non-tender.No masses, no organomegaly Pelvic: uncircumcised phallus. Zhou catheter draining red tinged urine. No clots present. Vital Signs Vital Signs Date Time Temp Pulse Resp B/P (MAP) Pulse Ox O2 Delivery O2 Flow Rate FiO2 03/12/18 07:00 98.1 72 16 111/63 (79) 98 Room Air 98.1 03/12/18 03:00 99.4 74 18 93/59 (70) 98 Room Air 99.4 03/11/18 23:00 98.9 78 18 100/59 (73) 97 Room Air 98.9 03/11/18 20:00 Room Air 03/11/18 19:00 99.0 83 18 114/74 (87) 95 Room Air 99.0 03/11/18 15:50 98.9 96 18 119/58 (78) 98 Room Air 98.9 I & O Intake and Output 03/12/18 07:00 Intake Total 1670 ml Output Total 4525 ml Balance -2855 ml Intake Oral 1670 ml Output Urine Total 4525 ml # Bowel Movements 1 PHYSICAL EXAM Physical Exam Physical Exam: General appearance: Alert and Oriented Head: Normocephalic, without obvious abnormality Eyes: conjunctivae/corneas clear. PERRL, EOM's intact. Fundi benign Lungs: regular respirations, non labored breathing. Abdomen: soft, non-tender.No masses, no organomegaly Pelvic: uncircumcised phallus. Hzou catheter draining red tinged urine. No clots present. ASSESSMENT/PLAN Assessment/Plan 57 yo M who presents with gross hematuria, elevated PSA and diffuse bone mets who is POD 6 s/p TURP. Await final pathology then ADT per Dr. Heart. Urine retention. Long standing based on pre-operative imaging. Patient declined SP tube at the time of surgery. Allow for an additional weak of bladder rest prior to voiding trial. Continue flomax and can attempt voiding trial on Monday if he is still here or as an outpatient. Will follow peripherally while in house. Problems: (1) Bladder mass (2) Hematuria COMMENT Lab Laboratory Tests Test 03/11/18 16:35 03/11/18 21:08 03/12/18 06:10 03/12/18 07:36 Glucose (Fingerstick) 121 mg/dL (70-99) 202 mg/dL (70-99) 142 mg/dL (70-99) White Blood Count 5.3 x10^3/uL (4.0-11.0) Red Blood Count 2.54 x10^6/uL (4.30-5.70) Hemoglobin 8.1 g/dL (13.0-17.5) Hematocrit 23.5 % (39.0-53.0) Mean Corpuscular Volume 93 fL (79-100) Mean Corpuscular Hemoglobin 32 pg (25-35) Mean Corpuscular Hemoglobin Concent 35 g/dL (31-37) Red Cell Distribution Width 14.2 % (11.5-14.5) Platelet Count 184 x10^3/uL (140-400) Neutrophils (%) (Auto) 55 % (31-73) Lymphocytes (%) (Auto) 30 % (24-48) Monocytes (%) (Auto) 12 % (0-9) Eosinophils (%) (Auto) 3 % (0-3) Basophils (%) (Auto) 1 % (0-3) Neutrophils # (Auto) 2.9 x10^3uL (1.8-7.7) Lymphocytes # (Auto) 1.6 x10^3/uL (1.0-4.8) Monocytes # (Auto) 0.6 x10^3/uL (0.0-1.1) Eosinophils # (Auto) 0.2 x10^3/uL (0.0-0.7) Basophils # (Auto) 0.0 x10^3/uL (0.0-0.2) Sodium Level 142 mmol/L (136-145) Potassium Level 3.8 mmol/L (3.5-5.1) Chloride Level 108 mmol/L (98-107) Carbon Dioxide Level 23 mmol/L (21-32) Anion Gap 11 (6-14) Blood Urea Nitrogen 7 mg/dL (8-26) Creatinine 0.7 mg/dL (0.7-1.3) Estimated GFR (Cockcroft-Gault) 116.7 Glucose Level 144 mg/dL (70-99) Calcium Level 8.4 mg/dL (8.5-10.1) ESTRELLA PANIAGUA APRN Mar 12, 2018 11:19
--- NOTE | 2018-03-12 12:07 | PATHOLOGY ---
[facility] Accession Number: [id number] . 01 Material submitted: . PROSTATE CHIPS . 01 Clinician provided ICD-10: R31.9 N32.9 . 01 Clinical history: . Hematuria, bladder mass, concern for metastatic prostate cancer . 02 Diagnosis: Prostate, transurethral resection: - Prostatic adenocarcinoma, Vel grade 4+3, present extensively throughout specimen. . (Please see comment) . (SKM:mylene; 03/08/2018) MBR/03/08/2018 . 02 Comment: Tiny focal areas consistent with Vel grade 5 adenocarcinoma are also present. . The findings in this case were relayed to Suzan at Dr. Lechuga's office on 03/08/18. . This case has also been reviewed by Dr. Roberto Darden who agrees with the diagnosis. . (EMILIE:mylene; 03/08/2018) . 02 Electronically signed: . Dre Catalan MD, Pathologist NPI- [id number] . 01 Gross description: . The specimen is received in formalin, labeled "Kip Carmona, prostate chips". Received is a 37 g aggregate of light allen to pink-allen rubbery tissue measuring 11.8 x 9.8 x 2.2 cm in aggregate dimensions. The specimen is submitted representatively in cassettes A1 through A8. (CAA; 03/07/2018) QAC/QAC . 02 Pathologist provided ICD-10: C61 . 02 CPT . 824007 Specimen Comment: A courtesy copy of this report has been sent to Specimen Comment: [phone], , . Specimen Comment: Report sent to , DR RAHMAN / DR CHEUNG Specimen Comment: A duplicate report has been generated due to demographic updates. Performed at: 01 [facility] [address] [facility] [address], [place] [id number] MD Michael Gomez MD Phone: [phone] Performed at: 02 [facility] [address] [place], [place] [id number] MD Alberto Morton MD Phone: [phone]
[2018-03-12 15:00] VITALS: BP 134/81
--- NOTE | 2018-03-12 15:42 | PDOC ---
PROGRESS NOTES Chief Complaint Chief Complaint Gross hematuria: Prostate Ca? - elevated PSA Enlarged prostate- S/P TURP 03/06, path Prostatic adenocarcinoma, Bladder mass: 7 x 12 cm Back pain evidence of metastatic lesions on imaging Anemia: d/t hematuria urinary retention on glez now plan: fu with onco, uro as per uro, want keep G[facility] till SAt then void trial pt has no insurance, i talked to gf before would like to go back to [place]. i called gf again today, no answer. i asked pt if he wants to go home, he said dont know i talked to sw, try to talk to gf to see if can dc home and fu with uro as outpt , but pt has no insurance. not sure when he can go back to [place]. consider dc abx if ok with uro. History of Present Illness History of Present Illness Pt seen and examined. Pt sitting upright in bed. S/p TURP 03/06, glez back in yesterday for PVR of 700cc. He is resting comfortably with glez back in now. Pt says that he is currently not in any pain . no hematuria DW RN A/ Vitals Vitals Vital Signs Date Time Temp Pulse Resp B/P (MAP) Pulse Ox O2 Delivery O2 Flow Rate FiO2 03/12/18 15:00 98.5 80 16 134/81 (98) 99 Room Air 98.5 Physical Exam General: Alert, Oriented X3, No acute distress Heart: Normal S1, Normal S2 Lungs: Clear Abdomen: Soft, No tenderness, No masses Extremities: No clubbing, No cyanosis, Normal pulses, No tenderness/swelling Skin: No rashes, No breakdown, No significant lesion Labs LABS Laboratory Tests Test 03/11/18 16:35 03/11/18 21:08 03/12/18 06:10 03/12/18 07:36 Glucose (Fingerstick) 121 mg/dL (70-99) 202 mg/dL (70-99) 142 mg/dL (70-99) White Blood Count 5.3 x10^3/uL (4.0-11.0) Red Blood Count 2.54 x10^6/uL (4.30-5.70) Hemoglobin 8.1 g/dL (13.0-17.5) Hematocrit 23.5 % (39.0-53.0) Mean Corpuscular Volume 93 fL (79-100) Mean Corpuscular Hemoglobin 32 pg (25-35) Mean Corpuscular Hemoglobin Concent 35 g/dL (31-37) Red Cell Distribution Width 14.2 % (11.5-14.5) Platelet Count 184 x10^3/uL (140-400) Neutrophils (%) (Auto) 55 % (31-73) Lymphocytes (%) (Auto) 30 % (24-48) Monocytes (%) (Auto) 12 % (0-9) Eosinophils (%) (Auto) 3 % (0-3) Basophils (%) (Auto) 1 % (0-3) Neutrophils # (Auto) 2.9 x10^3uL (1.8-7.7) Lymphocytes # (Auto) 1.6 x10^3/uL (1.0-4.8) Monocytes # (Auto) 0.6 x10^3/uL (0.0-1.1) Eosinophils # (Auto) 0.2 x10^3/uL (0.0-0.7) Basophils # (Auto) 0.0 x10^3/uL (0.0-0.2) Sodium Level 142 mmol/L (136-145) Potassium Level 3.8 mmol/L (3.5-5.1) Chloride Level 108 mmol/L (98-107) Carbon Dioxide Level 23 mmol/L (21-32) Anion Gap 11 (6-14) Blood Urea Nitrogen 7 mg/dL (8-26) Creatinine 0.7 mg/dL (0.7-1.3) Estimated GFR (Cockcroft-Gault) 116.7 Glucose Level 144 mg/dL (70-99) Calcium Level 8.4 mg/dL (8.5-10.1) Test 03/12/18 11:15 Glucose (Fingerstick) 171 mg/dL (70-99) Assessment and Plan Assessmemt and Plan Problems Medical Problems: (1) Bladder mass Status: Acute (2) Hematuria Status: Acute Comment Review of Relevant I have reviewed the following items mame (where applicable) has been applied. Labs Laboratory Tests Test 03/10/18 16:55 03/10/18 20:56 03/11/18 04:45 03/11/18 08:02 Glucose (Fingerstick) 197 mg/dL (70-99) 161 mg/dL (70-99) 165 mg/dL (70-99) White Blood Count 5.5 x10^3/uL (4.0-11.0) Red Blood Count 2.43 x10^6/uL (4.30-5.70) Hemoglobin 7.8 g/dL (13.0-17.5) Hematocrit 22.5 % (39.0-53.0) Mean Corpuscular Volume 93 fL (79-100) Mean Corpuscular Hemoglobin 32 pg (25-35) Mean Corpuscular Hemoglobin Concent 35 g/dL (31-37) Red Cell Distribution Width 14.3 % (11.5-14.5) Platelet Count 163 x10^3/uL (140-400) Neutrophils (%) (Auto) 55 % (31-73) Lymphocytes (%) (Auto) 27 % (24-48) Monocytes (%) (Auto) 14 % (0-9) Eosinophils (%) (Auto) 3 % (0-3) Basophils (%) (Auto) 1 % (0-3) Neutrophils # (Auto) 3.0 x10^3uL (1.8-7.7) Lymphocytes # (Auto) 1.5 x10^3/uL (1.0-4.8) Monocytes # (Auto) 0.8 x10^3/uL (0.0-1.1) Eosinophils # (Auto) 0.2 x10^3/uL (0.0-0.7) Basophils # (Auto) 0.0 x10^3/uL (0.0-0.2) Sodium Level 142 mmol/L (136-145) Potassium Level 3.6 mmol/L (3.5-5.1) Chloride Level 108 mmol/L (98-107) Carbon Dioxide Level 25 mmol/L (21-32) Anion Gap 9 (6-14) Blood Urea Nitrogen 7 mg/dL (8-26) Creatinine 0.7 mg/dL (0.7-1.3) Estimated GFR (Cockcroft-Gault) 116.7 Glucose Level 141 mg/dL (70-99) Calcium Level 8.5 mg/dL (8.5-10.1) Test 03/11/18 11:01 03/11/18 16:35 03/11/18 21:08 03/12/18 06:10 Glucose (Fingerstick) 187 mg/dL (70-99) 121 mg/dL (70-99) 202 mg/dL (70-99) White Blood Count 5.3 x10^3/uL (4.0-11.0) Red Blood Count 2.54 x10^6/uL (4.30-5.70) Hemoglobin 8.1 g/dL (13.0-17.5) Hematocrit 23.5 % (39.0-53.0) Mean Corpuscular Volume 93 fL (79-100) Mean Corpuscular Hemoglobin 32 pg (25-35) Mean Corpuscular Hemoglobin Concent 35 g/dL (31-37) Red Cell Distribution Width 14.2 % (11.5-14.5) Platelet Count 184 x10^3/uL (140-400) Neutrophils (%) (Auto) 55 % (31-73) Lymphocytes (%) (Auto) 30 % (24-48) Monocytes (%) (Auto) 12 % (0-9) Eosinophils (%) (Auto) 3 % (0-3) Basophils (%) (Auto) 1 % (0-3) Neutrophils # (Auto) 2.9 x10^3uL (1.8-7.7) Lymphocytes # (Auto) 1.6 x10^3/uL (1.0-4.8) Monocytes # (Auto) 0.6 x10^3/uL (0.0-1.1) Eosinophils # (Auto) 0.2 x10^3/uL (0.0-0.7) Basophils # (Auto) 0.0 x10^3/uL (0.0-0.2) Sodium Level 142 mmol/L (136-145) Potassium Level 3.8 mmol/L (3.5-5.1) Chloride Level 108 mmol/L (98-107) Carbon Dioxide Level 23 mmol/L (21-32) Anion Gap 11 (6-14) Blood Urea Nitrogen 7 mg/dL (8-26) Creatinine 0.7 mg/dL (0.7-1.3) Estimated GFR (Cockcroft-Gault) 116.7 Glucose Level 144 mg/dL (70-99) Calcium Level 8.4 mg/dL (8.5-10.1) Test 11/5/18 07:36 03/12/18 11:15 Glucose (Fingerstick) 142 mg/dL (70-99) 171 mg/dL (70-99) Laboratory Tests Test 03/11/18 16:35 03/11/18 21:08 03/12/18 06:10 03/12/18 07:36 Glucose (Fingerstick) 121 mg/dL (70-99) 202 mg/dL (70-99) 142 mg/dL (70-99) White Blood Count 5.3 x10^3/uL (4.0-11.0) Red Blood Count 2.54 x10^6/uL (4.30-5.70) Hemoglobin 8.1 g/dL (13.0-17.5) Hematocrit 23.5 % (39.0-53.0) Mean Corpuscular Volume 93 fL (79-100) Mean Corpuscular Hemoglobin 32 pg (25-35) Mean Corpuscular Hemoglobin Concent 35 g/dL (31-37) Red Cell Distribution Width 14.2 % (11.5-14.5) Platelet Count 184 x10^3/uL (140-400) Neutrophils (%) (Auto) 55 % (31-73) Lymphocytes (%) (Auto) 30 % (24-48) Monocytes (%) (Auto) 12 % (0-9) Eosinophils (%) (Auto) 3 % (0-3) Basophils (%) (Auto) 1 % (0-3) Neutrophils # (Auto) 2.9 x10^3uL (1.8-7.7) Lymphocytes # (Auto) 1.6 x10^3/uL (1.0-4.8) Monocytes # (Auto) 0.6 x10^3/uL (0.0-1.1) Eosinophils # (Auto) 0.2 x10^3/uL (0.0-0.7) Basophils # (Auto) 0.0 x10^3/uL (0.0-0.2) Sodium Level 142 mmol/L (136-145) Potassium Level 3.8 mmol/L (3.5-5.1) Chloride Level 108 mmol/L (98-107) Carbon Dioxide Level 23 mmol/L (21-32) Anion Gap 11 (6-14) Blood Urea Nitrogen 7 mg/dL (8-26) Creatinine 0.7 mg/dL (0.7-1.3) Estimated GFR (Cockcroft-Gault) 116.7 Glucose Level 144 mg/dL (70-99) Calcium Level 8.4 mg/dL (8.5-10.1) Test 03/12/18 11:15 Glucose (Fingerstick) 171 mg/dL (70-99) Microbiology 03/07/18 Blood Culture - Final, Complete NO GROWTH AFTER 5 DAYS 03/05/18 Urine Culture - Final, Complete 03/05/18 Urine Culture Result 1 ([place]) - Final, Complete Medications Current Medications Sodium Chloride 1,000 ml @ 1,000 mls/hr 1X ONCE IV Last administered on 03/04at 12:07; Start 03/04/18 at 11:45; Stop 03/04/18 at 12:44; Status DC Iohexol (Omnipaque 300 Mg/ml) 75 ml 1X ONCE IV ; Start 03/04/18 at 12:30; Stop 03/04/18 at 12:36; Status DC Info (CONTRAST GIVEN -- Rx MONITORING) 1 each PRN DAILY PRN MC SEE COMMENTS; Start 03/04/18 at 12:45; Stop 03/06/18 at 12:54; Status DC Sodium Chloride 1,000 ml @ 1,000 mls/hr 1X ONCE IV Last administered on 03/04at 13:45; Start 03/04/18 at 13:45; Stop 03/04/18 at 14:44; Status DC Ondansetron HCl (Zofran) 4 mg PRN Q8HRS PRN IV NAUSEA/VOMITING; Start at 14:15; Stop 03/04/18 at 14:56; Status DC Morphine Sulfate (Morphine Sulfate) 4 mg PRN Q2HR PRN IV PAIN Last administered on 03/05/18at 11:35; Start 03/04/18 at 14:15; Stop 03/05/18 at 13 :46; Status DC Sodium Chloride 1,000 ml @ 125 mls/hr Q8H IV ; Start 03/04/18 at 14:11; Stop 03/05/18 at 14:10; Status DC Acetaminophen (Tylenol) 650 mg PRN Q4HRS PRN PO FEVER; Start 03/04/18 at 14:15 ; Stop 03/05/18 at 13:46; Status DC Ondansetron HCl (Zofran) 4 mg PRN Q6HRS PRN IV NAUSEA/VOMITING Last administered on 03/04/18at 15:05; Start 03/04/18 at 15:00; Stop 03/05/18 at 13 :46; Status DC Diphenhydramine HCl (Benadryl) 25 mg PRN QHS PRN PO INSOMNIA Last administered on 03/10/18at 22:28; Start 03/04/18 at 15:00 Multivitamins 10 ml/Thiamine HCl 100 mg/Folic Acid 1 mg/Sodium Chloride 1,011.2 ml @ 1,000.088 mls/hr 1X ONCE IV Last administered on 03/04/18at 16:31; Start 03/04/18 at 15:30; Stop 03/04/18 at 16:35; Status DC Multivitamins (Thera M Plus) 1 tab DAILY PO Last administered on 03/12/18at 08: 01; Start 03/05/18 at 09:00 Folic Acid (Folic Acid) 1 mg DAILY PO Last administered on 03/12/18at 08:01; Start 03/05/18 at 09:00 Thiamine Mononitrate (Vitamin B-1) 100 mg DAILY PO Last administered on at 08:01; Start 03/05/18 at 09:00 Chlordiazepoxide (Librium) 25 mg PRN Q6HRS PRN PO ANXIETY / AGITATION; Start 03/04/18 at 15:00 Labetalol HCl (Normodyne Iv Push) 20 mg 1X ONCE IVP Last administered on 03/04at 20:21; Start 03/04/18 at 16:15; Stop 03/04/18 at 16:35; Status DC Labetalol HCl (Normodyne Iv Push) 20 mg PRN Q2HR PRN IVP HYPERTENSION, SEE COMMENTS; Start 03/04/18 at 18:00 Lidocaine HCl (Glydo (Lidocaine) Jelly) 1 eleni 1X ONCE MM ; Start 03/04/18 at 18:15; Stop 03/04/18 at 18:16; Status DC Finasteride (Proscar) 5 mg DAILY PO Last administered on 03/12/18at 08:01; Start 03/05/18 at 09:00 Acetaminophen (Tylenol) 650 mg PRN Q6HRS PRN PO FEVER Last administered on 03/09at 20:06; Start 03/05/18 at 13:45 Ondansetron HCl (Zofran) 4 mg PRN Q6HRS PRN IV NAUSEA/VOMITING; Start at 13:45 Morphine Sulfate (Morphine Sulfate) 2 mg PRN Q2HR PRN IV MODERATE TO SEVERE PAIN Last administered on 03/10/18at 10:30; Start 03/05/18 at 13:45 Tramadol HCl (Ultram) 50 mg PRN Q6HRS PRN PO MILD TO MODERATE PAIN Last administered on 03/08/18at 16:14; Start 03/05/18 at 13:45 Docusate Sodium (Colace) 100 mg PRN DAILY PRN PO CONSTIPATION; Start 03/05/18 at 13:45 Propofol 20 ml @ As Directed STK-MED ONCE IV ; Start 03/06/18 at 09:24; Stop 03/06/18 at 09:25; Status DC Lidocaine HCl (Lidocaine Pf 2% Vial) 5 ml STK-MED ONCE .ROUTE ; Start 03/06/18 at 09:24; Stop 03/06/18 at 09:25; Status DC Fentanyl Citrate (Fentanyl 2ml Vial) 100 mcg STK-MED ONCE .ROUTE ; Start at 09:24; Stop 03/06/18 at 09:25; Status DC Potassium Chloride (Klor-Con) 40 meq 1X ONCE PO ; Start 03/06/18 at 10:00; Stop 03/06/18 at 10:01; Status DC Cefazolin Sodium/ Dextrose 50 ml @ 100 mls/hr 1X ONCE IV Last administered on 03/06/18at 10:31; Start 03/06/18 at 09:30; Stop 03/06/18 at 09:59; Status DC Rocuronium [place] (Zemuron) 50 mg STK-MED ONCE .ROUTE ; Start 03/06/18 at 09: 25; Stop 03/06/18 at 09:26; Status DC Ondansetron HCl (Zofran) 4 mg PRN Q6HRS PRN IV NAUSEA/VOMITING; Start at 10:00; Stop 03/07/18 at 09:59; Status DC Fentanyl Citrate (Fentanyl 2ml Vial) 25 mcg PRN Q5MIN PRN IV MILD PAIN Last administered on 03/06/18at 13:55; Start 03/06/18 at 10:00; Stop 03/07/18 at 09 :59; Status DC Fentanyl Citrate (Fentanyl 2ml Vial) 50 mcg PRN Q5MIN PRN IV MODERATE TO SEVERE PAIN Last administered on 03/06/18at 13:39; Start 03/06/18 at 10:00; Stop 03/07/18 at 09:59; Status DC Morphine Sulfate (Morphine Sulfate) 1 mg PRN Q10MIN PRN IV SEVERE PAIN; Start 03/06/18 at 10:00; Stop 03/07/18 at 09:59; Status DC Ringer's Solution 1,000 ml @ 30 mls/hr Q24H IV ; Start 03/06/18 at 09:50; Stop 03/06/18 at 21:49; Status DC Lidocaine HCl (Xylocaine-Mpf 1% 2ml Vial) 2 ml PRN 1X PRN ID PRIOR TO IV START ; Start 03/06/18 at 10:00; Stop 03/07/18 at 09:59; Status DC Hydromorphone HCl (Dilaudid) 0.5 mg PRN Q10MIN PRN IV SEV PAIN, Second choice; Start 03/06/18 at 10:00; Stop 03/07/18 at 09:59; Status DC Prochlorperazine Edisylate (Compazine) 5 mg PACU PRN PRN IV NAUSEA, MRX1; Start 03/06/18 at 10:00; Stop 03/07/18 at 09:59; Status DC Midazolam HCl (Versed) 2 mg STK-MED ONCE .ROUTE ; Start 03/06/18 at 10:05; Stop 03/06/18 at 10:06; Status DC Lidocaine HCl (Glydo (Lidocaine) Jelly) 6 eleni STK-MED ONCE .ROUTE ; Start 03/06 at 09:06; Stop 03/06/18 at 10:06; Status DC Propofol 20 ml @ As Directed STK-MED ONCE IV ; Start 03/06/18 at 10:37; Stop 03/06/18 at 10:38; Status DC Dexamethasone Sodium Phosphate (Decadron) 20 mg STK-MED ONCE .ROUTE ; Start at 11:29; Stop 03/06/18 at 11:30; Status DC Famotidine (Pepcid Vial) 20 mg STK-MED ONCE .ROUTE ; Start 03/06/18 at 11:30; Stop 03/06/18 at 11:31; Status DC Ondansetron HCl (Zofran) 4 mg STK-MED ONCE .ROUTE ; Start 03/06/18 at 11:30; Stop 03/06/18 at 11:31; Status DC Neostigmine Methylsulfate (Neostigmine Methylsulfate) 5 mg STK-MED ONCE .ROUTE ; Start 03/06/18 at 11:30; Stop 03/06/18 at 11:31; Status DC Glycopyrrolate (Robinul) 1 mg STK-MED ONCE .ROUTE ; Start 03/06/18 at 11:31; Stop 03/06/18 at 11:32; Status DC Belladonna Alkaloids/Opium (B & O) 1 supp 1X ONCE TN Last administered on at 12:50; Start 03/06/18 at 12:15; Stop 03/06/18 at 12:16; Status DC Hydralazine HCl (Apresoline Inj) 20 mg STK-MED ONCE .ROUTE ; Start 03/06/18 at 12:16; Stop 03/06/18 at 12:17; Status DC Fentanyl Citrate (Fentanyl 2ml Vial) 100 mcg STK-MED ONCE .ROUTE ; Start at 12:22; Stop 03/06/18 at 12:23; Status DC Sevoflurane (Ultane) 90 ml STK-MED ONCE IH ; Start 03/06/18 at 12:50; Stop at 12:51; Status DC Iohexol (Omnipaque 300 Mg/ml) 75 ml 1X ONCE IV Last administered on at 14:56; Start 03/06/18 at 14:45; Stop 03/06/18 at 14:46; Status DC Info (CONTRAST GIVEN -- Rx MONITORING) 1 each PRN DAILY PRN MC SEE COMMENTS; Start 03/06/18 at 14:45; Stop 03/08/18 at 14:44; Status DC Insulin Human Lispro (HumaLOG) 0-5 UNITS TIDWMEALS SQ ; Start 03/07/18 at 08:00 ; Stop 03/07/18 at 08:00; Status DC Dextrose (Dextrose 50%-Water Syringe) 12.5 gm PRN Q15MIN PRN IV SEE COMMENTS; Start 03/06/18 at 17:30 Insulin Human Lispro (HumaLOG) 0-5 UNITS TIDWMEALS SQ Last administered on 03/12at 12:05; Start 03/06/18 at 18:00 Ceftriaxone Sodium 50 ml @ 100 mls/hr 1X ONCE IV ; Start 03/07/18 at 10:00; Stop 03/07/18 at 10:29; Status UNV Ceftriaxone Sodium (Rocephin) 1 gm 1X ONCE IVP Last administered on at 10:26; Start 03/07/18 at 10:00; Stop 03/07/18 at 10:01; Status DC Sodium Chloride 1,000 ml @ 75 mls/hr [id number] IV Last administered on at 10:22; Start 03/07/18 at 10:00 Sodium Chloride 1,000 ml @ 1,000 mls/hr 1X ONCE IV Last administered on 03/07at 10:27; Start 03/07/18 at 10:00; Stop 03/07/18 at 10:59; Status DC Ceftriaxone Sodium 1 gm/ Dextrose 50 ml @ 100 mls/hr DAILY IV ; Start 03/08/18 at 09:00; Status UNV Ceftriaxone Sodium (Rocephin) 1 gm Q24H IVP Last administered on 03/09/18at 09: 21; Start 03/08/18 at 10:00; Stop 03/09/18 at 14:46; Status DC Potassium Chloride (Klor-Con) 40 meq 1X ONCE PO Last administered on at 12:32; Start 03/09/18 at 10:45; Stop 03/09/18 at 10:46; Status DC Cefpodoxime Proxetil (Vantin) 200 mg BID PO Last administered on 03/12/18at 08: 01; Start 03/10/18 at 09:00 Lidocaine HCl (Glydo (Lidocaine) Jelly) 1 eleni 1X ONCE MM ; Start 03/10/18 at 01 :30; Stop 03/10/18 at 01:31; Status DC Lidocaine HCl (Glydo (Lidocaine) Jelly) 1 eleni PRN 1X PRN MM PAIN Last administered on 03/10/18at 10:15; Start 03/10/18 at 03:00 Iron Sucrose 500 mg/Sodium Chloride 275 ml @ 78.571 mls/ hr 1X ONCE IV Last administered on 03/12/18at 10:22; Start 03/12/18 at 09:15; Stop 03/12/18 at 12:44 ; Status DC Active Scripts Active Flomax (Tamsulosin Hcl) 0.4 Mg Cap.er.24h 1 Cap PO DAILY 7 Days Cipro (Ciprofloxacin Hcl) 500 Mg Tablet 1 Tab PO BID 10 Days Flagyl (Metronidazole) 500 Mg Tablet 1 Tab PO TID Levaquin (Levofloxacin) 500 Mg Tablet 1 Tab PO DAILY Reported Metformin HCl 500 Mg/5 Ml Solution 500 Mg PO DAILY Vitals/I & O Vital Sign - Last 24 Hours 03/11/18 03/11/18 03/11/18 03/11/18 15:50 19:00 20:00 23:00 Temp 98.9 99.0 98.9 98.9 99.0 98.9 Pulse 96 83 78 Resp 18 18 18 B/P (MAP) 119/58 (78) 114/74 (87) 100/59 (73) Pulse Ox 98 95 97 O2 Delivery Room Air Room Air Room Air Room Air 03/12/18 03/12/18 03/12/18 03/12/18 03:00 07:00 07:45 11:00 Temp 99.4 98.1 98.1 99.4 98.1 98.1 Pulse 74 72 74 Resp 18 16 16 B/P (MAP) 93/59 (70) 111/63 (79) 110/74 (86) Pulse Ox 98 98 96 O2 Delivery Room Air Room Air Room Air Room Air 03/12/18 15:00 Temp 98.5 98.5 Pulse 80 Resp 16 B/P (MAP) 134/81 (98) Pulse Ox 99 O2 Delivery Room Air Intake and Output 03/11/18 03/11/18 03/12/18 15:00 23:00 07:00 Intake Total 120 ml 650 ml 900 ml Output Total 1225 ml 1300 ml 2000 ml Balance -1105 ml -650 ml -1100 ml LOLY IRVIN MD Mar 12, 2018 15:42
[2018-03-12 19:00] VITALS: BP 130/73
[2018-03-12 23:00] VITALS: BP 110/60
[2018-03-13 03:00] VITALS: BP 124/76
[2018-03-13 03:46] LABS: BASO % 1 % (0-3); EOS # 0.1 x10^3/uL (0.0-0.7); EOS % 3 % (0-3); HEMATOCRIT 23.2 % (39.0-53.0); LYMPH # 1.3 x10^3/uL (1.0-4.8); LYMPH % 27 % (24-48); MEAN CORPUSCULAR HEMOGLOBIN 32 pg (25-35); MEAN CORPUSCULAR HGB CONC 35 g/dL (31-37); MEAN CORPUSCULAR VOLUME 93 fL (79-100); MONO # 0.6 x10^3/uL (0.0-1.1); MONO % 12 % (0-9); NEUT # 2.9 x10^3uL (1.8-7.7); NEUT % 58 % (31-73); PLATELET COUNT 196 x10^3/uL (140-400); RED BLOOD COUNT 2.49 x10^6/uL (4.30-5.70); RED CELL DISTRIBUTION WIDTH 14.6 % (11.5-14.5)
[2018-03-13 04:05] LABS: CALCIUM 8.5 mg/dL (8.5-10.1); CREATININE 0.7 mg/dL (0.7-1.3); GFR 116.7; POTASSIUM 3.7 mmol/L (3.5-5.1)
[2018-03-13 07:15] VITALS: BP 95/55
[2018-03-13] MEDS ORDERED: BICALUTAMIDE 50 MG TABLET PO SCH (09:00)
[2018-03-13] MEDS: FOLIC ACID 1 MG TABLET. PO SCH (09:03)
[2018-03-13] MEDS: MULTIVITAMIN with MINERAL TABLET. PO SCH (09:03)
[2018-03-13] MEDS: FINASTERIDE 5 MG TABLET. PO SCH (09:03)
[2018-03-13] MEDS: THIAMINE 100 MG TABLET. PO SCH (09:03)
[2018-03-13] MEDS: CEFPODOXIME PROXETIL 100 MG TABLET. PO SCH (09:03)
[2018-03-13] MEDS: INSULIN LISPRO 300 UNITS/3 ML INSULN.PEN. SQ SCH ×2 (09:05→12:47)
--- NOTE | 2018-03-13 09:06 | PDOC ---
PROGRESS NOTES Subjective Subjective HPI - f/u of Stage IV Prostate cancer with bone metastasis ROS - no CP Objective Objective Vital Signs Date Time Temp Pulse Resp B/P (MAP) Pulse Ox O2 Delivery O2 Flow Rate FiO2 03/13/18 07:15 98.4 76 14 95/55 (68) 100 Room Air 98.4 03/07/18 05:07 2.0 Intake and Output 03/13/18 07:00 Intake Total 1034 ml Output Total 5650 ml Balance -4616 ml IV Total 1034 ml Output Urine Total 5650 ml # Voids 1 Physical Exam Heart: Normal S1, Normal S2 General: Alert, Oriented X3 Lungs: Clear to auscultation Neuro: Normal speech Psych/Mental Status: Mental status NL Assessment Assessment Problems Medical Problems: (1) Bladder mass Status: Acute (2) Hematuria Status: Acute IMPRESSION AND PLAN: 1. Stage IV Prostate cancer with bone metastasis. Mass noted in the urinary bladder on CAT scan is likely to be a hematoma per Urology. Path: Prostatic adenocarcinoma, Vel grade 4+3 CT chest 03/06/18: Sclerotic bone lesions of ribs and thoracic spine, suspicious for osteoblastic metastatic tumor deposits. Ill-defined opacities in the lungs, particularly the right lower lobe and posterior right upper lobe, may be inflammatory/infectious. There is at least one 6 mm groundglass nodule. Given the other CT findings, neoplastic involvement is possible. Recommend at least short-term CT chest follow-up. I d/w Magdalena REDDY, from urology. PSA [id number] on 03/04/18 suggestive of prostate cancer. s/p TURP 03/06/18. Pt considering going to [facility] for treatment as he does not have insurance. His girlfriend mentioned that he does not have any income and he cannot afford medical care here. financial counselors mentioned that he cannot be seen at for oncology care as he does not have insurance and he does not have financial resources to afford care here. Pt's girlfriend is making arrangements for him to go to [facility] for treatment and pt agrees. I will start casodex 50 mg daily. 2. Hematuria. Appreciate Urology consultation. Urine retention. Long standing based on pre-operative imaging. Patient declined SP tube at the time of surgery. 3. Bone metastasis per CT scan. Bone scan 03/06/18: Diffuse osteoblastic metastatic disease identified. Involvement is noted within the ribs, spine, pelvic bones, and other bony structures.. 4. Anemia, Hb worse at 6.7 11..18, s/p 1 PRBC. Hb better at 7.7 on 03/09/18. Hb 8.1, Iron saturation only 11% on 03/09/18. s/p Venofer 500 mg 03/12/18. Hb now 8.0. Comment Review of Relevant I have reviewed the following items mame (where applicable) has been applied. Labs Laboratory Tests Test 03/11/18 11:01 03/11/18 16:35 03/11/18 21:08 03/12/18 06:10 Glucose (Fingerstick) 187 mg/dL (70-99) 121 mg/dL (70-99) 202 mg/dL (70-99) White Blood Count 5.3 x10^3/uL (4.0-11.0) Red Blood Count 2.54 x10^6/uL (4.30-5.70) Hemoglobin 8.1 g/dL (13.0-17.5) Hematocrit 23.5 % (39.0-53.0) Mean Corpuscular Volume 93 fL (79-100) Mean Corpuscular Hemoglobin 32 pg (25-35) Mean Corpuscular Hemoglobin Concent 35 g/dL (31-37) Red Cell Distribution Width 14.2 % (11.5-14.5) Platelet Count 184 x10^3/uL (140-400) Neutrophils (%) (Auto) 55 % (31-73) Lymphocytes (%) (Auto) 30 % (24-48) Monocytes (%) (Auto) 12 % (0-9) Eosinophils (%) (Auto) 3 % (0-3) Basophils (%) (Auto) 1 % (0-3) Neutrophils # (Auto) 2.9 x10^3uL (1.8-7.7) Lymphocytes # (Auto) 1.6 x10^3/uL (1.0-4.8) Monocytes # (Auto) 0.6 x10^3/uL (0.0-1.1) Eosinophils # (Auto) 0.2 x10^3/uL (0.0-0.7) Basophils # (Auto) 0.0 x10^3/uL (0.0-0.2) Sodium Level 142 mmol/L (136-145) Potassium Level 3.8 mmol/L (3.5-5.1) Chloride Level 108 mmol/L (98-107) Carbon Dioxide Level 23 mmol/L (21-32) Anion Gap 11 (6-14) Blood Urea Nitrogen 7 mg/dL (8-26) Creatinine 0.7 mg/dL (0.7-1.3) Estimated GFR (Cockcroft-Gault) 116.7 Glucose Level 144 mg/dL (70-99) Calcium Level 8.4 mg/dL (8.5-10.1) Test 03/12/18 07:36 03/12/18 11:15 03/12/18 16:58 03/12/18 20:28 Glucose (Fingerstick) 142 mg/dL (70-99) 171 mg/dL (70-99) 180 mg/dL (70-99) 199 mg/dL (70-99) Test 03/13/18 02:45 03/13/18 07:43 White Blood Count 5.0 x10^3/uL (4.0-11.0) Red Blood Count 2.49 x10^6/uL (4.30-5.70) Hemoglobin 8.0 g/dL (13.0-17.5) Hematocrit 23.2 % (39.0-53.0) Mean Corpuscular Volume 93 fL (79-100) Mean Corpuscular Hemoglobin 32 pg (25-35) Mean Corpuscular Hemoglobin Concent 35 g/dL (31-37) Red Cell Distribution Width 14.6 % (11.5-14.5) Platelet Count 196 x10^3/uL (140-400) Neutrophils (%) (Auto) 58 % (31-73) Lymphocytes (%) (Auto) 27 % (24-48) Monocytes (%) (Auto) 12 % (0-9) Eosinophils (%) (Auto) 3 % (0-3) Basophils (%) (Auto) 1 % (0-3) Neutrophils # (Auto) 2.9 x10^3uL (1.8-7.7) Lymphocytes # (Auto) 1.3 x10^3/uL (1.0-4.8) Monocytes # (Auto) 0.6 x10^3/uL (0.0-1.1) Eosinophils # (Auto) 0.1 x10^3/uL (0.0-0.7) Basophils # (Auto) 0.0 x10^3/uL (0.0-0.2) Sodium Level 142 mmol/L (136-145) Potassium Level 3.7 mmol/L (3.5-5.1) Chloride Level 108 mmol/L (98-107) Carbon Dioxide Level 25 mmol/L (21-32) Anion Gap 9 (6-14) Blood Urea Nitrogen 6 mg/dL (8-26) Creatinine 0.7 mg/dL (0.7-1.3) Estimated GFR (Cockcroft-Gault) 116.7 Glucose Level 142 mg/dL (70-99) Calcium Level 8.5 mg/dL (8.5-10.1) Glucose (Fingerstick) 151 mg/dL (70-99) Laboratory Tests Test 03/12/18 11:15 03/12/18 16:58 03/12/18 20:28 03/13/18 02:45 Glucose (Fingerstick) 171 mg/dL (70-99) 180 mg/dL (70-99) 199 mg/dL (70-99) White Blood Count 5.0 x10^3/uL (4.0-11.0) Red Blood Count 2.49 x10^6/uL (4.30-5.70) Hemoglobin 8.0 g/dL (13.0-17.5) Hematocrit 23.2 % (39.0-53.0) Mean Corpuscular Volume 93 fL (79-100) Mean Corpuscular Hemoglobin 32 pg (25-35) Mean Corpuscular Hemoglobin Concent 35 g/dL (31-37) Red Cell Distribution Width 14.6 % (11.5-14.5) Platelet Count 196 x10^3/uL (140-400) Neutrophils (%) (Auto) 58 % (31-73) Lymphocytes (%) (Auto) 27 % (24-48) Monocytes (%) (Auto) 12 % (0-9) Eosinophils (%) (Auto) 3 % (0-3) Basophils (%) (Auto) 1 % (0-3) Neutrophils # (Auto) 2.9 x10^3uL (1.8-7.7) Lymphocytes # (Auto) 1.3 x10^3/uL (1.0-4.8) Monocytes # (Auto) 0.6 x10^3/uL (0.0-1.1) Eosinophils # (Auto) 0.1 x10^3/uL (0.0-0.7) Basophils # (Auto) 0.0 x10^3/uL (0.0-0.2) Sodium Level 142 mmol/L (136-145) Potassium Level 3.7 mmol/L (3.5-5.1) Chloride Level 108 mmol/L (98-107) Carbon Dioxide Level 25 mmol/L (21-32) Anion Gap 9 (6-14) Blood Urea Nitrogen 6 mg/dL (8-26) Creatinine 0.7 mg/dL (0.7-1.3) Estimated GFR (Cockcroft-Gault) 116.7 Glucose Level 142 mg/dL (70-99) Calcium Level 8.5 mg/dL (8.5-10.1) Test 03/13/18 07:43 Glucose (Fingerstick) 151 mg/dL (70-99) Microbiology 03/07/18 Blood Culture - Final, Complete NO GROWTH AFTER 5 DAYS 03/05/18 Urine Culture - Final, Complete 03/05/18 Urine Culture Result 1 ([place]) - Final, Complete Medications Current Medications Sodium Chloride 1,000 ml @ 1,000 mls/hr 1X ONCE IV Last administered on 03/04at 12:07; Start 03/04/18 at 11:45; Stop 03/04/18 at 12:44; Status DC Iohexol (Omnipaque 300 Mg/ml) 75 ml 1X ONCE IV ; Start 03/04/18 at 12:30; Stop 03/04/18 at 12:36; Status DC Info (CONTRAST GIVEN -- Rx MONITORING) 1 each PRN DAILY PRN MC SEE COMMENTS; Start 03/04/18 at 12:45; Stop 03/06/18 at 12:54; Status DC Sodium Chloride 1,000 ml @ 1,000 mls/hr 1X ONCE IV Last administered on 03/04at 13:45; Start 03/04/18 at 13:45; Stop 03/04/18 at 14:44; Status DC Ondansetron HCl (Zofran) 4 mg PRN Q8HRS PRN IV NAUSEA/VOMITING; Start at 14:15; Stop 03/04/18 at 14:56; Status DC Morphine Sulfate (Morphine Sulfate) 4 mg PRN Q2HR PRN IV PAIN Last administered on 03/05/18at 11:35; Start 03/04/18 at 14:15; Stop 03/05/18 at 13 :46; Status DC Sodium Chloride 1,000 ml @ 125 mls/hr Q8H IV ; Start 03/04/18 at 14:11; Stop 03/05/18 at 14:10; Status DC Acetaminophen (Tylenol) 650 mg PRN Q4HRS PRN PO FEVER; Start 03/04/18 at 14:15 ; Stop 03/05/18 at 13:46; Status DC Ondansetron HCl (Zofran) 4 mg PRN Q6HRS PRN IV NAUSEA/VOMITING Last administered on 03/04/18at 15:05; Start 03/04/18 at 15:00; Stop 03/05/18 at 13 :46; Status DC Diphenhydramine HCl (Benadryl) 25 mg PRN QHS PRN PO INSOMNIA Last administered on 03/10/18at 22:28; Start 03/04/18 at 15:00 Multivitamins 10 ml/Thiamine HCl 100 mg/Folic Acid 1 mg/Sodium Chloride 1,011.2 ml @ 1,000.088 mls/hr 1X ONCE IV Last administered on 03/04/18at 16:31; Start 03/04/18 at 15:30; Stop 03/04/18 at 16:35; Status DC Multivitamins (Thera M Plus) 1 tab DAILY PO Last administered on 03/12/18at 08: 01; Start 03/05/18 at 09:00 Folic Acid (Folic Acid) 1 mg DAILY PO Last administered on 03/12/18at 08:01; Start 03/05/18 at 09:00 Thiamine Mononitrate (Vitamin B-1) 100 mg DAILY PO Last administered on at 08:01; Start 03/05/18 at 09:00 Chlordiazepoxide (Librium) 25 mg PRN Q6HRS PRN PO ANXIETY / AGITATION; Start 03/04/18 at 15:00 Labetalol HCl (Normodyne Iv Push) 20 mg 1X ONCE IVP Last administered on 03/04at 20:21; Start 03/04/18 at 16:15; Stop 03/04/18 at 16:35; Status DC Labetalol HCl (Normodyne Iv Push) 20 mg PRN Q2HR PRN IVP HYPERTENSION, SEE COMMENTS; Start 03/04/18 at 18:00 Lidocaine HCl (Glydo (Lidocaine) Jelly) 1 eleni 1X ONCE MM ; Start 03/04/18 at 18:15; Stop 03/04/18 at 18:16; Status DC Finasteride (Proscar) 5 mg DAILY PO Last administered on 03/12/18at 08:01; Start 03/05/18 at 09:00 Acetaminophen (Tylenol) 650 mg PRN Q6HRS PRN PO FEVER Last administered on 03/09at 20:06; Start 03/05/18 at 13:45 Ondansetron HCl (Zofran) 4 mg PRN Q6HRS PRN IV NAUSEA/VOMITING; Start at 13:45 Morphine Sulfate (Morphine Sulfate) 2 mg PRN Q2HR PRN IV MODERATE TO SEVERE PAIN Last administered on 03/10/18at 10:30; Start 03/05/18 at 13:45 Tramadol HCl (Ultram) 50 mg PRN Q6HRS PRN PO MILD TO MODERATE PAIN Last administered on 03/08/18at 16:14; Start 03/05/18 at 13:45 Docusate Sodium (Colace) 100 mg PRN DAILY PRN PO CONSTIPATION; Start 03/05/18 at 13:45 Propofol 20 ml @ As Directed STK-MED ONCE IV ; Start 03/06/18 at 09:24; Stop 03/06/18 at 09:25; Status DC Lidocaine HCl (Lidocaine Pf 2% Vial) 5 ml STK-MED ONCE .ROUTE ; Start 03/06/18 at 09:24; Stop 03/06/18 at 09:25; Status DC Fentanyl Citrate (Fentanyl 2ml Vial) 100 mcg STK-MED ONCE .ROUTE ; Start at 09:24; Stop 03/06/18 at 09:25; Status DC Potassium Chloride (Klor-Con) 40 meq 1X ONCE PO ; Start 03/06/18 at 10:00; Stop 03/06/18 at 10:01; Status DC Cefazolin Sodium/ Dextrose 50 ml @ 100 mls/hr 1X ONCE IV Last administered on 03/06/18at 10:31; Start 03/06/18 at 09:30; Stop 03/06/18 at 09:59; Status DC Rocuronium Gaffney (Zemuron) 50 mg STK-MED ONCE .ROUTE ; Start 03/06/18 at 09: 25; Stop 03/06/18 at 09:26; Status DC Ondansetron HCl (Zofran) 4 mg PRN Q6HRS PRN IV NAUSEA/VOMITING; Start at 10:00; Stop 03/07/18 at 09:59; Status DC Fentanyl Citrate (Fentanyl 2ml Vial) 25 mcg PRN Q5MIN PRN IV MILD PAIN Last administered on 03/06/18at 13:55; Start 03/06/18 at 10:00; Stop 03/07/18 at 09 :59; Status DC Fentanyl Citrate (Fentanyl 2ml Vial) 50 mcg PRN Q5MIN PRN IV MODERATE TO SEVERE PAIN Last administered on 03/06/18at 13:39; Start 03/06/18 at 10:00; Stop 03/07/18 at 09:59; Status DC Morphine Sulfate (Morphine Sulfate) 1 mg PRN Q10MIN PRN IV SEVERE PAIN; Start 03/06/18 at 10:00; Stop 03/07/18 at 09:59; Status DC Ringer's Solution 1,000 ml @ 30 mls/hr Q24H IV ; Start 03/06/18 at 09:50; Stop 03/06/18 at 21:49; Status DC Lidocaine HCl (Xylocaine-Mpf 1% 2ml Vial) 2 ml PRN 1X PRN ID PRIOR TO IV START ; Start 03/06/18 at 10:00; Stop 03/07/18 at 09:59; Status DC Hydromorphone HCl (Dilaudid) 0.5 mg PRN Q10MIN PRN IV SEV PAIN, Second choice; Start 03/06/18 at 10:00; Stop 03/07/18 at 09:59; Status DC Prochlorperazine Edisylate (Compazine) 5 mg PACU PRN PRN IV NAUSEA, MRX1; Start 03/06/18 at 10:00; Stop 03/07/18 at 09:59; Status DC Midazolam HCl (Versed) 2 mg STK-MED ONCE .ROUTE ; Start 03/06/18 at 10:05; Stop 03/06/18 at 10:06; Status DC Lidocaine HCl (Glydo (Lidocaine) Jelly) 6 eleni STK-MED ONCE .ROUTE ; Start 03/06 at 09:06; Stop 03/06/18 at 10:06; Status DC Propofol 20 ml @ As Directed STK-MED ONCE IV ; Start 03/06/18 at 10:37; Stop 03/06/18 at 10:38; Status DC Dexamethasone Sodium Phosphate (Decadron) 20 mg STK-MED ONCE .ROUTE ; Start at 11:29; Stop 03/06/18 at 11:30; Status DC Famotidine (Pepcid Vial) 20 mg STK-MED ONCE .ROUTE ; Start 03/06/18 at 11:30; Stop 03/06/18 at 11:31; Status DC Ondansetron HCl (Zofran) 4 mg STK-MED ONCE .ROUTE ; Start 03/06/18 at 11:30; Stop 03/06/18 at 11:31; Status DC Neostigmine Methylsulfate (Neostigmine Methylsulfate) 5 mg STK-MED ONCE .ROUTE ; Start 03/06/18 at 11:30; Stop 03/06/18 at 11:31; Status DC Glycopyrrolate (Robinul) 1 mg STK-MED ONCE .ROUTE ; Start 03/06/18 at 11:31; Stop 03/06/18 at 11:32; Status DC Belladonna Alkaloids/Opium (B & O) 1 supp 1X ONCE DC Last administered on at 12:50; Start 03/06/18 at 12:15; Stop 03/06/18 at 12:16; Status DC Hydralazine HCl (Apresoline Inj) 20 mg STK-MED ONCE .ROUTE ; Start 03/06/18 at 12:16; Stop 03/06/18 at 12:17; Status DC Fentanyl Citrate (Fentanyl 2ml Vial) 100 mcg STK-MED ONCE .ROUTE ; Start at 12:22; Stop 03/06/18 at 12:23; Status DC Sevoflurane (Ultane) 90 ml STK-MED ONCE IH ; Start 03/06/18 at 12:50; Stop at 12:51; Status DC Iohexol (Omnipaque 300 Mg/ml) 75 ml 1X ONCE IV Last administered on at 14:56; Start 03/06/18 at 14:45; Stop 03/06/18 at 14:46; Status DC Info (CONTRAST GIVEN -- Rx MONITORING) 1 each PRN DAILY PRN MC SEE COMMENTS; Start 03/06/18 at 14:45; Stop 03/08/18 at 14:44; Status DC Insulin Human Lispro (HumaLOG) 0-5 UNITS TIDWMEALS SQ ; Start 03/07/18 at 08:00 ; Stop 03/07/18 at 08:00; Status DC Dextrose (Dextrose 50%-Water Syringe) 12.5 gm PRN Q15MIN PRN IV SEE COMMENTS; Start 03/06/18 at 17:30 Insulin Human Lispro (HumaLOG) 0-5 UNITS TIDWMEALS SQ Last administered on 03/12at 17:11; Start 03/06/18 at 18:00 Ceftriaxone Sodium 50 ml @ 100 mls/hr 1X ONCE IV ; Start 03/07/18 at 10:00; Stop 03/07/18 at 10:29; Status UNV Ceftriaxone Sodium (Rocephin) 1 gm 1X ONCE IVP Last administered on at 10:26; Start 03/07/18 at 10:00; Stop 03/07/18 at 10:01; Status DC Sodium Chloride 1,000 ml @ 75 mls/hr [id number] IV Last administered on at 10:22; Start 03/07/18 at 10:00; Stop 03/12/18 at 15:40; Status DC Sodium Chloride 1,000 ml @ 1,000 mls/hr 1X ONCE IV Last administered on 03/07at 10:27; Start 03/07/18 at 10:00; Stop 03/07/18 at 10:59; Status DC Ceftriaxone Sodium 1 gm/ Dextrose 50 ml @ 100 mls/hr DAILY IV ; Start 03/08/18 at 09:00; Status UNV Ceftriaxone Sodium (Rocephin) 1 gm Q24H IVP Last administered on 03/09/18at 09: 21; Start 03/08/18 at 10:00; Stop 03/09/18 at 14:46; Status DC Potassium Chloride (Klor-Con) 40 meq 1X ONCE PO Last administered on at 12:32; Start 03/09/18 at 10:45; Stop 03/09/18 at 10:46; Status DC Cefpodoxime Proxetil (Vantin) 200 mg BID PO Last administered on 03/12/18at 20: 39; Start 03/10/18 at 09:00 Lidocaine HCl (Glydo (Lidocaine) Jelly) 1 eleni 1X ONCE MM ; Start 03/10/18 at 01 :30; Stop 03/10/18 at 01:31; Status DC Lidocaine HCl (Glydo (Lidocaine) Jelly) 1 eleni PRN 1X PRN MM PAIN Last administered on 03/10/18at 10:15; Start 03/10/18 at 03:00 Iron Sucrose 500 mg/Sodium Chloride 275 ml @ 78.571 mls/ hr 1X ONCE IV Last administered on 03/12/18at 10:22; Start 03/12/18 at 09:15; Stop 03/12/18 at 12:44 ; Status DC Active Scripts Active Flomax (Tamsulosin Hcl) 0.4 Mg Cap.er.24h 1 Cap PO DAILY 7 Days Cipro (Ciprofloxacin Hcl) 500 Mg Tablet 1 Tab PO BID 10 Days Flagyl (Metronidazole) 500 Mg Tablet 1 Tab PO TID Levaquin (Levofloxacin) 500 Mg Tablet 1 Tab PO DAILY Reported Metformin HCl 500 Mg/5 Ml Solution 500 Mg PO DAILY Vitals/I & O Vital Sign - Last 24 Hours 03/12/18 03/12/18 03/12/18 03/12/18 11:00 15:00 19:00 20:30 Temp 98.1 98.5 98.4 98.1 98.5 98.4 Pulse 74 80 72 Resp 16 16 16 B/P (MAP) 110/74 (86) 134/81 (98) 130/73 (92) Pulse Ox 96 99 97 O2 Delivery Room Air Room Air Room Air Room Air 03/12/18 03/13/18 03/13/18 23:00 03:00 07:15 Temp 99.3 98.8 98.4 99.3 98.8 98.4 Pulse 73 77 76 Resp 16 16 14 B/P (MAP) 110/60 (77) 124/76 (92) 95/55 (68) Pulse Ox 96 96 100 O2 Delivery Room Air Room Air Room Air Intake and Output 03/12/18 03/12/18 03/13/18 15:00 23:00 07:00 Intake Total 1034 ml Output Total 1000 ml 4150 ml 500 ml Balance -1000 ml -3116 ml -500 ml BERNABE AN MD Mar 13, 2018 09:06
[2018-03-13 12:00] VITALS: BP 126/71
--- NOTE | 2018-03-13 13:58 | PDOC3 ---
Discharge Summary [facility] Date of Admission: Mar 04, 2018 Discharge Date: Mar 13, 2018 Admitting Diagnosis Gross hematuria: Prostate Ca with bone mets Enlarged prostate- S/P TURP 03/06, path Prostatic adenocarcinoma, Bladder mass: 7 x 12 cm Back pain evidence of metastatic lesions on imaging Anemia: d/t hematuria urinary retention on glez now Final Diagnosis CONSULTS uro linda Brief Hospital Course Mr. Crowley is a 57 old M, from [place], illegeal staying in [facility], no insurance. came for gross hematuria wo dysuria. CT showed bladder mass, enlarged Prostate, and bone mets. did cystoscopy with uro, TURP, path + adenocarcinoma. bone scan and chest CT showed bone mets. Pt has urinary retention, has to keep glez for now. no hematuria anymore. feels comfortable. However, pt has no income or insurance, not willing to fu with onco here. I have been talking to his Gf 2-3 times. gf TOLD me they were trying to send him back to [place] but no plan in details since no money. i talked to Magdalena stahl SAL[employer] FLOOR TEAM MEMBER today, need to keep glez and try to remove after sat, can dc home with glez, fu with uro with 100$ cost next Monday to remove glez, gf refused saying no money. Uro is ok to keep glez, but need change it every month. i told gf in details , need fu with any clinic to remove it within a month, or go back to [place] within a month to change it. talked to sw too, free clinic info given. dc time 40min. General: Alert, Oriented X3, No acute distress Heart: Normal S1, Normal S2 Lungs: Clear Abdomen: Soft, No tenderness, No masses Extremities: No clubbing, No cyanosis, Normal pulses, No tenderness/swelling Skin: No rashes, No breakdown, No significant lesion Disposition home CONDITION AT DISCHARGE: Improved, Stable Scheduled Metformin HCl (Metformin HCl), 500 MG PO DAILY, (Reported) Discontinued Medications Ciprofloxacin Hcl (Cipro), 1 TAB PO BID Levofloxacin (Levaquin), 1 TAB PO DAILY Metronidazole (Flagyl), 1 TAB PO TID Tamsulosin Hcl (Flomax), 1 CAP PO DAILY LOLY IRVIN MD Mar 13, 2018 13:58
== END 2018-03-13 15:30 | disposition home or self-care (01) | DRG 713 ==
LOC: ER 11:16 → 4 NORTH 14:10
PROVIDERS: ADMIT Internal Medicine; ATTEND Internal Medicine
PROC: 0TCB8ZZ Extirpation of Matter from Bladder, Via Natural or Artificial Opening Endoscopic (ICD-10-PCS; 2018-03-06)
PROC: 0VB08ZZ Excision of Prostate, Via Natural or Artificial Opening Endoscopic (ICD-10-PCS; principal; 2018-03-06 09:30)
DX: N40.0 Benign prostatic hyperplasia without lower urinary tract symptoms (principal); C79.51 Secondary malignant neoplasm of bone; E87.1 Hypo-osmolality and hyponatremia; C61 Malignant neoplasm of prostate; E11.649 Type 2 diabetes mellitus with hypoglycemia without coma; D50.0 Iron deficiency anemia secondary to blood loss (chronic); Z90.79 Acquired absence of other genital organ(s)
CPT/HCPCS: 36415; 71260; 74177; 78306; 80048; 80053; 81001; 82607; 82728; 82962; 83540; 83550; 83605; 85007; 85014; 85018; 85025; 85610; 86850; 86900; 86901; 86920; 87040; 87086; 88305; 93005; 96374; A9503; G0103; J0360; J0690; J0696; J1100; J1756; J1815; J2001; J2250; J2270; J2405; J2704; J2710; J3010; J3490; J7030; J7050; J7120; P9016; Q0163; Q9967; 99285-25